=== PATIENT | female | born 1960 | race Caucasian/White ===

== ENCOUNTER 2016-08-20 21:44 | Inpatient (IN) | payer OTHER ==
[~2016-08-20] VITALS: Ht 162.6 cm; Wt 39.5 kg
[~2016-08-20 21:44] MED LIST: ALPR1TAB2 PO; CALC1TAB79 PO; CELE200C PO; CYAN100080 PO; GABA-526 PO; HYDR-902 PO; HYDR200T39 PO; LEVE500T8 PO; LEVO250T35 PO; LIPA1CAP2 PO; METR250T PO; PANT40TA3 PO; PRED10TA PO; TRAM-40 PO
[2016-08-21] MEDS ORDERED: morphine 4 MG/ML VIAL IV STA (00:14)
[2016-08-21] MEDS ORDERED: SOD CHLORIDE 0.9% 1,000 ML IV STA (00:14)
[2016-08-21] MEDS ORDERED: ONDANSETRON 4 MG INJ IV STA (00:14)
[2016-08-21 01:05] LABS: BASOPHIL # 0.2 10^3/ul (0.0-0.1); BASOPHILS % 1.5 % (0.0-2.0); EOSINOPHILS % 0.4 % (0.0-7.0); HEMATOCRIT 38.2 % (37.0-47.0); HEMOGLOBIN 12.7 g/dl (12.0-16.0); LYMPHOCYTES % 27.9 % (15.0-51.0); MEAN CORPUSCULAR HEMOGLOBIN 29.2 pg (29.0-33.0); MEAN CORPUSCULAR HGB CONC 33.2 g/dl (32.0-37.0); MEAN CORPUSCULAR VOLUME 87.9 fl (82.0-101.0); MEAN PLATELET VOLUME 9.7 fl (7.4-10.4); MONOCYTE # 0.8 10^3/ul (0.3-0.9); MONOCYTES % 7.3 % (0.0-11.0); NEUTROPHIL # 6.8 10^3/ul (1.6-7.5); NEUTROPHILS % 62.9 % (39.0-77.0); PLATELET COUNT 472 10^3/UL (140-440); RED BLOOD COUNT 4.35 10^6/ul (4.20-5.40); UNCORRECTED WBC 10.8 10^3/ul (4.8-10.8); WHITE BLOOD COUNT 10.8 10^3/ul (4.8-10.8)
[2016-08-21 01:16] LABS: INR 0.93; PROTIME 12.5 Sec (12.2-14.2)
[2016-08-21 01:17] LABS: PARTIAL THROMBOPLASTIN TIME 30.2 Sec (25.0-35.0)
[2016-08-21 01:20] LABS: CREATININE 0.66 mg/dl (0.44-1.00)
[2016-08-21 01:21] LABS: ALBUMIN/GLOBULIN RATIO 0.97; CALCIUM 9.9 mg/dl (8.4-10.2); TOTAL PROTEIN 8.1 g/dl (6.1-8.1)
--- NOTE | 2016-08-21 01:21 | RADRPT ---
PROCEDURE: CT Abdomen and pelvis without contrast. CLINICAL INDICATION: Abdominal pain. TECHNIQUE: CT scan of the abdomen and pelvis was performed on the [employer] 6 4 slice VCT scanner. Contiguous axial images using 2.5 mm slice thickness were obtained from the aye ng bases to the ischial tuberosities without intravenous contrast. Coronal and sagittal reformatted images were also obtained. Images were reviewed on the PACS workstation. One or more of the following dose reduction techniques were used: - Automated exposure control. - Adjustment of the mA and/or kV according to patient size. - Use of iterative reconstruction technique. Exam CTD/vol = 4.19 mGy. Total exam DLP = 218.79 mGy-cm. COMPARISON: Not available. FINDINGS: Evaluation of the lung bases demonstrates mild bibasilar atelectasis and centrolobular emphysema. Abdomen: The liver is normal in size. There is no focal mass or dilatation of the biliary tree. T he gallbladder is not distended. Multiple gallstones are identified. The patient is status post sple nectomy with small amount of stranding and fluid within the left upper abdomen measuring 2.8 x 1.8 c m. The pancreas and bilateral adrenal glands are within normal limits. Bilateral kidneys are satinder l in size with no contour deforming mass identified. There is a 2 x 1 mm calculus within the lower pole of the left kidney. There is no radiopaque ureteral calculus identified. There is no hydronep hrosis or hydroureter. There is no retroperitoneal adenopathy. The abdominal aorta is of normal ca liber with scattered atherosclerotic calcifications. There are small midline ventral abdominal wall hernias containing fat. There is moderate retained s tool within the colon. There are postsurgical changes with anastomotic sutures within the lower abd omen. There is an area of inflammation with mild fluid within the right lower quadrant with a few s cattered bubbles of free air. There is no bowel obstruction. The appendix is not visualized. Ther e is no diverticulosis or diverticulitis. There is a small loculated fluid collection within the ri ght pericolic gutter measuring 1.9 x 4.1 cm. Pelvis: The bladder is unremarkable. The uterus is absent. There is no significant pelvic adenopa thy or free fluid. Evaluation of the osseous structures demonstrates no suspicious lytic or blastic lesion. IMPRESSION: Postsurgical changes within all spinous sutures within the lower abdomen. There is stranding with s mall amount of fluid and air within the right lower quadrant suspicious for abscess and fistula form ation. There is no bowel obstruction. Status post splenectomy with small amount of stranding and fluid within the left upper abdomen. Small loculated fluid collection within the right pericolic gutter. Moderate retained stool within the colon. Mild bibasilar atelectasis and centrolobular emphysema. Cholelithiasis. Nonobstructing left renal calculus. Vascular calcification reflective of atherosclerosis. A call report was made to Dr. Kirkland at 01:20 a.m. .Saroj Nobles MD, MD Date Time Electronically viewed and signed by .Saroj Nobles MD, on 08/21/2016 01:21 .T/
[2016-08-21] MEDS ORDERED: PIPER-TAZO 3.375 GM IV (PMX) 100 ML IVPB STA (01:27)
[2016-08-21] MEDS ORDERED: VANCOMYCIN 1 GM (PMX) 250 ML IVPB STA (01:27)
[2016-08-21 01:29] LABS: ADD UMIC YES; URINE BILIRUBIN (Dip) NEGATIVE (NEGATIVE); URINE BLOOD (Dip) TRACE (NEGATIVE); URINE COLOR LT. YELLOW (YELLOW); URINE GLUCOSE (Dip) NEGATIVE (NEGATIVE); URINE KETONES (Dip) NEGATIVE (NEGATIVE); URINE LEUKOCYTE ESTERASE (Dip) 1+ (NEGATIVE); URINE NITRITE (Dip) NEGATIVE (NEGATIVE); URINE TOTAL PROTEIN (Dip) NEGATIVE (NEGATIVE); URINE UROBILINOGEN (Dip) 0.2 E.U./dL (0.1-1.0)
[2016-08-21 01:33] LABS: CONDITION 1; LH ANALYZER COMMENTS 1; SUSPECT 1
[2016-08-21 01:38] LABS: BACTERIA,URINE OCCASIONAL; MUCUS,URINE OCCASIONAL; SQUAMOUS EPITHELIAL CELL,UR FEW; TRANSITIONAL EPI CELLS,URINE OCCASIONAL; URINE RBCS 0-2 /HPF (0)
[2016-08-21 02:44] VITALS: TEMP 98.6
[2016-08-21 03:56] VITALS: Ht 162.6 cm; Wt 39.5 kg
[2016-08-21 04:36] VITALS: BP 109/60; PULSE 72; RESP 20
[2016-08-21] MEDS ORDERED: ZOLPIDEM 5 MG TAB PO PRN (05:30)
[2016-08-21] MEDS ORDERED: HYDROCODONE/APAP (10/325) TAB PO PRN (05:30)
[2016-08-21] MEDS ORDERED: ACETAMINOPHEN 325 MG TAB PO PRN (05:30)
[2016-08-21] MEDS ORDERED: DOCUSATE SODIUM 100 MG CAP PO PRN (05:30)
[2016-08-21] MEDS ORDERED: HYDROCODONE/APAP (5/325) TAB PO PRN (05:30)
[2016-08-21] MEDS ORDERED: morphine 2 MG INJ IV PRN ×2 (05:30→06:00)
[2016-08-21] MEDS ORDERED: NACL 0.9% 3 ML SYG IV SCH (05:30)
[2016-08-21] MEDS ORDERED: ONDANSETRON 4 MG INJ IV PRN (05:30)
[2016-08-21] MEDS ORDERED: traMADol 50 MG TAB PO PRN (05:30)
[2016-08-21] MEDS ORDERED: VANCOMYCIN IV PER PHARMACY XX SCH (05:30)
[2016-08-21] MEDS: PANTOPRAZOLE (EC) 40 MG TAB PO SCH (06:18)
[2016-08-21 08:25] VITALS: BP 103/55; RESP 18
[2016-08-21] MEDS: predniSONE 10 MG TAB PO SCH (08:37)
[2016-08-21] MEDS: CYANOCOBALAMIN 500 MCG TAB PO SCH (08:37)
[2016-08-21] MEDS: HYDROXYCHLOROQUINE 200 MG TAB PO SCH ×2 (08:37→21:19)
[2016-08-21] MEDS: ALPRAZOLAM 1 MG TAB PO SCH ×3 (08:37→21:00)
[2016-08-21] MEDS: LEVETIRACETAM 500 MG TAB PO SCH ×2 (08:37→21:19)
[2016-08-21] MEDS ORDERED: NON-FORMULARY/PATIENT OWN MED (Lipase-Protease-Amylase* (Creon DR* 6,000) 1 CAP) XX SCH (09:00)
--- NOTE | 2016-08-21 10:57 | HP ---
DATE OF ADMISSION: 08/21/2016 TIME: 7:45 a.m. CHIEF COMPLAINT: Postop wound infection. HISTORY OF PRESENT ILLNESS: The patient is a 56-year-old female with a history of splenomegaly, sma ll-bowel obstruction with adhesions. The patient is status post surgery with Dr. Mcmahan on 2015 where he had a laparotomy with anterior lysis, small bowel resection and anastomosis, right florencio pingo-oophorectomy, ureteral dissection with repositioning and splenectomy. The patient has no othe r medical history. Patient presents because of concerns of a postoperative infection. She states t hat her wound has increasing amounts of pus and she noted drainage from her vagina and for that reas on she presented to the hospital. She has no other complaints at this time. PAST MEDICAL HISTORY: As per HPI. HOME MEDICATIONS: 1. Calcium. 2. Levaquin. 3. Flagyl. 4. Xanax. 5. Celebrex. 6. Vitamin B. 7. Gabapentin. 8. [place]. 9. Hydrochloroquine. 10. Keppra. 11. Lipase. 12. Protonix. 13. Prednisone. 14. Tramadol. ALLERGIES: 1. CODEINE. 2. LEVOFLOXACIN. 3. LORAZEPAM. FAMILY HISTORY: Denies. SOCIAL HISTORY: Denies any alcohol or drug abuse, she smokes a cigarettes a day. REVIEW OF SYSTEMS: A 12 point review of systems negative except for that discussed in HPI. PHYSICAL EXAMINATION: VITAL SIGNS: Temperature is 98.3, pulse 72, respiratory rate 20, blood pressure 109/60, saturation 93% on room air. GENERAL: No acute distress, alert and oriented. HEENT: Normocephalic, atraumatic. LUNGS: Clear to auscultation. CARDIOVASCULAR: Regular rate and rhythm. ABDOMEN: Nondistended, nontender, soft. Wound is noted. No significant erythema around the wound i s noted. There is some mild redness around the wound. EXTREMITIES: No clubbing, cyanosis, or edema. LABORATORIES: White count 7.8, hemoglobin 12.7, platelets are 472. Chemistry: Sodium is 142, potas sium is 4.0, anion gap is 20. INR is 0.93. Urine is 1+ leukocyte esterase, WBCs 10 to 25. DIAGNOSTICS: Abdominal and pelvis CT shows post-surgical changes, sutures within the lower ab domen. There is a small amount of fluid and air within the right lower quadrant suspicious for absc ess and fistula formation. There is no bowel obstruction, status post splenectomy and fluid wi thin the left upper abdomen. There is small loculated fluid collection within the right pericolic g utter, moderate retained stool within the colon, mild residual atelectasis and centrilobular emphyse ma, nonobstructing left renal calculus with vascular calcification reflective of atherosclerosis. ASSESSMENT AND PLAN: 1. Postsurgical wound with possible fistula formation as well as abscess formation. The patient do es state that there is a drainage coming from her vagina. Will consult Dr. Mcmahan who is the patie nt's surgeon. Will treat with vancomycin and Zosyn for possible post-surgical urinary infection and abscess. 2. Urinary tract infection, would super cover with Zosyn IV. 3. Prophylaxis: SCDs. Dictated By: AMANDA CHONG MD BS/NTS Conf#: [id number] DID#: [id number]
[2016-08-21] MEDS: CELECOXIB 200 MG CAP PO SCH ×2 (12:12→21:19)
[2016-08-21] MEDS: PIPER-TAZO 3.375 GM IV (PMX) 100 ML IVPB SCH ×2 (12:12→18:04)
[2016-08-21] MEDS: CREON (24K-76K-120K) 1 CAP PO SCH ×3 (13:36→21:19)
[2016-08-21] MEDS: DEXTROSE 5%-0.45% NACL 1,000 ML IV SCH (14:26)
--- NOTE | 2016-08-21 15:08 | EN ---
Date/Time of Note Date/Time of Note DATE: 08/21/16 TIME: 15:05 Event Note Medicine Medicine Event Note Patient admitted to 6 W. Awake alert oriented Requesting something to eat, vital signs remained stable Purulent drainage noted from abdominal wound Vital signs stable GENERAL: Thin cachectic lady comfortable at rest VITAL SIGNS: per chart NECK: Supple. No JVD or lymphadenopathy. CARDIAC EXAM: S1, S2. No added sounds or murmurs. CHEST: clear bilaterally, No added sounds, rales or wheezes ABDOMEN: Soft, nontender. Mid abdominal incision with open drainage below umbilicus EXTREMITIES: No cyanosis, clubbing or edema. NEUROLOGIC: Generalized weakness. No focal deficits. CT abdomen and pelvis IMPRESSION: Postsurgical changes within all spinous sutures within the lower abdomen. There is stranding with small amount of fluid and air within the right lower quadrant suspicious for abscess and fistula formation. There is no bowel obstruction. Status post splenectomy with small amount of stranding and fluid within the left upper abdomen. Small loculated fluid collection within the right pericolic gutter. Moderate retained stool within the colon. Mild bibasilar atelectasis and centrolobular emphysema. Cholelithiasis. Nonobstructing left renal calculus. Vascular calcification reflective of atherosclerosis. Assessment 1. Extensive abdominal resection for pelvic malignancy 2. Abdominal wound and no evidence of abscess with infection and possible fistula 3. Cachexia 4. History of emphysema Plan 1. Continue empiric antibiotics Wound has been swabbed 2. 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 Advance diet 4. DVT and GI prophylaxis SRINIVAS CORTEZ MD, [facility] Aug 21, 2016 15:08
[2016-08-21] MEDS: VANCOMYCIN 500MG/NS (PMX) 100 ML IVPB SCH (16:54)
[2016-08-21] MEDS: ENOXAPARIN 40 MG/0.4 ML SYG SC SCH (17:10)
[2016-08-21 19:22] VITALS: BP 96/51; RESP 16
[2016-08-21] MEDS ORDERED: GABAPENTIN 300 MG CAP PO SCH (21:00)
[2016-08-22] MEDS: PIPER-TAZO 3.375 GM IV (PMX) 100 ML IVPB SCH ×2 (00:32→05:31)
[2016-08-22 00:36] VITALS: BP 94/53; PULSE 73
[2016-08-22] MEDS ORDERED: VANCOMYCIN 750 MG in SOD CHLORIDE 0.9% 150 ML IVPB SCH (03:00)
[2016-08-22] MEDS: DEXTROSE 5%-0.45% NACL 1,000 ML IV SCH ×2 (03:50→05:33)
[2016-08-22] MEDS: VANCOMYCIN 500MG/NS (PMX) 100 ML IVPB SCH (04:11)
[2016-08-22] MEDS: PANTOPRAZOLE (EC) 40 MG TAB PO SCH (05:31)
[2016-08-22 05:48] LABS: BASOPHIL # 0.2 10^3/ul (0.0-0.1); BASOPHILS % 2.1 % (0.0-2.0); EOSINOPHILS % 0.2 % (0.0-7.0); HEMATOCRIT 31.1 % (37.0-47.0); HEMOGLOBIN 10.3 g/dl (12.0-16.0); LYMPHOCYTES # 2.3 10^3/ul (0.8-2.9); LYMPHOCYTES % 25.7 % (15.0-51.0); MEAN CORPUSCULAR HEMOGLOBIN 29.6 pg (29.0-33.0); MEAN CORPUSCULAR HGB CONC 33.1 g/dl (32.0-37.0); MEAN CORPUSCULAR VOLUME 89.6 fl (82.0-101.0); MEAN PLATELET VOLUME 9.1 fl (7.4-10.4); MONOCYTE # 0.7 10^3/ul (0.3-0.9); MONOCYTES % 8.3 % (0.0-11.0); NEUTROPHIL # 5.7 10^3/ul (1.6-7.5); NEUTROPHILS % 63.7 % (39.0-77.0); PLATELET COUNT 447 10^3/UL (140-440); RED BLOOD COUNT 3.47 10^6/ul (4.20-5.40); RED CELL DISTRIBUTION WIDTH 14.9 % (11.5-14.5); UNCORRECTED WBC 8.9 10^3/ul (4.8-10.8); WHITE BLOOD COUNT 8.9 10^3/ul (4.8-10.8)
[2016-08-22 05:52] LABS: POTASSIUM 3.4 mmol/L (3.5-5.1)
[2016-08-22 05:54] LABS: CREATININE 0.7 mg/dl (0.44-1.00)
[2016-08-22 05:55] LABS: CALCIUM 8.5 mg/dl (8.4-10.2); PHOSPHORUS 3.5 mg/dl (2.5-4.9)
[2016-08-22 05:56] LABS: MAGNESIUM 1.8 mg/dl (1.7-2.5)
[2016-08-22 06:30] LABS: CONDITION 1; LH ANALYZER COMMENTS 1; NUCLEATED RED BLOOD CELLS # 0.2 10^3/ul (0.0-0.0)
[2016-08-22] MEDS: CREON (24K-76K-120K) 1 CAP PO SCH (08:59)
[2016-08-22] MEDS: CYANOCOBALAMIN 500 MCG TAB PO SCH (08:59)
[2016-08-22] MEDS ORDERED: INFLUENZA VIRUS VACCINE 0.5 ML (DISPENSING) IM* ONE (09:00)
[2016-08-22] MEDS: predniSONE 10 MG TAB PO SCH (09:00)
[2016-08-22] MEDS: ALPRAZOLAM 1 MG TAB PO SCH (09:00)
[2016-08-22] MEDS: HYDROXYCHLOROQUINE 200 MG TAB PO SCH (09:00)
[2016-08-22] MEDS: LEVETIRACETAM 500 MG TAB PO SCH (09:01)
[2016-08-22] MEDS: CELECOXIB 200 MG CAP PO SCH (09:01)
[2016-08-22] MEDS: ENOXAPARIN 40 MG/0.4 ML SYG SC SCH (09:02)
[2016-08-22] MEDS ORDERED: POTASSIUM CHLORIDE (SR) 20 MEQ TAB PO STA (11:52)
--- NOTE | 2016-08-22 12:17 | DS ---
Date/Time of Note Date/Time of Note DATE: 08/22/16 TIME: 12:00 Discharge Summary Admission/Discharge Info Admit Date/Time Aug 21, 2016 at 01:55 Discharge Date/Time Final Diagnosis 1. Postsurgical wound with possible fistula formation as well as abscess formation, stable, follow up with Dr. Mcmahan 2. Urinary tract infection, on bactrim 3. Mild normocytic anemia, follow up with PCP 4. Hypokalemia, KCl given Patient Condition: Stable Hx of Present Illness he patient is a 56-year-old female with a history of splenomegaly, small-bowel obstruction with adhesions. The patient is status post surgery with Dr. Mcmahan on 07/20/2016 where he had a laparotomy with anterior lysis, small bowel resection and anastomosis, right salpingo-oophorectomy, ureteral dissection with repositioning and splenectomy. The patient has no other medical history. Patient presents because of concerns of a postoperative infection. She states that her wound has increasing amounts of pus and she noted drainage from her vagina and for that reason she presented to the hospital. She has no other complaints at this time. Hospital Course Patient got iv antibiotics with zosyn and vancomycin. She is afebrile, no leukocytopenia. Patient is seen by Dr. Mcmahan who told patient infection is getting better, take oral antibiotics with Bactrim and see him in office. Home Meds Active Scripts Metronidazole* (Flagyl*) 250 Mg Tablet, 250 MG PO Q6, #28 TAB Prov:QASIM SHEEHAN 07/31/16 Levofloxacin* (Levaquin*) 250 Mg Tablet, 500 MG PO DAILY@06 for 7 Days, TAB Prov:QASIM SHEEHAN 07/31/16 Reported Medications Calcium Carbonate/Vitamin D3 ([place] 500+D Tablet) 1 Each Tablet, 1 EACH PO BID, TAB 07/20/16 Cyanocobalamin* (Vitamin B-12*) 1,000 Mcg Tablet.sa, 1000 MCG PO DAILY, TAB 07/20/16 Celecoxib* (Celebrex*) 200 Mg Capsule, 200 MG PO BID, CAP 07/20/16 Levetiracetam* (Levetiracetam*) 500 Mg Tablet, 500 MG PO BID, TAB 07/20/16 Hydrocodone/Acetaminophen ([place] 10-325 Tablet) 1 Each Tablet, 1 EACH PO QID Y for PAIN, TAB 07/20/16 Pantoprazole* (Protonix*) 40 Mg Tablet.dr, 40 MG PO DAILY, TAB 07/20/16 Gabapentin* (Gabapentin*) 600 Mg Tablet, 1200 MG PO QHS, #60 TAB 07/20/16 Prednisone (Prednisone) 10 Mg Tab, 10 MG PO DAILY, TAB 06/23/16 Ostmoq-Ufrggbsm-Krfjzvp* (Kael MCGINNIS* 6,000) 6,000 L-19,000-30,000 Unit Capsule.dr , 1 CAP PO QID, CAP 06/23/16 Hydroxychloroquine Sulfate* (Hydroxychloroquine Sulfate*) 200 Mg Tablet, 200 MG PO BID, TAB 05/17/16 Tramadol Hcl* (Ultram*) 50 Mg Tablet, 50 MG PO Q6H Y for PAIN, TAB 05/17/16 Alprazolam* (Xanax*) 1 Mg Tab, 1 MG PO TID 06/26/12 Pending Labs Laboratory Tests Test 08/22/16 05:09 Anion Gap 11 (8-16) Basophils # 0.210^3/ul (0.0-0.1) Basophils % 2.1% (0.0-2.0) Blood Morphology Comment Blood Urea Nitrogen 9mg/dl (7-20) Calcium Level 8.5mg/dl (8.4-10.2) Carbon Dioxide Level 25mmol/L (21-31) Chloride Level 108mmol/L (97-110) Creatinine 0.70mg/dl (0.44-1.00) Differential Comment AUTO w/SCAN Eosinophils # 0.010^3/ul (0.0-0.5) Eosinophils % 0.2% (0.0-7.0) Glucose Level 100mg/dl (70-220) Hematocrit 31.1% (37.0-47.0) Hemoglobin 10.3g/dl (12.0-16.0) Lymphocytes # 2.310^3/ul (0.8-2.9) Lymphocytes % 25.7% (15.0-51.0) Magnesium Level 1.8mg/dl (1.7-2.5) Mean Corpuscular Hemoglobin 29.6pg (29.0-33.0) Mean Corpuscular Hemoglobin Concent 33.1g/dl (32.0-37.0) Mean Corpuscular Volume 89.6fl (82.0-101.0) Mean Platelet Volume 9.1fl (7.4-10.4) Monocytes # 0.710^3/ul (0.3-0.9) Monocytes % 8.3% (0.0-11.0) Neutrophils # 5.710^3/ul (1.6-7.5) Neutrophils % 63.7% (39.0-77.0) Nucleated Red Blood Cells # 0.210^3/ul (0.0-0.0) Nucleated Red Blood Cells % 0.0/100WBC (0.0-0.0) Phosphorus Level 3.5mg/dl (2.5-4.9) Platelet Count 26221^3/UL (140-440) Potassium Level 3.4mmol/L (3.5-5.1) Red Blood Count 3.4710^6/ul (4.20-5.40) Red Cell Distribution Width 14.9% (11.5-14.5) Sodium Level 141mmol/L (135-144) White Blood Count 8.910^3/ul (4.8-10.8) ABY VAZQUEZ MD Aug 22, 2016 12:16
[2016-08-22] MEDS ORDERED: BACTDS PO (12:18)
== END 2016-08-22 13:10 | disposition home or self-care (01) | DRG 863 ==
LOC: E/R 21:44 → PP2 08-21 01:55 → MS2 08-21 04:14
PROVIDERS: ADMIT Internal Medicine; ATTEND Internal Medicine
DX: T81.4XXA Infection following a procedure, initial encounter (principal); N39.0 Urinary tract infection, site not specified; B99.8 Other infectious disease; D64.9 Anemia, unspecified; E87.6 Hypokalemia
CPT/HCPCS: 74176; 80048; 80053; 81001; 81003; 83690; 83735; 84100; 85025; 85610; 85730; 87040; 87070; 87081; 87086; 90686; J1650; J2270; J2405; J2543; J3370; J7030; J7042; J7512

== ENCOUNTER 2016-09-07 06:37 | Inpatient (IN) | payer OTHER ==
[~2016-09-07] VITALS: Ht 162.6 cm; Wt 40.0 kg
[~2016-09-07 06:37] MED LIST changes: +BACTDS PO; -LEVO250T35 PO; -METR250T PO
[2016-09-07] MEDS ORDERED: ONDANSETRON 4 MG INJ IV STA ×2 (07:12→10:59)
[2016-09-07] MEDS ORDERED: SOD CHLORIDE 0.9% 1,000 ML IV STA (07:12)
[2016-09-07] MEDS ORDERED: morphine 4 MG/ML VIAL IV STA (07:12)
--- NOTE | 2016-09-07 07:26 | ERA ---
ER Documentation Chief Complaint Date/Time DATE: 09/07/16 TIME: 07:19 Chief Complaint upper incision infection for the past 4 days. no fevers HPI This is a 56-year-old female that presents the emergency department complaining of abdominal pain. The patient underwent surgery on July 20, 2016, 1 month and 18 days ago, which included right ovarian resection, ventral hernia repair, lysis of adhesions with a splenectomy performed by Dr. Maxi Mcmahan [facility]. The patient indicates that she was discharged from the hospital on July 31 and several days later had been placed on 10 days of Bactrim. She had a postoperative follow-up and Dr. Lulu Olson's office 48 hours ago. She said at that time she had minimal purulent drainage from her surgical incision site. This was cleaned out at the time by Dr. Rueda and ellis. The patient presents to the emergency department this morning as she indicates she has had worsening of her abdominal pain which she states is a diffuse abdominal pain most prominent around the upper surgical incision site, with foul -smelling purulent drainage. Yesterday evening she had an episode of fever shaking or chills and has been taking hydrocodone for analgesic control which improves the pain but does not completely resolve the pain. She states the abdominal discomfort is 8 out of 10 in intensity. She is no shortness of breath at rest or exertion. She is felt nauseous but has not experienced any hemoptysis hematemesis or melanotic stools. The patient also has a history of leukopenia secondary to lupus. She has a history of hepatitis C seizures and COPD. She denies any difficulty breathing at this time. She has no chest pain or pressure that radiates to the neck or back or jaw ROS All systems reviewed and are negative except as per history of present illness. Medications Home Meds Reported Medications Thiamine* (Vitamin B-1*) 100 Mg Tablet, 100 MG PO DAILY, TAB 09/07/16 Calcium Carbonate/Vitamin D3 (Oysco 500+D Tablet) 1 Each Tablet, 1 EACH PO BID, TAB 07/20/16 Cyanocobalamin* (Vitamin B-12*) 1,000 Mcg Tablet.sa, 1000 MCG PO DAILY, TAB 07/20/16 Celecoxib* (Celebrex*) 200 Mg Capsule, 200 MG PO BID, CAP 07/20/16 Levetiracetam* (Levetiracetam*) 500 Mg Tablet, 500 MG PO BID, TAB 07/20/16 Hydrocodone/Acetaminophen (Ralph 10-325 Tablet) 1 Each Tablet, 1 EACH PO QID Y for PAIN, TAB 07/20/16 Pantoprazole* (Protonix*) 40 Mg Tablet.dr, 40 MG PO DAILY, TAB 07/20/16 Gabapentin* (Gabapentin*) 600 Mg Tablet, 1200 MG PO QHS, #60 TAB 07/20/16 Prednisone (Prednisone) 10 Mg Tab, 10 MG PO DAILY, TAB 06/23/16 Vmnfim-Xtxjwwtt-Gewyenl* (Creon * 6,000) 6,000 L-19,000-30,000 Unit Capsule.dr , 1 CAP PO QID, CAP 06/23/16 Hydroxychloroquine Sulfate* (Hydroxychloroquine Sulfate*) 200 Mg Tablet, 200 MG PO BID, TAB 05/17/16 Tramadol Hcl* (Ultram*) 50 Mg Tablet, 50 MG PO Q6H Y for PAIN, TAB 05/17/16 Alprazolam* (Xanax*) 1 Mg Tab, 1 MG PO TID 06/26/12 Discontinued Scripts Sulfamethoxazole-Trimethoprim* (Bactrim* DS) 800-160 Mg Tab, 1 TAB PO BID, #20 TAB Prov:ABY VAZQUEZ MD 08/22/16 Allergies Allergies: Coded Allergies: levofloxacin (Verified Allergy, Unknown, 09/07/16) lorazepam (Verified Adverse Reaction, Severe, agitation, 09/07/16) pt became agitated when received Ativan codeine (Verified Adverse Reaction, Mild, STOMACH UPSET/NAUSEA, 09/07/16) PMhx/Soc History of Surgery: Yes (ABDOMINAL SURGERY,HYSTERECTOMY, APPENDECTOMY, SPLENECTOMY) Anesthesia Reaction: No Hx Neurological Disorder: Yes (SEIZURES) Hx Respiratory Disorders: Yes (CURRENT SMOKER, COPD) Hx Cardiac Disorders: No Hx Psychiatric Problems: No Hx Miscellaneous Medical Probl: No Hx Alcohol Use: No Hx Substance Use: No Hx Tobacco Use: Yes Physical Exam Vitals Vital Signs Date Time Temp Pulse Resp B/P Pulse Ox O2 Delivery O2 Flow Rate FiO2 09/07/16 06:51 98.1 115 20 134/72 95 Physical Exam Constitutional:Well-developed. Well-nourished. HEENT:Normocephalic. Atraumatic.Pupils were equal round reactive to light. Moist mucous membranes.No tonsillar exudates. Neck: No nuchal rigidity. No lymphadenopathy. No posterior cervical spine tenderness or step-offs. Respiratory: Not using accessory muscles of respiration.Lungs were clear to auscultation bilaterally. No rhonchi. No rales. No wheezing. Cardiovascular: Regular rate regular rhythm.No murmurs. No rubs were appreciated.S1, S2 normal. Distal pulses are palpable 2+ bilaterally. GI: Abdomen was soft. Mild tenderness surrounding upper surgical incision site with surrounding skin that was clean dry and intact, above the umbilicus with a 1 cm circumferential incision that was packed with gauze that had been covered and a foul-smelling purulent drainage. Distal surgical incision site beneath the umbilicus was clean dry and intact and wound was closed with no dehiscence. Non Distended. No pulsatile abdominal masses or bruits. No rebound. No guarding. Bowel sounds were present and normal. Muscle skeletal: Full range of motion of both the upper and lower extremities bilaterally.Normal muscle tone.No assymetrical calf tenderness or swelling. Skin: No petechia, no purpura. No lesions on the palms or the soles of the feet. No maculopapular rash. NEURO: Patient was alert, awake, orientated x3.No facial droop. Gait observed and normal with no ataxia.Speech had regular rate and rhythm. No focal neurological deficits. Result Diagram: 09/07/16 0725 09/07/16 0725 Results 24 hrs Laboratory Tests Test 09/07/16 07:20 09/07/16 07:25 09/07/16 08:45 Lactic Acid Level 2.4mmol/L Activated Partial Thromboplast Time 29.5Sec Alanine Aminotransferase (ALT/SGPT) 12IU/L Albumin 3.4g/dl Albumin/Globulin Ratio 0.87 Alkaline Phosphatase 83IU/L Amylase Level 77U/L Anion Gap 15 Aspartate Amino Transf (AST/SGOT) 14IU/L Basophils # 0.110^3/ul Basophils % 0.5% Blood Morphology Comment Blood Urea Nitrogen 23mg/dl Calcium Level 9.1mg/dl Carbon Dioxide Level 27mmol/L Chloride Level 102mmol/L Creatinine 0.63mg/dl Direct Bilirubin 0.00mg/dl Eosinophils # 0.010^3/ul Eosinophils % 0.1% Globulin 3.90g/dl Glucose Level 99mg/dl Hematocrit 35.3% Hemoglobin 11.6g/dl INR International Normalized Ratio 1.00 Indirect Bilirubin 0.0mg/dl Lipase 320U/L Lymphocytes # 2.310^3/ul Lymphocytes % 13.2% Mean Corpuscular Hemoglobin 28.8pg Mean Corpuscular Hemoglobin Concent 32.9g/dl Mean Corpuscular Volume 87.5fl Mean Platelet Volume 9.5fl Monocytes # 1.110^3/ul Monocytes % 6.1% Neutrophils # 13.910^3/ul Neutrophils % 80.1% Nucleated Red Blood Cells # 0.010^3/ul Nucleated Red Blood Cells % 0.0/100WBC Platelet Count 11619^3/UL Potassium Level 3.6mmol/L Prothrombin Time 13.2Sec Prothrombin Time Ratio 1.0 Red Blood Count 4.0310^6/ul Red Cell Distribution Width 14.1% Sodium Level 140mmol/L Total Bilirubin 0.0mg/dl Total Protein 7.3g/dl Troponin I < 0.012ng/ml White Blood Count 17.410^3/ul Urine Bacteria FEW Urine Bilirubin NEGATIVE Urine Calcium Oxalate Crystals FEW Urine Clarity CLEAR Urine Color LT. YELLOW Urine Epithelial Cells FEW Urine Glucose NEGATIVE% Urine Hemoglobin NEGATIVE Urine Ketones NEGATIVE Urine Leukocyte Esterase NEGATIVE Urine Microscopic RBC NONE SEEN/HPF Urine Microscopic WBC 10-25/HPF Urine Nitrite NEGATIVE Urine Specific [place] 1.020 Urine Total Protein TRACE Urine Urobilinogen 0.2 E.U./dL Urine pH 6.0 Current Medications Medications (Trade) Dose Ordered Sig/Esteban Route PRN Reason Start Time Stop Time Status Last Admin Dose Admin Sodium Chloride (NS) 1,000 ml @ 1,000 mls/hr Q1H STAT IV 09/07/16 07:12 09/07/16 08:11 DC 09/07/16 07:47 Morphine Sulfate (morphine) 4 mg ONCE STAT IV 09/07/16 07:12 09/07/16 07:15 DC 09/07/16 07:47 Ondansetron HCl (Zofran Inj) 4 mg ONCE STAT IV 09/07/16 07:12 09/07/16 07:15 DC 09/07/16 07:47 IV Flush 10 ml 10 ml STK-MED ONCE .ROUTE 09/07/16 08:09 09/07/16 08:10 DC 09/07/16 08:29 Sodium Chloride (NS) 100 ml @ ud STK-MED ONCE .ROUTE 09/07/16 08:09 09/07/16 08:10 DC 09/07/16 08:29 Iohexol (Omnipaque 300mg/ ml) 150 ml STK-MED ONCE .ROUTE 09/07/16 08:09 09/07/16 08:10 DC 09/07/16 08:30 Sodium Chloride 1240 ml 1,240 ml BOLUS OVER 2 HOURS STAT IV* 09/07/16 09:23 09/07/16 09:24 DC Vancomycin HCl 250 ml @ 125 mls/hr ONCE STAT IVPB 09/07/16 09:23 09/07/16 11:22 Clindamycin HCl/ Dextrose 50 ml @ 50 mls/hr ONCE STAT IVPB 09/07/16 09:23 09/07/16 10:22 DC 09/07/16 10:17 Piperacillin Sod/ Tazobactam Sod (Zosyn 3.375gm/ 100 ml (Pmx)) 100 ml @ 100 mls/hr ONCE STAT IVPB 09/07/16 09:23 09/07/16 10:22 DC Procedures/MDM This patient presented to the emergency department with abdominal pain status post intra-abdominal splenectomy, ventral hernia repair and right nephrectomy and was seen and evaluated by myself. My differential diagnosis included but was not limited to abdominal aortic aneurysm, appendicitis, pancreatitis, perforated peptic ulcer, perforated viscus, Boerhaaves syndrome or visceral pain such as diverticulitis, DKA, esophagitis, hepatitis or bowel obstruction. The patient was placed on a animal daycare provider, continuous pulse oximetry, and IV access was established by nursing staff. Patient received intravenous morphine Zofran for analgesic control. I did obtain a wound culture as well as blood cultures and urine culture and the patient was started on broad-spectrum antibiotics that she did meet sepsis criteria for suspected cellulitis. The patient had no physical exam findings at this time to suggest necrotizing fasciitis or abdominal compartment syndrome. The patient was started on clindamycin, Zosyn and vancomycin. 12 Lead EKG tracing ordered and reviewed by myself showed: Normal sinus rhythm of 89 bpm and no arrhythmia. MD interval normal. QRS duration normal. No ST segment elevation No ST segment depression. No changes consistent with acute ischemia. Patient's infectious symptoms have not stabilized and the patient is at risk of rapid decompensation. The patient will be admitted for careful hydration, antibiotic therapy, and infectious source control. Severe Sepsis Assessment: Infectious Source: Postoperative abdominal cellulitis End organ damage indicated by: Lactate > 2.0 mmol/L Severe Sepsis Managment: Blood Cultures X 2 before broad spectrum antibiotics initiated within 3 hours of recognition. 30 ml/kg NS bolus Completed Initial Lactate: 2.4 Repeat Lactate pending I considered further perfusion assessment with CVP measurement, SCVO2, bedside ultrasound volume assessment, passive leg raise, trial of further fluid bolus. And preceded with IV fluids Critical Care: Time: 45 minutes Treatments/Evaluations: Close monitoring and treatment of unstable vital signs, cardiorespiratory, and neurologic status, while maintaining tight balance of fluid, respiratory, and cardiac interventions. I obtained a CT scan due to the severity of the patient's pain, leukocytosis and concern for possible postoperative infection. CT scan findings were reviewed by the radiologist as well as myself and indicated the followin. 4.8 x 3.4 of 0.7 cm gas containing collection surrounded by unopacified small bowel and colon adjacent to surgical anastomotic margin. Differential diagnostic considerations include abscess, contained perforation, or colo- enteric fistula. No bowel obstruction. Oral contrast may be considered for further characterization of surrounding bowel and possible fistulous connection. 2. 1.9 x 4.1 cm right para colic gutter gas containing fluid collection most compatible with small abscess and change compared to previous study. 3. Wall thickening Cholelithiasis with. Trace pericholecystic fluid. Mild intrahepatic biliary ductal dilatation. Correlate clinically for acute appendicitis. 4. Chronic findings as described above. My clinical suspicion was low for acute appendicitis as the patient did not have any pain localized to the right lower quadrant. I have placed a call to Dr. Mcmahan and spoke with him at 10:40 AM. He kindly stated he will be consulted on the case. The patient had received broad-spectrum antibiotics to treat her sepsis as well as a 30 cc/kg bolus of normal saline. She will be admitted in serious condition to the hospitalist Dr. Zuñiga with an anticipated stay of greater than 2 midnights. Departure Diagnosis: Primary Impression: Post-op pain Additional Impression: Sepsis Qualified Code: A41.9 - Sepsis, due to unspecified organism Condition: Serious HENRYTHEAA Sep 07, 2016 07:26
[2016-09-07] MEDS ORDERED: THIA100T56 PO (07:51)
[2016-09-07 07:58] LABS: ALBUMIN 3.4 g/dl (3.3-4.9); CHLORIDE 102 mmol/L (97-110)
[2016-09-07 07:59] LABS: POTASSIUM 3.6 mmol/L (3.5-5.1); SODIUM 140 mmol/L (135-144)
[2016-09-07 08:00] LABS: BASOPHIL # 0.1 10^3/ul (0.0-0.1); BASOPHILS % 0.5 % (0.0-2.0); EOSINOPHILS % 0.1 % (0.0-7.0); HEMATOCRIT 35.3 % (37.0-47.0); HEMOGLOBIN 11.6 g/dl (12.0-16.0); LYMPHOCYTES # 2.3 10^3/ul (0.8-2.9); LYMPHOCYTES % 13.2 % (15.0-51.0); MEAN CORPUSCULAR HEMOGLOBIN 28.8 pg (29.0-33.0); MEAN CORPUSCULAR HGB CONC 32.9 g/dl (32.0-37.0); MEAN CORPUSCULAR VOLUME 87.5 fl (82.0-101.0); MEAN PLATELET VOLUME 9.5 fl (7.4-10.4); MONOCYTE # 1.1 10^3/ul (0.3-0.9); MONOCYTES % 6.1 % (0.0-11.0); NEUTROPHIL # 13.9 10^3/ul (1.6-7.5); NEUTROPHILS % 80.1 % (39.0-77.0); PLATELET COUNT 443 10^3/UL (140-440); PROTIME 13.2 Sec (12.2-14.2); RED BLOOD COUNT 4.03 10^6/ul (4.20-5.40); RED CELL DISTRIBUTION WIDTH 14.1 % (11.5-14.5); UNCORRECTED WBC 17.4 10^3/ul (4.8-10.8); WHITE BLOOD COUNT 17.4 10^3/ul (4.8-10.8)
[2016-09-07 08:01] LABS: AMYLASE 77 U/L (11-123); CREATININE 0.63 mg/dl (0.44-1.00); PARTIAL THROMBOPLASTIN TIME 29.5 Sec (25.0-35.0)
[2016-09-07 08:02] LABS: ALANINE AMINOTRANSFERASE 12 IU/L (13-69); ALBUMIN/GLOBULIN RATIO 0.87; ALKALINE PHOSPHATASE 83 IU/L (42-121); ANION GAP 15 (8-16); ASPARTATE AMINO TRANSFERASE 14 IU/L (15-46); BLOOD UREA NITROGEN 23 mg/dl (7-20); CALCIUM 9.1 mg/dl (8.4-10.2); CARBON DIOXIDE 27 mmol/L (21-31); GLUCOSE 99 mg/dl (70-220); TOTAL PROTEIN 7.3 g/dl (6.1-8.1)
[2016-09-07 08:04] LABS: CONDITION 1
[2016-09-07] MEDS ORDERED: IOHEXOL 300MG/ML 150 ML BTL ONE (08:09)
[2016-09-07] MEDS ORDERED: SOD CHLORIDE 0.9% 100 ML ONE (08:09)
[2016-09-07 08:14] LABS: TROPONIN-I < 0.012 ng/ml (0.00-0.12)
[2016-09-07 09:19] LABS: ADD UMIC YES; URINE BILIRUBIN (Dip) NEGATIVE (NEGATIVE); URINE BLOOD (Dip) NEGATIVE (NEGATIVE); URINE COLOR LT. YELLOW (YELLOW); URINE GLUCOSE (Dip) NEGATIVE (NEGATIVE); URINE KETONES (Dip) NEGATIVE (NEGATIVE); URINE LEUKOCYTE ESTERASE (Dip) NEGATIVE (NEGATIVE); URINE NITRITE (Dip) NEGATIVE (NEGATIVE); URINE TOTAL PROTEIN (Dip) TRACE (NEGATIVE); URINE UROBILINOGEN (Dip) 0.2 E.U./dL (0.1-1.0)
[2016-09-07] MEDS ORDERED: PIPER-TAZO 3.375 GM IV (PMX) 100 ML IVPB STA (09:23)
[2016-09-07] MEDS ORDERED: VANCOMYCIN 1 GM (PMX) 250 ML IVPB STA (09:23)
[2016-09-07] MEDS ORDERED: SODIUM CHLORIDE 0.9% 1L BAG IV* STA (09:23)
[2016-09-07] MEDS ORDERED: CLINDAMYCIN 900 MG/D5W (PMX) 50 ML IVPB STA (09:23)
[2016-09-07 09:32] LABS: BACTERIA,URINE FEW; URINE RBCS NONE SEEN /HPF (0)
--- NOTE | 2016-09-07 10:26 | RADRPT ---
PROCEDURE: CT Abdomen and Pelvis with contrast. CLINICAL INDICATION: The abdominal and epigastric pain. Palpable lump in the epigastric region. S tatus post hysterectomy, appendectomy, splenectomy. TECHNIQUE: CT scan of the abdomen and pelvis with contrast was performed on a multidetector high-r esolution CT scanner. The patient was scanned both before and following the uncomplicated intraveno us administration of 100 cc of Omnipaque 300. Coronal and sagittal reformatted images were obtained from the axial source images. Images were reviewed on a high-resolution PACS workstation. The total exam CTDI equals 4.21 mGy and the total exam DLP equals 212.88 mGy-cm. COMPARISON: None. FINDINGS: CT abdomen: Bibasilar linear scarring and dependent atelectasis. The visualized heart and pericardium are unrem arkable. Cholelithiasis with minimal wall thickening and pericholecystic fluid. Mild intrahepatic biliary du ctal dilatation. The liver is otherwise normal attenuation and size without focal mass. Spleen is surgically absent with postoperative changes in the left upper quadrant.. The stomach is distended and normal in appearance. The pancreas as visualized is normal. The adrenal glands are symmetric and normal. Redemonstration of bilateral renal cysts and nonobstructing left lower pole calculus. No o bstructive uropathy. The aorta is of normal caliber. Aortic vascular calcifications are present. There is no retroperito candice lymphadenopathy. The ronny hepatis region is clear. Soft stranding is noted in the mid abdomen not significantly changed from the previous study. There is a focal skin defect in the mid epigast rium with a subcutaneous soft tissue stranding along the midline compatible with prior surgical inci mila. Correlate with direct inspection. CT pelvis: The appendix is surgically absent. 4.8 x 3.4 x1.7 cm (AP, transverse and craniocaudal dimensions ) collection with the anterior midline pelvis containing foci of gas. This is inseparable from adjacent bowel loops with surrounding infl ammatory change suspicious for abscess/or colo-enteric fistula. The collection is inseparable from t he anastomotic surgical margin and contained perforation can have a similar appearance. Adjacent bowel loops are noted with extensive postsurgical changes compatible with bowel canal sten osis. Redemonstration of 1.9 x 4.1 cm right pericolic gutter discrete fluid collection containing g as most compatible with small abscess. The bladder is unremarkable. The remaining pelvic organs are normal. The pelvic sidewalls and inguinal regions are clear. no m ass or lymphadenopathy. The surrounding osseous structures are remarkable for degenerative spondylosis of the spine. Bones: No osteolytic or osteoblastic lesion is detected. IMPRESSION: 1. 4.8 x 3.4 of 0.7 cm gas containing collection surrounded by unopacified small bowel and colon ad jacent to surgical anastomotic margin. Differential diagnostic considerations include abscess, cont ained perforation, or colo-enteric fistula. No bowel obstruction. Oral contrast may be considered for further characterization of surrounding bowel and possible fistulous connection. 2. 1.9 x 4.1 cm right para colic gutter gas containing fluid collection most compatible with small abscess and change compared to previous study. 3. Wall thickening Cholelithiasis with. Trace pericholecystic fluid. Mild intrahepatic biliary sheyla melissa dilatation. Correlate clinically for acute appendicitis. 4. Chronic findings as described above. RPTAT: PP Physician Rusty Date Time Electronically viewed and signed by Physician Rusty on 09/07/2016 10:26 SRINIVAS/
[2016-09-07] MEDS ORDERED: HYDROmorphONE 1 MG/ML SYG IV STA (10:59)
[2016-09-07] MEDS ORDERED: ACETAMINOPHEN 325 MG TAB PO PRN (11:00)
[2016-09-07] MEDS ORDERED: ONDANSETRON 4 MG INJ IV PRN ×2 (11:00→12:30)
[2016-09-07] MEDS ORDERED: VANCOMYCIN IV PER PHARMACY XX SCH (12:30)
[2016-09-07] MEDS ORDERED: NACL 0.9% 3 ML SYG IV SCH (12:30)
[2016-09-07 13:16] VITALS: Ht 162.6 cm; Wt 40.0 kg
--- NOTE | 2016-09-07 13:45 | CONS ---
DATE OF ADMISSION: 09/07/2016 DATE OF CONSULTATION: 09/07/2016 TYPE OF CONSULTATION: Infectious Disease. REASON FOR CONSULTATION: Antibiotic management. HISTORY OF PRESENT ILLNESS: Hanny Stanley is a 56-year-old female who comes in with infection of a surgical incision. The patient underwent surgery on 07/20/2016, which included a right ovarian re section, ventral hernia repair, lysis of adhesions with a splenectomy performed by Dr. Maxi markham at [facility]. She was discharged 07/31/2016 and several days later was placed on 10 day s of Bactrim. She had minimal purulent drainage from the incision site. This was cleaned at the [facility] by Dr. Mcmahan 48 hours ago. The patient now presents with worsening abdominal pain which is di ffuse, most prominent around the upper surgical incision site with foul smelling purulent drainage. Last evening she had an episode of fever, shaking and chills and has been taking hydrocodone for an algesic control. She states her abdominal discomfort is 8/10. She is not short of breath. She sarmiento s have a history of hepatitis C, seizures, and COPD. PAST SURGICAL HISTORY: She had the aforementioned abdominal surgery. She had a hysterectomy, appen dectomy and recent splenectomy. She also has history of seizures. She is a current smoker with [employer] D. SOCIAL HISTORY: As noted, she smokes. She does not drink or abuse drugs. ALLERGIES: 1. LEVAQUIN. 2. LORAZEPAM. 3. CODEINE. MEDICATIONS: Per chart. REVIEW OF SYSTEMS: As per HPI. PHYSICAL EXAMINATION: GENERAL: The patient is a well-developed, well-nourished female who is alert, responsive, in no acu te distress. VITAL SIGNS: Stable. She is afebrile. SKIN: Without generalized rash. HEENT: Within normal limits. NECK: Supple. LYMPH NODES: None palpable. CHEST: Decreased breath sounds at the bases. HEART: Without murmur or gallop. ABDOMEN: Soft, mildly tender along the surgical incision. There is an area above the umbilicus wit h a 1 cm incision that was packed with gauze that had been covered and there is foul smelling purule nt drainage. Distal surgical incision site was clean and dry, nondistended. EXTREMITIES: Without cyanosis, clubbing, or edema. RECTAL AND GENITAL: Deferred. NEUROLOGIC: No focal neurological abnormalities. ANCILLARY LABORATORY DATA: White count is 17.4, H and H 11.6 and 35.3, platelet count 443,000. BUN and creatinine 23/0.63, glucose of . IMPRESSION AND PLAN: The patient was started on vancomycin, clindamycin and Zosyn. She presented w ith a postoperative wound infection. She also apparently had a right nephrectomy at the time. Will await the culture reports, so far there are none. I will dictate my findings to the hospitalist an d to Dr. Mcmahan. Dictated By: TAMANNA MARKS MD, JD/NUNU Conf#: [id number] DID#: [id number]
[2016-09-07] MEDS: D5W-0.45 NACL + KCL 10 MEQ 1,000 ML IV SCH ×2 (15:01→20:30)
[2016-09-07 15:20] VITALS: BP 105/62; PULSE 68; RESP 18
--- NOTE | 2016-09-07 15:50 | HP ---
DATE OF ADMISSION: 09/07/2016 TIME OF EVALUATION: 1300. REASON FOR ADMISSION: Abdominal pain with pus coming out of the surgical incision. CONSULTATIONS: 1. SAMMY MCMAHAN MD, DATA CONSULTANT ONC. 2. TAMANNA MARKS MD, INFECTIOUS DISEASES. HISTORY OF PRESENT ILLNESS: This is a 56-year-old female patient with past medical history of seizure disorder, lupus, anemia, hepatitis C and pelvic mass , status post extensive surgery on 07/20/2016 that was negative for any malignancy. She came to the emergency room with chief complaint of abdominal pain and purulent secretions coming out of the surgical incision. The patient had a laparotomy with enterolysis, small bowel resection and anastomosis, right salpingo-oophorectomy, right ureteral dissection with repositioning and splenectomy on 07/20/[address] Mcmahan at [facility]. Following the surgery, the patient had a prolonged hospital course. The patient was discharged home on 07/31/2016. The patient came back to [facility] on 08/21/2016 with postoperative wound infection. At that time, the patient was discharged home on oral antibiotics to be followed up with Dr. Mcmahan as outpatient. As per the patient, she followed up with Dr. Mcmahan and he did some "cleaning" of the wound at the office. Nevertheless, the patient's wound has not been getting better. It started draining purulent foul smelling secretions. The patient was also having significant abdominal pain and nausea. The patient denied any vomiting or fevers. She was complaining of frothy diarrhea. In the emergency room, the patient was noticed to have leukocytosis. The patient remained afebrile. The patient underwent a CT scan of the abdomen and pelvis that showed a 4.8 x 3.4 x 1.7 cm gas containing collection surrounded by an unopacified bowel and colon adjacent to surgical anastomotic margin. The differential diagnosis of abscess contained perforation or coloenteric fistula with no evidence of any bowel obstruction. The CT also revealed a 1.9 x 4.1 cm paracolic gutter gas containing fluid collection most compatible with small abscess, unchanged compared to previous study. The patient was treated with IV analgesics, IV antibiotics in the emergency room. PAST MEDICAL HISTORY: Seizure disorder, lupus, anemia, hepatitis C. PAST SURGICAL HISTORY: Laparotomy with enterolysis, small-bowel resection and anastomosis, right salpingo-oophorectomy, right ureteral dissection with repositioning, splenectomy, and appendectomy. HOME MEDICATIONS: 1. Hydroxychloroquine 200 mg p.o. b.i.d. 2. Xanax 1 mg p.o. t.i.d. 3. Celebrex 200 mg p.o. b.i.d. 4. Gabapentin 1200 mg p.o. at bedtime. 5. Cadwell 10/325 one tablet p.o. q.i.d. p.r.n. pain. 6. Keppra 500 mg p.o. b.i.d. 7. Tramadol 50 mg p.o. q.6h. p.r.n. pain. 8. Calcium carbonate with vitamin D3 one tablet p.o. b.i.d. 9. Creon DR 6000 one capsule p.o. q.i.d. 10. Protonix 40 mg p.o. daily. 11. Prednisone 10 mg p.o. daily. 12. Cyanocobalamin 1000 mcg p.o. daily. 13. Thiamine 100 mg p.o. daily. ALLERGIES: 1. CODEINE. 2. LEVOFLOXACIN. 3. LORAZEPAM. SOCIAL HISTORY: The patient lives at home. The patient is a current every day smoker. Denies any use of alcohol or illicit drugs. REVIEW OF SYSTEMS: A 12-point review of systems were made and the review of systems are negative other than what is mentioned in history of present illness. PHYSICAL EXAMINATION: General: Thin, frail-looking female lying in bed in no apparent distress. HEENT: Normocephalic, atraumatic. Eyes: Anicteric sclerae, conjunctivae clear. ENT: Nasal septum midline, oral mucosa moist. Neck supple, no JVD noticed. Respiratory: Bilaterally clear breath sounds. No use of accessory muscles of respiration. No adventitious breath sounds. Cardiovascular: S1, S2 heard. No murmurs or gallops. Abdomen: Large midline incision with an open defect towards the superior aspect of the incision that is packed with gauze and draining yellow, purulent, foul smelling secretion. The inferior aspect of the incision has yellow, purulent, foul smelling secretions. Tenderness around the incisions. Genitourinary: Deferred. Extremities: No cyanosis, no clubbing, no edema. Peripheral pulses palpable. Neurologic: Cranial nerves II through XII grossly intact. The patient is awake, alert, and oriented. Skin: Normal skin turgor. No skin rashes. LABORATORY AND DIAGNOSTIC DATA: WBC 17.4, hemoglobin 11.6, hematocrit 35.3, platelet count 443, sodium 140, potassium 3.6, chloride 102, carbon dioxide 26, anion gap 15, BUN 23, creatinine 0.63, glucose 99, calcium 9.1, AST 14, ALT 12, alkaline phosphatase 83. Troponin less than 0.012. Total protein 7.3, albumin 3.4, amylase 77, lipase 320, lactic acid 1.5. PT 13.2, INR 1.03, PTT 29.5. Urinalysis: Urine nitrite negative, urine leukocyte esterase negative, urine microscopic WBC [address] scan of the abdomen and pelvis: 4.4 x 3.4 x 1.7 cm gas containing collection surrounded by an unopacified small bowel and colon adjacent to surgical anastomotic margin. Differential diagnosis includes abscess, contained perforation or colo-enteric fistula. No bowel obstruction. A 1.9 x 4.1 cm right paracolic gutter gas containing fluid most compatible with small abscess. Wall thickening and cholelithiasis with trace pericholecystic fluid. Mild intrahepatic biliary ductal dilatation. 12-lead EKG: Normal sinus rhythm. IMPRESSION: This is a 56-year-old female patient who had extensive abdominal surgery on 07/20/2016 who came to the emergency room with what looks like evidence of postoperative infection along with possible underlying intra- abdominal abscess versus contained perforation or coloenteric fistula will be admitted here for further treatment and evaluation. ASSESSMENT AND PLAN: 1. Infected surgical incision. Wound cultures will be sent on this patient. Bryson cultures will be ordered. The patient will be started on empiric antibiotics. Infectious disease consult will be obtained. The patient's surgeon was informed about the patient's admission. 2. 4.4 x 3.4 x 1.7 cm gas containing collection surrounded by an unopacified small bowel and colon adjacent to surgical anastomotic margin. Etiology unclear. The patient will be treated empirically for any underlying abscess. The patient's surgeon was informed about the patient's admission. Surgical management will be deferred to the surgeon. 3. 1.9 x 4.1 cm right paracolic gutter gas containing fluid. Management as #2. 4. Systemic inflammatory response syndrome with leukocytosis and tachycardia. Most probably secondary to underlying surgical site infection. Pancultures will be sent on this patient. The patient will be maintained on empiric antibiotics. The patient has no evidence of any septic shock. 5. Normocytic anemia. The patient's H and H will be monitored closely. The patient will be transfused as needed. 6. Seizure disorder. The patient's anti-seizure medications will be resumed. 7. History of hepatitis C. No active issues at this time. Will monitor. Plan. The patient will be admitted to inpatient setting. The patient will be kept n.p.o. except for medications. The patient was started on IV fluids. The patient will remain a FULL CODE. Activities will be with assist. The rest of the patient's management will be based on the clinical course, the results of diagnostic studies and inputs from consultants. Based on the patient's clinical presentation, she most probably requires more than 2 midnights' stay for further management and evaluation of her clinical presentation. The case and management of this patient was fully discussed with Dr. Zhang. Approximately 50 minutes was spent on the history and physical on this patient. RANDELL ZHANG MD, AM/NUNU Conf#: [id number] DID#: [id number]
[2016-09-07] MEDS: morphine 2 MG INJ IV PRN (18:03)
--- NOTE | 2016-09-07 18:39 | CONS ---
Date/Time of Note Date/Time of Note DATE: 09/07/16 TIME: 18:37 Consultation Date/Type/Reason Admit Date/Time Sep 07, 2016 at 10:55 Hx of Present Illness Office Note Sep 07, 2016 History of present illness: This is a 56 year oldadmitted with pain and an abdominal collection. Surgery: Laparoscopy,Extensive enterolysis,Laparotomy with enterolysis,Small bowel resection and anastamosis Right salpingoophorectomy,Ureteral dissection with repositioning with ureterolysis; right sided,Splenectomy- 07/20/16 G 1 P 1 [facility] Surgical history: LUPE/LSO 2002, complications and laparotomy-[facility]. Colonoscopy: yes, 2013 Medical : Hepatitis C, eczema, gerd, psoriasis, insomnia, IBS, tinitus [employer] Referring MD: Liz Cummings Patient here for f/u. feels better Medications: 01/21/15 alprazolam 1 mg tablet ud 08/17/16 Bactrim DS 800 mg-160 mg tablet 1 tablet by mouth BID 01/21/15 Creon 12,000-38,000-60,000 unit capsule,delayed release ud 04/18/16 gabapentin 300 mg capsule 1 capsule by mouth TID 01/21/15 LEVACET 500 mg-250 mg-150 mg-32.5 mg Tab ud 07/23/14 Gwinn 10 mg-325 mg tablet 1 tablet by mouth Q6h 1 po q 6 prn pain 01/21/15 omeprazole 40 mg capsule,delayed release ud 04/18/16 Plaquenil 200 mg tablet 1 tablet by mouth BID 06/13/16 prednisone 20 mg tablet 1 tablet by mouth DAILY 04/18/16 tramadol 50 mg tablet 1 tablet by mouth TID 07/23/14 Xanax 1 mg tablet tid Vitals (09/05/2016): Weight 97, Height 64, BP 138/66, BMI 16.6. Objective: Lung exam: normal, clear all willson. Abdominal exam: nontender, nondistended, no masses, no ascites. Incision: inadequately packed with purulent material Vagina exam: normal mucosa without lesions. Pelvic exam: no masses or cul-de-sac nodularity noted Extremity exam: nontender with no edema. Assessment: elevated WBC with abdominal collection Plan: Evaluate for abscess to drain and rx vs fistual to operate. Maxi Almanza M.D. Social History Smoking Status: Light tobacco smoker Exam/Review of Systems Vital Signs Vitals Vital Signs Date Time Temp Pulse Resp B/P Pulse Ox O2 Delivery O2 Flow Rate FiO2 09/07/16 15:20 98.2 68 18 105/62 94 Room Air Results Result Diagram: 09/07/16 0725 09/07/16 0725 Results 24 hrs Laboratory Tests Test 09/07/16 07:20 09/07/16 07:25 09/07/16 08:45 09/07/16 11:55 Lactic Acid Level 2.4 H 1.5 Activated Partial Thromboplast Time 29.5 Alanine Aminotransferase (ALT/SGPT) 12 L Albumin 3.4 Albumin/Globulin Ratio 0.87 Alkaline Phosphatase 83 Amylase Level 77 Anion Gap 15 Aspartate Amino Transf (AST/SGOT) 14 L Basophils # 0.1 Basophils % 0.5 Blood Morphology Comment Blood Urea Nitrogen 23 H Calcium Level 9.1 Carbon Dioxide Level 27 Chloride Level 102 Creatinine 0.63 Direct Bilirubin 0.00 Eosinophils # 0.0 Eosinophils % 0.1 Globulin 3.90 H Glucose Level 99 Hematocrit 35.3 L Hemoglobin 11.6 L INR International Normalized Ratio 1.00 Indirect Bilirubin 0.0 Lipase 320 H Lymphocytes # 2.3 Lymphocytes % 13.2 L Mean Corpuscular Hemoglobin 28.8 L Mean Corpuscular Hemoglobin Concent 32.9 Mean Corpuscular Volume 87.5 Mean Platelet Volume 9.5 Monocytes # 1.1 H Monocytes % 6.1 Neutrophils # 13.9 H Neutrophils % 80.1 H Nucleated Red Blood Cells # 0.0 Nucleated Red Blood Cells % 0.0 Platelet Count 443 H Potassium Level 3.6 Prothrombin Time 13.2 Prothrombin Time Ratio 1.0 Red Blood Count 4.03 L Red Cell Distribution Width 14.1 Sodium Level 140 Total Bilirubin 0.0 L Total Protein 7.3 Troponin I < 0.012 White Blood Count 17.4 #H Urine Bacteria FEW Urine Bilirubin NEGATIVE Urine Calcium Oxalate Crystals FEW Urine Clarity CLEAR Urine Color LT. YELLOW Urine Epithelial Cells FEW Urine Glucose NEGATIVE Urine Hemoglobin NEGATIVE Urine Ketones NEGATIVE Urine Leukocyte Esterase NEGATIVE Urine Microscopic RBC NONE SEEN Urine Microscopic WBC 10-25 Urine Nitrite NEGATIVE Urine Specific [place] 1.020 Urine Total Protein TRACE Urine Urobilinogen 0.2 E.U./dL Urine pH 6.0 Test 09/07/16 16:19 Lactic Acid Level 2.0 Medications Medications Current Medications Ondansetron HCl (Zofran Inj) 4 mg Q6H PRN IV NAUSEA AND/OR VOMITING; Start at 12:30 Morphine Sulfate (morphine) 2 mg Q4H PRN IV SEVERE PAIN LEVEL 7-10 Last administered on 09/07/16 18:03; Admin Dose 2 MG; Start 09/07/16 at 12:30 Famotidine 20 mg 20 mg Q12 IV ; Start 09/07/16 at 21:00 Potassium Chloride/Dextrose/ Sod Cl 1,000 ml @ 125 mls/hr Q8H IV Last administered on 09/07/16 15:01; Admin Dose 125 MLS/HR; Start 09/07/16 at 12:30 Piperacillin Sod/ Tazobactam Sod 50 ml @ 100 mls/hr Q8 IVPB ; Start 09/07/16 at 21:00 Vancomycin HCl (Vancocin) 100 ml @ 100 mls/hr Q12H IVPB ; Start 09/08/16 at 01: 00 Cyanocobalamin (Vitamin B12) 1,000 mcg DAILY PO ; Start 09/08/16 at 09:00 Gabapentin (Neurontin) 1,200 mg QHS PO ; Start 09/07/16 at 21:00 Levetiracetam (Keppra) 500 mg BID PO ; Start 09/07/16 at 21:00 Prednisone (Prednisone) 10 mg DAILY PO ; Start 09/08/16 at 09:00; Status UNV MAXI ALMANZA MD Sep 07, 2016 18:39
--- NOTE | 2016-09-07 19:40 | CONS ---
Date/Time of Note Date/Time of Note DATE: 09/07/16 TIME: : Assessment/Plan Assessment/Plan Chief Complaint/Hosp Course LEUKOCYTOSIS with abdominal collection ( POSTOP) REACTIVE ATB SURG F-UP MONITOR CLOSELY NOTE THAT PT IS POST SPLENECTOMY AND ALSO ON PREDNISONE THROMBOCYTOSIS REACTIVE MONITOR CLOSELY Normocytic anemia. The patient's H and H will be monitored closely. The patient will be transfused as needed. Infected surgical incision. Wound cultures Bryson cultures empiric antibiotics. Infectious disease f-up abdominal collection ( POSTOP) 4.4 x 3.4 x 1.7 cm gas containing collection surrounded by an unopacified small bowel and colon adjacent to surgical anastomotic margin. The patient will be treated empirically for any underlying abscess. Surgical management will be deferred to the surgeon. Systemic inflammatory response syndrome with leukocytosis and tachycardia. Most probably secondary to underlying surgical site infection. The patient has no evidence of any septic shock. Seizure disorder. cont anti-seizure medications History of hepatitis C. lupus OVARIAN MASS, POST RESECTION BENIGN Problems: Consultation Date/Type/Reason Admit Date/Time Sep 07, 2016 at 10:55 Date of Consultation: Sep 07, 2016 Type of Consultation: HEMEONC Reason for Consultation LEUKOCYTOSIS THROMBOCYTOSIS Referring Provider: RANDELL SIMON NP Hx of Present Illness Hanny Stanley is a 56-year-old female who comes in with infection of a surgical incision. The patient underwent surgery on 07/20/2016, which included a right ovarian resection, ventral hernia repair, lysis of adhesions with a splenectomy performed by Dr. Maxi Mcmahan at [facility]. She was discharged 07/31/2016 and several days later was placed on 10 days of Bactrim. She had minimal purulent drainage from the incision site. This was cleaned at the time by Dr. Mcmahan 48 hours ago. The patient now presents with worsening abdominal pain which is diffuse, most prominent around the upper surgical incision site with foul smelling purulent drainage. Last evening she had an episode of fever, shaking and chills and has been taking hydrocodone for analgesic control. She states her abdominal discomfort is 8/10. She is not short of breath. She does have a history of hepatitis C, seizures, and COPD. SHE ALSO HAS HX LUPUS PPT WAS NOTED TO HAVE LEUKOCYTOSIS AND THROMBOCYTOSIS AND I WAS ASKED TO PROVIDE HEMEONC CONSULT PAST SURGICAL HISTORY: Laparotomy with enterolysis, small-bowel resection and anastomosis, right salpingo-oophorectomy, right ureteral dissection with repositioning, splenectomy, and appendectomy. HOME MEDICATIONS: 1. Hydroxychloroquine 200 mg p.o. b.i.d. 2. Xanax 1 mg p.o. t.i.d. 3. Celebrex 200 mg p.o. b.i.d. 4. Gabapentin 1200 mg p.o. at bedtime. 5. Yantis 10/325 one tablet p.o. q.i.d. p.r.n. pain. 6. Keppra 500 mg p.o. b.i.d. 7. Tramadol 50 mg p.o. q.6h. p.r.n. pain. 8. Calcium carbonate with vitamin D3 one tablet p.o. b.i.d. 9. Creon DR 6000 one capsule p.o. q.i.d. 10. Protonix 40 mg p.o. daily. 11. Prednisone 10 mg p.o. daily. 12. Cyanocobalamin 1000 mcg p.o. daily. 13. Thiamine 100 mg p.o. daily. ALLERGIES: 1. CODEINE. 2. LEVOFLOXACIN. 3. LORAZEPAM. SOCIAL HISTORY: The patient lives at home. The patient is a current every day smoker. Denies any use of alcohol or illicit drugs. REVIEW OF SYSTEMS: A 12-point review of systems were made and the review of systems are negative other than what is mentioned in history of present illness. SOCIAL HISTORY: As noted, she smokes. She does not drink or abuse drugs. ALLERGIES: 1. LEVAQUIN. 2. LORAZEPAM. 3. CODEINE. Social History Smoking Status: Light tobacco smoker Exam/Review of Systems Vital Signs Vitals Vital Signs Date Time Temp Pulse Resp B/P Pulse Ox O2 Delivery O2 Flow Rate FiO2 09/07/16 15:20 98.2 68 18 105/62 94 Room Air Exam General: Thin, frail-looking female lying in bed in no apparent distress. HEENT: Normocephalic, atraumatic. Eyes: Anicteric sclerae, conjunctivae clear. ENT: Nasal septum midline, oral mucosa moist. Neck supple, no JVD noticed. Respiratory: Bilaterally clear breath sounds. No use of accessory muscles of respiration. No adventitious breath sounds. Cardiovascular: S1, S2 heard. No murmurs or gallops. Abdomen: Large midline incision with an open defect towards the superior aspect of the incision that is packed with gauze and draining yellow, purulent, foul smelling secretion. The inferior aspect of the incision has yellow, purulent, foul smelling secretions. Tenderness around the incisions. Genitourinary: Deferred. Extremities: No cyanosis, no clubbing, no edema. Peripheral pulses palpable. Neurologic: Cranial nerves II through XII grossly intact. The patient is awake, alert, and oriented. Skin: Normal skin turgor. No skin rashes. Results Result Diagram: 09/07/16 0725 09/07/16 0725 Results 24 hrs Laboratory Tests Test 09/07/16 07:20 09/07/16 07:25 09/07/16 08:45 09/07/16 11:55 Lactic Acid Level 2.4 H 1.5 Activated Partial Thromboplast Time 29.5 Alanine Aminotransferase (ALT/SGPT) 12 L Albumin 3.4 Albumin/Globulin Ratio 0.87 Alkaline Phosphatase 83 Amylase Level 77 Anion Gap 15 Aspartate Amino Transf (AST/SGOT) 14 L Basophils # 0.1 Basophils % 0.5 Blood Morphology Comment Blood Urea Nitrogen 23 H Calcium Level 9.1 Carbon Dioxide Level 27 Chloride Level 102 Creatinine 0.63 Direct Bilirubin 0.00 Eosinophils # 0.0 Eosinophils % 0.1 Globulin 3.90 H Glucose Level 99 Hematocrit 35.3 L Hemoglobin 11.6 L INR International Normalized Ratio 1.00 Indirect Bilirubin 0.0 Lipase 320 H Lymphocytes # 2.3 Lymphocytes % 13.2 L Mean Corpuscular Hemoglobin 28.8 L Mean Corpuscular Hemoglobin Concent 32.9 Mean Corpuscular Volume 87.5 Mean Platelet Volume 9.5 Monocytes # 1.1 H Monocytes % 6.1 Neutrophils # 13.9 H Neutrophils % 80.1 H Nucleated Red Blood Cells # 0.0 Nucleated Red Blood Cells % 0.0 Platelet Count 443 H Potassium Level 3.6 Prothrombin Time 13.2 Prothrombin Time Ratio 1.0 Red Blood Count 4.03 L Red Cell Distribution Width 14.1 Sodium Level 140 Total Bilirubin 0.0 L Total Protein 7.3 Troponin I < 0.012 White Blood Count 17.4 #H Urine Bacteria FEW Urine Bilirubin NEGATIVE Urine Calcium Oxalate Crystals FEW Urine Clarity CLEAR Urine Color LT. YELLOW Urine Epithelial Cells FEW Urine Glucose NEGATIVE Urine Hemoglobin NEGATIVE Urine Ketones NEGATIVE Urine Leukocyte Esterase NEGATIVE Urine Microscopic RBC NONE SEEN Urine Microscopic WBC 10-25 Urine Nitrite NEGATIVE Urine Specific [place] 1.020 Urine Total Protein TRACE Urine Urobilinogen 0.2 E.U./dL Urine pH 6.0 Test 09/07/16 16:19 Lactic Acid Level 2.0 Medications Medications Current Medications Ondansetron HCl (Zofran Inj) 4 mg Q6H PRN IV NAUSEA AND/OR VOMITING; Start at 12:30 Morphine Sulfate (morphine) 2 mg Q4H PRN IV SEVERE PAIN LEVEL 7-10 Last administered on 09/07/16 18:03; Admin Dose 2 MG; Start 09/07/16 at 12:30 Famotidine 20 mg 20 mg Q12 IV ; Start 09/07/16 at 21:00 Potassium Chloride/Dextrose/ Sod Cl 1,000 ml @ 125 mls/hr Q8H IV Last administered on 09/07/16 15:01; Admin Dose 125 MLS/HR; Start 09/07/16 at 12:30 Piperacillin Sod/ Tazobactam Sod 50 ml @ 100 mls/hr Q8 IVPB ; Start 09/07/16 at 21:00 Vancomycin HCl (Vancocin) 100 ml @ 100 mls/hr Q12H IVPB ; Start 09/08/16 at 01: 00 Cyanocobalamin (Vitamin B12) 1,000 mcg DAILY PO ; Start 09/08/16 at 09:00 Gabapentin (Neurontin) 1,200 mg QHS PO ; Start 09/07/16 at 21:00 Levetiracetam (Keppra) 500 mg BID PO ; Start 09/07/16 at 21:00 Prednisone (Prednisone) 10 mg DAILY PO ; Start 09/08/16 at 09:[address] scan of the abdomen and pelvis: 4.4 x 3.4 x 1.7 cm gas containing collection surrounded by an unopacified small bowel and colon adjacent to surgical anastomotic margin. Differential diagnosis includes abscess, contained perforation or colo-enteric fistula. No bowel obstruction. A 1.9 x 4.1 cm right paracolic gutter gas containing fluid most compatible with small abscess. Wall thickening and cholelithiasis with trace pericholecystic fluid. Mild intrahepatic biliary ductal dilatation. JOSE LUIS MERCADO MD Sep 07, 2016 19:40
[2016-09-07 20:24] VITALS: BP 116/58; RESP 19
[2016-09-07] MEDS: FAMOTIDINE 20 MG INJ IV SCH (20:51)
[2016-09-07] MEDS: LEVETIRACETAM 500 MG TAB PO SCH (20:51)
[2016-09-07] MEDS: GABAPENTIN 300 MG CAP PO SCH (20:52)
[2016-09-07] MEDS: PIPER-TAZO 2.25 GM (PMX) 50 ML IVPB SCH (21:59)
[2016-09-08] MEDS: D5W-0.45 NACL + KCL 10 MEQ 1,000 ML IV SCH ×3 (00:21→20:19)
[2016-09-08] MEDS: VANCOMYCIN 500MG/NS (PMX) 100 ML IVPB SCH ×2 (00:22→12:56)
[2016-09-08] MEDS: PIPER-TAZO 2.25 GM (PMX) 50 ML IVPB SCH ×3 (05:20→21:39)
[2016-09-08 05:54] LABS: BASOPHIL # 0.1 10^3/ul (0.0-0.1); BASOPHILS % 0.4 % (0.0-2.0); HEMATOCRIT 32.9 % (37.0-47.0); LYMPHOCYTES # 3.7 10^3/ul (0.8-2.9); LYMPHOCYTES % 27.4 % (15.0-51.0); MEAN CORPUSCULAR HEMOGLOBIN 29.2 pg (29.0-33.0); MEAN CORPUSCULAR HGB CONC 33.4 g/dl (32.0-37.0); MEAN CORPUSCULAR VOLUME 87.6 fl (82.0-101.0); MEAN PLATELET VOLUME 9.4 fl (7.4-10.4); MONOCYTES % 7.4 % (0.0-11.0); NEUTROPHIL # 8.7 10^3/ul (1.6-7.5); NEUTROPHILS % 64.8 % (39.0-77.0); PLATELET COUNT 391 10^3/UL (140-440); RED BLOOD COUNT 3.76 10^6/ul (4.20-5.40); RED CELL DISTRIBUTION WIDTH 14.1 % (11.5-14.5); UNCORRECTED WBC 13.4 10^3/ul (4.8-10.8); WHITE BLOOD COUNT 13.4 10^3/ul (4.8-10.8)
[2016-09-08 06:05] LABS: ALBUMIN 2.7 g/dl (3.3-4.9)
[2016-09-08 06:06] LABS: POTASSIUM 3.1 mmol/L (3.5-5.1)
[2016-09-08 06:08] LABS: ALBUMIN/GLOBULIN RATIO 0.81; CREATININE 0.71 mg/dl (0.44-1.00)
[2016-09-08 06:09] LABS: CALCIUM 8.5 mg/dl (8.4-10.2)
[2016-09-08 06:15] LABS: CONDITION 1
[2016-09-08 06:22] LABS: CHOL/HDL RATIO 2.2 RATIO; MAGNESIUM 1.4 mg/dl (1.7-2.5); PHOSPHORUS 3.7 mg/dl (2.5-4.9)
[2016-09-08 06:38] LABS: THYROID STIMULATING HORMONE 1.08 MIU/L (0.465-4.680)
[2016-09-08 08:05] VITALS: BP 111/58; RESP 20
[2016-09-08] MEDS ORDERED: IOHEXOL 300MG/ML 30 ML BTL ONE (08:57)
[2016-09-08] MEDS: FAMOTIDINE 20 MG INJ IV SCH ×2 (09:00→20:19)
[2016-09-08] MEDS: predniSONE 10 MG TAB PO SCH (09:00)
[2016-09-08] MEDS: LEVETIRACETAM 500 MG TAB PO SCH ×2 (09:00→20:19)
[2016-09-08] MEDS: CYANOCOBALAMIN 500 MCG TAB PO SCH (09:00)
[2016-09-08] MEDS ORDERED: POTASSIUM CHLORIDE 20 MEQ in SOD CHLORIDE 0.9% 100 ML IVPB ONE (13:00)
[2016-09-08] MEDS ORDERED: MAGNESIUM SULFATE 2 GM/50 ML 50 ML IVPB ONE (13:00)
[2016-09-08] MEDS: morphine 2 MG INJ IV PRN ×2 (14:00→20:38)
[2016-09-08] MEDS ORDERED: SOD CHLORIDE 0.9% 100 ML ONE (14:15)
[2016-09-08] MEDS ORDERED: IODIXANOL LOCM 100 ML BTL ONE (14:15)
--- NOTE | 2016-09-08 14:48 | PN ---
DATE: 09/08/2016 INFECTIOUS DISEASE PROGRESS NOTE SUBJECTIVE: No acute changes. The patient is awake, lying comfortably in bed. No fevers. LABORATORY DATA: WBC 13.4 with platelets 391, no shift. BUN 11, creatinine 0.71. MICROBIOLOGY: Urine culture growing gram-negative rods. Blood cultures negative. DIAGNOSTICS: CT revealed gas-containing collection of fluid surrounded by small bowel and colon adj acent to the surgical and anastomotic margin with differential including abscess complaint, perforat ion, or colo-enteric fistula. No bowel obstruction. Wall thickening, cholelithiasis with trace per icholecystic fluid. ANTIMICROBIALS: The patient is on: 1. Zosyn. 2. IV vancomycin. PHYSICAL EXAMINATION: GENERAL: This is a fragile, middle-aged white woman who looks older than her age who is awake, in n o distress. HEENT: Head atraumatic, normocephalic. Sclerae anicteric. Buccal mucosa dry. NECK: Supple, trachea midline. CHEST: Rise symmetrical. Breath sounds clear. HEART: S1, S2. ABDOMEN: Soft. Bowel sounds present. The patient has a midabdominal incision with upper part pack ed with dressing and lower part continuously draining serous fluid. EXTREMITIES: Without cyanosis. ASSESSMENT: 1. Abdominal pain with questionable intraabdominal abscess versus enterocutaneous fistula per CT of the abdomen. 2. History of right adnexal mass with pelvic pain status post laparoscopy with enterolysis, small b owel resection with anastomosis, right salpingo-oophorectomy and splenectomy done by Dr. Mcmahan on 07/20/2016. Pathology report revealed no malignancy. 3. Systemic inflammatory response syndrome secondary to above. 4. Gram-negative rods urinary tract infection. PLAN: The patient remains clinically stable. She is being seen by Dr. Mcmahan. She is also being seen by Dr. Wiseman in oncology consultation. She seems to be responding to antibiotics and curr ently afebrile with white blood cell count tracing down. We will continue her on current regimen, a wait for cultures. Follow surgical recommendations. Dictated By: BRENDA SNIDER SITE LEADER for TAMANNA MARKS MD NI/NTS Conf#: [id number] DID#: [id number]
--- NOTE | 2016-09-08 16:33 | PN ---
Date/Time of Note Date/Time of Note DATE: 09/08/16 TIME: 16:27 Assessment/Plan VTE Prophylaxis VTE Prophylaxis Intervention: SCD's Lines/Catheters IV [facility] Type [facility]from [facility] Peripheral IV Urinary Cath still in place: No Assessment/Plan Assessment/Plan 1. Abdominal pain with questionable intraabdominal abscess versus enterocutaneous fistula per CT of the abdomen. on zosyn and vancomycin 2. History of right adnexal mass with pelvic pain status post laparoscopy with enterolysis, small bowel resection with anastomosis, right salpingo- oophorectomy and splenectomy done by Dr. Mcmahan on 07/20/2016. Pathology report revealed no malignancy. 3. Systemic inflammatory response syndrome secondary to above. 4. Gram-negative rods urinary tract infection., on zosyn, follow up with culture Subjective 24 Hr Interval Summary Free Text/Dictation less pain, afebrile Exam/Review of Systems Vital Signs Vitals Vital Signs Date Time Temp Pulse Resp B/P Pulse Ox O2 Delivery O2 Flow Rate FiO2 09/08/16 08:05 98.6 80 20 111/58 94 09/07/16 15:20 Room Air Intake and Output 09/07/16 09/07/16 09/08/16 15:00 23:00 07:00 Intake Total 50 ml 50 ml 150 ml Output Total 350 ml Balance 50 ml 50 ml -200 ml Exam Constitutional: alert, oriented, well developed Psych: nl mood/affect, no complaints Head: atraumatic, normocephalic Eyes: EOMI, PERRL, nl conjunctiva, nl lids ENMT: nl external ears & nose, nl nasal mucosa & septum Neck: non-tender, supple Respiratory: clear to auscultation, normal air movement, No congested cough, No crackles/rales, No diminished breath sounds, No intercostal retraction, No labored breathing, No respirations, No tactile fremitus, No wheezing Cardiovascular: nl pulses, regular rate and rhythm, No S3, No S4, No bruits, No diastolic murmur, No edema, No gallop, No irregular rhythm, No jugular venous distention (JVD), No murmurs/extra sounds, No rub, No systolic murmur Gastrointestinal: bowel sounds, nl liver, spleen, soft, tender (tenderness), No ascites, No distended, No firm, No hepatomegaly, No mass, No other, No surgical scars Musculoskeletal: nl extremities to inspection Neurological: POULTRY DRESSING WORKER II-XII intact, nl mental status, nl speech, nl strength Skin: nl turgor Lymph: nl lymph nodes Results Result Diagram: 09/08/16 0508 09/08/16 0508 Results 24 hrs Laboratory Tests Test 09/08/16 05:08 Alanine Aminotransferase (ALT/SGPT) 19 Albumin 2.7 L Albumin/Globulin Ratio 0.81 Alkaline Phosphatase 67 Amylase Level 72 Anion Gap 15 Aspartate Amino Transf (AST/SGOT) 18 Basophils # 0.1 Basophils % 0.4 Blood Urea Nitrogen 11 # Calcium Level 8.5 Carbon Dioxide Level 24 Chloride Level 108 Cholesterol Level 106 Cholesterol/HDL Ratio 2.2 Creatinine 0.71 Direct Bilirubin 0.00 Eosinophils # 0.0 Eosinophils % 0.0 Free Thyroxine 0.99 Globulin 3.30 H Glucose Level 96 HDL Cholesterol 48 Hematocrit 32.9 L Hemoglobin 11.0 L Indirect Bilirubin 0.0 LDL Cholesterol, Calculated 48 Lactic Acid Level 2.0 Lipase 247 Lymphocytes # 3.7 H Lymphocytes % 27.4 Magnesium Level 1.4 L Mean Corpuscular Hemoglobin 29.2 Mean Corpuscular Hemoglobin Concent 33.4 Mean Corpuscular Volume 87.6 Mean Platelet Volume 9.4 Monocytes # 1.0 H Monocytes % 7.4 Neutrophils # 8.7 H Neutrophils % 64.8 Nucleated Red Blood Cells # 0.0 Nucleated Red Blood Cells % 0.0 Phosphorus Level 3.7 Platelet Count 391 Potassium Level 3.1 L Red Blood Count 3.76 L Red Cell Distribution Width 14.1 Sodium Level 144 Thyroid Stimulating Hormone (TSH) 1.080 Total Bilirubin 0.0 L Total Protein 6.0 #L Triglycerides Level 48 White Blood Count 13.4 #H Medications Medications Current Medications Ondansetron HCl (Zofran Inj) 4 mg Q6H PRN IV NAUSEA AND/OR VOMITING Last administered on 09/08/16 14:00; Admin Dose 4 MG; Start 09/07/16 at 12:30 Morphine Sulfate (morphine) 2 mg Q4H PRN IV SEVERE PAIN LEVEL 7-10 Last administered on 09/08/16 14:00; Admin Dose 2 MG; Start 09/07/16 at 12:30 Famotidine 20 mg 20 mg Q12 IV Last administered on 09/08/16 09:00; Admin Dose 20 MG; Start 09/07/16 at 21:00 Potassium Chloride/Dextrose/ Sod Cl 1,000 ml @ 125 mls/hr Q8H IV Last administered on 09/08/16 09:00; Admin Dose 125 MLS/HR; Start 09/07/16 at 12:30 Piperacillin Sod/ Tazobactam Sod 50 ml @ 100 mls/hr Q8 IVPB Last administered on 09/08/16 15:22; Admin Dose 100 MLS/HR; Start 09/07/16 at 21:00 Vancomycin HCl (Vancocin) 100 ml @ 100 mls/hr Q12H IVPB Last administered on 12:56; Admin Dose 100 MLS/HR; Start 09/08/16 at 01:00 Cyanocobalamin (Vitamin B12) 1,000 mcg DAILY PO Last administered on 09/08/16 09:00; Admin Dose 1,000 MCG; Start 09/08/16 at 09:00 Gabapentin (Neurontin) 1,200 mg QHS PO Last administered on 09/07/16 20:52; Admin Dose 1,200 MG; Start 09/07/16 at 21:00 Levetiracetam (Keppra) 500 mg BID PO Last administered on 09/08/16 09:00; Admin Dose 500 MG; Start 09/07/16 at 21:00 Prednisone (Prednisone) 10 mg DAILY PO Last administered on 09/08/16 09:00; Admin Dose 10 MG; Start 09/08/16 at 09:00 Miscellaneous Information (*Rx Drug Level Order Reminder*) VANCO TROUGH @ 0, 000 ON... ONCE ONCE XX ; Start 09/09/16 at 00:00; Stop 09/09/16 at 00:01 ABY VAZQUEZ MD Sep 08, 2016 16:33
--- NOTE | 2016-09-08 19:25 | PN ---
Date/Time of Note Date/Time of Note DATE: 09/08/16 TIME: 19:19 Assessment/Plan VTE Prophylaxis VTE Prophylaxis Intervention: SCD's Lines/Catheters IV [facility]ter Type (from [facility]): Peripheral IV Urinary Cath still in place: No Assessment/Plan Chief Complaint/Hosp Course Office Note Sep 07, 2016 History of present illness: This is a 56 year oldadmitted with pain and an abdominal collection. Surgery: Laparoscopy,Extensive enterolysis,Laparotomy with enterolysis,Small bowel resection and anastamosis Right salpingoophorectomy,Ureteral dissection with repositioning with ureterolysis; right sided,Splenectomy- 07/20/16 G 1 P 1 [facility] Surgical history: LUPE/LSO 2002, complications and laparotomy-[facility]. Colonoscopy: yes, 2013 Medical : Hepatitis C, eczema, gerd, psoriasis, insomnia, IBS, tinitus Outside Plant Technician Referring MD: Liz Cummings Patient here for f/u. feels better Medications: 01/21/15 alprazolam 1 mg tablet ud 08/17/16 Bactrim DS 800 mg-160 mg tablet 1 tablet by mouth BID 01/21/15 Creon 12,000-38,000-60,000 unit capsule,delayed release ud 04/18/16 gabapentin 300 mg capsule 1 capsule by mouth TID 01/21/15 LEVACET 500 mg-250 mg-150 mg-32.5 mg Tab ud 07/23/14 [place] 10 mg-325 mg tablet 1 tablet by mouth Q6h 1 po q 6 prn pain 01/21/15 omeprazole 40 mg capsule,delayed release ud 04/18/16 Plaquenil 200 mg tablet 1 tablet by mouth BID 06/13/16 prednisone 20 mg tablet 1 tablet by mouth DAILY 04/18/16 tramadol 50 mg tablet 1 tablet by mouth TID 07/23/14 Xanax 1 mg tablet tid Vitals (09/05/2016): Weight 97, Height 64, BP 138/66, BMI 16.6. Objective: Lung exam: normal, clear all willson. Abdominal exam: nontender, nondistended, no masses, no ascites. Incision: inadequately packed with purulent material Vagina exam: normal mucosa without lesions. Pelvic exam: no masses or cul-de-sac nodularity noted Extremity exam: nontender with no edema. Assessment: elevated WBC with abdominal collection Plan: Evaluate for abscess to drain and rx vs fistual to operate. Maxi Almanza M.D. Problems: Subjective 24 Hr Interval Summary Free Text/Dictation S- feels somewhat better and indicates contrast given orally came out rectally but not thru abdomen. Indicates CT completed in afternoon late. Hungry. O- Resp- clear CVS- NSR Abd- soft Ext NT no edema A- status uncertain as CT report not available and no answer when called; despite fact that ordered yesterday before I wrote my note at about 6 p.m. P- told patient important to maintain NPO until treatment plan definitive. Will also discuss with IM. Exam/Review of Systems Vital Signs Vitals Vital Signs Date Time Temp Pulse Resp B/P Pulse Ox O2 Delivery O2 Flow Rate FiO2 09/08/16 08:05 98.6 80 20 111/58 94 09/07/16 15:20 Room Air Intake and Output 09/07/16 09/07/16 09/08/16 15:00 23:00 07:00 Intake Total 50 ml 50 ml 150 ml Output Total 350 ml Balance 50 ml 50 ml -200 ml Results Result Diagram: 09/08/16 0508 09/08/16 0508 Results 24 hrs Laboratory Tests Test 09/08/16 05:08 Alanine Aminotransferase (ALT/SGPT) 19 Albumin 2.7 L Albumin/Globulin Ratio 0.81 Alkaline Phosphatase 67 Amylase Level 72 Anion Gap 15 Aspartate Amino Transf (AST/SGOT) 18 Basophils # 0.1 Basophils % 0.4 Blood Urea Nitrogen 11 # Calcium Level 8.5 Carbon Dioxide Level 24 Chloride Level 108 Cholesterol Level 106 Cholesterol/HDL Ratio 2.2 Creatinine 0.71 Direct Bilirubin 0.00 Eosinophils # 0.0 Eosinophils % 0.0 Free Thyroxine 0.99 Globulin 3.30 H Glucose Level 96 HDL Cholesterol 48 Hematocrit 32.9 L Hemoglobin 11.0 L Indirect Bilirubin 0.0 LDL Cholesterol, Calculated 48 Lactic Acid Level 2.0 Lipase 247 Lymphocytes # 3.7 H Lymphocytes % 27.4 Magnesium Level 1.4 L Mean Corpuscular Hemoglobin 29.2 Mean Corpuscular Hemoglobin Concent 33.4 Mean Corpuscular Volume 87.6 Mean Platelet Volume 9.4 Monocytes # 1.0 H Monocytes % 7.4 Neutrophils # 8.7 H Neutrophils % 64.8 Nucleated Red Blood Cells # 0.0 Nucleated Red Blood Cells % 0.0 Phosphorus Level 3.7 Platelet Count 391 Potassium Level 3.1 L Red Blood Count 3.76 L Red Cell Distribution Width 14.1 Sodium Level 144 Thyroid Stimulating Hormone (TSH) 1.080 Total Bilirubin 0.0 L Total Protein 6.0 #L Triglycerides Level 48 White Blood Count 13.4 #H Medications Medications Current Medications Ondansetron HCl (Zofran Inj) 4 mg Q6H PRN IV NAUSEA AND/OR VOMITING Last administered on 09/08/16 14:00; Admin Dose 4 MG; Start 09/07/16 at 12:30 Morphine Sulfate (morphine) 2 mg Q4H PRN IV SEVERE PAIN LEVEL 7-10 Last administered on 09/08/16 14:00; Admin Dose 2 MG; Start 09/07/16 at 12:30 Famotidine 20 mg 20 mg Q12 IV Last administered on 09/08/16 09:00; Admin Dose 20 MG; Start 09/07/16 at 21:00 Potassium Chloride/Dextrose/ Sod Cl 1,000 ml @ 125 mls/hr Q8H IV Last administered on 09/08/16 09:00; Admin Dose 125 MLS/HR; Start 09/07/16 at 12:30 Piperacillin Sod/ Tazobactam Sod 50 ml @ 100 mls/hr Q8 IVPB Last administered on 09/08/16 15:22; Admin Dose 100 MLS/HR; Start 09/07/16 at 21:00 Vancomycin HCl (Vancocin) 100 ml @ 100 mls/hr Q12H IVPB Last administered on 12:56; Admin Dose 100 MLS/HR; Start 09/08/16 at 01:00 Cyanocobalamin (Vitamin B12) 1,000 mcg DAILY PO Last administered on 09/08/16 09:00; Admin Dose 1,000 MCG; Start 09/08/16 at 09:00 Gabapentin (Neurontin) 1,200 mg QHS PO Last administered on 09/07/16 20:52; Admin Dose 1,200 MG; Start 09/07/16 at 21:00 Levetiracetam (Keppra) 500 mg BID PO Last administered on 09/08/16 09:00; Admin Dose 500 MG; Start 09/07/16 at 21:00 Prednisone (Prednisone) 10 mg DAILY PO Last administered on 1/27/17at 09:00; Admin Dose 10 MG; Start 09/08/16 at 09:00 Miscellaneous Information (*Rx Drug Level Order Reminder*) VANCO TROUGH @ 0, 000 ON... ONCE ONCE XX ; Start 09/09/16 at 00:00; Stop 09/09/16 at 00:01 MAXI ALMANZA MD Sep 08, 2016 19:25
[2016-09-08] MEDS: GABAPENTIN 300 MG CAP PO SCH (20:19)
[2016-09-08 20:48] VITALS: BP 125/63; RESP 19
--- NOTE | 2016-09-08 20:57 | RADRPT ---
PROCEDURE: CT abdomen and pelvis with. contrast. CLINICAL INDICATION: Enteric leakage. Abdominal pain and heart lungs and epigastric area TECHNIQUE: IV and oral contrast enhanced CT examination of the abdomen and pelvis, with axial, sag ittal and coronal reformatted images. 100 cc Isovue 300 nonionic IV contrast were employed. Automat ed dose exposure control was employed. CTDI: 4.21 mGy and DLP: 214.45 mGy-cm. COMPARISON: CT abdomen and pelvis dated 09/07/2016. FINDINGS: CT abdomen: Bilateral fibrotic banding versus atelectasis at the bilateral lung bases is mildly increased over i nterval since 09/07/2016. The heart size is normal, without pericardial thickening or effusion. The liver is normal in size and density without focal mass or intrahepatic biliary dilatation. The spleen is normal in size and homogeneous in density. The stomach is partially collapsed, but is carlos ssly unremarkable. The pancreas as visualized is normal. There are gallstones, without CT evidence of acute cholecystitis. Biliary structures otherwise unremarkable. The adrenal glands are symmetr ic and normal. Bilateral mild hydronephrosis and proximal to mid hydroureter, otherwise nonspecific . These findings are new over interval since prior examination dated 09/07/2016. No renal calculus or obstructive uropathy or mass lesion is seen. Inflammatory changes likely fluid in the left upper quadrant between the spleen and the splenic flex ure of the colon. This is similar in appearance to examination dated 09/07/2016 para The aorta is of normal caliber. Aortic vascular calcifications are present. There is no retroperit colon lymphadenopathy. The ronny hepatis region is clear. The bowel is otherwise unremarkable. CT pelvis: Enteric leakage in the pelvis with abscess over the dome of the urinary bladder and the posterior as pect of the urinary bladder, and extensive fat inflammatory changes in these regions. Abscess over the dome of the bladder measures 56 x 45 x 13 mm. Small abscess of the posterior aspec t the urinary bladder measures 17 x 12 x 8 mm. Findings are somewhat similar in appearance to prior examination dated 09/07/2016. Small likely abscess at the superior right pelvis, measuring 32 x 21 x 19 mm. This is somewhat hong lar in appearance to the prior examination. Surgical changes in bowel over pelvis, otherwise nonspecific. Question mural mass versus pedunculated mass in the cecum measuring 26 x 26 x 18 mm, otherwise nonsp ecific. Consider direct visualization. Findings are similar in appearance to prior examination date d 09/07/2016. New mural thickening in the cecum over interval. The small bowel loops situated within the pelvis are unremarkable. The pelvic organs are normal. T he pelvic sidewalls and inguinal regions are clear. The sigmoid colon and rectum are all unremarkab le. No evident mass or lymphadenopathy. The appendix is not seen. The surrounding osseous structures are remarkable for mild degenerative spondylosis of the spine. N o osteolytic or osteoblastic lesion is detected. IMPRESSION: 1. Scattered abscesses in the pelvis, greater over the dome of the urinary bladder and of the occupational therapist's assistant ior urinary bladder. 2. Small likely abscess at the superior right pelvis measuring 32 x 21 x 19 mm. 3. Question mural mass versus vallecular mass in the cecum measuring 26 x 26 x 18 mm. 4. New mural thickening in the cecum over interval. 5. No significant change in fluid versus inflammatory changes in the left upper quadrant between th e spleen and the splenic flexure of the colon. 6. Mild bilateral hydronephrosis and proximal to mid hydroureter, otherwise nonspecific. 7. Gallst ones, without CT evidence of acute cholecystitis. RPTAT: [facility] Physician Nuha Date Time Electronically viewed and signed by Physician Nuha on 09/08/2016 20:56 RS/
[2016-09-08 23:00] VITALS: BP 127/67; PULSE 72; RESP 18
--- NOTE | 2016-09-08 23:25 | CONS ---
Date/Time of Note Date/Time of Note DATE: 09/08/16 TIME: 23:24 Assessment/Plan Assessment/Plan Chief Complaint/Hosp Course LEUKOCYTOSIS with abdominal collection ( POSTOP) REACTIVE ATB SURG F-UP MONITOR CLOSELY NOTE THAT PT IS POST SPLENECTOMY AND ALSO ON PREDNISONE THROMBOCYTOSIS REACTIVE MONITOR CLOSELY Normocytic anemia. The patient's H and H will be monitored closely. The patient will be transfused as needed. Infected surgical incision. Wound cultures Bryson cultures empiric antibiotics. Infectious disease f-up abdominal collection ( POSTOP) 4.4 x 3.4 x 1.7 cm gas containing collection surrounded by an unopacified small bowel and colon adjacent to surgical anastomotic margin. The patient will be treated empirically for any underlying abscess. Surgical management will be deferred to the surgeon. Systemic inflammatory response syndrome with leukocytosis and tachycardia. Most probably secondary to underlying surgical site infection. The patient has no evidence of any septic shock. Seizure disorder. cont anti-seizure medications History of hepatitis C. lupus OVARIAN MASS, POST RESECTION BENIGN Problems: Consultation Date/Type/Reason Admit Date/Time Sep 07, 2016 at 10:55 Initial Consult Date 09/07/16 Type of Consultation: [facility] Referring Provider: RANDELL SIMON NP 24 HR Interval Summary Free Text/Dictation ALL NOTED WILL DISCUSS WITH SURGERY AND RADIOLOGY Exam/Review of Systems Vital Signs Vitals Vital Signs Date Time Temp Pulse Resp B/P Pulse Ox O2 Delivery O2 Flow Rate FiO2 09/08/16 20:48 98.0 19 125/63 97 09/08/16 08:05 80 09/07/16 15:20 Room Air Intake and Output 09/07/16 09/07/16 09/08/16 14:59 22:59 06:59 Intake Total 50 ml 50 ml 150 ml Output Total 350 ml Balance 50 ml 50 ml -200 ml Exam HEENT: Normocephalic, atraumatic. Eyes: Anicteric sclerae, conjunctivae clear. ENT: Nasal septum midline, oral mucosa moist. Neck supple, no JVD noticed. Respiratory: Bilaterally clear breath sounds. No use of accessory muscles of respiration. No adventitious breath sounds. Cardiovascular: S1, S2 heard. No murmurs or gallops. Abdomen: Large midline incision with an open defect towards the superior aspect of the incision that is packed with gauze and draining yellow, purulent, foul smelling secretion. The inferior aspect of the incision has yellow, purulent, foul smelling secretions. Tenderness around the incisions. Genitourinary: Deferred. Extremities: No cyanosis, no clubbing, no edema. Peripheral pulses palpable. Neurologic: Cranial nerves II through XII grossly intact. The patient is awake, alert, and oriented. Skin: Normal skin turgor. No skin rashes. Results Result Diagram: 09/08/16 0508 09/08/16 0508 Results 24 hrs Laboratory Tests Test 09/08/16 05:08 Alanine Aminotransferase (ALT/SGPT) 19 Albumin 2.7 L Albumin/Globulin Ratio 0.81 Alkaline Phosphatase 67 Amylase Level 72 Anion Gap 15 Aspartate Amino Transf (AST/SGOT) 18 Basophils # 0.1 Basophils % 0.4 Blood Urea Nitrogen 11 # Calcium Level 8.5 Carbon Dioxide Level 24 Chloride Level 108 Cholesterol Level 106 Cholesterol/HDL Ratio 2.2 Creatinine 0.71 Direct Bilirubin 0.00 Eosinophils # 0.0 Eosinophils % 0.0 Free Thyroxine 0.99 Globulin 3.30 H Glucose Level 96 HDL Cholesterol 48 Hematocrit 32.9 L Hemoglobin 11.0 L Indirect Bilirubin 0.0 LDL Cholesterol, Calculated 48 Lactic Acid Level 2.0 Lipase 247 Lymphocytes # 3.7 H Lymphocytes % 27.4 Magnesium Level 1.4 L Mean Corpuscular Hemoglobin 29.2 Mean Corpuscular Hemoglobin Concent 33.4 Mean Corpuscular Volume 87.6 Mean Platelet Volume 9.4 Monocytes # 1.0 H Monocytes % 7.4 Neutrophils # 8.7 H Neutrophils % 64.8 Nucleated Red Blood Cells # 0.0 Nucleated Red Blood Cells % 0.0 Phosphorus Level 3.7 Platelet Count 391 Potassium Level 3.1 L Red Blood Count 3.76 L Red Cell Distribution Width 14.1 Sodium Level 144 Thyroid Stimulating Hormone (TSH) 1.080 Total Bilirubin 0.0 L Total Protein 6.0 #L Triglycerides Level 48 White Blood Count 13.4 #H Medications Medications Current Medications Ondansetron HCl (Zofran Inj) 4 mg Q6H PRN IV NAUSEA AND/OR VOMITING Last administered on 09/08/16 14:00; Admin Dose 4 MG; Start 09/07/16 at 12:30 Morphine Sulfate (morphine) 2 mg Q4H PRN IV SEVERE PAIN LEVEL 7-10 Last administered on 09/08/16 20:38; Admin Dose 2 MG; Start 09/07/16 at 12:30 Famotidine 20 mg 20 mg Q12 IV Last administered on 09/08/16 20:19; Admin Dose 20 MG; Start 09/07/16 at 21:00 Potassium Chloride/Dextrose/ Sod Cl 1,000 ml @ 125 mls/hr Q8H IV Last administered on 09/08/16 09:00; Admin Dose 125 MLS/HR; Start 09/07/16 at 12:30 Piperacillin Sod/ Tazobactam Sod 50 ml @ 100 mls/hr Q8 IVPB Last administered on 09/08/16 21:39; Admin Dose 100 MLS/HR; Start 09/07/16 at 21:00 Vancomycin HCl (Vancocin) 100 ml @ 100 mls/hr Q12H IVPB Last administered on 12:56; Admin Dose 100 MLS/HR; Start 09/08/16 at 01:00 Cyanocobalamin (Vitamin B12) 1,000 mcg DAILY PO Last administered on 09/08/16 09:00; Admin Dose 1,000 MCG; Start 09/08/16 at 09:00 Gabapentin (Neurontin) 1,200 mg QHS PO Last administered on 09/08/16 20:19; Admin Dose 1,200 MG; Start 09/07/16 at 21:00 Levetiracetam (Keppra) 500 mg BID PO Last administered on 09/08/16 20:19; Admin Dose 500 MG; Start 09/07/16 at 21:00 Prednisone (Prednisone) 10 mg DAILY PO Last administered on 09/08/16 09:00; Admin Dose 10 MG; Start 09/08/16 at 09:00 Miscellaneous Information (*Rx Drug Level Order Reminder*) VANCO TROUGH @ 0, 000 ON... ONCE ONCE XX ; Start 09/09/16 at 00:00; Stop 09/09/16 at 00:01 JOSE LUIS MERCADO MD Sep 08, 2016 23:24
[2016-09-09] MEDS: morphine 2 MG INJ IV PRN ×4 (00:44→20:59)
[2016-09-09] MEDS: VANCOMYCIN 750 MG in SOD CHLORIDE 0.9% 150 ML IVPB SCH ×2 (01:49→12:24)
[2016-09-09] MEDS: D5W-0.45 NACL + KCL 10 MEQ 1,000 ML IV SCH ×3 (04:49→20:51)
[2016-09-09] MEDS: PIPER-TAZO 2.25 GM (PMX) 50 ML IVPB SCH (06:06)
[2016-09-09 07:00] VITALS: BP 111/58; RESP 18
[2016-09-09] MEDS: predniSONE 10 MG TAB PO SCH (08:35)
[2016-09-09] MEDS: FAMOTIDINE 20 MG INJ IV SCH ×2 (08:35→20:51)
[2016-09-09] MEDS: LEVETIRACETAM 500 MG TAB PO SCH ×2 (08:36→20:51)
[2016-09-09] MEDS: CYANOCOBALAMIN 500 MCG TAB PO SCH (08:41)
--- NOTE | 2016-09-09 10:01 | PN ---
Date/Time of Note Date/Time of Note DATE: 09/09/16 TIME: 10:01 Assessment/Plan VTE Prophylaxis VTE Prophylaxis Intervention: SCD's Lines/Catheters IV [facility] (from [facility]): Peripheral IV Urinary Cath still in place: No Assessment/Plan Chief Complaint/Hosp Course 1. Abdominal pain with questionable intra-abdominal abscess versus enterocutaneous fistula. Continue antibiotics as per infectious diseases. The patient being followed by surgery. 2. Systemic inflammatory response syndrome with leukocytosis and tachycardia. Continue antibiotics as per infectious diseases. Urine culture showing E. coli , although the colony count is only 10,000-20,000. 3. Normocytic anemia. We will monitor the H&H closely. Will transfuse as needed. 4. Seizure disorder. Continue anticonvulsants. 5. Lupus. Continue daily prednisone. 6. History of hepatitis C. No evidence of any active issues at this time. 7. Protein calorie malnutrition. Moderate. The patient currently n.p.o. Await input from the surgeon before the starting the patient on any oral intake. 8. Fluids, electrolytes, and nutrition. N.p.o. IV fluids. 9. DVT prophylaxis. Bilateral sequential compression devices. 10. Gastrointestinal prophylaxis. Histamine 2 receptor blockers. 11. Plan. Continue pain control. Continue antibiotics as per infectious disease. Await further recommendations from surgery. Case discussed with Dr. Martinez. Problems: Subjective 24 Hr Interval Summary Free Text/Dictation The patient remains afebrile. Complains of incisional pain. Exam/Review of Systems Vital Signs Vitals Vital Signs Date Time Temp Pulse Resp B/P Pulse Ox O2 Delivery O2 Flow Rate FiO2 09/09/16 07:00 97.8 65 18 111/58 98 09/08/16 23:00 Room Air Intake and Output 09/08/16 09/08/16 09/09/16 15:00 23:00 07:00 Intake Total 850 ml 1000 ml 0 ml Balance 850 ml 1000 ml 0 ml Exam HEENT: Normocephalic, atraumatic. Eyes: Anicteric sclerae, conjunctivae clear. ENT: Nasal septum midline, oral mucosa moist. Neck supple, no JVD noticed. Respiratory: Bilaterally clear breath sounds. No use of accessory muscles of respiration. No adventitious breath sounds. Cardiovascular: S1, S2 heard. No murmurs or gallops. Abdomen: Large midline incision with an open defect towards the superior aspect of the incision that is packed with gauze and draining yellow, purulent, foul smelling secretion. The inferior aspect of the incision has yellow, purulent, foul smelling secretions. Tenderness around the incisions. Genitourinary: Deferred. Extremities: No cyanosis, no clubbing, no edema. Peripheral pulses palpable. Neurologic: Cranial nerves II through XII grossly intact. The patient is awake, alert, and oriented. Skin: Normal skin turgor. No skin rashes. Results Result Diagram: 09/08/16 0508 09/08/16 0508 Results 24 hrs Laboratory Tests Test 09/09/16 00:10 Vancomycin Level Trough 7.1 L Medications Medications Current Medications Ondansetron HCl (Zofran Inj) 4 mg Q6H PRN IV NAUSEA AND/OR VOMITING Last administered on 09/08/16 14:00; Admin Dose 4 MG; Start 09/07/16 at 12:30 Morphine Sulfate (morphine) 2 mg Q4H PRN IV SEVERE PAIN LEVEL 7-10 Last administered on 09/09/16 09:38; Admin Dose 2 MG; Start 09/07/16 at 12:30 Famotidine 20 mg 20 mg Q12 IV Last administered on 09/09/16 08:35; Admin Dose 20 MG; Start 09/07/16 at 21:00 Potassium Chloride/Dextrose/ Sod Cl 1,000 ml @ 125 mls/hr Q8H IV Last administered on 09/09/16 04:49; Admin Dose 125 MLS/HR; Start 09/07/16 at 12:30 Piperacillin Sod/ Tazobactam Sod (Zosyn 2.25gm/ 50ml (Pmx)) 50 ml @ 100 mls/hr Q8 IVPB Last administered on 09/09/16 06:06; Admin Dose 100 MLS/HR; Start at 21:00 Cyanocobalamin (Vitamin B12) 1,000 mcg DAILY PO Last administered on 09/09/16 08:41; Admin Dose 1,000 MCG; Start 09/08/16 at 09:00 Gabapentin (Neurontin) 1,200 mg QHS PO Last administered on 09/08/16 20:19; Admin Dose 1,200 MG; Start 09/07/16 at 21:00 Levetiracetam (Keppra) 500 mg BID PO Last administered on 09/09/16 08:36; Admin Dose 500 MG; Start 09/07/16 at 21:00 Prednisone 10 mg 10 mg DAILY PO Last administered on 09/09/16 08:35; Admin Dose 10 MG; Start 09/08/16 at 09:00 Vancomycin HCl/ Sodium Chloride (Vancocin/NS) 150 ml @ 75 mls/hr Q12H IVPB Last administered on 09/09/16 01:49; Admin Dose 75 MLS/HR; Start 09/09/16 at 01 :00 RANDELL SIMON NP Sep 09, 2016 10:01
--- NOTE | 2016-09-09 10:41 | CONS ---
Date/Time of Note Date/Time of Note DATE: 09/09/16 TIME: 10:41 Assessment/Plan Assessment/Plan Chief Complaint/Hosp Course D PROGRESS NOTE TOTAL ABX DAY # 3 => Vanco IV + Zosyn s/p Clinda 24H INTERVAL SUMMARY * Urine (+)E.coli * Stool (+)C.Diff * Pt got OOB to [facility] for stool without waiting for nurse URINE CULTURE Final Organism 1 ESCHERICHIA COLI COLONY COUNT 10,000 - 20,000 CFU/ml E COLI M.I.C. RX --------- --- AMPICILLIN >=32 R CEFAZOLIN S CEFOTAXIME S CIPROFLOXACIN <=0.25 S GENTAMICIN <=1 S LEVOFLOXACIN <=0.12 S NITROFURANTOIN <=16 S TOBRAMYCIN <=1 S TRIMETHOPRIM/SULFAMETHOXAZOLE >=320 R PHYSICAL EXAMINATION: GENERAL: 56 yo HEENT: Unremarkable NECK: Supple, trachea midline. CHEST: Equal chest rise bilaterally HEART: Pulse RRR ABDOMEN: Soft EXTREMITIES: Warm SKIN: See photos ID ASSESSMENT: 56 yo F admit with: 1. Abdominal pain with questionable intraabdominal abscess versus enterocutaneous fistula per CT of the abdomen. * (+)C.Diff Stool 2. History of right adnexal mass with pelvic pain status post laparoscopy with enterolysis, small bowel resection with anastomosis, right salpingo- oophorectomy and splenectomy done by Dr. Mcmahan on 07/20/2016. * Pathology report revealed no malignancy. 3. Systemic inflammatory response syndrome secondary to above. 4. Gram-negative rods urinary tract infection 5. (+)C.Diff Colitis ( )MRSA Nares ->not ordered INVASIVES: ABX ALLERGY: KNDA CURRENT ABX: TOTAL ABX DAY # 3 => Vanco IV + Zosyn ID RECOMMENDATIONS: 1. Dr. Mayes recommends stop Zosyn which drives C.Diff and change to Aminoglycoside + FLagyl IV 2. Change Vanco IV to Zyvox to avoid toxic renal combo of Vanco + Aminoglycoside 3. Oral Vanco Liquid for C. Diff. . Problems: Consultation Date/Type/Reason Admit Date/Time Sep 07, 2016 at 10:55 Initial Consult Date 09/07/16 Type of Consultation: ID Referring Provider: RANDELL SIMON IRR[employer]ATION SERVICE TECHNICIAN Exam/Review of Systems Vital Signs Vitals Vital Signs Date Time Temp Pulse Resp B/P Pulse Ox O2 Delivery O2 Flow Rate FiO2 09/09/16 07:00 97.8 65 18 111/58 98 09/08/16 23:00 Room Air Intake and Output 09/08/16 09/08/16 09/09/16 15:00 23:00 07:00 Intake Total 850 ml 1000 ml 0 ml Balance 850 ml 1000 ml 0 ml Results Result Diagram: 09/08/16 0508 09/08/16 0508 Results 24 hrs Laboratory Tests Test 09/09/16 00:10 Vancomycin Level Trough 7.1 L Medications Medications Current Medications Ondansetron HCl (Zofran Inj) 4 mg Q6H PRN IV NAUSEA AND/OR VOMITING Last administered on 09/08/16 14:00; Admin Dose 4 MG; Start 09/07/16 at 12:30 Morphine Sulfate (morphine) 2 mg Q4H PRN IV SEVERE PAIN LEVEL 7-10 Last administered on 09/09/16 09:38; Admin Dose 2 MG; Start 09/07/16 at 12:30 Famotidine 20 mg 20 mg Q12 IV Last administered on 09/09/16 08:35; Admin Dose 20 MG; Start 09/07/16 at 21:00 Potassium Chloride/Dextrose/ Sod Cl 1,000 ml @ 125 mls/hr Q8H IV Last administered on 09/09/16 04:49; Admin Dose 125 MLS/HR; Start 09/07/16 at 12:30 Piperacillin Sod/ Tazobactam Sod (Zosyn 2.25gm/ 50ml (Pmx)) 50 ml @ 100 mls/hr Q8 IVPB Last administered on 09/09/16 06:06; Admin Dose 100 MLS/HR; Start at 21:00 Cyanocobalamin (Vitamin B12) 1,000 mcg DAILY PO Last administered on 09/09/16 08:41; Admin Dose 1,000 MCG; Start 09/08/16 at 09:00 Gabapentin (Neurontin) 1,200 mg QHS PO Last administered on 09/08/16 20:19; Admin Dose 1,200 MG; Start 09/07/16 at 21:00 Levetiracetam (Keppra) 500 mg BID PO Last administered on 09/09/16 08:36; Admin Dose 500 MG; Start 09/07/16 at 21:00 Prednisone 10 mg 10 mg DAILY PO Last administered on 09/09/16 08:35; Admin Dose 10 MG; Start 09/08/16 at 09:00 Vancomycin HCl/ Sodium Chloride (Vancocin/NS) 150 ml @ 75 mls/hr Q12H IVPB Last administered on 09/09/16 01:49; Admin Dose 75 MLS/HR; Start 09/09/16 at 01 :00 CHAPIS HENRIQUEZ NP Sep 09, 2016 10:41
[2016-09-09] MEDS ORDERED: VANCOMYCIN HCL 250 MG/5ML POSYG PO SCH (12:00)
--- NOTE | 2016-09-09 15:28 | PN ---
Date/Time of Note Date/Time of Note DATE: 09/09/16 TIME: 15:17 Assessment/Plan VTE Prophylaxis VTE Prophylaxis Intervention: LMWH Lines/Catheters IV Catheter Type (from [facility]): Peripheral IV Urinary Cath still in place: No Assessment/Plan Chief Complaint/Hosp Course abdominal abscess, pain, c. diff Problems: Assessment/Plan A- Called earlier today and discussed results of CT with Radiologist in fine detail because computer generated version suggests an enteric leak but the final Impressions do not mention any leakage of contrast or fistula. With out discussion he clearly states NO evidence of any small bowel anastomotic contrast leakage but does acknowledge an anterior abscess and right lateral/ pelvic abscess both of which can be drained by CT guidance (and may or may not have been caused by separate issue of diverticular/colonic leakage but no contrast noted; only in colon) P- Given that we will not operate and given that c-diff just returned + will give clear liq and discuss with IM.. Subjective 24 Hr Interval Summary Free Text/Dictation S- feels somewhat better and clearly confirmed that CT yesterday was with oral and IV contrast O- Resp- clear CVS- NSR Abd- soft Ext NT no edema A- Called earlier today and discussed results of CT with Radiologist in fine detail because computer generated version suggests an enteric leak but the final Impressions do not mention any leakage of contrast or fistula. With out discussion he clearly states NO evidence of any small bowel anastomotic contrast leakage but does acknowledge an anterior abscess and right lateral/ pelvic abscess both of which can be drained by CT guidance (and may or may not have been caused by separate issue of diverticular/colonic leakage but no contrast noted; only in colon) P- Given that we will not operate and given that c-diff just returned + will give clear liq and discuss with IM.. Exam/Review of Systems Vital Signs Vitals Vital Signs Date Time Temp Pulse Resp B/P Pulse Ox O2 Delivery O2 Flow Rate FiO2 09/09/16 07:00 97.8 65 18 111/58 98 09/08/16 23:00 Room Air Intake and Output 09/08/16 09/08/16 09/09/16 15:00 23:00 07:00 Intake Total 850 ml 1000 ml 0 ml Balance 850 ml 1000 ml 0 ml Results Result Diagram: 09/08/16 0508 09/08/16 0508 Results 24 hrs Laboratory Tests Test 09/09/16 00:10 Vancomycin Level Trough 7.1 L Medications Medications Current Medications Ondansetron HCl (Zofran Inj) 4 mg Q6H PRN IV NAUSEA AND/OR VOMITING Last administered on 09/08/16 14:00; Admin Dose 4 MG; Start 09/07/16 at 12:30 Morphine Sulfate (morphine) 2 mg Q4H PRN IV SEVERE PAIN LEVEL 7-10 Last administered on 09/09/16 09:38; Admin Dose 2 MG; Start 09/07/16 at 12:30 Famotidine 20 mg 20 mg Q12 IV Last administered on 09/09/16 08:35; Admin Dose 20 MG; Start 09/07/16 at 21:00 Potassium Chloride/Dextrose/ Sod Cl 1,000 ml @ 125 mls/hr Q8H IV Last administered on 09/09/16 04:49; Admin Dose 125 MLS/HR; Start 09/07/16 at 12:30 Piperacillin Sod/ Tazobactam Sod (Zosyn 2.25gm/ 50ml (Pmx)) 50 ml @ 100 mls/hr Q8 IVPB Last administered on 09/09/16 06:06; Admin Dose 100 MLS/HR; Start at 21:00 Cyanocobalamin (Vitamin B12) 1,000 mcg DAILY PO Last administered on 09/09/16 08:41; Admin Dose 1,000 MCG; Start 09/08/16 at 09:00 Gabapentin (Neurontin) 1,200 mg QHS PO Last administered on 09/08/16 20:19; Admin Dose 1,200 MG; Start 09/07/16 at 21:00 Levetiracetam (Keppra) 500 mg BID PO Last administered on 09/09/16 08:36; Admin Dose 500 MG; Start 09/07/16 at 21:00 Prednisone 10 mg 10 mg DAILY PO Last administered on 09/09/16 08:35; Admin Dose 10 MG; Start 09/08/16 at 09:00 Vancomycin HCl/ Sodium Chloride (Vancocin/NS) 150 ml @ 75 mls/hr Q12H IVPB Last administered on 09/09/16 01:49; Admin Dose 75 MLS/HR; Start 09/09/16 at 01 :00 SAMMY ALMANZA MD Sep 09, 2016 15:27
[2016-09-09] MEDS ORDERED: AMIKACIN IV PER PHARMACY XX SCH (15:30)
[2016-09-09] MEDS: metroNIDAZOLE 500 MG/NS (PMX) 100 ML IVPB SCH ×2 (16:01→22:38)
[2016-09-09] MEDS: AMIKACIN 600 MG in SOD CHLORIDE 0.9% 100 ML IVPB SCH (17:30)
[2016-09-09] MEDS: VANCOMYCIN HCL 250 MG/5ML POSYG PO SCH ×2 (17:39→23:32)
[2016-09-09 19:54] VITALS: BP 147/66; RESP 16
[2016-09-09] MEDS: GABAPENTIN 300 MG CAP PO SCH (20:50)
[2016-09-09] MEDS: LINEZOLID 600 MG/D5W (PMX) 300 ML IVPB SCH (20:51)
[2016-09-09] MEDS: ALPRAZOLAM 1 MG TAB PO PRN (22:55)
--- NOTE | 2016-09-09 23:00 | CONS ---
Date/Time of Note Date/Time of Note DATE: 09/09/16 TIME: 23:00 Assessment/Plan Assessment/Plan Chief Complaint/Hosp Course LEUKOCYTOSIS with abdominal collection ( POSTOP) REACTIVE ATB SURG F-UP DRAIN BY IR MONITOR CLOSELY NOTE THAT PT IS POST SPLENECTOMY AND ALSO ON PREDNISONE THROMBOCYTOSIS REACTIVE MONITOR CLOSELY Normocytic anemia. The patient's H and H will be monitored closely. The patient will be transfused as needed. Infected surgical incision. Wound cultures Bryson cultures empiric antibiotics. Infectious disease f-up abdominal collection ( POSTOP) 4.4 x 3.4 x 1.7 cm gas containing collection surrounded by an unopacified small bowel and colon adjacent to surgical anastomotic margin. The patient will be treated empirically for any underlying abscess. Surgical management will be deferred to the surgeon. Systemic inflammatory response syndrome with leukocytosis and tachycardia. Most probably secondary to underlying surgical site infection. The patient has no evidence of any septic shock. Seizure disorder. cont anti-seizure medications History of hepatitis C. lupus OVARIAN MASS, POST RESECTION BENIGN Problems: Consultation Date/Type/Reason Admit Date/Time Sep 07, 2016 at 10:55 Initial Consult Date 09/07/16 Referring Provider: RANDELL SIMON NP 24 HR Interval Summary Free Text/Dictation ALL NOTED PLAN-DRAIN COLLECTION Exam/Review of Systems Vital Signs Vitals Vital Signs Date Time Temp Pulse Resp B/P Pulse Ox O2 Delivery O2 Flow Rate FiO2 09/09/16 19:54 98.0 60 16 147/66 98 09/08/16 23:00 Room Air Intake and Output 09/08/16 09/08/16 09/09/16 15:00 23:00 07:00 Intake Total 850 ml 1000 ml 0 ml Balance 850 ml 1000 ml 0 ml Exam HEENT: Normocephalic, atraumatic. Eyes: Anicteric sclerae, conjunctivae clear. ENT: Nasal septum midline, oral mucosa moist. Neck supple, no JVD noticed. Respiratory: Bilaterally clear breath sounds. No use of accessory muscles of respiration. No adventitious breath sounds. Cardiovascular: S1, S2 heard. No murmurs or gallops. Abdomen: Large midline incision with an open defect towards the superior aspect of the incision that is packed with gauze and draining yellow, purulent, foul smelling secretion. The inferior aspect of the incision has yellow, purulent, foul smelling secretions. Tenderness around the incisions. Genitourinary: Deferred. Extremities: No cyanosis, no clubbing, no edema. Peripheral pulses palpable. Neurologic: Cranial nerves II through XII grossly intact. The patient is awake, alert, and oriented. Skin: Normal skin turgor. No skin rashes. Results Result Diagram: 09/08/16 0508 09/08/16 0508 Results 24 hrs Laboratory Tests Test 09/09/16 00:10 Vancomycin Level Trough 7.1 L Medications Medications Current Medications Ondansetron HCl (Zofran Inj) 4 mg Q6H PRN IV NAUSEA AND/OR VOMITING Last administered on 09/08/16 14:00; Admin Dose 4 MG; Start 09/07/16 at 12:30 Morphine Sulfate (morphine) 2 mg Q4H PRN IV SEVERE PAIN LEVEL 7-10 Last administered on 09/09/16 20:59; Admin Dose 2 MG; Start 09/07/16 at 12:30 Famotidine 20 mg 20 mg Q12 IV Last administered on 09/09/16 20:51; Admin Dose 20 MG; Start 09/07/16 at 21:00 Potassium Chloride/Dextrose/ Sod Cl (D5-1/2ns + KCl 10 Meq) 1,000 ml @ 125 mls/ hr Q8H IV Last administered on 09/09/16 20:51; Admin Dose 125 MLS/HR; Start at 12:30 Cyanocobalamin (Vitamin B12) 1,000 mcg DAILY PO Last administered on 09/09/16 08:41; Admin Dose 1,000 MCG; Start 09/08/16 at 09:00 Gabapentin (Neurontin) 1,200 mg QHS PO Last administered on 09/09/16 20:50; Admin Dose 1,200 MG; Start 09/07/16 at 21:00 Levetiracetam (Keppra) 500 mg BID PO Last administered on 09/09/16 20:51; Admin Dose 500 MG; Start 09/07/16 at 21:00 Prednisone (Prednisone) 10 mg DAILY PO Last administered on 09/09/16 08:35; Admin Dose 10 MG; Start 09/08/16 at 09:00 Vancomycin HCl 250 mg 250 mg Q6 PO Last administered on 09/09/16 17:39; Admin Dose 250 MG; Start 09/09/16 at 18:00 Metronidazole (Flagyl 500 Mg (Pmx)) 100 ml @ 100 mls/hr Q8 IVPB Last administered on 09/09/16 22:38; Admin Dose 100 MLS/HR; Start 09/09/16 at 15:30 Amikacin Sulfate AMIKACIN PER PHARMACY NOTE XX ; Start 09/09/16 at 15:30 Linezolid 300 ml @ 300 mls/hr Q12 IVPB Last administered on 09/09/16 20:51; Admin Dose 300 MLS/HR; Start 09/09/16 at 21:00 Amikacin Sulfate/ Sodium Chloride (Amikacin/NS) 102.4 ml @ 102.4 mls/ hr Q24H IVPB Last administered on 09/09/16 17:30; Admin Dose 102.4 MLS/HR; Start 09/09 at 18:00 Miscellaneous Information (*Rx Drug Level Order Reminder*) AMIKACIN RANDOM LEVEL 1... ONCE ONCE XX ; Start 09/10/16 at 05:00; Stop 09/10/16 at 05:01 Alprazolam (Xanax) 1 mg TID PRN PO anxiety Last administered on 09/09/16 22:55 ; Admin Dose 1 MG; Start 09/09/16 at 21:30 JOSE LUIS MERCADO MD Sep 09, 2016 23:00
[2016-09-10] MEDS: D5W-0.45 NACL + KCL 10 MEQ 1,000 ML IV SCH ×4 (04:30→20:30)
[2016-09-10] MEDS: VANCOMYCIN HCL 250 MG/5ML POSYG PO SCH ×3 (05:04→18:49)
[2016-09-10] MEDS: metroNIDAZOLE 500 MG/NS (PMX) 100 ML IVPB SCH ×2 (05:04→13:48)
[2016-09-10] MEDS: morphine 2 MG INJ IV PRN ×3 (05:04→22:43)
[2016-09-10 07:08] LABS: CREATININE 0.64 mg/dl (0.44-1.00)
[2016-09-10 07:09] LABS: BASOPHILS % 0.1 % (0.0-2.0); CALCIUM 8.3 mg/dl (8.4-10.2); HEMATOCRIT 30.3 % (37.0-47.0); HEMOGLOBIN 10.3 g/dl (12.0-16.0); LYMPHOCYTES # 3.3 10^3/ul (0.8-2.9); LYMPHOCYTES % 29.1 % (15.0-51.0); MEAN CORPUSCULAR HEMOGLOBIN 29.5 pg (29.0-33.0); MEAN CORPUSCULAR VOLUME 86.7 fl (82.0-101.0); MEAN PLATELET VOLUME 9.4 fl (7.4-10.4); MONOCYTE # 0.9 10^3/ul (0.3-0.9); MONOCYTES % 7.8 % (0.0-11.0); NEUTROPHIL # 7.2 10^3/ul (1.6-7.5); PLATELET COUNT 412 10^3/UL (140-440); POTASSIUM 2.9 mmol/L (3.5-5.1); RED BLOOD COUNT 3.49 10^6/ul (4.20-5.40); RED CELL DISTRIBUTION WIDTH 14.1 % (11.5-14.5); UNCORRECTED WBC 11.5 10^3/ul (4.8-10.8); WHITE BLOOD COUNT 11.5 10^3/ul (4.8-10.8)
[2016-09-10 07:11] LABS: MAGNESIUM 1.6 mg/dl (1.7-2.5); PHOSPHORUS 2.9 mg/dl (2.5-4.9)
[2016-09-10 07:13] LABS: CONDITION 1
[2016-09-10] MEDS ORDERED: POTASSIUM CHLORIDE 250 ML IVPB ONE (07:30)
[2016-09-10 07:37] VITALS: BP 128/64; RESP 18
[2016-09-10] MEDS: CYANOCOBALAMIN 500 MCG TAB PO SCH (08:48)
[2016-09-10] MEDS: LEVETIRACETAM 500 MG TAB PO SCH ×2 (08:48→21:30)
[2016-09-10] MEDS: predniSONE 10 MG TAB PO SCH (08:48)
[2016-09-10] MEDS: FAMOTIDINE 20 MG INJ IV SCH ×2 (08:48→21:30)
--- NOTE | 2016-09-10 10:26 | PN ---
Date/Time of Note Date/Time of Note DATE: 09/10/16 TIME: 10:23 Assessment/Plan VTE Prophylaxis VTE Prophylaxis Intervention: SCD's Lines/Catheters IV [facility] Type (from [facility]): Peripheral IV Urinary Cath still in place: No Assessment/Plan Chief Complaint/Hosp Course 1. Abdominal pain secondary to intra-abdominal abscess. Continue antibiotics as per infectious diseases. The patient being followed by surgery. Plan for IR guided drainage. 2. Sepsis secondary to underlying urinary tract infection, C. difficile colitis , and intra-abdominal abscess. Continue antibiotics as per infectious diseases. No evidence of any septic shock. 3. C. difficile colitis. Continue oral vancomycin. Enteric precautions. 4. Normocytic anemia. We will monitor the H&H closely. Will transfuse as needed. 5. Seizure disorder. Continue anticonvulsants. 6. Lupus. Continue daily prednisone. 7. History of hepatitis C. No evidence of any active issues at this time. 8. Protein calorie malnutrition. Moderate. The patient currently on clear liquids. Start the patient on protein supplements once the patient is able to tolerate a full liquid diet. 9. Fluids, electrolytes, and nutrition. Clear liquid diet. IV fluids. 10. DVT prophylaxis. Bilateral sequential compression devices. 11. Gastrointestinal prophylaxis. Histamine 2 receptor blockers. 12. Plan. Continue pain control. Continue antibiotics as per infectious disease. Await further recommendations from surgery. Case discussed with Dr. Martinez. Problems: Subjective 24 Hr Interval Summary Free Text/Dictation Complains of abdominal pain. Had some episodes of diarrhea last night. Exam/Review of Systems Vital Signs Vitals Vital Signs Date Time Temp Pulse Resp B/P Pulse Ox O2 Delivery O2 Flow Rate FiO2 09/10/16 07:37 97.6 67 18 128/64 95 09/08/16 23:00 Room Air Intake and Output 09/09/16 09/09/16 09/10/16 15:00 23:00 07:00 Intake Total 2030 ml 2000 ml Balance 2030 ml 2000 ml Exam HEENT: Normocephalic, atraumatic. Eyes: Anicteric sclerae, conjunctivae clear. ENT: Nasal septum midline, oral mucosa moist. Neck supple, no JVD noticed. Respiratory: Bilaterally clear breath sounds. No use of accessory muscles of respiration. No adventitious breath sounds. Cardiovascular: S1, S2 heard. No murmurs or gallops. Abdomen: Large midline incision with an open defect towards the superior aspect of the incision that is packed with gauze and draining yellow, purulent, foul smelling secretion. The inferior aspect of the incision has yellow, purulent, foul smelling secretions. Tenderness around the incisions. Genitourinary: Deferred. Extremities: No cyanosis, no clubbing, no edema. Peripheral pulses palpable. Neurologic: Cranial nerves II through XII grossly intact. The patient is awake, alert, and oriented. Skin: Normal skin turgor. No skin rashes. Results Result Diagram: 09/10/16 0452 09/10/16 0452 Results 24 hrs Laboratory Tests Test 09/10/16 04:52 Anion Gap 11 Basophils # 0.0 Basophils % 0.1 Blood Urea Nitrogen 5 L Calcium Level 8.3 L Carbon Dioxide Level 27 Chloride Level 108 Creatinine 0.64 Eosinophils # 0.0 Eosinophils % 0.0 Glucose Level 96 Hematocrit 30.3 L Hemoglobin 10.3 L Lymphocytes # 3.3 H Lymphocytes % 29.1 Magnesium Level 1.6 L Mean Corpuscular Hemoglobin 29.5 Mean Corpuscular Hemoglobin Concent 34.0 Mean Corpuscular Volume 86.7 Mean Platelet Volume 9.4 Monocytes # 0.9 Monocytes % 7.8 Neutrophils # 7.2 Neutrophils % 63.0 Nucleated Red Blood Cells # 0.0 Nucleated Red Blood Cells % 0.0 Phosphorus Level 2.9 Platelet Count 412 Potassium Level 2.9 *L Red Blood Count 3.49 L Red Cell Distribution Width 14.1 Sodium Level 143 White Blood Count 11.5 H Medications Medications Current Medications Ondansetron HCl (Zofran Inj) 4 mg Q6H PRN IV NAUSEA AND/OR VOMITING Last administered on 09/08/16 14:00; Admin Dose 4 MG; Start 09/07/16 at 12:30 Morphine Sulfate (morphine) 2 mg Q4H PRN IV SEVERE PAIN LEVEL 7-10 Last administered on 09/10/16 05:04; Admin Dose 2 MG; Start 09/07/16 at 12:30 Famotidine 20 mg 20 mg Q12 IV Last administered on 09/10/16 08:48; Admin Dose 20 MG; Start 09/07/16 at 21:00 Potassium Chloride/Dextrose/ Sod Cl (D5-1/2ns + KCl 10 Meq) 1,000 ml @ 125 mls/ hr Q8H IV Last administered on 09/09/16 20:51; Admin Dose 125 MLS/HR; Start at 12:30 Cyanocobalamin (Vitamin B12) 1,000 mcg DAILY PO Last administered on 09/10/16 08:48; Admin Dose 1,000 MCG; Start 09/08/16 at 09:00 Gabapentin (Neurontin) 1,200 mg QHS PO Last administered on 09/09/16 20:50; Admin Dose 1,200 MG; Start 09/07/16 at 21:00 Levetiracetam (Keppra) 500 mg BID PO Last administered on 09/10/16 08:48; Admin Dose 500 MG; Start 09/07/16 at 21:00 Prednisone (Prednisone) 10 mg DAILY PO Last administered on 09/10/16 08:48; Admin Dose 10 MG; Start 09/08/16 at 09:00 Vancomycin HCl 250 mg 250 mg Q6 PO Last administered on 09/10/16 05:04; Admin Dose 250 MG; Start 09/09/16 at 18:00 Metronidazole (Flagyl 500 Mg (Pmx)) 100 ml @ 100 mls/hr Q8 IVPB Last administered on 09/10/16 05:04; Admin Dose 100 MLS/HR; Start 09/09/16 at 15:30 Amikacin Sulfate AMIKACIN PER PHARMACY NOTE XX ; Start 09/09/16 at 15:30 Linezolid 300 ml @ 300 mls/hr Q12 IVPB Last administered on 09/09/16 20:51; Admin Dose 300 MLS/HR; Start 09/09/16 at 21:00 Amikacin Sulfate/ Sodium Chloride (Amikacin/NS) 102.4 ml @ 102.4 mls/ hr Q24H IVPB Last administered on 09/09/16 17:30; Admin Dose 102.4 MLS/HR; Start 09/09 at 18:00 Alprazolam 1 mg 1 mg TID PRN PO anxiety Last administered on 09/09/16 22:55; Admin Dose 1 MG; Start 09/09/16 at 21:30 Potassium Chloride 250 ml @ 62.5 mls/hr ONCE ONCE IVPB Last administered on 08:48; Admin Dose 62.5 MLS/HR; Start 09/10/16 at 07:30; Stop 09/10/16 at 11:29 Magnesium Sulfate (Magnesium Sulfate 2 Gm/50 ml) 50 ml @ 25 mls/hr ONCE ONCE IVPB ; Start 09/10/16 at 10:30; Stop 09/10/16 at 12:29 RANDELL SIMON NP Sep 10, 2016 10:26
[2016-09-10] MEDS ORDERED: MAGNESIUM SULFATE 2 GM/50 ML 50 ML IVPB ONE (10:30)
[2016-09-10] MEDS: LINEZOLID 600 MG/D5W (PMX) 300 ML IVPB SCH ×2 (11:11→22:43)
[2016-09-10] MEDS: ALPRAZOLAM 1 MG TAB PO PRN (15:02)
--- NOTE | 2016-09-10 15:30 | CONS ---
Date/Time of Note Date/Time of Note DATE: 09/10/16 TIME: 15:24 Assessment/Plan Assessment/Plan Chief Complaint/Hosp Course D PROGRESS NOTE TOTAL ABX DAY #4 => => Zyvox #2 + Amikacin#2 + Flagyl IV#2 + Vanco Liquid PO#2 s/p Vanco IV + Zosyn s/p Clinda 24H INTERVAL SUMMARY * WBC down after ABX changed per (+C.Diff and (+)UTI * Notes reviewed - patient on clear liquids - no surgery at this time = plan is treat C.Diff and ABX then re-evaluate * Pt resting comfortably, no fevers, VSS, NAD URINE CULTURE Final Organism 1 ESCHERICHIA COLI COLONY COUNT 10,000 - 20,000 CFU/ml E COLI M.I.C. RX --------- --- AMPICILLIN >=32 R CEFAZOLIN S CEFOTAXIME S CIPROFLOXACIN <=0.25 S GENTAMICIN <=1 S LEVOFLOXACIN <=0.12 S NITROFURANTOIN <=16 S TOBRAMYCIN <=1 S TRIMETHOPRIM/SULFAMETHOXAZOLE >=320 R PHYSICAL EXAMINATION: GENERAL: 56 yo HEENT: Unremarkable NECK: Supple, trachea midline. CHEST: Equal chest rise bilaterally HEART: Pulse RRR ABDOMEN: Soft EXTREMITIES: Warm SKIN: See photos ID ASSESSMENT: 56 yo F admit with: 1. Abdominal pain with questionable intraabdominal abscess versus enterocutaneous fistula per CT of the abdomen. * (+)C.Diff Stool 2. History of right adnexal mass with pelvic pain status post laparoscopy with enterolysis, small bowel resection with anastomosis, right salpingo- oophorectomy and splenectomy done by Dr. Mcmahan on 07/20/2016. * Pathology report revealed no malignancy. 3. Systemic inflammatory response syndrome secondary to above. 4. Gram-negative rods urinary tract infection 5. (+)C.Diff Colitis ( )MRSA Nares ->not ordered INVASIVES: ABX ALLERGY: KNDA CURRENT ABX: TOTAL ABX DAY # 4 => Zyvox #2 + Amikacin#2 + Flagyl IV#2 + Vanco Liquid PO#2 s.p Vanco IV + Zosyn => DC'd 09/09 ID RECOMMENDATIONS: 1. Dr. Mayes recommended to stop Zosyn which drives C.Diff and change to Aminoglycoside + Flagyl IV 2. Change Vanco IV to Zyvox to avoid toxic renal combo of Vanco + Aminoglycoside 3. Oral Vanco Liquid for C. Diff. * Notes reviewed - patient on clear liquids - no surgery at this time = plan is treat C.Diff and ABX then re-evaluate . Problems: Consultation Date/Type/Reason Admit Date/Time Sep 07, 2016 at 10:55 Initial Consult Date 09/07/16 Referring Provider: RANDELL SIMON DIRECTOR HRIS Exam/Review of Systems Vital Signs Vitals Vital Signs Date Time Temp Pulse Resp B/P Pulse Ox O2 Delivery O2 Flow Rate FiO2 09/10/16 07:37 97.6 67 18 128/64 95 09/08/16 23:00 Room Air Intake and Output 09/09/16 09/09/16 09/10/16 15:00 23:00 07:00 Intake Total 2030 ml 2000 ml Balance 2030 ml 2000 ml Results Result Diagram: 09/10/16 0452 09/10/16 0452 Results 24 hrs Laboratory Tests Test 09/10/16 04:52 Anion Gap 11 Basophils # 0.0 Basophils % 0.1 Blood Urea Nitrogen 5 L Calcium Level 8.3 L Carbon Dioxide Level 27 Chloride Level 108 Creatinine 0.64 Eosinophils # 0.0 Eosinophils % 0.0 Glucose Level 96 Hematocrit 30.3 L Hemoglobin 10.3 L Lymphocytes # 3.3 H Lymphocytes % 29.1 Magnesium Level 1.6 L Mean Corpuscular Hemoglobin 29.5 Mean Corpuscular Hemoglobin Concent 34.0 Mean Corpuscular Volume 86.7 Mean Platelet Volume 9.4 Monocytes # 0.9 Monocytes % 7.8 Neutrophils # 7.2 Neutrophils % 63.0 Nucleated Red Blood Cells # 0.0 Nucleated Red Blood Cells % 0.0 Phosphorus Level 2.9 Platelet Count 412 Potassium Level 2.9 *L Red Blood Count 3.49 L Red Cell Distribution Width 14.1 Sodium Level 143 White Blood Count 11.5 H Medications Medications Current Medications Ondansetron HCl (Zofran Inj) 4 mg Q6H PRN IV NAUSEA AND/OR VOMITING Last administered on 09/08/16 14:00; Admin Dose 4 MG; Start 09/07/16 at 12:30 Morphine Sulfate (morphine) 2 mg Q4H PRN IV SEVERE PAIN LEVEL 7-10 Last administered on 09/10/16 12:29; Admin Dose 2 MG; Start 09/07/16 at 12:30 Famotidine 20 mg 20 mg Q12 IV Last administered on 09/10/16 08:48; Admin Dose 20 MG; Start 09/07/16 at 21:00 Potassium Chloride/Dextrose/ Sod Cl (D5-1/2ns + KCl 10 Meq) 1,000 ml @ 125 mls/ hr Q8H IV Last administered on 09/10/16 11:11; Admin Dose 125 MLS/HR; Start at 12:30 Cyanocobalamin (Vitamin B12) 1,000 mcg DAILY PO Last administered on 09/10/16 08:48; Admin Dose 1,000 MCG; Start 09/08/16 at 09:00 Gabapentin (Neurontin) 1,200 mg QHS PO Last administered on 09/09/16 20:50; Admin Dose 1,200 MG; Start 09/07/16 at 21:00 Levetiracetam (Keppra) 500 mg BID PO Last administered on 09/10/16 08:48; Admin Dose 500 MG; Start 09/07/16 at 21:00 Prednisone (Prednisone) 10 mg DAILY PO Last administered on 09/10/16 08:48; Admin Dose 10 MG; Start 09/08/16 at 09:00 Vancomycin HCl 250 mg 250 mg Q6 PO Last administered on 09/10/16 12:30; Admin Dose 250 MG; Start 09/09/16 at 18:00 Metronidazole (Flagyl 500 Mg (Pmx)) 100 ml @ 100 mls/hr Q8 IVPB Last administered on 09/10/16 13:48; Admin Dose 100 MLS/HR; Start 09/09/16 at 15:30 Amikacin Sulfate AMIKACIN PER PHARMACY NOTE XX ; Start 09/09/16 at 15:30 Linezolid 300 ml @ 300 mls/hr Q12 IVPB Last administered on 09/10/16 11:11; Admin Dose 300 MLS/HR; Start 09/09/16 at 21:00 Amikacin Sulfate/ Sodium Chloride (Amikacin/NS) 102.4 ml @ 102.4 mls/ hr Q24H IVPB Last administered on 09/09/16 17:30; Admin Dose 102.4 MLS/HR; Start 09/09 at 18:00 Alprazolam (Xanax) 1 mg TID PRN PO anxiety Last administered on 09/10/16 15:02 ; Admin Dose 1 MG; Start 09/09/16 at 21:30 CHAPIS HENRIQUEZ NP Sep 10, 2016 15:30
--- NOTE | 2016-09-10 17:45 | PN ---
Date/Time of Note Date/Time of Note DATE: 09/10/16 TIME: 17:40 Assessment/Plan VTE Prophylaxis VTE Prophylaxis Intervention: LMWH Lines/Catheters IV C[facility]ter Type ([facility] Peripheral IV Urinary Cath still in place: No Assessment/Plan Chief Complaint/Hosp Course abdominal abscess, pain, c. diff Problems: Assessment/Plan A- Considering that patient has had multiple hospitalizations for collections/ abscesses and that per my DETAILED DISCUSSION YESTERDAY WITH RADIOLOGY NO LEAKAGE OF CONTRAST; RADIOLOGY AGREED CT GUIDED DRAINAGE APPROPRIATE P- Continue current abx and treatment but drain collections; see orders Subjective 24 Hr Interval Summary Free Text/Dictation S- feels somewhat better and anxious to go home O- Resp- clear CVS- NSR Abd- soft mildly tender with less drainage Ext NT no edema A- Considering that patient has had multiple hospitalizations for collections/ abscesses and that per my DETAILED DISCUSSION YESTERDAY WITH RADIOLOGY NO LEAKAGE OF CONTRAST; RADIOLOGY AGREED CT GUIDED DRAINAGE APPROPRIATE P- Continue current abx and treatment but drain collections; see orders Exam/Review of Systems Vital Signs Vitals Vital Signs Date Time Temp Pulse Resp B/P Pulse Ox O2 Delivery O2 Flow Rate FiO2 09/10/16 07:37 97.6 67 18 128/64 95 09/08/16 23:00 Room Air Intake and Output 09/09/16 09/09/16 09/10/16 14:59 22:59 06:59 Intake Total 2030 ml 2000 ml Balance 2030 ml 2000 ml Results Result Diagram: 09/10/16 0452 09/10/16 0452 Results 24 hrs Laboratory Tests Test 09/10/16 04:52 Anion Gap 11 Basophils # 0.0 Basophils % 0.1 Blood Urea Nitrogen 5 L Calcium Level 8.3 L Carbon Dioxide Level 27 Chloride Level 108 Creatinine 0.64 Eosinophils # 0.0 Eosinophils % 0.0 Glucose Level 96 Hematocrit 30.3 L Hemoglobin 10.3 L Lymphocytes # 3.3 H Lymphocytes % 29.1 Magnesium Level 1.6 L Mean Corpuscular Hemoglobin 29.5 Mean Corpuscular Hemoglobin Concent 34.0 Mean Corpuscular Volume 86.7 Mean Platelet Volume 9.4 Monocytes # 0.9 Monocytes % 7.8 Neutrophils # 7.2 Neutrophils % 63.0 Nucleated Red Blood Cells # 0.0 Nucleated Red Blood Cells % 0.0 Phosphorus Level 2.9 Platelet Count 412 Potassium Level 2.9 *L Red Blood Count 3.49 L Red Cell Distribution Width 14.1 Sodium Level 143 White Blood Count 11.5 H Medications Medications Current Medications Ondansetron HCl (Zofran Inj) 4 mg Q6H PRN IV NAUSEA AND/OR VOMITING Last administered on 09/08/16 14:00; Admin Dose 4 MG; Start 09/07/16 at 12:30 Morphine Sulfate (morphine) 2 mg Q4H PRN IV SEVERE PAIN LEVEL 7-10 Last administered on 09/10/16 12:29; Admin Dose 2 MG; Start 09/07/16 at 12:30 Famotidine 20 mg 20 mg Q12 IV Last administered on 09/10/16 08:48; Admin Dose 20 MG; Start 09/07/16 at 21:00 Potassium Chloride/Dextrose/ Sod Cl (D5-1/2ns + KCl 10 Meq) 1,000 ml @ 125 mls/ hr Q8H IV Last administered on 09/10/16 11:11; Admin Dose 125 MLS/HR; Start at 12:30 Cyanocobalamin (Vitamin B12) 1,000 mcg DAILY PO Last administered on 09/10/16 08:48; Admin Dose 1,000 MCG; Start 09/08/16 at 09:00 Gabapentin (Neurontin) 1,200 mg QHS PO Last administered on 09/09/16 20:50; Admin Dose 1,200 MG; Start 09/07/16 at 21:00 Levetiracetam (Keppra) 500 mg BID PO Last administered on 09/10/16 08:48; Admin Dose 500 MG; Start 09/07/16 at 21:00 Prednisone (Prednisone) 10 mg DAILY PO Last administered on 09/10/16 08:48; Admin Dose 10 MG; Start 09/08/16 at 09:00 Vancomycin HCl 250 mg 250 mg Q6 PO Last administered on 09/10/16 12:30; Admin Dose 250 MG; Start 09/09/16 at 18:00 Metronidazole (Flagyl 500 Mg (Pmx)) 100 ml @ 100 mls/hr Q8 IVPB Last administered on 09/10/16 13:48; Admin Dose 100 MLS/HR; Start 09/09/16 at 15:30 Amikacin Sulfate AMIKACIN PER PHARMACY NOTE XX ; Start 09/09/16 at 15:30 Linezolid 300 ml @ 300 mls/hr Q12 IVPB Last administered on 09/10/16 11:11; Admin Dose 300 MLS/HR; Start 09/09/16 at 21:00 Amikacin Sulfate/ Sodium Chloride (Amikacin/NS) 102.4 ml @ 102.4 mls/ hr Q24H IVPB Last administered on 09/09/16 17:30; Admin Dose 102.4 MLS/HR; Start 09/09 at 18:00 Alprazolam (Xanax) 1 mg TID PRN PO anxiety Last administered on 09/10/16 15:02 ; Admin Dose 1 MG; Start 09/09/16 at 21:30 SAMMY ALMANZA MD Sep 10, 2016 17:45
[2016-09-10] MEDS: AMIKACIN 600 MG in SOD CHLORIDE 0.9% 100 ML IVPB SCH (18:49)
--- NOTE | 2016-09-10 19:10 | CONS ---
Date/Time of Note Date/Time of Note DATE: 09/10/16 TIME: 19:06 Assessment/Plan Assessment/Plan Chief Complaint/Hosp Course LEUKOCYTOSIS with abdominal collection ( POSTOP) REACTIVE ATB SURG F-UP MONITOR CLOSELY NOTE THAT PT IS POST SPLENECTOMY AND ALSO ON PREDNISONE DRAIN COLLECTION THROMBOCYTOSIS REACTIVE MONITOR CLOSELY Normocytic anemia. The patient's H and H will be monitored closely. The patient will be transfused as needed. Infected surgical incision. Wound cultures Bryson cultures empiric antibiotics. Infectious disease f-up abdominal collection ( POSTOP) 4.4 x 3.4 x 1.7 cm gas containing collection surrounded by an unopacified small bowel and colon adjacent to surgical anastomotic margin. The patient will be treated empirically for any underlying abscess. Surgical management will be deferred to the surgeon. Systemic inflammatory response syndrome with leukocytosis and tachycardia. Most probably secondary to underlying surgical site infection. The patient has no evidence of any septic shock. Seizure disorder. cont anti-seizure medications History of hepatitis C. lupus OVARIAN MASS, POST RESECTION BENIGN Problems: Consultation Date/Type/Reason Admit Date/Time Sep 07, 2016 at 10:55 Initial Consult Date 09/07/16 Referring Provider: RANDELL SIMON NP 24 HR Interval Summary Free Text/Dictation PLAN- drain collections by IR COUNT REVIEWED Exam/Review of Systems Vital Signs Vitals Vital Signs Date Time Temp Pulse Resp B/P Pulse Ox O2 Delivery O2 Flow Rate FiO2 09/10/16 07:37 97.6 67 18 128/64 95 09/08/16 23:00 Room Air Intake and Output 09/09/16 09/09/16 09/10/16 15:00 23:00 07:00 Intake Total 2030 ml 2000 ml Balance 2030 ml 2000 ml Exam HEENT: Normocephalic, atraumatic. Eyes: Anicteric sclerae, conjunctivae clear. ENT: Nasal septum midline, oral mucosa moist. Neck supple, no JVD noticed. Respiratory: Bilaterally clear breath sounds. No use of accessory muscles of respiration. No adventitious breath sounds. Cardiovascular: S1, S2 heard. No murmurs or gallops. Abdomen: Large midline incision with an open defect towards the superior aspect of the incision that is packed with gauze and draining yellow, purulent, foul smelling secretion. The inferior aspect of the incision has yellow, purulent, foul smelling secretions. Tenderness around the incisions. Genitourinary: Deferred. Extremities: No cyanosis, no clubbing, no edema. Peripheral pulses palpable. Neurologic: Cranial nerves II through XII grossly intact. The patient is awake, alert, and oriented. Skin: Normal skin turgor. No skin rashes. Results Result Diagram: 09/10/16 0452 09/10/16 0452 Results 24 hrs Laboratory Tests Test 09/10/16 04:52 Anion Gap 11 Basophils # 0.0 Basophils % 0.1 Blood Urea Nitrogen 5 L Calcium Level 8.3 L Carbon Dioxide Level 27 Chloride Level 108 Creatinine 0.64 Eosinophils # 0.0 Eosinophils % 0.0 Glucose Level 96 Hematocrit 30.3 L Hemoglobin 10.3 L Lymphocytes # 3.3 H Lymphocytes % 29.1 Magnesium Level 1.6 L Mean Corpuscular Hemoglobin 29.5 Mean Corpuscular Hemoglobin Concent 34.0 Mean Corpuscular Volume 86.7 Mean Platelet Volume 9.4 Monocytes # 0.9 Monocytes % 7.8 Neutrophils # 7.2 Neutrophils % 63.0 Nucleated Red Blood Cells # 0.0 Nucleated Red Blood Cells % 0.0 Phosphorus Level 2.9 Platelet Count 412 Potassium Level 2.9 *L Red Blood Count 3.49 L Red Cell Distribution Width 14.1 Sodium Level 143 White Blood Count 11.5 H Medications Medications Current Medications Ondansetron HCl (Zofran Inj) 4 mg Q6H PRN IV NAUSEA AND/OR VOMITING Last administered on 09/08/16 14:00; Admin Dose 4 MG; Start 09/07/16 at 12:30 Morphine Sulfate (morphine) 2 mg Q4H PRN IV SEVERE PAIN LEVEL 7-10 Last administered on 09/10/16 12:29; Admin Dose 2 MG; Start 09/07/16 at 12:30 Famotidine 20 mg 20 mg Q12 IV Last administered on 09/10/16 08:48; Admin Dose 20 MG; Start 09/07/16 at 21:00 Potassium Chloride/Dextrose/ Sod Cl (D5-1/2ns + KCl 10 Meq) 1,000 ml @ 125 mls/ hr Q8H IV Last administered on 09/10/16 11:11; Admin Dose 125 MLS/HR; Start at 12:30 Cyanocobalamin (Vitamin B12) 1,000 mcg DAILY PO Last administered on 09/10/16 08:48; Admin Dose 1,000 MCG; Start 09/08/16 at 09:00 Gabapentin (Neurontin) 1,200 mg QHS PO Last administered on 09/09/16 20:50; Admin Dose 1,200 MG; Start 09/07/16 at 21:00 Levetiracetam (Keppra) 500 mg BID PO Last administered on 09/10/16 08:48; Admin Dose 500 MG; Start 09/07/16 at 21:00 Prednisone (Prednisone) 10 mg DAILY PO Last administered on 09/10/16 08:48; Admin Dose 10 MG; Start 09/08/16 at 09:00 Vancomycin HCl 250 mg 250 mg Q6 PO Last administered on 09/10/16 18:49; Admin Dose 250 MG; Start 09/09/16 at 18:00 Metronidazole (Flagyl 500 Mg (Pmx)) 100 ml @ 100 mls/hr Q8 IVPB Last administered on 09/10/16 13:48; Admin Dose 100 MLS/HR; Start 09/09/16 at 15:30 Amikacin Sulfate AMIKACIN PER PHARMACY NOTE XX ; Start 09/09/16 at 15:30 Linezolid 300 ml @ 300 mls/hr Q12 IVPB Last administered on 09/10/16 11:11; Admin Dose 300 MLS/HR; Start 09/09/16 at 21:00 Amikacin Sulfate/ Sodium Chloride (Amikacin/NS) 102.4 ml @ 102.4 mls/ hr Q24H IVPB Last administered on 09/10/16 18:49; Admin Dose 102.4 MLS/HR; Start 09/09 at 18:00 Alprazolam (Xanax) 1 mg TID PRN PO anxiety Last administered on 09/10/16 15:02 ; Admin Dose 1 MG; Start 09/09/16 at 21:30 JOSE LUIS MERCADO MD Sep 10, 2016 19:10
[2016-09-10 20:27] VITALS: BP 148/70; RESP 18
[2016-09-10] MEDS: GABAPENTIN 300 MG CAP PO SCH (21:32)
[2016-09-11] MEDS: VANCOMYCIN HCL 250 MG/5ML POSYG PO SCH ×6 (00:06→23:04)
[2016-09-11] MEDS: metroNIDAZOLE 500 MG/NS (PMX) 100 ML IVPB SCH ×4 (00:06→23:04)
[2016-09-11] MEDS: D5W-0.45 NACL + KCL 10 MEQ 1,000 ML IV SCH ×3 (04:11→20:50)
[2016-09-11] MEDS: morphine 2 MG INJ IV PRN ×5 (04:47→23:04)
[2016-09-11 05:48] LABS: POTASSIUM 3.3 mmol/L (3.5-5.1)
[2016-09-11 05:49] LABS: PHOSPHORUS 3.1 mg/dl (2.5-4.9)
[2016-09-11 05:51] LABS: CREATININE 0.67 mg/dl (0.44-1.00)
[2016-09-11 05:52] LABS: CALCIUM 8.4 mg/dl (8.4-10.2)
[2016-09-11 06:26] LABS: BASOPHILS % 0.3 % (0.0-2.0); EOSINOPHILS % 0.4 % (0.0-7.0); HEMATOCRIT 31.7 % (37.0-47.0); HEMOGLOBIN 10.8 g/dl (12.0-16.0); LYMPHOCYTES # 2.6 10^3/ul (0.8-2.9); LYMPHOCYTES % 27.9 % (15.0-51.0); MEAN CORPUSCULAR HEMOGLOBIN 29.6 pg (29.0-33.0); MEAN CORPUSCULAR HGB CONC 34.2 g/dl (32.0-37.0); MEAN CORPUSCULAR VOLUME 86.6 fl (82.0-101.0); MEAN PLATELET VOLUME 9.7 fl (7.4-10.4); MONOCYTE # 0.8 10^3/ul (0.3-0.9); MONOCYTES % 8.6 % (0.0-11.0); NEUTROPHIL # 5.9 10^3/ul (1.6-7.5); NEUTROPHILS % 62.8 % (39.0-77.0); PLATELET COUNT 410 10^3/UL (140-440); RED BLOOD COUNT 3.66 10^6/ul (4.20-5.40); RED CELL DISTRIBUTION WIDTH 14.2 % (11.5-14.5); UNCORRECTED WBC 9.3 10^3/ul (4.8-10.8); WHITE BLOOD COUNT 9.3 10^3/ul (4.8-10.8)
[2016-09-11 06:39] LABS: CONDITION 1
[2016-09-11 08:24] VITALS: BP 112/57; RESP 18
[2016-09-11] MEDS: LEVETIRACETAM 500 MG TAB PO SCH ×2 (08:46→20:36)
[2016-09-11] MEDS: CYANOCOBALAMIN 500 MCG TAB PO SCH (08:46)
[2016-09-11] MEDS: predniSONE 10 MG TAB PO SCH (08:46)
[2016-09-11] MEDS: FAMOTIDINE 20 MG INJ IV SCH (08:46)
[2016-09-11] MEDS: LINEZOLID 600 MG/D5W (PMX) 300 ML IVPB SCH ×2 (09:00→20:37)
--- NOTE | 2016-09-11 12:25 | CONS ---
Date/Time of Note Date/Time of Note DATE: 09/11/16 TIME: 12:22 Assessment/Plan Assessment/Plan Chief Complaint/Hosp Course SUBJECTIVE: No acute changes. The patient is alert, feels good. No fevers. ANTIMICROBIALS: The patient is on: 1. Amikacin. 2. PO vancomycin. 3. Zyvox PHYSICAL EXAMINATION: GENERAL: This is middle-aged white woman who is awake, in no distress. HEENT: Head atraumatic, normocephalic. Sclerae anicteric. Buccal mucosa dry. NECK: Supple, trachea midline. CHEST: Rise symmetrical. Breath sounds clear. HEART: S1, S2. ABDOMEN: Soft. Bowel sounds present. EXTREMITIES: Without cyanosis. ASSESSMENT: 1. Abdominal pain with questionable intraabdominal abscess versus enterocutaneous fistula per CT of the abdomen. 2. History of right adnexal mass with pelvic pain status post laparoscopy with enterolysis, small bowel resection with anastomosis, right salpingo- oophorectomy and splenectomy done by Dr. Mcmahan on 07/20/2016. Pathology report revealed no malignancy. 3. Systemic inflammatory response syndrome secondary to above. 4. E coli urinary tract infection. 5. C dif colitis PLAN: Clinically improving, continue abx, pending CT guided abscess aspiration. DW staff Problems: Consultation Date/Type/Reason Admit Date/Time Sep 07, 2016 at 10:55 Initial Consult Date 09/07/16 Type of Consultation: ID Referring Provider: RANDELL SIMON NP Exam/Review of Systems Vital Signs Vitals Vital Signs Date Time Temp Pulse Resp B/P Pulse Ox O2 Delivery O2 Flow Rate FiO2 09/11/16 08:24 97.6 57 18 112/57 94 09/08/16 23:00 Room Air Intake and Output 09/10/16 09/10/16 09/11/16 15:00 23:00 07:00 Intake Total 1942.4 ml 1800 ml Balance 1942.4 ml 1800 ml Results Result Diagram: 09/11/1641909/11/16 0420 Results 24 hrs Laboratory Tests Test 09/11/16 04:20 Anion Gap 11 Basophils # 0.0 Basophils % 0.3 Blood Urea Nitrogen 2 L Calcium Level 8.4 Carbon Dioxide Level 29 Chloride Level 103 Creatinine 0.67 Eosinophils # 0.0 Eosinophils % 0.4 Glucose Level 87 Hematocrit 31.7 L Hemoglobin 10.8 L Lymphocytes # 2.6 Lymphocytes % 27.9 Magnesium Level 2.0 Mean Corpuscular Hemoglobin 29.6 Mean Corpuscular Hemoglobin Concent 34.2 Mean Corpuscular Volume 86.6 Mean Platelet Volume 9.7 Monocytes # 0.8 Monocytes % 8.6 Neutrophils # 5.9 Neutrophils % 62.8 Nucleated Red Blood Cells # 0.0 Nucleated Red Blood Cells % 0.0 Phosphorus Level 3.1 Platelet Count 410 Potassium Level 3.3 L Red Blood Count 3.66 L Red Cell Distribution Width 14.2 Sodium Level 140 White Blood Count 9.3 Medications Medications Current Medications Ondansetron HCl (Zofran Inj) 4 mg Q6H PRN IV NAUSEA AND/OR VOMITING Last administered on 09/08/16 14:00; Admin Dose 4 MG; Start 09/07/16 at 12:30 Morphine Sulfate (morphine) 2 mg Q4H PRN IV SEVERE PAIN LEVEL 7-10 Last administered on 09/11/16 08:46; Admin Dose 2 MG; Start 09/07/16 at 12:30 Famotidine 20 mg 20 mg Q12 IV Last administered on 09/11/16 08:46; Admin Dose 20 MG; Start 09/07/16 at 21:00 Potassium Chloride/Dextrose/ Sod Cl (D5-1/2ns + KCl 10 Meq) 1,000 ml @ 125 mls/ hr Q8H IV Last administered on 09/11/16 08:59; Admin Dose 125 MLS/HR; Start at 12:30 Cyanocobalamin (Vitamin B12) 1,000 mcg DAILY PO Last administered on 09/11/16 08:46; Admin Dose 1,000 MCG; Start 09/08/16 at 09:00 Gabapentin (Neurontin) 1,200 mg QHS PO Last administered on 09/10/16 21:32; Admin Dose 1,200 MG; Start 09/07/16 at 21:00 Levetiracetam (Keppra) 500 mg BID PO Last administered on 09/11/16 08:46; Admin Dose 500 MG; Start 09/07/16 at 21:00 Prednisone (Prednisone) 10 mg DAILY PO Last administered on 09/11/16 08:46; Admin Dose 10 MG; Start 09/08/16 at 09:00 Vancomycin HCl 250 mg 250 mg Q6 PO Last administered on 09/11/16 05:06; Admin Dose 250 MG; Start 09/09/16 at 18:00 Metronidazole (Flagyl 500 Mg (Pmx)) 100 ml @ 100 mls/hr Q8 IVPB Last administered on 09/11/16 05:06; Admin Dose 100 MLS/HR; Start 09/09/16 at 15:30 Amikacin Sulfate AMIKACIN PER PHARMACY NOTE XX ; Start 09/09/16 at 15:30 Linezolid 300 ml @ 300 mls/hr Q12 IVPB Last administered on 09/11/16 09:00; Admin Dose 300 MLS/HR; Start 09/09/16 at 21:00 Amikacin Sulfate/ Sodium Chloride (Amikacin/NS) 102.4 ml @ 102.4 mls/ hr Q24H IVPB Last administered on 09/10/16 18:49; Admin Dose 102.4 MLS/HR; Start 09/09 at 18:00 Alprazolam (Xanax) 1 mg TID PRN PO anxiety Last administered on 09/10/16 15:02 ; Admin Dose 1 MG; Start 09/09/16 at 21:30 BRENDA SNIDER NP Sep 11, 2016 12:25
--- NOTE | 2016-09-11 16:09 | PN ---
Date/Time of Note Date/Time of Note DATE: 09/11/16 TIME: 16:05 Assessment/Plan VTE Prophylaxis VTE Prophylaxis Intervention: SCD's Lines/Catheters IV Catheter Type (from Nrs): Peripheral IV Urinary Cath still in place: No Assessment/Plan Chief Complaint/Hosp Course Assessment and plan 1. Abdominal pain secondary to intra-abdominal abscess. Continue and about exposure recommendations. Surgeon following. There was tentative plan for IR guided drainage however after review by interventional radiologist there was not enough noted fluid to be drained. Continue with surgeon recommendations 2. Sepsis secondary to UTI, C. difficile colitis, and intra-abdominal abscess. Continue antibiotics. 3. C. difficile stool infection. continued on oral vancomycin 4. Anemia. H&H stable. Continue to monitor 5. Seizure disorder. Continue anticonvulsant medication 6. History of lupus. Continue on prednisone 7. History of hepatitis C. No active issue this time. We'll monitor 8. Protein calorie malnutrition. Continue Epogen supplements once able to tolerate full liquid diet DVT prophylaxis: SCD GERD prophylaxis: H2 jorge disposition and plan: Continue antibiotics. Continue on wound care. Await surgical recommendations. Discharge when medically stable and cleared by consultants Discussed plan of care with Dr. Chun Problems: Subjective 24 Hr Interval Summary Free Text/Dictation Resting at this time. Denies any pain. Family at bedside Exam/Review of Systems Vital Signs Vitals Vital Signs Date Time Temp Pulse Resp B/P Pulse Ox O2 Delivery O2 Flow Rate FiO2 09/11/16 08:24 97.6 57 18 112/57 94 09/08/16 23:00 Room Air Intake and Output 09/10/16 09/10/16 09/11/16 15:00 23:00 07:00 Intake Total 1942.4 ml 1800 ml Balance 1942.4 ml 1800 ml Exam General: No acute signs or symptoms of distress Eyes: pupils equal round, Anicteric sclera Neck: Supple nontender, no JVD Cardiac: S1, S2 auscultated, regular rhythm and rate Pulmonary: No coarse rhonchi or breathing auscultated GI: [Abdomen soft surgical site in place with dressing there. Extremities: No edema bilateral lower extremities Skin: Surgical site on abdomen with only minimal drainage serous in appearance. Incisions noted on mid upper and mid lower abdomen with no obvious erythema. Neurologic: Alert to person place and time and situation Results Result Diagram: 09/11/16 0420 09/11/16 0420 Results 24 hrs Laboratory Tests Test 09/11/16 04:20 Anion Gap 11 Basophils # 0.0 Basophils % 0.3 Blood Urea Nitrogen 2 L Calcium Level 8.4 Carbon Dioxide Level 29 Chloride Level 103 Creatinine 0.67 Eosinophils # 0.0 Eosinophils % 0.4 Glucose Level 87 Hematocrit 31.7 L Hemoglobin 10.8 L Lymphocytes # 2.6 Lymphocytes % 27.9 Magnesium Level 2.0 Mean Corpuscular Hemoglobin 29.6 Mean Corpuscular Hemoglobin Concent 34.2 Mean Corpuscular Volume 86.6 Mean Platelet Volume 9.7 Monocytes # 0.8 Monocytes % 8.6 Neutrophils # 5.9 Neutrophils % 62.8 Nucleated Red Blood Cells # 0.0 Nucleated Red Blood Cells % 0.0 Phosphorus Level 3.1 Platelet Count 410 Potassium Level 3.3 L Red Blood Count 3.66 L Red Cell Distribution Width 14.2 Sodium Level 140 White Blood Count 9.3 Medications Medications Current Medications Ondansetron HCl (Zofran Inj) 4 mg Q6H PRN IV NAUSEA AND/OR VOMITING Last administered on 09/08/16 14:00; Admin Dose 4 MG; Start 09/07/16 at 12:30 Morphine Sulfate 2 mg 2 mg Q4H PRN IV SEVERE PAIN LEVEL 7-10 Last administered on 09/11/16 13:11; Admin Dose 2 MG; Start 09/07/16 at 12:30 Potassium Chloride/Dextrose/ Sod Cl (D5-1/2ns + KCl 10 Meq) 1,000 ml @ 125 mls/ hr Q8H IV Last administered on 09/11/16 08:59; Admin Dose 125 MLS/HR; Start at 12:30 Cyanocobalamin (Vitamin B12) 1,000 mcg DAILY PO Last administered on 09/11/16 08:46; Admin Dose 1,000 MCG; Start 09/08/16 at 09:00 Gabapentin (Neurontin) 1,200 mg QHS PO Last administered on 09/10/16 21:32; Admin Dose 1,200 MG; Start 09/07/16 at 21:00 Levetiracetam (Keppra) 500 mg BID PO Last administered on 09/11/16 08:46; Admin Dose 500 MG; Start 09/07/16 at 21:00 Prednisone (Prednisone) 10 mg DAILY PO Last administered on 09/11/16 08:46; Admin Dose 10 MG; Start 09/08/16 at 09:00 Vancomycin HCl 250 mg 250 mg Q6 PO Last administered on 09/11/16 13:11; Admin Dose 250 MG; Start 09/09/16 at 18:00 Metronidazole (Flagyl 500 Mg (Pmx)) 100 ml @ 100 mls/hr Q8 IVPB Last administered on 09/11/16 13:11; Admin Dose 100 MLS/HR; Start 09/09/16 at 15:30 Amikacin Sulfate AMIKACIN PER PHARMACY NOTE XX ; Start 09/09/16 at 15:30 Linezolid 300 ml @ 300 mls/hr Q12 IVPB Last administered on 09/11/16 09:00; Admin Dose 300 MLS/HR; Start 09/09/16 at 21:00 Amikacin Sulfate/ Sodium Chloride (Amikacin/NS) 102.4 ml @ 102.4 mls/ hr Q24H IVPB Last administered on 09/10/16 18:49; Admin Dose 102.4 MLS/HR; Start 09/09 at 18:00 Alprazolam (Xanax) 1 mg TID PRN PO anxiety Last administered on 09/10/16 15:02 ; Admin Dose 1 MG; Start 09/09/16 at 21:30 Miscellaneous Information (*Rx Drug Level Order Reminder*) AMIKACIN TROUGH AT 1... ONCE ONCE XX ; Start 09/11/16 at 17:00; Stop 09/11/16 at 17:01 Famotidine (Pepcid) 20 mg Q12 PO ; Start 09/11/16 at 21:00 QASIM SHEEHAN Sep 11, 2016 16:09
[2016-09-11] MEDS: AMIKACIN 600 MG in SOD CHLORIDE 0.9% 100 ML IVPB SCH (18:04)
--- NOTE | 2016-09-11 18:43 | CONS ---
Date/Time of Note Date/Time of Note DATE: 09/11/16 TIME: 18:41 Assessment/Plan Assessment/Plan Chief Complaint/Hosp Course LEUKOCYTOSIS with abdominal collection ( POSTOP) REACTIVE ATB SURG F-UP DRAIN BY IR- unable to do MONITOR CLOSELY NOTE THAT PT IS POST SPLENECTOMY AND ALSO ON PREDNISONE WBC- IMPROVED THROMBOCYTOSIS REACTIVE MONITOR CLOSELY Normocytic anemia. The patient's H and H will be monitored closely. The patient will be transfused as needed. Infected surgical incision. Wound cultures Bryson cultures empiric antibiotics. Infectious disease f-up abdominal collection ( POSTOP) 4.4 x 3.4 x 1.7 cm gas containing collection surrounded by an unopacified small bowel and colon adjacent to surgical anastomotic margin. The patient will be treated empirically for any underlying abscess. Surgical management will be deferred to the surgeon. Systemic inflammatory response syndrome with leukocytosis and tachycardia. Most probably secondary to underlying surgical site infection. The patient has no evidence of any septic shock. Seizure disorder. cont anti-seizure medications History of hepatitis C. lupus OVARIAN MASS, POST RESECTION BENIGN Problems: Consultation Date/Type/Reason Admit Date/Time Sep 07, 2016 at 10:55 Initial Consult Date 09/07/16 Type of Consultation: [facility] Referring Provider: RANDELL SIMON NP 24 HR Interval Summary Free Text/Dictation all noted There was tentative plan for IR guided drainage however after review by interventional radiologist there was not enough noted fluid to be drained. Continue with surgeon recommendations count stable WBC-improved on atb Exam/Review of Systems Vital Signs Vitals Vital Signs Date Time Temp Pulse Resp B/P Pulse Ox O2 Delivery O2 Flow Rate FiO2 09/11/16 08:24 97.6 57 18 112/57 94 09/08/16 23:00 Room Air Intake and Output 09/10/16 09/10/16 09/11/16 15:00 23:00 07:00 Intake Total 1942.4 ml 1800 ml Balance 1942.4 ml 1800 ml Exam General: No acute signs or symptoms of distress Eyes: pupils equal round, Anicteric sclera Neck: Supple nontender, no JVD Cardiac: S1, S2 auscultated, regular rhythm and rate Pulmonary: No coarse rhonchi or breathing auscultated GI: [Abdomen soft surgical site in place with dressing there. Extremities: No edema bilateral lower extremities Skin: Surgical site on abdomen with only minimal drainage serous in appearance. Incisions noted on mid upper and mid lower abdomen with no obvious erythema. Neurologic: Alert to person place and time and situation Results Result Diagram: 09/11/16 04209/11/16 042 Results 24 hrs Laboratory Tests Test 09/11/16 04:20 Anion Gap 11 Basophils # 0.0 Basophils % 0.3 Blood Urea Nitrogen 2 L Calcium Level 8.4 Carbon Dioxide Level 29 Chloride Level 103 Creatinine 0.67 Eosinophils # 0.0 Eosinophils % 0.4 Glucose Level 87 Hematocrit 31.7 L Hemoglobin 10.8 L Lymphocytes # 2.6 Lymphocytes % 27.9 Magnesium Level 2.0 Mean Corpuscular Hemoglobin 29.6 Mean Corpuscular Hemoglobin Concent 34.2 Mean Corpuscular Volume 86.6 Mean Platelet Volume 9.7 Monocytes # 0.8 Monocytes % 8.6 Neutrophils # 5.9 Neutrophils % 62.8 Nucleated Red Blood Cells # 0.0 Nucleated Red Blood Cells % 0.0 Phosphorus Level 3.1 Platelet Count 410 Potassium Level 3.3 L Red Blood Count 3.66 L Red Cell Distribution Width 14.2 Sodium Level 140 White Blood Count 9.3 Medications Medications Current Medications Ondansetron HCl (Zofran Inj) 4 mg Q6H PRN IV NAUSEA AND/OR VOMITING Last administered on 09/08/16 14:00; Admin Dose 4 MG; Start 09/07/16 at 12:30 Morphine Sulfate 2 mg 2 mg Q4H PRN IV SEVERE PAIN LEVEL 7-10 Last administered on 09/11/16 18:04; Admin Dose 2 MG; Start 09/07/16 at 12:30 Potassium Chloride/Dextrose/ Sod Cl (D5-1/2ns + KCl 10 Meq) 1,000 ml @ 125 mls/ hr Q8H IV Last administered on 09/11/16 08:59; Admin Dose 125 MLS/HR; Start at 12:30 Cyanocobalamin (Vitamin B12) 1,000 mcg DAILY PO Last administered on 09/11/16 08:46; Admin Dose 1,000 MCG; Start 09/08/16 at 09:00 Gabapentin (Neurontin) 1,200 mg QHS PO Last administered on 09/10/16 21:32; Admin Dose 1,200 MG; Start 09/07/16 at 21:00 Levetiracetam (Keppra) 500 mg BID PO Last administered on 09/11/16 08:46; Admin Dose 500 MG; Start 09/07/16 at 21:00 Prednisone (Prednisone) 10 mg DAILY PO Last administered on 09/11/16 08:46; Admin Dose 10 MG; Start 09/08/16 at 09:00 Vancomycin HCl 250 mg 250 mg Q6 PO Last administered on 09/11/16 18:04; Admin Dose 250 MG; Start 09/09/16 at 18:00 Metronidazole (Flagyl 500 Mg (Pmx)) 100 ml @ 100 mls/hr Q8 IVPB Last administered on 09/11/16 13:11; Admin Dose 100 MLS/HR; Start 09/09/16 at 15:30 Amikacin Sulfate AMIKACIN PER PHARMACY NOTE XX ; Start 09/09/16 at 15:30 Linezolid 300 ml @ 300 mls/hr Q12 IVPB Last administered on 09/11/16 09:00; Admin Dose 300 MLS/HR; Start 09/09/16 at 21:00 Amikacin Sulfate/ Sodium Chloride (Amikacin/NS) 102.4 ml @ 102.4 mls/ hr Q24H IVPB Last administered on 09/11/16 18:04; Admin Dose 102.4 MLS/HR; Start 09/09 at 18:00 Alprazolam (Xanax) 1 mg TID PRN PO anxiety Last administered on 09/10/16 15:02 ; Admin Dose 1 MG; Start 09/09/16 at 21:30 Famotidine (Pepcid) 20 mg Q12 PO ; Start 09/11/16 at 21:00 JOSE LUIS MERCADO MD Sep 11, 2016 18:43
[2016-09-11 20:01] VITALS: BP 151/70; RESP 18
[2016-09-11] MEDS: FAMOTIDINE 20 MG TAB PO SCH (20:36)
[2016-09-11] MEDS: GABAPENTIN 300 MG CAP PO SCH (20:36)
[2016-09-11] MEDS: ALPRAZOLAM 1 MG TAB PO PRN (20:50)
[2016-09-12] MEDS: D5W-0.45 NACL + KCL 10 MEQ 1,000 ML IV SCH ×4 (04:30→20:23)
[2016-09-12] MEDS: morphine 2 MG INJ IV PRN ×4 (04:39→20:33)
[2016-09-12 05:44] LABS: POTASSIUM 3.4 mmol/L (3.5-5.1)
[2016-09-12 05:45] LABS: PHOSPHORUS 3.3 mg/dl (2.5-4.9)
[2016-09-12 05:46] LABS: MAGNESIUM 1.8 mg/dl (1.7-2.5)
[2016-09-12 05:47] LABS: CREATININE 0.67 mg/dl (0.44-1.00)
[2016-09-12 05:48] LABS: CALCIUM 8.3 mg/dl (8.4-10.2)
[2016-09-12] MEDS: VANCOMYCIN HCL 250 MG/5ML POSYG PO SCH ×3 (05:58→18:37)
[2016-09-12] MEDS: metroNIDAZOLE 500 MG/NS (PMX) 100 ML IVPB SCH ×3 (05:58→22:35)
[2016-09-12 06:21] LABS: BASOPHILS % 0.5 % (0.0-2.0); HEMOGLOBIN 10.3 g/dl (12.0-16.0); LYMPHOCYTES # 2.8 10^3/ul (0.8-2.9); MEAN CORPUSCULAR HEMOGLOBIN 29.5 pg (29.0-33.0); MEAN CORPUSCULAR HGB CONC 33.3 g/dl (32.0-37.0); MEAN CORPUSCULAR VOLUME 88.6 fl (82.0-101.0); MEAN PLATELET VOLUME 9.4 fl (7.4-10.4); MONOCYTES % 10.8 % (0.0-11.0); NEUTROPHILS % 56.7 % (39.0-77.0); PLATELET COUNT 435 10^3/UL (140-440); RED CELL DISTRIBUTION WIDTH 14.1 % (11.5-14.5); UNCORRECTED WBC 8.9 10^3/ul (4.8-10.8); WHITE BLOOD COUNT 8.9 10^3/ul (4.8-10.8)
[2016-09-12 06:54] LABS: CONDITION 1
[2016-09-12 08:38] VITALS: BP 112/53; RESP 16
[2016-09-12] MEDS: predniSONE 10 MG TAB PO SCH (08:40)
[2016-09-12] MEDS: LEVETIRACETAM 500 MG TAB PO SCH ×2 (08:40→20:33)
[2016-09-12] MEDS: LINEZOLID 600 MG/D5W (PMX) 300 ML IVPB SCH ×2 (08:40→20:23)
[2016-09-12] MEDS: FAMOTIDINE 20 MG TAB PO SCH ×2 (08:40→20:33)
[2016-09-12] MEDS: CYANOCOBALAMIN 500 MCG TAB PO SCH (08:40)
[2016-09-12] MEDS ORDERED: POTASSIUM CHLORIDE (SR) 20 MEQ TAB PO STA (11:04)
[2016-09-12] MEDS: ALPRAZOLAM 1 MG TAB PO PRN (13:06)
--- NOTE | 2016-09-12 13:56 | CONS ---
Date/Time of Note Date/Time of Note DATE: 09/12/16 TIME: 13:55 Assessment/Plan Assessment/Plan Chief Complaint/Hosp Course SUBJECTIVE: No acute changes. The patient is alert, feels good. No fevers. Tolerates diet, no n/v/d ANTIMICROBIALS: The patient is on: 1. Amikacin. 2. PO vancomycin. 3. Zyvox 4. Flagyl PHYSICAL EXAMINATION: GENERAL: This is middle-aged white woman who is awake, in no distress. HEENT: Head atraumatic, normocephalic. Sclerae anicteric. Buccal mucosa dry. NECK: Supple, trachea midline. CHEST: Rise symmetrical. Breath sounds clear. HEART: S1, S2. ABDOMEN: Soft. Bowel sounds present. EXTREMITIES: Without cyanosis. ASSESSMENT: 1. Abdominal pain with intraabdominal abscesses versus enterocutaneous fistula per CT of the abdomen. 2. History of right adnexal mass with pelvic pain status post laparoscopy with enterolysis, small bowel resection with anastomosis, right salpingo- oophorectomy and splenectomy done by Dr. Mcmahan on 07/20/2016. Pathology report revealed no malignancy. 3. Systemic inflammatory response syndrome secondary to above. 4. E coli urinary tract infection. 5. C dif colitis PLAN: Continues to improve, continue abx, f/u surgical rec-s DW staff DW pt Problems: Consultation Date/Type/Reason Admit Date/Time Sep 07, 2016 at 10:55 Initial Consult Date 09/07/16 Type of Consultation: id Referring Provider: RANDELL SIMON RD MECH[employer]ICAL [employer]INEER Exam/Review of Systems Vital Signs Vitals Vital Signs Date Time Temp Pulse Resp B/P Pulse Ox O2 Delivery O2 Flow Rate FiO2 09/12/16 08:38 98.7 88 16 112/53 95 09/08/16 23:00 Room Air Intake and Output 09/11/16 09/11/16 09/12/16 15:00 23:00 07:00 Intake Total 3182.4 ml 1325 ml Balance 3182.4 ml 1325 ml Results Result Diagram: 09/12/16 0435 09/12/16 0435 Results 24 hrs Laboratory Tests Test 09/11/16 16:50 09/12/16 04:35 09/12/16 06:39 09/12/16 06:41 Amikacin Level Trough Anion Gap 11 Basophils # 0.0 Basophils % 0.5 Blood Urea Nitrogen 5 L Calcium Level 8.3 L Carbon Dioxide Level 29 Chloride Level 104 Creatinine 0.67 Eosinophils # 0.0 Eosinophils % 0.0 Glucose Level 108 Hematocrit 31.0 L Hemoglobin 10.3 L Lymphocytes # 2.8 Lymphocytes % 32.0 Magnesium Level 1.8 Mean Corpuscular Hemoglobin 29.5 Mean Corpuscular Hemoglobin Concent 33.3 Mean Corpuscular Volume 88.6 Mean Platelet Volume 9.4 Monocytes # 1.0 H Monocytes % 10.8 Neutrophils # 5.0 Neutrophils % 56.7 Nucleated Red Blood Cells # 0.0 Nucleated Red Blood Cells % 0.0 Phosphorus Level 3.3 Platelet Count 435 Potassium Level 3.4 L Red Blood Count 3.50 L Red Cell Distribution Width 14.1 Sodium Level 141 White Blood Count 8.9 Lab Scanned Report REFERENCE LAB REFERENCE LAB Test 09/12/16 06:59 Lab Scanned Report REFERENCE LAB Medications Medications Current Medications Ondansetron HCl (Zofran Inj) 4 mg Q6H PRN IV NAUSEA AND/OR VOMITING Last administered on 09/08/16 14:00; Admin Dose 4 MG; Start 09/07/16 at 12:30 Morphine Sulfate 2 mg 2 mg Q4H PRN IV SEVERE PAIN LEVEL 7-10 Last administered on 09/12/16 08:40; Admin Dose 2 MG; Start 09/07/16 at 12:30 Potassium Chloride/Dextrose/ Sod Cl (D5-1/2ns + KCl 10 Meq) 1,000 ml @ 125 mls/ hr Q8H IV Last administered on 09/12/16 08:41; Admin Dose 125 MLS/HR; Start at 12:30 Cyanocobalamin (Vitamin B12) 1,000 mcg DAILY PO Last administered on 09/12/16 08:40; Admin Dose 1,000 MCG; Start 09/08/16 at 09:00 Gabapentin (Neurontin) 1,200 mg QHS PO Last administered on 09/11/16 20:36; Admin Dose 1,200 MG; Start 09/07/16 at 21:00 Levetiracetam (Keppra) 500 mg BID PO Last administered on 09/12/16 08:40; Admin Dose 500 MG; Start 09/07/16 at 21:00 Prednisone (Prednisone) 10 mg DAILY PO Last administered on 09/12/16 08:40; Admin Dose 10 MG; Start 09/08/16 at 09:00 Vancomycin HCl 250 mg 250 mg Q6 PO Last administered on 09/12/16 12:32; Admin Dose 250 MG; Start 09/09/16 at 18:00 Metronidazole (Flagyl 500 Mg (Pmx)) 100 ml @ 100 mls/hr Q8 IVPB Last administered on 09/12/16 05:58; Admin Dose 100 MLS/HR; Start 09/09/16 at 15:30 Amikacin Sulfate AMIKACIN PER PHARMACY NOTE XX ; Start 09/09/16 at 15:30 Linezolid 300 ml @ 300 mls/hr Q12 IVPB Last administered on 09/12/16 08:40; Admin Dose 300 MLS/HR; Start 09/09/16 at 21:00 Amikacin Sulfate/ Sodium Chloride (Amikacin/NS) 102.4 ml @ 102.4 mls/ hr Q24H IVPB Last administered on 09/11/16 18:04; Admin Dose 102.4 MLS/HR; Start 09/09 at 18:00 Alprazolam (Xanax) 1 mg TID PRN PO anxiety Last administered on 09/12/16 13:06 ; Admin Dose 1 MG; Start 09/09/16 at 21:30 Famotidine (Pepcid) 20 mg Q12 PO Last administered on 09/12/16 08:40; Admin Dose 20 MG; Start 09/11/16 at 21:00 BRENDA SNIDER NP Sep 12, 2016 13:56
--- NOTE | 2016-09-12 14:13 | PN ---
Date/Time of Note Date/Time of Note DATE: 09/12/16 TIME: 14:09 Assessment/Plan VTE Prophylaxis VTE Prophylaxis Intervention: SCD's Lines/Catheters IV Catheter Type (from Nrs): Peripheral IV Urinary Cath still in place: No Assessment/Plan Chief Complaint/Hosp Course Assessment and plan 1. Abdominal pain secondary to intra-abdominal abscess. Continue and about exposure recommendations. Surgeon following. There was tentative plan for IR guided drainage however after review by interventional radiologist there was not enough noted fluid to be drained. Continue with surgeon recommendations. continue wound care 2. Sepsis secondary to UTI, C. difficile colitis, and intra-abdominal abscess. Continue antibiotics. 3. C. difficile stool infection. continued on oral vancomycin 4. Anemia. H&H stable. Continue to monitor 5. Seizure disorder. Continue anticonvulsant medication 6. History of lupus. Continue on prednisone 7. History of hepatitis C. No active issue this time. We'll monitor 8. Protein calorie malnutrition. Continue Epogen supplements once able to tolerate full liquid diet DVT prophylaxis: SCD GERD prophylaxis: H2 jorge i disposition and plan: Continue antibiotics. Continue on wound care. Await surgical recommendations. Discharge when medically stable and cleared by consultants. analgesics as needed Discussed plan of care with Dr. Chun Problems: Subjective 24 Hr Interval Summary Free Text/Dictation resting at this time. no s/s of distress Exam/Review of Systems Vital Signs Vitals Vital Signs Date Time Temp Pulse Resp B/P Pulse Ox O2 Delivery O2 Flow Rate FiO2 09/12/16 08:38 98.7 88 16 112/53 95 09/08/16 23:00 Room Air Intake and Output 09/11/16 09/11/16 09/12/16 15:00 23:00 07:00 Intake Total 3182.4 ml 1325 ml Balance 3182.4 ml 1325 ml Exam General: No acute signs or symptoms of distress Eyes: pupils equal round, Anicteric sclera Neck: Supple nontender, no JVD Cardiac: S1, S2 auscultated, regular rhythm and rate Pulmonary: No coarse rhonchi or breathing auscultated GI: [Abdomen soft surgical site in place with dressing there. Extremities: No edema bilateral lower extremities Skin: Surgical site on abdomen with only minimal drainage serous in appearance. Incisions noted on mid upper and mid lower abdomen with no obvious erythema. Neurologic: Alert to person place and time and situation Results Result Diagram: 1/31/17 0435 09/12/16 0435 Results 24 hrs Laboratory Tests Test 09/11/16 16:50 09/12/16 04:35 09/12/16 06:39 09/12/16 06:41 Amikacin Level Trough Anion Gap 11 Basophils # 0.0 Basophils % 0.5 Blood Urea Nitrogen 5 L Calcium Level 8.3 L Carbon Dioxide Level 29 Chloride Level 104 Creatinine 0.67 Eosinophils # 0.0 Eosinophils % 0.0 Glucose Level 108 Hematocrit 31.0 L Hemoglobin 10.3 L Lymphocytes # 2.8 Lymphocytes % 32.0 Magnesium Level 1.8 Mean Corpuscular Hemoglobin 29.5 Mean Corpuscular Hemoglobin Concent 33.3 Mean Corpuscular Volume 88.6 Mean Platelet Volume 9.4 Monocytes # 1.0 H Monocytes % 10.8 Neutrophils # 5.0 Neutrophils % 56.7 Nucleated Red Blood Cells # 0.0 Nucleated Red Blood Cells % 0.0 Phosphorus Level 3.3 Platelet Count 435 Potassium Level 3.4 L Red Blood Count 3.50 L Red Cell Distribution Width 14.1 Sodium Level 141 White Blood Count 8.9 Lab Scanned Report REFERENCE LAB REFERENCE LAB Test 09/12/16 06:59 Lab Scanned Report REFERENCE LAB Medications Medications Current Medications Ondansetron HCl (Zofran Inj) 4 mg Q6H PRN IV NAUSEA AND/OR VOMITING Last administered on 09/08/16 14:00; Admin Dose 4 MG; Start 09/07/16 at 12:30 Morphine Sulfate 2 mg 2 mg Q4H PRN IV SEVERE PAIN LEVEL 7-10 Last administered on 09/12/16 08:40; Admin Dose 2 MG; Start 09/07/16 at 12:30 Potassium Chloride/Dextrose/ Sod Cl (D5-1/2ns + KCl 10 Meq) 1,000 ml @ 125 mls/ hr Q8H IV Last administered on 09/12/16 08:41; Admin Dose 125 MLS/HR; Start at 12:30 Cyanocobalamin (Vitamin B12) 1,000 mcg DAILY PO Last administered on 09/12/16 08:40; Admin Dose 1,000 MCG; Start 09/08/16 at 09:00 Gabapentin (Neurontin) 1,200 mg QHS PO Last administered on 09/11/16 20:36; Admin Dose 1,200 MG; Start 09/07/16 at 21:00 Levetiracetam (Keppra) 500 mg BID PO Last administered on 09/12/16 08:40; Admin Dose 500 MG; Start 09/07/16 at 21:00 Prednisone (Prednisone) 10 mg DAILY PO Last administered on 09/12/16 08:40; Admin Dose 10 MG; Start 09/08/16 at 09:00 Vancomycin HCl 250 mg 250 mg Q6 PO Last administered on 09/12/16 12:32; Admin Dose 250 MG; Start 09/09/16 at 18:00 Metronidazole (Flagyl 500 Mg (Pmx)) 100 ml @ 100 mls/hr Q8 IVPB Last administered on 09/12/16 05:58; Admin Dose 100 MLS/HR; Start 09/09/16 at 15:30 Amikacin Sulfate AMIKACIN PER PHARMACY NOTE XX ; Start 09/09/16 at 15:30 Linezolid 300 ml @ 300 mls/hr Q12 IVPB Last administered on 09/12/16 08:40; Admin Dose 300 MLS/HR; Start 09/09/16 at 21:00 Amikacin Sulfate/ Sodium Chloride (Amikacin/NS) 102.4 ml @ 102.4 mls/ hr Q24H IVPB Last administered on 09/11/16 18:04; Admin Dose 102.4 MLS/HR; Start 09/09 at 18:00 Alprazolam (Xanax) 1 mg TID PRN PO anxiety Last administered on 09/12/16 13:06 ; Admin Dose 1 MG; Start 09/09/16 at 21:30 Famotidine (Pepcid) 20 mg Q12 PO Last administered on 09/12/16 08:40; Admin Dose 20 MG; Start 09/11/16 at 21:00 QASIM SHEEHAN Sep 12, 2016 14:13
[2016-09-12] MEDS: AMIKACIN 600 MG in SOD CHLORIDE 0.9% 100 ML IVPB SCH (18:36)
[2016-09-12 19:57] VITALS: BP 130/64; RESP 20
[2016-09-12] MEDS: GABAPENTIN 300 MG CAP PO SCH (20:33)
--- NOTE | 2016-09-12 21:21 | PN ---
Date/Time of Note Date/Time of Note DATE: 09/12/16 TIME: 21:15 Assessment/Plan VTE Prophylaxis VTE Prophylaxis Intervention: LMWH Lines/Catheters IV C[facility]ter Type (from [facility]): Peripheral IV Urinary Cath still in place: No Assessment/Plan Chief Complaint/Hosp Course abdominal abscess, pain, c. diff Problems: Assessment/Plan A- Clinically improved and less diarrhea. NOTE: CT guided drainage of abscesses NOT COMPLETED because interventional radiologist indicated to me that anterior collection is much smaller and not doable, lateral/posterior collection/abscess is smaller and surrounded by bowel and not drainable, P- Continue current abx and treatment per ID. I emphasized that her readmission was due to prior readmission and signing out AMA and that se should follow instructions of treating physicians and she agreed. Her sense of urgency is a court date Sunday for other personal issues. Subjective 24 Hr Interval Summary Free Text/Dictation S- feels somewhat better and anxious to go home, ambulating in room O- Resp- clear CVS- NSR Abd- soft mildly tender with less drainage Ext NT no edema A- Clinically improved and less diarrhea. NOTE: CT guided drainage of abscesses NOT COMPLETED because interventional radiologist indicated to me that anterior collection is much smaller and not doable, lateral/posterior collection/abscess is smaller and surrounded by bowel and not drainable, P- Continue current abx and treatment per ID. I emphasized that her readmission was due to prior readmission and signing out AMA and that se should follow instructions of treating physicians and she agreed. Her sense of urgency is a court date Sunday for other personal issues. Exam/Review of Systems Vital Signs Vitals Vital Signs Date Time Temp Pulse Resp B/P Pulse Ox O2 Delivery O2 Flow Rate FiO2 09/12/16 19:57 98.6 77 20 130/64 98 09/08/16 23:00 Room Air Intake and Output 09/11/16 09/11/16 09/12/16 15:00 23:00 07:00 Intake Total 3182.4 ml 1325 ml Balance 3182.4 ml 1325 ml Results Result Diagram: 09/12/16 0435 09/12/16 0435 Results 24 hrs Laboratory Tests Test 09/12/16 04:35 09/12/16 06:39 09/12/16 06:41 09/12/16 06:59 Anion Gap 11 Basophils # 0.0 Basophils % 0.5 Blood Urea Nitrogen 5 L Calcium Level 8.3 L Carbon Dioxide Level 29 Chloride Level 104 Creatinine 0.67 Eosinophils # 0.0 Eosinophils % 0.0 Glucose Level 108 Hematocrit 31.0 L Hemoglobin 10.3 L Lymphocytes # 2.8 Lymphocytes % 32.0 Magnesium Level 1.8 Mean Corpuscular Hemoglobin 29.5 Mean Corpuscular Hemoglobin Concent 33.3 Mean Corpuscular Volume 88.6 Mean Platelet Volume 9.4 Monocytes # 1.0 H Monocytes % 10.8 Neutrophils # 5.0 Neutrophils % 56.7 Nucleated Red Blood Cells # 0.0 Nucleated Red Blood Cells % 0.0 Phosphorus Level 3.3 Platelet Count 435 Potassium Level 3.4 L Red Blood Count 3.50 L Red Cell Distribution Width 14.1 Sodium Level 141 White Blood Count 8.9 Lab Scanned Report REFERENCE LAB REFERENCE LAB REFERENCE LAB Medications Medications Current Medications Ondansetron HCl (Zofran Inj) 4 mg Q6H PRN IV NAUSEA AND/OR VOMITING Last administered on 09/08/16 14:00; Admin Dose 4 MG; Start 09/07/16 at 12:30 Morphine Sulfate 2 mg 2 mg Q4H PRN IV SEVERE PAIN LEVEL 7-10 Last administered on 09/12/16 20:33; Admin Dose 2 MG; Start 09/07/16 at 12:30 Potassium Chloride/Dextrose/ Sod Cl (D5-1/2ns + KCl 10 Meq) 1,000 ml @ 125 mls/ hr Q8H IV Last administered on 09/12/16 20:23; Admin Dose 125 MLS/HR; Start at 12:30 Cyanocobalamin (Vitamin B12) 1,000 mcg DAILY PO Last administered on 09/12/16 08:40; Admin Dose 1,000 MCG; Start 09/08/16 at 09:00 Gabapentin (Neurontin) 1,200 mg QHS PO Last administered on 09/12/16 20:33; Admin Dose 1,200 MG; Start 09/07/16 at 21:00 Levetiracetam (Keppra) 500 mg BID PO Last administered on 09/12/16 20:33; Admin Dose 500 MG; Start 09/07/16 at 21:00 Prednisone (Prednisone) 10 mg DAILY PO Last administered on 09/12/16 08:40; Admin Dose 10 MG; Start 09/08/16 at 09:00 Vancomycin HCl 250 mg 250 mg Q6 PO Last administered on 09/12/16 18:37; Admin Dose 250 MG; Start 09/09/16 at 18:00 Metronidazole (Flagyl 500 Mg (Pmx)) 100 ml @ 100 mls/hr Q8 IVPB Last administered on 09/12/16 14:47; Admin Dose 100 MLS/HR; Start 09/09/16 at 15:30 Amikacin Sulfate AMIKACIN PER PHARMACY NOTE XX ; Start 09/09/16 at 15:30 Linezolid 300 ml @ 300 mls/hr Q12 IVPB Last administered on 09/12/16 20:23; Admin Dose 300 MLS/HR; Start 09/09/16 at 21:00 Amikacin Sulfate/ Sodium Chloride (Amikacin/NS) 102.4 ml @ 102.4 mls/ hr Q24H IVPB Last administered on 09/12/16 18:36; Admin Dose 102.4 MLS/HR; Start 09/09 at 18:00 Alprazolam (Xanax) 1 mg TID PRN PO anxiety Last administered on 09/12/16 13:06 ; Admin Dose 1 MG; Start 09/09/16 at 21:30 Famotidine (Pepcid) 20 mg Q12 PO Last administered on 09/12/16 20:33; Admin Dose 20 MG; Start 09/11/16 at 21:00 SAMMY ALMANZA MD Sep 12, 2016 21:21
--- NOTE | 2016-09-12 21:30 | CONS ---
Date/Time of Note Date/Time of Note DATE: 09/12/16 TIME: 21:28 Assessment/Plan Assessment/Plan Chief Complaint/Hosp Course LEUKOCYTOSIS with abdominal collection ( POSTOP) REACTIVE ATB SURG F-UP DRAIN BY IR- unable to do MONITOR CLOSELY NOTE THAT PT IS POST SPLENECTOMY AND ALSO ON PREDNISONE WBC- IMPROVED THROMBOCYTOSIS REACTIVE MONITOR CLOSELY Normocytic anemia. The patient's H and H will be monitored closely. The patient will be transfused as needed. Infected surgical incision. Wound cultures Bryson cultures empiric antibiotics. Infectious disease f-up abdominal collection ( POSTOP) 4.4 x 3.4 x 1.7 cm gas containing collection surrounded by an unopacified small bowel and colon adjacent to surgical anastomotic margin. The patient is treated empirically for any underlying abscess. no Surgical procedure planned. Systemic inflammatory response syndrome with leukocytosis and tachycardia. Most probably secondary to underlying surgical site infection. The patient has no evidence of any septic shock. Seizure disorder. cont anti-seizure medications History of hepatitis C. lupus OVARIAN MASS, POST RESECTION BENIGN Problems: Consultation Date/Type/Reason Admit Date/Time Sep 07, 2016 at 10:55 Initial Consult Date 09/07/16 Referring Provider: RANDELL SIMON NP 24 HR Interval Summary Free Text/Dictation Clinically improved less diarrhea. count- improved Exam/Review of Systems Vital Signs Vitals Vital Signs Date Time Temp Pulse Resp B/P Pulse Ox O2 Delivery O2 Flow Rate FiO2 09/12/16 19:57 98.6 77 20 130/64 98 09/08/16 23:00 Room Air Intake and Output 09/11/16 09/11/16 09/12/16 15:00 23:00 07:00 Intake Total 3182.4 ml 1325 ml Balance 3182.4 ml 1325 ml Exam General: No acute signs or symptoms of distress Eyes: pupils equal round, Anicteric sclera Neck: Supple nontender, no JVD Cardiac: S1, S2 auscultated, regular rhythm and rate Pulmonary: No coarse rhonchi or breathing auscultated GI: [Abdomen soft surgical site in place with dressing there. Extremities: No edema bilateral lower extremities Skin: Surgical site on abdomen with only minimal drainage serous in appearance. Incisions noted on mid upper and mid lower abdomen with no obvious erythema. Neurologic: Alert to person place and time and situation Results Result Diagram: 09/12/16 0435 09/12/16 0435 Results 24 hrs Laboratory Tests Test 09/12/16 04:35 09/12/16 06:39 09/12/16 06:41 09/12/16 06:59 Anion Gap 11 Basophils # 0.0 Basophils % 0.5 Blood Urea Nitrogen 5 L Calcium Level 8.3 L Carbon Dioxide Level 29 Chloride Level 104 Creatinine 0.67 Eosinophils # 0.0 Eosinophils % 0.0 Glucose Level 108 Hematocrit 31.0 L Hemoglobin 10.3 L Lymphocytes # 2.8 Lymphocytes % 32.0 Magnesium Level 1.8 Mean Corpuscular Hemoglobin 29.5 Mean Corpuscular Hemoglobin Concent 33.3 Mean Corpuscular Volume 88.6 Mean Platelet Volume 9.4 Monocytes # 1.0 H Monocytes % 10.8 Neutrophils # 5.0 Neutrophils % 56.7 Nucleated Red Blood Cells # 0.0 Nucleated Red Blood Cells % 0.0 Phosphorus Level 3.3 Platelet Count 435 Potassium Level 3.4 L Red Blood Count 3.50 L Red Cell Distribution Width 14.1 Sodium Level 141 White Blood Count 8.9 Lab Scanned Report REFERENCE LAB REFERENCE LAB REFERENCE LAB Medications Medications Current Medications Ondansetron HCl (Zofran Inj) 4 mg Q6H PRN IV NAUSEA AND/OR VOMITING Last administered on 09/08/16 14:00; Admin Dose 4 MG; Start 09/07/16 at 12:30 Morphine Sulfate 2 mg 2 mg Q4H PRN IV SEVERE PAIN LEVEL 7-10 Last administered on 09/12/16 20:33; Admin Dose 2 MG; Start 09/07/16 at 12:30 Potassium Chloride/Dextrose/ Sod Cl (D5-1/2ns + KCl 10 Meq) 1,000 ml @ 125 mls/ hr Q8H IV Last administered on 09/12/16 20:23; Admin Dose 125 MLS/HR; Start at 12:30 Cyanocobalamin (Vitamin B12) 1,000 mcg DAILY PO Last administered on 09/12/16 08:40; Admin Dose 1,000 MCG; Start 09/08/16 at 09:00 Gabapentin (Neurontin) 1,200 mg QHS PO Last administered on 09/12/16 20:33; Admin Dose 1,200 MG; Start 09/07/16 at 21:00 Levetiracetam (Keppra) 500 mg BID PO Last administered on 09/12/16 20:33; Admin Dose 500 MG; Start 09/07/16 at 21:00 Prednisone (Prednisone) 10 mg DAILY PO Last administered on 09/12/16 08:40; Admin Dose 10 MG; Start 09/08/16 at 09:00 Vancomycin HCl 250 mg 250 mg Q6 PO Last administered on 09/12/16 18:37; Admin Dose 250 MG; Start 09/09/16 at 18:00 Metronidazole (Flagyl 500 Mg (Pmx)) 100 ml @ 100 mls/hr Q8 IVPB Last administered on 09/12/16 14:47; Admin Dose 100 MLS/HR; Start 09/09/16 at 15:30 Amikacin Sulfate AMIKACIN PER PHARMACY NOTE XX ; Start 09/09/16 at 15:30 Linezolid 300 ml @ 300 mls/hr Q12 IVPB Last administered on 09/12/16 20:23; Admin Dose 300 MLS/HR; Start 09/09/16 at 21:00 Amikacin Sulfate/ Sodium Chloride (Amikacin/NS) 102.4 ml @ 102.4 mls/ hr Q24H IVPB Last administered on 09/12/16 18:36; Admin Dose 102.4 MLS/HR; Start 09/09 at 18:00 Alprazolam (Xanax) 1 mg TID PRN PO anxiety Last administered on 09/12/16 13:06 ; Admin Dose 1 MG; Start 09/09/16 at 21:30 Famotidine (Pepcid) 20 mg Q12 PO Last administered on 09/12/16 20:33; Admin Dose 20 MG; Start 09/11/16 at 21:00 JOSE LUIS MERCADO MD Sep 12, 2016 21:30
[2016-09-13] MEDS: VANCOMYCIN HCL 250 MG/5ML POSYG PO SCH ×5 (00:39→18:33)
[2016-09-13] MEDS: ALPRAZOLAM 1 MG TAB PO PRN ×2 (00:39→21:13)
[2016-09-13] MEDS: morphine 2 MG INJ IV PRN ×4 (01:51→22:34)
[2016-09-13] MEDS: D5W-0.45 NACL + KCL 10 MEQ 1,000 ML IV SCH ×3 (04:30→21:16)
[2016-09-13] MEDS: metroNIDAZOLE 500 MG/NS (PMX) 100 ML IVPB SCH ×3 (05:43→22:35)
[2016-09-13 08:12] VITALS: BP 144/67; RESP 18
[2016-09-13] MEDS: CYANOCOBALAMIN 500 MCG TAB PO SCH (09:45)
[2016-09-13] MEDS: LEVETIRACETAM 500 MG TAB PO SCH ×2 (09:45→21:13)
[2016-09-13] MEDS: FAMOTIDINE 20 MG TAB PO SCH ×2 (09:45→21:14)
[2016-09-13] MEDS: predniSONE 10 MG TAB PO SCH (09:45)
[2016-09-13] MEDS: LINEZOLID 600 MG/D5W (PMX) 300 ML IVPB SCH ×2 (09:45→21:16)
--- NOTE | 2016-09-13 14:43 | PN ---
Date/Time of Note Date/Time of Note DATE: 09/13/16 TIME: 14:40 Assessment/Plan VTE Prophylaxis VTE Prophylaxis Intervention: LMWH Lines/Catheters IV Catheter Type (from Nrs): Peripheral IV Urinary Cath still in place: No Assessment/Plan Chief Complaint/Hosp Course abdominal abscess, pain, c. diff Problems: Assessment/Plan A- Clinically improved and less diarrhea. P- Continue current abx and treatment per ID. Adv diet. If diet tolerated with no clinical deterioration discharge plan per ID/IM as C. diff can be managed p.o. home and issue is management of abscesses. Subjective 24 Hr Interval Summary Free Text/Dictation S- feels somewhat better and increased appetite O- Resp- clear CVS- NSR Abd- soft mildly tender with less drainage Ext NT no edema A- Clinically improved and less diarrhea. P- Continue current abx and treatment per ID. Adv diet. If diet tolerated with no clinical deterioration discharge plan per ID/IM as C. diff can be managed p.o. home and issue is management of abscesses. Exam/Review of Systems Vital Signs Vitals Vital Signs Date Time Temp Pulse Resp B/P Pulse Ox O2 Delivery O2 Flow Rate FiO2 09/13/16 08:12 97.7 61 18 144/67 95 Intake and Output 09/12/16 09/12/16 09/13/16 15:00 23:00 07:00 Intake Total 4147.4 ml 1050 ml Balance 4147.4 ml 1050 ml Results Result Diagram: 09/12/16 0435 09/12/16 0435 Medications Medications Current Medications Ondansetron HCl (Zofran Inj) 4 mg Q6H PRN IV NAUSEA AND/OR VOMITING Last administered on 09/08/16 14:00; Admin Dose 4 MG; Start 09/07/16 at 12:30 Morphine Sulfate 2 mg 2 mg Q4H PRN IV SEVERE PAIN LEVEL 7-10 Last administered on 09/13/16 14:08; Admin Dose 2 MG; Start 09/07/16 at 12:30 Potassium Chloride/Dextrose/ Sod Cl (D5-1/2ns + KCl 10 Meq) 1,000 ml @ 125 mls/ hr Q8H IV Last administered on 09/13/16 12:57; Admin Dose 125 MLS/HR; Start at 12:30 Cyanocobalamin (Vitamin B12) 1,000 mcg DAILY PO Last administered on 09/13/16 09:45; Admin Dose 1,000 MCG; Start 09/08/16 at 09:00 Gabapentin (Neurontin) 1,200 mg QHS PO Last administered on 09/12/16 20:33; Admin Dose 1,200 MG; Start 09/07/16 at 21:00 Levetiracetam (Keppra) 500 mg BID PO Last administered on 09/13/16 09:45; Admin Dose 500 MG; Start 09/07/16 at 21:00 Prednisone (Prednisone) 10 mg DAILY PO Last administered on 09/13/16 09:45; Admin Dose 10 MG; Start 09/08/16 at 09:00 Vancomycin HCl 250 mg 250 mg Q6 PO Last administered on 09/13/16 14:08; Admin Dose 250 MG; Start 09/09/16 at 18:00 Metronidazole (Flagyl 500 Mg (Pmx)) 100 ml @ 100 mls/hr Q8 IVPB Last administered on 09/13/16 14:08; Admin Dose 100 MLS/HR; Start 09/09/16 at 15:30 Amikacin Sulfate AMIKACIN PER PHARMACY NOTE XX ; Start 09/09/16 at 15:30 Linezolid 300 ml @ 300 mls/hr Q12 IVPB Last administered on 09/13/16 09:45; Admin Dose 300 MLS/HR; Start 09/09/16 at 21:00 Amikacin Sulfate/ Sodium Chloride (Amikacin/NS) 102.4 ml @ 102.4 mls/ hr Q24H IVPB Last administered on 09/12/16 18:36; Admin Dose 102.4 MLS/HR; Start 09/09 at 18:00 Alprazolam (Xanax) 1 mg TID PRN PO anxiety Last administered on 09/13/16 00:39 ; Admin Dose 1 MG; Start 09/09/16 at 21:30 Famotidine (Pepcid) 20 mg Q12 PO Last administered on 09/13/16 09:45; Admin Dose 20 MG; Start 09/11/16 at 21:00 SAMMY ALMANZA MD Sep 13, 2016 14:43
--- NOTE | 2016-09-13 14:45 | PN ---
Date/Time of Note Date/Time of Note DATE: 09/13/16 TIME: 14:43 Assessment/Plan VTE Prophylaxis VTE Prophylaxis Intervention: SCD's Lines/Catheters IV Catheter Type (from Nrs): Peripheral IV Urinary Cath still in place: No Assessment/Plan Chief Complaint/Hosp Course Assessment and plan 1. Abdominal pain secondary to intra-abdominal abscess. Continue and about exposure recommendations. Surgeon following. There was tentative plan for IR guided drainage however after review by interventional radiologist there was not enough noted fluid to be drained. Continue with surgeon recommendations 2. Sepsis secondary to UTI, C. difficile colitis, and intra-abdominal abscess. Continue antibiotics. 3. C. difficile stool infection. continued on oral vancomycin 4. Anemia. H&H stable. Continue to monitor 5. Seizure disorder. Continue anticonvulsant medication 6. History of lupus. Continue on prednisone 7. History of hepatitis C. No active issue this time. We'll monitor 8. Protein calorie malnutrition. Continue Epogen supplements once able to tolerate full liquid diet DVT prophylaxis: SCD GERD prophylaxis: H2 jorge disposition and plan: Continue antibiotics. Continue on wound care. Continue supportive care. Discharge when medically stable and cleared by consultants Discussed plan of care with Dr. Chun Problems: Subjective 24 Hr Interval Summary Free Text/Dictation Comfortable at present. No apparent distress Exam/Review of Systems Vital Signs Vitals Vital Signs Date Time Temp Pulse Resp B/P Pulse Ox O2 Delivery O2 Flow Rate FiO2 09/13/16 08:12 97.7 61 18 144/67 95 Intake and Output 09/12/16 09/12/16 09/13/16 14:59 22:59 06:59 Intake Total 4147.4 ml 1050 ml Balance 4147.4 ml 1050 ml Exam General: No acute signs or symptoms of distress Eyes: pupils equal round, Anicteric sclera Neck: Supple nontender, no JVD Cardiac: S1, S2 auscultated, regular rhythm and rate Pulmonary: No coarse rhonchi or breathing auscultated GI: [Abdomen soft surgical site in place with dressing there. Extremities: No edema bilateral lower extremities Skin: Surgical site on abdomen with only minimal drainage serous in appearance. Incisions noted on mid upper and mid lower abdomen with no obvious erythema. Neurologic: Alert to person place and time and situation Results Result Diagram: 09/12/16 0435 09/12/16 0435 Medications Medications Current Medications Ondansetron HCl (Zofran Inj) 4 mg Q6H PRN IV NAUSEA AND/OR VOMITING Last administered on 09/08/16 14:00; Admin Dose 4 MG; Start 09/07/16 at 12:30 Morphine Sulfate 2 mg 2 mg Q4H PRN IV SEVERE PAIN LEVEL 7-10 Last administered on 09/13/16 14:08; Admin Dose 2 MG; Start 09/07/16 at 12:30 Potassium Chloride/Dextrose/ Sod Cl (D5-1/2ns + KCl 10 Meq) 1,000 ml @ 125 mls/ hr Q8H IV Last administered on 09/13/16 12:57; Admin Dose 125 MLS/HR; Start at 12:30 Cyanocobalamin (Vitamin B12) 1,000 mcg DAILY PO Last administered on 09/13/16 09:45; Admin Dose 1,000 MCG; Start 09/08/16 at 09:00 Gabapentin (Neurontin) 1,200 mg QHS PO Last administered on 09/12/16 20:33; Admin Dose 1,200 MG; Start 09/07/16 at 21:00 Levetiracetam (Keppra) 500 mg BID PO Last administered on 09/13/16 09:45; Admin Dose 500 MG; Start 09/07/16 at 21:00 Prednisone (Prednisone) 10 mg DAILY PO Last administered on 09/13/16 09:45; Admin Dose 10 MG; Start 09/08/16 at 09:00 Vancomycin HCl 250 mg 250 mg Q6 PO Last administered on 09/13/16 14:08; Admin Dose 250 MG; Start 09/09/16 at 18:00 Metronidazole (Flagyl 500 Mg (Pmx)) 100 ml @ 100 mls/hr Q8 IVPB Last administered on 09/13/16 14:08; Admin Dose 100 MLS/HR; Start 09/09/16 at 15:30 Amikacin Sulfate AMIKACIN PER PHARMACY NOTE XX ; Start 09/09/16 at 15:30 Linezolid 300 ml @ 300 mls/hr Q12 IVPB Last administered on 09/13/16 09:45; Admin Dose 300 MLS/HR; Start 09/09/16 at 21:00 Amikacin Sulfate/ Sodium Chloride (Amikacin/NS) 102.4 ml @ 102.4 mls/ hr Q24H IVPB Last administered on 09/12/16 18:36; Admin Dose 102.4 MLS/HR; Start 09/09 at 18:00 Alprazolam (Xanax) 1 mg TID PRN PO anxiety Last administered on 09/13/16 00:39 ; Admin Dose 1 MG; Start 09/09/16 at 21:30 Famotidine (Pepcid) 20 mg Q12 PO Last administered on 09/13/16 09:45; Admin Dose 20 MG; Start 09/11/16 at 21:00 QASIM SHEEHAN Sep 13, 2016 14:45
--- NOTE | 2016-09-13 15:44 | PN ---
DATE: 09/13/2016 SUBJECTIVE: No acute events overnight. The patient is alert, feels better, looks comfortable. Den ies pain. Denies nausea, vomiting, diarrhea. No labs this morning. ANTIMICROBIALS: 1. Zyvox. 2. Oral vancomycin. 3. Amikacin. MICROBIOLOGY: Stool for C. diff came back positive. Urine culture grew E. coli on admission. PHYSICAL EXAMINATION: GENERAL: Well-developed, middle-aged white woman who is alert, in no distress. HEENT: Head atraumatic, normocephalic. Sclerae anicteric. Buccal mucosa dry. NECK: Supple. CHEST: Rise symmetrical. Breath sounds clear to auscultation. HEART: S1, S2. ABDOMEN: Soft, bowel tones present. EXTREMITIES: No cyanosis or edema. ASSESSMENT: 1. Clostridium difficile colitis. 2. Urinary tract infection. 3. Status post abdominal pain with evidence of small intraabdominal abscesses per CT of the abdomen . 4. History of right adnexal mass with pelvic pain status post laparoscopy, right salpingo-oophorect catarina, splenectomy and enterolysis done on 07/20/[address] Mcmahan. PLAN: The patient remains stable, not amendable for CT-guided drainage secondary to abscesses too s mall. She is improving on current antimicrobials. We will continue her on current regimen. Follow surgical oncology recommendations. Dictated By: BRENDA [employer] for TAMANNA MURILLO/NTS Conf#: [id number] DID#: [id number]
[2016-09-13] MEDS: AMIKACIN 600 MG in SOD CHLORIDE 0.9% 100 ML IVPB SCH (18:33)
[2016-09-13 19:55] VITALS: BP 148/68; RESP 18
--- NOTE | 2016-09-13 20:49 | CONS ---
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 The patient's H and H will be monitored closely. The patient will be transfused as needed. Infected surgical incision. Wound cultures Bryson cultures empiric antibiotics. Infectious disease f-up abdominal collection ( POSTOP) 4.4 x 3.4 x 1.7 cm gas containing collection surrounded by an unopacified small bowel and colon adjacent to surgical anastomotic margin. The patient is treated empirically for any underlying abscess. no Surgical procedure planned. Systemic inflammatory response syndrome with leukocytosis and tachycardia. Most probably secondary to underlying surgical site infection. The patient has no evidence of any septic shock. Seizure disorder. cont anti-seizure medications History of hepatitis C. lupus OVARIAN MASS, POST RESECTION BENIGN Problems: Consultation Date/Type/Reason Admit Date/Time Sep 07, 2016 at 10:55 Initial Consult Date 09/07/16 Referring Provider: RANDELL SIMON NP 24 HR Interval Summary Free Text/Dictation ALL NOTED FELLING BETTER COUNT IMPROVED Exam/Review of Systems Vital Signs Vitals Vital Signs Date Time Temp Pulse Resp B/P Pulse Ox O2 Delivery O2 Flow Rate FiO2 09/13/16 19:55 98.1 18 148/68 96 09/13/16 08:12 61 Intake and Output 09/12/16 09/12/16 09/13/16 15:00 23:00 07:00 Intake Total 4147.4 ml 1050 ml Balance 4147.4 ml 1050 ml Exam General: No acute signs or symptoms of distress Eyes: pupils equal round, Anicteric sclera Neck: Supple nontender, no JVD Cardiac: S1, S2 auscultated, regular rhythm and rate Pulmonary: No coarse rhonchi or breathing auscultated GI: [Abdomen soft surgical site in place with dressing there. Extremities: No edema bilateral lower extremities Skin: Surgical site on abdomen . Incisions noted on mid upper and mid lower abdomen with no obvious erythema. Neurologic: Alert to person place and time and situation Results Result Diagram: 09/12/16 0435 09/12/16 0435 Medications Medications Current Medications Ondansetron HCl (Zofran Inj) 4 mg Q6H PRN IV NAUSEA AND/OR VOMITING Last administered on 09/08/16 14:00; Admin Dose 4 MG; Start 09/07/16 at 12:30 Morphine Sulfate 2 mg 2 mg Q4H PRN IV SEVERE PAIN LEVEL 7-10 Last administered on 09/13/16 18:33; Admin Dose 2 MG; Start 09/07/16 at 12:30 Potassium Chloride/Dextrose/ Sod Cl (D5-1/2ns + KCl 10 Meq) 1,000 ml @ 125 mls/ hr Q8H IV Last administered on 09/13/16 12:57; Admin Dose 125 MLS/HR; Start at 12:30 Cyanocobalamin (Vitamin B12) 1,000 mcg DAILY PO Last administered on 09/13/16 09:45; Admin Dose 1,000 MCG; Start 09/08/16 at 09:00 Gabapentin (Neurontin) 1,200 mg QHS PO Last administered on 09/12/16 20:33; Admin Dose 1,200 MG; Start 09/07/16 at 21:00 Levetiracetam (Keppra) 500 mg BID PO Last administered on 09/13/16 09:45; Admin Dose 500 MG; Start 09/07/16 at 21:00 Prednisone (Prednisone) 10 mg DAILY PO Last administered on 09/13/16 09:45; Admin Dose 10 MG; Start 09/08/16 at 09:00 Vancomycin HCl 250 mg 250 mg Q6 PO Last administered on 09/13/16 18:33; Admin Dose 250 MG; Start 09/09/16 at 18:00 Metronidazole (Flagyl 500 Mg (Pmx)) 100 ml @ 100 mls/hr Q8 IVPB Last administered on 09/13/16 14:08; Admin Dose 100 MLS/HR; Start 09/09/16 at 15:30 Amikacin Sulfate AMIKACIN PER PHARMACY NOTE XX ; Start 09/09/16 at 15:30 Linezolid 300 ml @ 300 mls/hr Q12 IVPB Last administered on 09/13/16 09:45; Admin Dose 300 MLS/HR; Start 09/09/16 at 21:00 Amikacin Sulfate/ Sodium Chloride (Amikacin/NS) 102.4 ml @ 102.4 mls/ hr Q24H IVPB Last administered on 09/13/16 18:33; Admin Dose 102.4 MLS/HR; Start at 18:00 Alprazolam (Xanax) 1 mg TID PRN PO anxiety Last administered on 09/13/16 00:39 ; Admin Dose 1 MG; Start 09/09/16 at 21:30 Famotidine (Pepcid) 20 mg Q12 PO Last administered on 09/13/16 09:45; Admin Dose 20 MG; Start 09/11/16 at 21:00 JOSE LUIS MERCADO MD Sep 13, 2016 20:49
[2016-09-13] MEDS: GABAPENTIN 300 MG CAP PO SCH (21:13)
[2016-09-14] MEDS: VANCOMYCIN HCL 250 MG/5ML POSYG PO SCH ×5 (00:28→23:19)
[2016-09-14] MEDS: D5W-0.45 NACL + KCL 10 MEQ 1,000 ML IV SCH ×4 (04:30→18:04)
[2016-09-14 05:12] LABS: BASOPHILS % 0.4 % (0.0-2.0); EOSINOPHILS % 0.1 % (0.0-7.0); HEMATOCRIT 30.7 % (37.0-47.0); HEMOGLOBIN 10.1 g/dl (12.0-16.0); LYMPHOCYTES # 3.6 10^3/ul (0.8-2.9); LYMPHOCYTES % 36.5 % (15.0-51.0); MEAN CORPUSCULAR HEMOGLOBIN 29.2 pg (29.0-33.0); MEAN CORPUSCULAR HGB CONC 32.9 g/dl (32.0-37.0); MEAN CORPUSCULAR VOLUME 88.9 fl (82.0-101.0); MEAN PLATELET VOLUME 8.9 fl (7.4-10.4); MONOCYTES % 9.9 % (0.0-11.0); NEUTROPHIL # 5.3 10^3/ul (1.6-7.5); NEUTROPHILS % 53.1 % (39.0-77.0); PLATELET COUNT 453 10^3/UL (140-440); RED BLOOD COUNT 3.45 10^6/ul (4.20-5.40); RED CELL DISTRIBUTION WIDTH 14.7 % (11.5-14.5); UNCORRECTED WBC 9.9 10^3/ul (4.8-10.8); WHITE BLOOD COUNT 9.9 10^3/ul (4.8-10.8)
[2016-09-14] MEDS: metroNIDAZOLE 500 MG/NS (PMX) 100 ML IVPB SCH ×3 (06:08→21:48)
[2016-09-14] MEDS: morphine 2 MG INJ IV PRN ×3 (06:09→20:54)
[2016-09-14 06:29] LABS: POTASSIUM 3.9 mmol/L (3.5-5.1)
[2016-09-14 06:32] LABS: CREATININE 0.58 mg/dl (0.44-1.00)
[2016-09-14 06:33] LABS: CALCIUM 8.6 mg/dl (8.4-10.2)
[2016-09-14 06:44] LABS: CONDITION 1; LH ANALYZER COMMENTS 1
[2016-09-14 08:22] VITALS: BP 134/66; RESP 18
[2016-09-14] MEDS: CYANOCOBALAMIN 500 MCG TAB PO SCH (09:08)
[2016-09-14] MEDS: FAMOTIDINE 20 MG TAB PO SCH ×2 (09:08→20:53)
[2016-09-14] MEDS: predniSONE 10 MG TAB PO SCH (09:08)
[2016-09-14] MEDS: LEVETIRACETAM 500 MG TAB PO SCH ×2 (09:08→20:53)
[2016-09-14] MEDS: LINEZOLID 600 MG/D5W (PMX) 300 ML IVPB SCH ×2 (09:08→20:32)
[2016-09-14] MEDS ORDERED: [UNRECOGNIZED DRUG - CODE] IV (10:59)
[2016-09-14] MEDS ORDERED: Amikacin Iv Per Pharmacy XX (10:59)
[2016-09-14] MEDS ORDERED: Vancomycin Oral Syringe PO (10:59)
[2016-09-14] MEDS ORDERED: METR500P3 IV (10:59)
--- NOTE | 2016-09-14 11:10 | PDOCDIS ---
Discharge Instructions DIAGNOSIS Discharge Diagnosis: 1. Intra-abdominal abscess 2. Sepsis with UTI and C. difficile colitis 3. H CONDITION Patient Condition: Stable FOLLOW UP/APPOINTMENTS Appointments 1. Follow up with Dr. Mcmahan within one week 2. Follow up with Dr. Ara Wiseman in one week 3. Follow up wit Dr. Lyle Mayes in 1-2 weeks QASIM SHEEHAN Sep 14, 2016 11:09
[2016-09-14] MEDS ORDERED: LIDOCAINE 1% (MDV) 20 ML INJ SC ONE (11:30)
--- NOTE | 2016-09-14 16:10 | RADRPT ---
PROCEDURE: XR Chest. CLINICAL INDICATION: Check PICC line position. TECHNIQUE: Single frontal view. COMPARISON: 07/29/2016. FINDINGS: There is a left arm PICC line with the tip in the lower superior vena cava. There is mild left basi lar atelectasis. The lungs are otherwise clear. The heart size is normal. There is no pleural effusion. There is no pneumothorax. IMPRESSION: 1. Satisfactory position of left arm PICC line. 2. Mild left basilar atelectasis. 3. Otherwise normal chest x-ray. RPTAT: QQ .Phillip Guzman MD, MD Date Time Electronically viewed and signed by .Phillip Guzman MD, MD on 09/14/2016 16:09 .R/
--- NOTE | 2016-09-14 16:31 | RADRPT ---
PROCEDURE: Ultrasound guidance for placement of needle in left upper extremity vein. CLINICAL INDICATION: Venous access. TECHNIQUE: Limited sonography of the left upper extremity was performed. Ultrasound images were recorded and s tored in the patient's medical record. COMPARISON: None. FINDINGS: The ultrasound images demonstrate a patent left upper extremity vein. The PICC line was inserted by the PICC line nurse. IMPRESSION: 1. Ultrasound guidance for a needle placement in a left upper extremity vein. 2. The left upper extremity vein is patent. RPTAT: QQ .Phillip Guzman MD, MD Date Time Electronically viewed and signed by .Phillip Guzman MD, MD on 09/14/2016 16:31 .R/
--- NOTE | 2016-09-14 17:05 | PN ---
DATE: 09/14/2016 SUBJECTIVE: Patient is alert, looks comfortable. Denies pain, no fevers. Vital signs stable. WBC 9.9, no shift, no bands. BUN 4, creatinine 0.58. ANTIMICROBIALS: The patient is on oral vancomycin, IV Zyvox and IV amikacin. PHYSICAL EXAMINATION: GENERAL: This is a well-developed middle-aged white woman who is alert in no distress. HEENT: Head atraumatic, normocephalic. Sclerae anicteric. Buccal mucosa pink. NECK: Supple, trachea midline. CHEST: Rise symmetrical. Breath sounds clear. HEART: S1, S2. ABDOMEN: Soft, bowel sounds present. EXTREMITIES: No cyanosis. ASSESSMENT: 1. Clostridium difficile colitis. 2. Urinary tract infection, resolved. 3. Status post abdominal pain with evidence of small intraabdominal abscesses per CT of the abdomen . 4. 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 PLAN: The patient remains stable. Plan to discharge her home. She is not amenable for CT-guided a bscess drainage secondary to small size. At this point, she will need to be on antibiotics for at l east 2 more weeks and then a repeat CT to evaluate the response. The patient to follow with surgery prior to discontinue antibiotics. The regimen can be changed to IV vancomycin and IV Rocephin and keep her on either oral vancomycin or Flagyl. Dictated By: BRENDA SNIDER PHILOSOPHY SPECIALIST for TAMANNA MURILLO/NUNU Conf#: [id number] DID#: [id number]
[2016-09-14] MEDS: AMIKACIN 600 MG in SOD CHLORIDE 0.9% 100 ML IVPB SCH (18:04)
--- NOTE | 2016-09-14 18:05 | CONS ---
Date/Time of Note Date/Time of Note DATE: 09/14/16 TIME: 18:05 Assessment/Plan Assessment/Plan Chief Complaint/Hosp Course LEUKOCYTOSIS with abdominal collection ( POSTOP) REACTIVE ATB SURG F-UP DRAIN BY IR- unable to do MONITOR CLOSELY NOTE THAT PT IS POST SPLENECTOMY AND ALSO ON PREDNISONE WBC- IMPROVED THROMBOCYTOSIS REACTIVE MONITOR CLOSELY Normocytic anemia. The patient's H and H will be monitored closely. The patient will be transfused as needed. Infected surgical incision. Wound cultures Bryson cultures empiric antibiotics. Infectious disease f-up abdominal collection ( POSTOP) 4.4 x 3.4 x 1.7 cm gas containing collection surrounded by an unopacified small bowel and colon adjacent to surgical anastomotic margin. The patient is treated empirically for any underlying abscess. no Surgical procedure planned. Systemic inflammatory response syndrome with leukocytosis and tachycardia. Most probably secondary to underlying surgical site infection. The patient has no evidence of any septic shock. Seizure disorder. cont anti-seizure medications History of hepatitis C. lupus OVARIAN MASS, POST RESECTION BENIGN Problems: Consultation Date/Type/Reason Admit Date/Time Sep 07, 2016 at 10:55 Initial Consult Date 09/07/16 Referring Provider: RANDELL SIMON NP 24 HR Interval Summary Free Text/Dictation IMPROVING Exam/Review of Systems Vital Signs Vitals Vital Signs Date Time Temp Pulse Resp B/P Pulse Ox O2 Delivery O2 Flow Rate FiO2 09/14/16 08:22 98.0 68 18 134/66 94 Intake and Output 09/13/16 09/13/16 09/14/16 15:00 23:00 07:00 Intake Total 3200 ml 1400 ml Balance 3200 ml 1400 ml Exam General: No acute signs or symptoms of distress Eyes: pupils equal round, Anicteric sclera Neck: Supple nontender, no JVD Cardiac: S1, S2 auscultated, regular rhythm and rate Pulmonary: No coarse rhonchi or breathing auscultated GI: [Abdomen soft surgical site in place with dressing there. Extremities: No edema bilateral lower extremities Skin: Surgical site on abdomen . Incisions noted on mid upper and mid lower abdomen with no obvious erythema. Neurologic: Alert to person place and time and situation Results Result Diagram: 09/14/16 0415 09/14/16 0415 Results 24 hrs Laboratory Tests Test 09/14/16 04:15 Anion Gap 12 Basophils # 0.0 Basophils % 0.4 Blood Morphology Comment Blood Urea Nitrogen 4 L Calcium Level 8.6 Carbon Dioxide Level 28 Chloride Level 102 Creatinine 0.58 Eosinophils # 0.0 Eosinophils % 0.1 Glucose Level 88 Hematocrit 30.7 L Hemoglobin 10.1 L Lymphocytes # 3.6 H Lymphocytes % 36.5 Mean Corpuscular Hemoglobin 29.2 Mean Corpuscular Hemoglobin Concent 32.9 Mean Corpuscular Volume 88.9 Mean Platelet Volume 8.9 Monocytes # 1.0 H Monocytes % 9.9 Neutrophils # 5.3 Neutrophils % 53.1 Nucleated Red Blood Cells # 0.0 Nucleated Red Blood Cells % 0.0 Platelet Count 453 H Potassium Level 3.9 Red Blood Count 3.45 L Red Cell Distribution Width 14.7 H Sodium Level 138 White Blood Count 9.9 Medications Medications Current Medications Ondansetron HCl (Zofran Inj) 4 mg Q6H PRN IV NAUSEA AND/OR VOMITING Last administered on 09/08/16 14:00; Admin Dose 4 MG; Start 09/07/16 at 12:30 Morphine Sulfate 2 mg 2 mg Q4H PRN IV SEVERE PAIN LEVEL 7-10 Last administered on 09/14/16 16:51; Admin Dose 2 MG; Start 09/07/16 at 12:30 Potassium Chloride/Dextrose/ Sod Cl (D5-1/2ns + KCl 10 Meq) 1,000 ml @ 125 mls/ hr Q8H IV Last administered on 09/14/16 09:07; Admin Dose 125 MLS/HR; Start at 12:30 Cyanocobalamin (Vitamin B12) 1,000 mcg DAILY PO Last administered on 09/14/16 09:08; Admin Dose 1,000 MCG; Start 09/08/16 at 09:00 Gabapentin (Neurontin) 1,200 mg QHS PO Last administered on 09/13/16 21:13; Admin Dose 1,200 MG; Start 09/07/16 at 21:00 Levetiracetam (Keppra) 500 mg BID PO Last administered on 09/14/16 09:08; Admin Dose 500 MG; Start 09/07/16 at 21:00 Prednisone (Prednisone) 10 mg DAILY PO Last administered on 09/14/16 09:08; Admin Dose 10 MG; Start 09/08/16 at 09:00 Vancomycin HCl 250 mg 250 mg Q6 PO Last administered on 09/14/16 12:09; Admin Dose 250 MG; Start 09/09/16 at 18:00 Metronidazole (Flagyl 500 Mg (Pmx)) 100 ml @ 100 mls/hr Q8 IVPB Last administered on 09/14/16 13:54; Admin Dose 100 MLS/HR; Start 09/09/16 at 15:30 Amikacin Sulfate AMIKACIN PER PHARMACY NOTE XX ; Start 09/09/16 at 15:30 Linezolid 300 ml @ 300 mls/hr Q12 IVPB Last administered on 09/14/16 09:08; Admin Dose 300 MLS/HR; Start 09/09/16 at 21:00 Amikacin Sulfate/ Sodium Chloride (Amikacin/NS) 102.4 ml @ 102.4 mls/ hr Q24H IVPB Last administered on 09/13/16 18:33; Admin Dose 102.4 MLS/HR; Start at 18:00 Alprazolam (Xanax) 1 mg TID PRN PO anxiety Last administered on 09/13/16 21:13 ; Admin Dose 1 MG; Start 09/09/16 at 21:30 Famotidine (Pepcid) 20 mg Q12 PO Last administered on 09/14/16 09:08; Admin Dose 20 MG; Start 09/11/16 at 21:00 IV Flush (NS 10 ml) 10 ml PRN PRN IV IV PROTOCOL; Start 09/14/16 at 16:30 JOSE LUIS MERCADO MD Sep 14, 2016 18:05
[2016-09-14] MEDS: GABAPENTIN 300 MG CAP PO SCH (20:53)
[2016-09-14] MEDS ORDERED: ACETAMINOPHEN 325 MG TAB PO PRN (21:00)
[2016-09-14 21:16] VITALS: BP 158/88; RESP 20
[2016-09-15 04:57] LABS: BASOPHIL # 0.1 10^3/ul (0.0-0.1); BASOPHILS % 1.1 % (0.0-2.0); EOSINOPHILS % 0.2 % (0.0-7.0); HEMATOCRIT 30.1 % (37.0-47.0); LYMPHOCYTES # 2.7 10^3/ul (0.8-2.9); LYMPHOCYTES % 24.3 % (15.0-51.0); MEAN CORPUSCULAR HEMOGLOBIN 29.4 pg (29.0-33.0); MEAN CORPUSCULAR HGB CONC 33.1 g/dl (32.0-37.0); MEAN CORPUSCULAR VOLUME 88.7 fl (82.0-101.0); MEAN PLATELET VOLUME 8.9 fl (7.4-10.4); MONOCYTES % 8.8 % (0.0-11.0); NEUTROPHIL # 7.3 10^3/ul (1.6-7.5); NEUTROPHILS % 65.6 % (39.0-77.0); PLATELET COUNT 445 10^3/UL (140-440); RED BLOOD COUNT 3.39 10^6/ul (4.20-5.40); RED CELL DISTRIBUTION WIDTH 14.2 % (11.5-14.5); UNCORRECTED WBC 11.2 10^3/ul (4.8-10.8); WHITE BLOOD COUNT 11.2 10^3/ul (4.8-10.8)
[2016-09-15 05:11] LABS: CONDITION 1
[2016-09-15 05:16] LABS: POTASSIUM 3.5 mmol/L (3.5-5.1)
[2016-09-15 05:19] LABS: CREATININE 0.6 mg/dl (0.44-1.00)
[2016-09-15 05:20] LABS: CALCIUM 8.6 mg/dl (8.4-10.2)
[2016-09-15] MEDS: D5W-0.45 NACL + KCL 10 MEQ 1,000 ML IV SCH ×2 (05:44→12:07)
[2016-09-15] MEDS: VANCOMYCIN HCL 250 MG/5ML POSYG PO SCH ×2 (05:44→12:04)
[2016-09-15] MEDS: metroNIDAZOLE 500 MG/NS (PMX) 100 ML IVPB SCH ×2 (05:45→13:27)
[2016-09-15 08:05] VITALS: BP 127/74; RESP 18
[2016-09-15] MEDS: LINEZOLID 600 MG/D5W (PMX) 300 ML IVPB SCH (08:57)
[2016-09-15] MEDS: CYANOCOBALAMIN 500 MCG TAB PO SCH (08:57)
[2016-09-15] MEDS: FAMOTIDINE 20 MG TAB PO SCH (08:57)
[2016-09-15] MEDS: LEVETIRACETAM 500 MG TAB PO SCH (08:57)
[2016-09-15] MEDS: predniSONE 10 MG TAB PO SCH (08:57)
[2016-09-15] MEDS ORDERED: SOD CHLORIDE 0.9% 100 ML ONE (09:03)
[2016-09-15] MEDS: morphine 2 MG INJ IV PRN (09:47)
--- NOTE | 2016-09-15 11:14 | CONS ---
Date/Time of Note Date/Time of Note DATE: 09/15/16 TIME: 11:13 Assessment/Plan Assessment/Plan Chief Complaint/Hosp Course LEUKOCYTOSIS with abdominal collection ( POSTOP) REACTIVE ATB SURG F-UP DRAIN BY IR- unable to do MONITOR CLOSELY NOTE THAT PT IS POST SPLENECTOMY AND ALSO ON PREDNISONE WBC- IMPROVED THROMBOCYTOSIS REACTIVE MONITOR CLOSELY Normocytic anemia. The patient's H and H will be monitored closely. The patient will be transfused as needed. Infected surgical incision. Wound cultures Bryson cultures empiric antibiotics. Infectious disease f-up abdominal collection ( POSTOP) 4.4 x 3.4 x 1.7 cm gas containing collection surrounded by an unopacified small bowel and colon adjacent to surgical anastomotic margin. The patient is treated empirically for any underlying abscess. no Surgical procedure planned. Systemic inflammatory response syndrome with leukocytosis and tachycardia. Most probably secondary to underlying surgical site infection. The patient has no evidence of any septic shock. Seizure disorder. cont anti-seizure medications History of hepatitis C. lupus OVARIAN MASS, POST RESECTION BENIGN Problems: Consultation Date/Type/Reason Admit Date/Time Sep 07, 2016 at 10:55 Initial Consult Date 09/07/16 Referring Provider: RANDELL SIMON NP 24 HR Interval Summary Free Text/Dictation FELLING BETTER COUNT- IMPROVING Exam/Review of Systems Vital Signs Vitals Vital Signs Date Time Temp Pulse Resp B/P Pulse Ox O2 Delivery O2 Flow Rate FiO2 09/15/16 08:05 98.2 63 18 127/74 96 Intake and Output 09/14/16 09/14/16 09/15/16 15:00 23:00 07:00 Intake Total 400 ml 1840 ml 720 ml Balance 400 ml 1840 ml 720 ml Exam General: No acute signs or symptoms of distress Eyes: pupils equal round, Anicteric sclera Neck: Supple nontender, no JVD Cardiac: S1, S2 auscultated, regular rhythm and rate Pulmonary: No coarse rhonchi or breathing auscultated GI: [Abdomen soft surgical site in place with dressing there. Extremities: No edema bilateral lower extremities Skin: Surgical site on abdomen . Incisions noted on mid upper and mid lower abdomen with no obvious erythema. Neurologic: Alert to person place and time and situation Results Result Diagram: 09/15/16 0425 09/15/16 0425 Results 24 hrs Laboratory Tests Test 09/15/16 04:25 Anion Gap 14 Basophils # 0.1 Basophils % 1.1 Blood Urea Nitrogen 6 L Calcium Level 8.6 Carbon Dioxide Level 28 Chloride Level 102 Creatinine 0.60 Eosinophils # 0.0 Eosinophils % 0.2 Glucose Level 93 Hematocrit 30.1 L Hemoglobin 10.0 L Lymphocytes # 2.7 Lymphocytes % 24.3 Mean Corpuscular Hemoglobin 29.4 Mean Corpuscular Hemoglobin Concent 33.1 Mean Corpuscular Volume 88.7 Mean Platelet Volume 8.9 Monocytes # 1.0 H Monocytes % 8.8 Neutrophils # 7.3 Neutrophils % 65.6 Nucleated Red Blood Cells # 0.0 Nucleated Red Blood Cells % 0.0 Platelet Count 445 H Potassium Level 3.5 Red Blood Count 3.39 L Red Cell Distribution Width 14.2 Sodium Level 140 White Blood Count 11.2 H Medications Medications Current Medications Ondansetron HCl (Zofran Inj) 4 mg Q6H PRN IV NAUSEA AND/OR VOMITING Last administered on 09/08/16 14:00; Admin Dose 4 MG; Start 09/07/16 at 12:30 Morphine Sulfate 2 mg 2 mg Q4H PRN IV SEVERE PAIN LEVEL 7-10 Last administered on 09/15/16 09:47; Admin Dose 2 MG; Start 09/07/16 at 12:30 Potassium Chloride/Dextrose/ Sod Cl (D5-1/2ns + KCl 10 Meq) 1,000 ml @ 125 mls/ hr Q8H IV Last administered on 09/15/16 05:44; Admin Dose 125 MLS/HR; Start at 12:30 Cyanocobalamin (Vitamin B12) 1,000 mcg DAILY PO Last administered on 09/15/16 08:57; Admin Dose 1,000 MCG; Start 09/08/16 at 09:00 Gabapentin (Neurontin) 1,200 mg QHS PO Last administered on 09/14/16 20:53; Admin Dose 1,200 MG; Start 09/07/16 at 21:00 Levetiracetam (Keppra) 500 mg BID PO Last administered on 09/15/16 08:57; Admin Dose 500 MG; Start 09/07/16 at 21:00 Prednisone (Prednisone) 10 mg DAILY PO Last administered on 09/15/16 08:57; Admin Dose 10 MG; Start 09/08/16 at 09:00 Vancomycin HCl 250 mg 250 mg Q6 PO Last administered on 09/15/16 05:44; Admin Dose 250 MG; Start 09/09/16 at 18:00 Metronidazole (Flagyl 500 Mg (Pmx)) 100 ml @ 100 mls/hr Q8 IVPB Last administered on 09/15/16 05:45; Admin Dose 100 MLS/HR; Start 09/09/16 at 15:30 Amikacin Sulfate AMIKACIN PER PHARMACY NOTE XX ; Start 09/09/16 at 15:30 Linezolid 300 ml @ 300 mls/hr Q12 IVPB Last administered on 09/15/16 08:57; Admin Dose 300 MLS/HR; Start 09/09/16 at 21:00 Amikacin Sulfate/ Sodium Chloride (Amikacin/NS) 102.4 ml @ 102.4 mls/ hr Q24H IVPB Last administered on 09/14/16 18:04; Admin Dose 102.4 MLS/HR; Start at 18:00 Alprazolam (Xanax) 1 mg TID PRN PO anxiety Last administered on 09/13/16 21:13 ; Admin Dose 1 MG; Start 09/09/16 at 21:30 Famotidine (Pepcid) 20 mg Q12 PO Last administered on 09/15/16 08:57; Admin Dose 20 MG; Start 09/11/16 at 21:00 IV Flush (NS 10 ml) 10 ml PRN PRN IV IV PROTOCOL; Start 09/14/16 at 16:30 Acetaminophen (Tylenol Tab) 650 mg Q6H PRN PO PAIN AND OR ELEVATED TEMP; Start 09/14/16 at 21:00 JOSE LUIS MERCADO MD Sep 15, 2016 11:14
--- NOTE | 2016-09-15 14:07 | PN ---
Date/Time of Note Date/Time of Note LATE ENTRY DATE: 09/14/16 Assessment/Plan VTE Prophylaxis VTE Prophylaxis Intervention: SCD's Lines/Catheters IV Catheter Type (from Nrsg): PICC Line Central line still needed: Yes Urinary Cath still in place: No Assessment/Plan Chief Complaint/Hosp Course Assessment and plan 1. Abdominal pain secondary to intra-abdominal abscess. Continue and about exposure recommendations. Surgeon following. There was tentative plan for IR guided drainage however after review by interventional radiologist there was not enough noted fluid to be drained. Continue with surgeon recommendations 2. Sepsis secondary to UTI, C. difficile colitis, and intra-abdominal abscess. Continue antibiotics. 3. C. difficile stool infection continued on oral vancomycin 4. Anemia. H&H stable. Continue to monitor 5. Seizure disorder. Continue anticonvulsant medication 6. History of lupus. Continue on prednisone 7. History of hepatitis C. No active issue this time. We'll monitor 8. Protein calorie malnutrition. Continue Epogen supplements once able to tolerate full liquid diet DVT prophylaxis: SCD GERD prophylaxis: H2 jorge disposition and plan: plan for picc line placement. d/c planning Discussed plan of care with Dr. Chun Problems: Subjective 24 Hr Interval Summary Free Text/Dictation no s/s of distress Exam/Review of Systems Vital Signs Vitals Vital Signs Date Time Temp Pulse Resp B/P Pulse Ox O2 Delivery O2 Flow Rate FiO2 09/15/16 08:05 98.2 63 18 127/74 96 Intake and Output 09/14/16 09/14/16 09/15/16 15:00 23:00 07:00 Intake Total 400 ml 1840 ml 720 ml Balance 400 ml 1840 ml 720 ml Exam General: No acute signs or symptoms of distress Eyes: pupils equal round, Anicteric sclera Neck: Supple nontender, no JVD Cardiac: S1, S2 auscultated, regular rhythm and rate Pulmonary: No coarse rhonchi or breathing auscultated GI: [Abdomen soft surgical site in place with dressing there. Extremities: No edema bilateral lower extremities Skin: Surgical site on abdomen . Incisions noted on mid upper and mid lower abdomen with no obvious erythema. Neurologic: Alert to person place and time and situation Results Result Diagram: 09/15/16 0425 09/15/16 0425 Results 24 hrs Laboratory Tests Test 09/15/16 04:25 Anion Gap 14 Basophils # 0.1 Basophils % 1.1 Blood Urea Nitrogen 6 L Calcium Level 8.6 Carbon Dioxide Level 28 Chloride Level 102 Creatinine 0.60 Eosinophils # 0.0 Eosinophils % 0.2 Glucose Level 93 Hematocrit 30.1 L Hemoglobin 10.0 L Lymphocytes # 2.7 Lymphocytes % 24.3 Mean Corpuscular Hemoglobin 29.4 Mean Corpuscular Hemoglobin Concent 33.1 Mean Corpuscular Volume 88.7 Mean Platelet Volume 8.9 Monocytes # 1.0 H Monocytes % 8.8 Neutrophils # 7.3 Neutrophils % 65.6 Nucleated Red Blood Cells # 0.0 Nucleated Red Blood Cells % 0.0 Platelet Count 445 H Potassium Level 3.5 Red Blood Count 3.39 L Red Cell Distribution Width 14.2 Sodium Level 140 White Blood Count 11.2 H Medications Medications Current Medications Ondansetron HCl (Zofran Inj) 4 mg Q6H PRN IV NAUSEA AND/OR VOMITING Last administered on 09/08/16 14:00; Admin Dose 4 MG; Start 09/07/16 at 12:30 Morphine Sulfate 2 mg 2 mg Q4H PRN IV SEVERE PAIN LEVEL 7-10 Last administered on 09/15/16 09:47; Admin Dose 2 MG; Start 09/07/16 at 12:30 Potassium Chloride/Dextrose/ Sod Cl (D5-1/2ns + KCl 10 Meq) 1,000 ml @ 125 mls/ hr Q8H IV Last administered on 09/15/16 05:44; Admin Dose 125 MLS/HR; Start at 12:30 Cyanocobalamin (Vitamin B12) 1,000 mcg DAILY PO Last administered on 09/15/16 08:57; Admin Dose 1,000 MCG; Start 09/08/16 at 09:00 Gabapentin (Neurontin) 1,200 mg QHS PO Last administered on 09/14/16 20:53; Admin Dose 1,200 MG; Start 09/07/16 at 21:00 Levetiracetam (Keppra) 500 mg BID PO Last administered on 09/15/16 08:57; Admin Dose 500 MG; Start 09/07/16 at 21:00 Prednisone (Prednisone) 10 mg DAILY PO Last administered on 09/15/16 08:57; Admin Dose 10 MG; Start 09/08/16 at 09:00 Vancomycin HCl 250 mg 250 mg Q6 PO Last administered on 09/15/16 12:04; Admin Dose 250 MG; Start 09/09/16 at 18:00 Metronidazole (Flagyl 500 Mg (Pmx)) 100 ml @ 100 mls/hr Q8 IVPB Last administered on 09/15/16 13:27; Admin Dose 100 MLS/HR; Start 09/09/16 at 15:30 Amikacin Sulfate AMIKACIN PER PHARMACY NOTE XX ; Start 09/09/16 at 15:30 Linezolid 300 ml @ 300 mls/hr Q12 IVPB Last administered on 09/15/16 08:57; Admin Dose 300 MLS/HR; Start 09/09/16 at 21:00 Amikacin Sulfate/ Sodium Chloride (Amikacin/NS) 102.4 ml @ 102.4 mls/ hr Q24H IVPB Last administered on 09/14/16 18:04; Admin Dose 102.4 MLS/HR; Start at 18:00 Alprazolam (Xanax) 1 mg TID PRN PO anxiety Last administered on 09/13/16 21:13 ; Admin Dose 1 MG; Start 09/09/16 at 21:30 Famotidine (Pepcid) 20 mg Q12 PO Last administered on 09/15/16 08:57; Admin Dose 20 MG; Start 09/11/16 at 21:00 IV Flush (NS 10 ml) 10 ml PRN PRN IV IV PROTOCOL; Start 09/14/16 at 16:30 Acetaminophen (Tylenol Tab) 650 mg Q6H PRN PO PAIN AND OR ELEVATED TEMP; Start 09/14/16 at 21:00 Miscellaneous Information (*Rx Drug Level Order Reminder*) AMIKACIN TROUGH @ 1, 700 ON... ONCE ONCE XX ; Start 09/15/16 at 17:00; Stop 09/15/16 at 17:01 QASIM SHEEHAN Sep 15, 2016 14:07
--- NOTE | 2016-09-15 14:13 | DS ---
Date/Time of Note Date/Time of Note DATE: 09/15/16 TIME: 14:07 Discharge Summary Admission/Discharge Info Admit Date/Time Sep 07, 2016 at 10:55 Discharge Date/Time Final Diagnosis 1. Abdominal pain secondary to intra-abdominal abscess. 2. Sepsis secondary to UTI, C. difficile colitis, and intra-abdominal abscess. 3. C. difficile 4. Anemia. 5. Seizure disorder. 6. History of lupus. 7. History of hepatitis C. 8. Protein calorie malnutrition. Patient Condition: Stable Consults 1. Dr. Ara Wiseman 2. Dr. Lyle Mayes 3. Dr. Maxi Mcmahan [place] [facility] Course This is a 56. Female with history of seizure, lupus, anemia, hepatitis C, pelvic mass, status post extensive surgery on 07/20/2016 that was noted to be negative for malignancy who came to [facility] due to reports of abdominal pain and purulent secretions coming out of surgical incision. Of note patient did have a laparotomy with enterolysis, small bowel resection and anastomosis, right salpingo-oophorectomy, right ureteral dissection with repositioning and splenectomy on 07/20/[address] Mcmahan. Patient did have a prolonged hospital stay after this. Patient was admitted discharge on 2015 with follow-up as outpatient with surgeon. Patient however did have worsening of her surgical wound with purulent swelling secretions. She was brought to [facility] for further evaluation again. She was noted to have some leukocytosis and did have CT scan of the abdomen that did show a 4.8 x 3.4 x 1.7 cm gas containing collection surrounded by unopacified bowel and colon adjacent to surgical anastomotic margin. Patient was again seen by surgeon as well as by infectious disease physician. Patient was continued with wound care. We did initially plan for IR guided drainage of her wound however after review by interventional radiologist after patient was started on antibiotic therapy she apparently did have good response and as such did not need any kind of drainage due to the lack of fluid. Patient also was noted with sepsis secondary to UTI and C. difficile colitis and intra-abdominal abscess during her admission. She was optimized with antibiotics per ID recommendations. Patient did respond well to antibiotic therapy and she did not need any further IR drainage. She was otherwise optimized with antibiotics and continued on her anticonvulsant medication for her seizures. She was continued on prednisone for her lupus. She did have hepatitis C history but no active issue at this time. During her course of stay she did improve. After discussion with surgeon and infectious disease physician, patient would be able to go home with IV antibiotics with follow-up with surgeon. During her course of stay she did improve. The plan of care was discussed with the patient and patient did verbalize her understanding. On the day of discharge patient was in stable condition Discussed plan of care with Dr. Chun Disposition: Home with home health services Discharge process time is 40 minutes Home Meds Active Scripts Metronidazole/Sodium Chloride (Metro IV 500 mg/100 ml) 500 Mg/100 Ml Piggyback, 500 MG IV TID for 14 Days Prov:QASIM SHEEHAN 09/14/16 [Amikacin Iv Per Pharmacy] 1 EA EACH No Conflict Check, 0 EA XX NOTE for 14 Days Prov:QASIM SHEEHAN 09/14/16 Linezolid (Linezolid) 600 Mg/300 Ml Iv.soln, 600 MG IV BID for 14 Days Prov:QASIM SHEEHAN 09/14/16 [Vancomycin Oral Syringe] 50 MG/ML SOLN No Conflict Check, 250 MG PO Q6 for 14 Days Prov:QASIM SHEEHAN 09/14/16 Reported Medications Thiamine* (Vitamin B-1*) 100 Mg Tablet, 100 MG PO DAILY, TAB 09/07/16 Calcium Carbonate/Vitamin D3 ([place] 500+D Tablet) 1 Each Tablet, 1 EACH PO BID, TAB 07/20/16 Cyanocobalamin* (Vitamin B-12*) 1,000 Mcg Tablet.sa, 1000 MCG PO DAILY, TAB 07/20/16 Celecoxib* (Celebrex*) 200 Mg Capsule, 200 MG PO BID, CAP 07/20/16 Levetiracetam* (Levetiracetam*) 500 Mg Tablet, 500 MG PO BID, TAB 07/20/16 Hydrocodone/Acetaminophen ([place] 10-325 Tablet) 1 Each Tablet, 1 EACH PO QID Y for PAIN, TAB 07/20/16 Pantoprazole* (Protonix*) 40 Mg Tablet.dr, 40 MG PO DAILY, TAB 07/20/16 Gabapentin* (Gabapentin*) 600 Mg Tablet, 1200 MG PO QHS, #60 TAB 07/20/16 Prednisone (Prednisone) 10 Mg Tab, 10 MG PO DAILY, TAB 06/23/16 Qevrjc-Vefbtpfv-Moubumq* (Kael DR* 6,000) 6,000 L-19,000-30,000 Unit Capsule. , 1 CAP PO QID, CAP 06/23/16 Hydroxychloroquine Sulfate* (Hydroxychloroquine Sulfate*) 200 Mg Tablet, 200 MG PO BID, TAB 05/17/16 Tramadol Hcl* (Ultram*) 50 Mg Tablet, 50 MG PO Q6H Y for PAIN, TAB 05/17/16 Alprazolam* (Xanax*) 1 Mg Tab, 1 MG PO TID 06/26/12 Follow-up Plan CONDITION Patient Condition: Stable FOLLOW UP/APPOINTMENTS Appointments 1. Follow up with Dr. Mcmahan within one week 2. Follow up with Dr. Ara Wiseman in one week 3. Follow up wit Dr. Lyle Mayes in 1-2 weeks Pending Labs Laboratory Tests Test 09/15/16 04:25 Anion Gap 14 (8-16) Basophils # 0.110^3/ul (0.0-0.1) Basophils % 1.1% (0.0-2.0) Blood Urea Nitrogen 6mg/dl (7-20) Calcium Level 8.6mg/dl (8.4-10.2) Carbon Dioxide Level 28mmol/L (21-31) Chloride Level 102mmol/L (97-110) Creatinine 0.60mg/dl (0.44-1.00) Eosinophils # 0.010^3/ul (0.0-0.5) Eosinophils % 0.2% (0.0-7.0) Glucose Level 93mg/dl (70-220) Hematocrit 30.1% (37.0-47.0) Hemoglobin 10.0g/dl (12.0-16.0) Lymphocytes # 2.710^3/ul (0.8-2.9) Lymphocytes % 24.3% (15.0-51.0) Mean Corpuscular Hemoglobin 29.4pg (29.0-33.0) Mean Corpuscular Hemoglobin Concent 33.1g/dl (32.0-37.0) Mean Corpuscular Volume 88.7fl (82.0-101.0) Mean Platelet Volume 8.9fl (7.4-10.4) Monocytes # 1.010^3/ul (0.3-0.9) Monocytes % 8.8% (0.0-11.0) Neutrophils # 7.310^3/ul (1.6-7.5) Neutrophils % 65.6% (39.0-77.0) Nucleated Red Blood Cells # 0.010^3/ul (0.0-0.0) Nucleated Red Blood Cells % 0.0/100WBC (0.0-0.0) Platelet Count 61181^3/UL (140-440) Potassium Level 3.5mmol/L (3.5-5.1) Red Blood Count 3.3910^6/ul (4.20-5.40) Red Cell Distribution Width 14.2% (11.5-14.5) Sodium Level 140mmol/L (135-144) White Blood Count 11.210^3/ul (4.8-10.8) QASIM SHEEHAN Sep 15, 2016 14:13
--- NOTE | 2016-09-15 16:04 | PN ---
DATE: 09/15/2016 SUBJECTIVE: Patient is alert, feels good, looks comfortable. Denies pain, discomfort. No diarrhea , no fevers. ANTIMICROBIALS: 1. The patient is on Zyvox. 2. Oral vancomycin. 3. IV Flagyl. 4. Amikacin. PHYSICAL EXAMINATION: GENERAL: This is a fragile, well-developed, middle-aged woman who is alert, in no distress. HEENT: Head atraumatic, normocephalic. Sclerae anicteric. Buccal mucosa pink. NECK: Supple, trachea midline. CHEST: Rise symmetrical. Breath sounds clear. HEART: S1, S2. ABDOMEN: Soft. Bowel sounds present. ASSESSMENT: 1. Multiple intraabdominal abscesses, too small to be drained. The patient is being seen by Dr. Herb pritchett and overall clinically improving. 2. Clostridium difficile colitis. 3. Status post Escherichia coli urinary tract infection. 4. 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 PLAN: The patient remains stable pending discharge planning. She has a PICC line in place. Recomm end to send her on IV vancomycin, IV Rocephin and Flagyl for 2 weeks, possibly longer. The patient to have CT of the abdomen prior to discontinuation of antibiotic therapy to determine the length of antibiotics. Above was discussed at length with the patient. Dictated By: BRENDA SNIDER CLOTH STRETCHER for TAMANNA MURILLO/NTS Conf#: [id number] DID#: [id number]
[2016-09-15] MEDS ORDERED: CEFTRIAXONE 2 GM/50 ML (PMX) 50 ML IVPB ONE (16:30)
--- NOTE | 2016-09-15 16:54 | PN ---
Date/Time of Note Date/Time of Note DATE: 09/15/16 TIME: 16:51 Assessment/Plan VTE Prophylaxis VTE Prophylaxis Intervention: LMWH Lines/Catheters IV Catheter Type (from Nrs): PICC Line Urinary Cath still in place: No Assessment/Plan Chief Complaint/Hosp Course abdominal abscess, pain, c. diff Problems: Assessment/Plan A- Clinically improved and no diarrhea. P- Agree with ID. Will see in office to monitor wound care and progress. Subjective 24 Hr Interval Summary Free Text/Dictation S- feels much better and increased appetite and constantly OOB O- Resp- clear CVS- NSR Abd- soft mildly tender with no drainage from distal wound (closed) and cephalad packed Ext NT no edema A- Clinically improved and no diarrhea. P- Agree with ID. Will see in office to monitor wound care and progress. Exam/Review of Systems Vital Signs Vitals Vital Signs Date Time Temp Pulse Resp B/P Pulse Ox O2 Delivery O2 Flow Rate FiO2 09/15/16 08:05 98.2 63 18 127/74 96 Intake and Output 09/14/16 09/14/16 09/15/16 15:00 23:00 07:00 Intake Total 400 ml 1840 ml 720 ml Balance 400 ml 1840 ml 720 ml Results Result Diagram: 09/15/16 0425 09/15/16 0425 Results 24 hrs Laboratory Tests Test 09/15/16 04:25 Anion Gap 14 Basophils # 0.1 Basophils % 1.1 Blood Urea Nitrogen 6 L Calcium Level 8.6 Carbon Dioxide Level 28 Chloride Level 102 Creatinine 0.60 Eosinophils # 0.0 Eosinophils % 0.2 Glucose Level 93 Hematocrit 30.1 L Hemoglobin 10.0 L Lymphocytes # 2.7 Lymphocytes % 24.3 Mean Corpuscular Hemoglobin 29.4 Mean Corpuscular Hemoglobin Concent 33.1 Mean Corpuscular Volume 88.7 Mean Platelet Volume 8.9 Monocytes # 1.0 H Monocytes % 8.8 Neutrophils # 7.3 Neutrophils % 65.6 Nucleated Red Blood Cells # 0.0 Nucleated Red Blood Cells % 0.0 Platelet Count 445 H Potassium Level 3.5 Red Blood Count 3.39 L Red Cell Distribution Width 14.2 Sodium Level 140 White Blood Count 11.2 H Medications Medications Current Medications Ondansetron HCl (Zofran Inj) 4 mg Q6H PRN IV NAUSEA AND/OR VOMITING Last administered on 09/08/16 14:00; Admin Dose 4 MG; Start 09/07/16 at 12:30 Morphine Sulfate 2 mg 2 mg Q4H PRN IV SEVERE PAIN LEVEL 7-10 Last administered on 09/15/16 09:47; Admin Dose 2 MG; Start 09/07/16 at 12:30 Potassium Chloride/Dextrose/ Sod Cl (D5-1/2ns + KCl 10 Meq) 1,000 ml @ 125 mls/ hr Q8H IV Last administered on 09/15/16 05:44; Admin Dose 125 MLS/HR; Start at 12:30 Cyanocobalamin (Vitamin B12) 1,000 mcg DAILY PO Last administered on 09/15/16 08:57; Admin Dose 1,000 MCG; Start 09/08/16 at 09:00 Gabapentin (Neurontin) 1,200 mg QHS PO Last administered on 09/14/16 20:53; Admin Dose 1,200 MG; Start 09/07/16 at 21:00 Levetiracetam (Keppra) 500 mg BID PO Last administered on 09/15/16 08:57; Admin Dose 500 MG; Start 09/07/16 at 21:00 Prednisone (Prednisone) 10 mg DAILY PO Last administered on 09/15/16 08:57; Admin Dose 10 MG; Start 09/08/16 at 09:00 Vancomycin HCl 250 mg 250 mg Q6 PO Last administered on 09/15/16 12:04; Admin Dose 250 MG; Start 09/09/16 at 18:00 Metronidazole (Flagyl 500 Mg (Pmx)) 100 ml @ 100 mls/hr Q8 IVPB Last administered on 09/15/16 13:27; Admin Dose 100 MLS/HR; Start 09/09/16 at 15:30 Amikacin Sulfate AMIKACIN PER PHARMACY NOTE XX ; Start 09/09/16 at 15:30 Linezolid 300 ml @ 300 mls/hr Q12 IVPB Last administered on 09/15/16 08:57; Admin Dose 300 MLS/HR; Start 09/09/16 at 21:00 Amikacin Sulfate/ Sodium Chloride (Amikacin/NS) 102.4 ml @ 102.4 mls/ hr Q24H IVPB Last administered on 09/14/16 18:04; Admin Dose 102.4 MLS/HR; Start at 18:00 Alprazolam (Xanax) 1 mg TID PRN PO anxiety Last administered on 09/13/16 21:13 ; Admin Dose 1 MG; Start 09/09/16 at 21:30 Famotidine (Pepcid) 20 mg Q12 PO Last administered on 09/15/16 08:57; Admin Dose 20 MG; Start 09/11/16 at 21:00 IV Flush (NS 10 ml) 10 ml PRN PRN IV IV PROTOCOL; Start 09/14/16 at 16:30 Acetaminophen (Tylenol Tab) 650 mg Q6H PRN PO PAIN AND OR ELEVATED TEMP; Start 09/14/16 at 21:00 Miscellaneous Information AMIKACIN TROUGH @ 1,700 ON... ONCE ONCE XX ; Start 09/15/16 at 17:00; Stop 09/15/16 at 17:01 Ceftriaxone Sodium (Rocephin) 50 ml @ 100 mls/hr ONCE ONCE IVPB ; Start at 16:30; Stop 09/15/16 at 16:59 SAMMY ALMANZA MD Sep 15, 2016 16:54
== END 2016-09-15 19:15 | disposition home health service (06) | DRG 862 ==
LOC: E/R 06:37 → PP2 10:55 → MS1 09-08 23:02
PROVIDERS: ADMIT Family Medicine; ATTEND Family Medicine
DX: T81.4XXA Infection following a procedure, initial encounter (principal); K65.1 Peritoneal abscess; A41.9 Sepsis, unspecified organism; A04.7 Enterocolitis due to Clostridium difficile; N39.0 Urinary tract infection, site not specified; E44.0 Moderate protein-calorie malnutrition; Z68.1 Body mass index [BMI] 19.9 or less, adult; B96.20 Unspecified Escherichia coli [E. coli] as the cause of diseases classified elsewhere; Z16.11 Resistance to penicillins; Z16.29 Resistance to other single specified antibiotic; Y83.8 Other surgical procedures as the cause of abnormal reaction of the patient, or of later complication, without mention of misadventure at the time of the procedure; G40.909 Epilepsy, unspecified, not intractable, without status epilepticus; B18.2 Chronic viral hepatitis C; D64.9 Anemia, unspecified; F17.200 Nicotine dependence, unspecified, uncomplicated; J44.9 Chronic obstructive pulmonary disease, unspecified; D47.3 Essential (hemorrhagic) thrombocythemia; L30.9 Dermatitis, unspecified; L40.9 Psoriasis, unspecified; M32.9 Systemic lupus erythematosus, unspecified; Z90.49 Acquired absence of other specified parts of digestive tract; Z90.81 Acquired absence of spleen; Z90.721 Acquired absence of ovaries, unilateral; Z90.79 Acquired absence of other genital organ(s); Z86.19 Personal history of other infectious and parasitic diseases
CPT/HCPCS: 36415; 36569; 71010; 74177; 76937; 80048; 80053; 80061; 80150; 80202; 81001; 81003; 82150; 83605; 83690; 83735; 84100; 84439; 84443; 84484; 85025; 85610; 85730; 87040; 87045; 87070; 87075; 87086; 93005; 96365; 96375; 96376; J0278; J1170; J2270; J2405; J2543; J3370; J3475; J3480; J7030; J7512; Q9967

== ENCOUNTER 2016-11-14 07:59 | Emergency (ER) | payer OTHER ==
[~2016-11-14] VITALS: Ht 160 cm; Wt 56.5 kg
[~2016-11-14 07:59] MED LIST changes: +Amikacin Iv Per Pharmacy XX; -BACTDS PO; +METR500P3 IV; +THIA100T56 PO; +Vancomycin Oral Syringe PO; +[UNRECOGNIZED DRUG - CODE] IV
[2016-11-14 08:01] VITALS: Ht 160 cm; Wt 56.5 kg
[2016-11-14] MEDS ORDERED: KETOROLAC 30 MG INJ IM STA (08:24)
--- NOTE | 2016-11-14 08:33 | ERD ---
ER Documentation Chief Complaint Date/Time DATE: 11/14/16 TIME: 08:26 Chief Complaint right hip pain x 10 days HPI Patient is a 56-year-old female with PMHx of hepatitis C, seizures, COPD, status post splenectomy, hernia repair, currently receiving antibiotics through PICC line, who presents to the emergency department with right hip pain 10 days. Patient states approximately 2 weeks ago she was helping take care of her terminally ill brother. She states that she was often helping move and turn him as well as lift him up. Patient states she is unsure if she injured her hip during these activities. Patient states she does have a history of hip dislocations given that she has fallen many times due to her seizures. Patient states last night she developed severe 10 out of 10 hip pain. Patient states that this morning she woke up and she was unable to bear any weight to the affected extremity. Patient states that her right hip pain radiates down into her right leg. Patient states she last took 3 500 mg Vicodin for last night. Patient denies any recent falls or trauma. Patient denies any fever, chills, nausea, vomiting, chest pain, shortness of breath or loss of consciousness. Patient denies any back pain, saddle anesthesia, urinary incontinence, stool incontinence. She is also complaining of right rib pain. Patient denies any recent falls or trauma to this area. ROS All systems reviewed and are negative except as per history of present illness. Medications Home Meds Active Scripts Ibuprofen* (Motrin*) 600 Mg Tab, 600 MG PO Q6, #20 TAB Prov:WILMAN TORRES PA-C 11/14/16 Metronidazole/Sodium Chloride (Metro IV 500 mg/100 ml) 500 Mg/100 Ml Piggyback, 500 MG IV TID for 14 Days Prov:QASIM SHEEHAN 09/14/16 [Amikacin Iv Per Pharmacy] 1 EA EACH No Conflict Check, 0 EA XX NOTE for 14 Days Prov:QASIM SHEEHAN 09/14/16 Linezolid (Linezolid) 600 Mg/300 Ml Iv.soln, 600 MG IV BID for 14 Days Prov:QASIM SHEEHAN 09/14/16 [Vancomycin Oral Syringe] 50 MG/ML SOLN No Conflict Check, 250 MG PO Q6 for 14 Days Prov:QASIM SHEEHAN 09/14/16 Reported Medications Thiamine* (Vitamin B-1*) 100 Mg Tablet, 100 MG PO DAILY, TAB 09/07/16 Calcium Carbonate/Vitamin D3 ([place]co 500+D Tablet) 1 Each Tablet, 1 EACH PO BID, TAB 07/20/16 Cyanocobalamin* (Vitamin B-12*) 1,000 Mcg Tablet.sa, 1000 MCG PO DAILY, TAB 07/20/16 Celecoxib* (Celebrex*) 200 Mg Capsule, 200 MG PO BID, CAP 07/20/16 Levetiracetam* (Levetiracetam*) 500 Mg Tablet, 500 MG PO BID, TAB 07/20/16 Hydrocodone/Acetaminophen ([place] 10-325 Tablet) 1 Each Tablet, 1 EACH PO QID Y for PAIN, TAB 07/20/16 Pantoprazole* (Protonix*) 40 Mg Tablet.dr, 40 MG PO DAILY, TAB 07/20/16 Gabapentin* (Gabapentin*) 600 Mg Tablet, 1200 MG PO QHS, #60 TAB 07/20/16 Prednisone (Prednisone) 10 Mg Tab, 10 MG PO DAILY, TAB 06/23/16 Ycdmnx-Zquxjmwf-Uecsqds* (Kael MCGINNIS* 6,000) 6,000 L-19,000-30,000 Unit Capsule.dr , 1 CAP PO QID, CAP 06/23/16 Hydroxychloroquine Sulfate* (Hydroxychloroquine Sulfate*) 200 Mg Tablet, 200 MG PO BID, TAB 05/17/16 Tramadol Hcl* (Ultram*) 50 Mg Tablet, 50 MG PO Q6H Y for PAIN, TAB 05/17/16 Alprazolam* (Xanax*) 1 Mg Tab, 1 MG PO TID 06/26/12 Allergies Allergies: Coded Allergies: levofloxacin (Verified Allergy, Unknown, 11/14/16) lorazepam (Verified Adverse Reaction, Severe, agitation, 11/14/16) pt became agitated when received Ativan codeine (Verified Adverse Reaction, Mild, STOMACH UPSET/NAUSEA, 11/14/16) PMhx/Soc History of Surgery: Yes (splenectomy) Anesthesia Reaction: No Hx Neurological Disorder: No Hx Respiratory Disorders: Yes (COPD) Hx Cardiac Disorders: No Hx Psychiatric Problems: No Hx Miscellaneous Medical Probl: No Hx Alcohol Use: No Hx Substance Use: No Hx Tobacco Use: Yes Smoking Status: Current every day smoker FmHx Family History: No diabetes Physical Exam Vitals Vital Signs Date Time Temp Pulse Resp B/P Pulse Ox O2 Delivery O2 Flow Rate FiO2 11/14/16 08:01 98.1 90 20 150/75 99 Physical Exam GENERAL: Well-developed, well-nourished female. HEAD: Normocephalic, atraumatic. EYES: Pupils are equally reactive bilaterally. EOMs grossly intact. No conjunctival erythema. ENT: Moist mucous membranes. No uvula deviation. No kissing tonsils. NECK: Supple. No meningismus. Normal range of motion of the neck. LUNG: Clear to auscultation bilaterally. No rhonchi, wheezing, rales or coarse breath sounds. HEART: Regular rate and rhythm. No murmurs, rubs or gallops. BACK: No midline tenderness. EXTREMITIES: Equal pulses bilaterally. No peripheral clubbing, cyanosis or edema. No unilateral leg swelling. NEUROLOGIC: Alert and oriented. Moving all four extremities without any difficulty. Normal speech. Steady gait. SKIN: Normal color. Warm and dry. No rashes or lesions. R HIP: No obvious deformity. No ecchymosis or swelling. Tender to palpation of the anterior hip. Decreased range of motion secondary to pain. 2+ DP pulse. Results 24 hrs Current Medications Medications (Trade) Dose Ordered Sig/Esteban Route PRN Reason Start Time Stop Time Status Last Admin Dose Admin Ketorolac Tromethamine (Toradol) 30 mg ONCE STAT IM 11/14/16 08:24 11/14/16 08:25 DC 11/14/16 08:37 Procedures/MDM ED COURSE: The patient was stable throughout ED course. I kept the patient and/or family informed of laboratory and diagnostic imaging results throughout the ED course. DIAGNOSTIC IMAGING: Read by radiologist. DIAGNOSTIC IMAGING REPORT Patient: YUNG VELEZ : 1960 Age: 56 Sex: F MR #: [id number] DOS: 11/14/16823 Ordering MD: WILMAN TORRES PA-C Location: [facility] Room/Bed: PROCEDURE: XR Right Hip CLINICAL INDICATION: Pain TECHNIQUE: AP and frog-leg views were submitted. COMPARISON: None FINDINGS: Osseous structures: appear well mineralized and intact with no fracture or destructive process identified. Joint spaces: The hip joint is well maintained there is no distension of the joint capsule. Soft tissues: Phleboliths are seen in the pelvis. IMPRESSION: Unremarkable right hip. Physician Irvin Date Time Electronically viewed and signed by Physician Irvin on 11/14/2016 09:09 RH/ CC: WILMAN TORRES PA-C DIAGNOSTIC IMAGING REPORT Patient: YUNG VELEZ : 1960 Age: 56 Sex: F MR #: [id number] DOS: 11/14/16 0903 Ordering MD: WILMAN TORRES PA-C Location: [facility] Room/Bed: PROCEDURE: XR Right Ribs Series CLINICAL INDICATION: Anterior/lower rib pain TECHNIQUE: Several oblique views of the right ribs were obtained. The images were reviewed on a PACS workstation. COMPARISON: None. FINDINGS: Osseous structures: The right ribs appear rarefied but appear intact with no fracture or osseous destruction identified. Lung willson: Discoid atelectasis is seen at the right lung base. Pleural spaces: No pneumothorax or pleural fluid accumulation is evident. Soft Tissues: A central venous catheter is evident with the tip in the superior vena cava. IMPRESSION: 1. Osteoporosis with no right rib fracture or destruction evident. 2. Discoid atelectasis seen at the right lung base 3. A catheter is evident with the tip in the superior vena cava. Physician Irvin Date Time Electronically viewed and signed by Physician Irvin on 11/14/2016 09:45 RH/ CC: WILMAN TORRES PA-C MEDICATIONS GIVEN: Toradol IM Patient tolerated medication well with no adverse reactions. Patient reported improvement in pain. MEDICAL DECISION MAKING: This is a 56-year-old female who presents with right hip pain and right rib pain after some heavy lifting over the last few weeks. Vital signs were reviewed. Patient was afebrile. Right rib x-ray showed Osteoporosis with no right rib fracture or destruction evident. Discoid atelectasis seen at the right lung base. A catheter is evident with the tip in the superior vena cava. Right hip x-ray was unremarkable. He was given Toradol which did improve her pain. Given these findings, the patient's presentation is most consistent with right hip pain and osteoporosis of her ribs. .I have a much lower clinical concern for hip dislocation, pelvis fracture, femur fracture, hip bursitis, septic arthritis, avascular necrosis of hip, osteomyelitis, rib fracture, pneumonia, pneumothorax, pleural effusion. PRESCRIPTIONS: Ibuprofen DISCHARGE: At this time, patient is stable for discharge and outpatient management. Continue all medications as prescribed by her primary care physician. Continue antibiotics. Patient was provided with a copy of all imaging studies obtained today. RICE therapy and ROM exercises were advised to avoid stiffness. I have instructed the patient to follow-up with his/her primary care physician in 1-2 days. I have discussed with the patient the possibility of needing to see an operating systems specialist for further workup and imaging if the pain persists. I have instructed the patient to promptly return to the ER for any new or worsening symptoms including increased pain, swelling, redness, warmth or fever. The patient and/or family expressed understanding of and agreement with this plan. All questions were answered. Home care instructions were provided. Departure Diagnosis: Primary Impression: Hip pain Laterality: right Qualified Code: M25.551 - Pain of right hip joint Condition: Stable Patient Instructions: Hip Strain Referrals: JESUS NEWTON MD (PCP) [facility] YOU HAVE RECEIVED A MEDICAL SCREENING EXAM AND THE RESULTS INDICATE THAT YOU DO NOT HAVE A CONDITION THAT REQUIRES URGENT TREATMENT IN THE EMERGENCY DEPARTMENT. FURTHER EVALUATION AND TREATMENT OF YOUR CONDITION CAN WAIT UNTIL YOU ARE SEEN IN YOUR DOCTORS OFFICE WITHIN THE NEXT 1-2 DAYS. IT IS YOUR RESPONSIBILITY TO MAKE AN APPOINTMENT FOR FOLOW-UP CARE. IF YOU HAVE A PRIMARY DOCTOR --you should call your primary doctor and schedule an appointment IF YOU DO NOT HAVE A PRIMARY DOCTOR YOU CAN CALL OUR PHYSICIAN REFERRAL HOTLINE AT IF YOU CAN NOT AFFORD TO SEE A PHYSICIAN YOU CAN CHOSE FROM THE FOLLOWING [facility], [facility] [address] [facility] [address] [facility] [address] [facility] [address] [facility] [address] [facility]. [facility] [address] [facility]. [facility] YOU HAVE RECEIVED A MEDICAL SCREENING EXAM AND THE RESULTS INDICATE THAT YOU DO NOT HAVE A CONDITION THAT REQUIRES URGENT TREATMENT IN THE EMERGENCY DEPARTMENT. FURTHER EVALUATION AND TREATMENT OF YOUR CONDITION CAN WAIT UNTIL YOU ARE SEEN IN YOUR DOCTORS OFFICE WITHIN THE NEXT 1-2 DAYS. IT IS YOUR RESPONSIBILITY TO MAKE AN APPOINTMENT FOR FOLOW-UP CARE. IF YOU HAVE A PRIMARY DOCTOR --you should call your primary doctor and schedule and appointment IF YOU DO NOT HAVE A PRIMARY DOCTOR YOU CAN CALL OUR PHYSICIAN REFERRAL HOTLINE AT . IF YOU CAN NOT AFFORD TO SEE A PHYSICIAN YOU CAN CHOSE FROM THE FOLLOWING [facility], [facility] INSTITUTIONS: [facility] [address] [place] [address] [facility] [address] [place] [address] [facility] [address] [place] [address] [facility] Hours: Mon-Fri 9:00 AM - 5:00 PM Additional Instructions: Call your primary care doctor TOMORROW for an appointment during the next 1-2 days.See the doctor sooner or return here if your condition worsens before your appointment time. Patient will need to follow-up with an orthopedic surgeon for further evaluation of her hip pain. Unable to rule out any ligament or tendon injuries at this time. Patient will need an MRI on an outpatient basis. WILMAN TORRES PA-C Nov 14, 2016 08:33
--- NOTE | 2016-11-14 09:10 | RADRPT ---
PROCEDURE: XR Right Hip CLINICAL INDICATION: Pain TECHNIQUE: AP and frog-leg views were submitted. COMPARISON: None FINDINGS: Osseous structures: appear well mineralized and intact with no fracture or destructive process iden tified. Joint spaces: The hip joint is well maintained there is no distension of the joint capsule. Soft tissues: Phleboliths are seen in the pelvis. IMPRESSION: Unremarkable right hip. Physician Irvin Date Time Electronically viewed and signed by Larry Valdivia Physician on 11/14/2016 09:09 /
--- NOTE | 2016-11-14 09:45 | RADRPT ---
PROCEDURE: XR Right Ribs Series CLINICAL INDICATION: Anterior/lower rib pain TECHNIQUE: Several oblique views of the right ribs were obtained. The images were reviewed on a GLIIF workstation. COMPARISON: None. FINDINGS: Osseous structures: The right ribs appear rarefied but appear intact with no fracture or osseous de struction identified. Lung willson: Discoid atelectasis is seen at the right lung base. Pleural spaces: No pneumothorax or pleural fluid accumulation is evident. Soft Tissues: A central venous catheter is evident with the tip in the superior vena cava. IMPRESSION: 1. Osteoporosis with no right rib fracture or destruction evident. 2. Discoid atelectasis seen at the right lung base 3. A catheter is evident with the tip in the superior vena cava. Physician Irvin Date Time Electronically viewed and signed by Physician Irvin on 11/14/2016 09:45 /
[2016-11-14] MEDS ORDERED: IBUP-1542 PO (10:06)
== END 2016-11-14 10:43 | disposition home or self-care (01) ==
LOC: FTE 07:59
DX: M25.551 Pain in right hip (principal); J44.9 Chronic obstructive pulmonary disease, unspecified; F17.210 Nicotine dependence, cigarettes, uncomplicated
CPT/HCPCS: 71100; 73510; 96372; J1885; Z7502

== ENCOUNTER 2016-11-29 07:52 | Inpatient (IN) | payer OTHER ==
[~2016-11-29] VITALS: Ht 157.5 cm; Wt 50.0 kg
[~2016-11-29 07:52] MED LIST changes: +IBUP-1542 PO
[2016-11-29] MEDS ORDERED: morphine 4 MG/ML VIAL IV STA ×2 (08:19→10:04)
[2016-11-29] MEDS ORDERED: SOD CHLORIDE 0.9% 500 ML IV STA (08:19)
--- NOTE | 2016-11-29 08:36 | ERA ---
ER Documentation Chief Complaint Date/Time DATE: 11/29/16 TIME: 08:31 Chief Complaint CP AND SOB 1 WEEK WITH SOB AND CP STARTED TODAY HPI 56-year-old female with a history of lupus complaining of shortness of breath and chest pain this morning. Pain is in the center of her chest, stabbing, nonradiating, worse with deep inspiration, 10 out of 10, worse with laying down , better with sitting up. She has associated shortness of breath. The patient had surgery last in July 2016 where she had a splenomegaly and gynecologic surgery by Dr. Mcmahan. She has had a chronic nonhealing surgical wound complicated by infections since then. She has a PICC line and was getting antibiotics, however is currently not on any antibiotics. Given that her antibiotics had a high risk of interaction with her lupus medications, she had to stop her lupus medications and currently is not taking them. ROS All systems reviewed and are negative except as per history of present illness. Medications Home Meds Active Scripts Ibuprofen* (Motrin*) 600 Mg Tab, 600 MG PO Q6, #20 TAB Prov:WILMAN TORRES PA-C 11/14/16 Reported Medications Thiamine* (Vitamin B-1*) 100 Mg Tablet, 100 MG PO DAILY, TAB 09/07/16 Calcium Carbonate/Vitamin D3 ([place] 500+D Tablet) 1 Each Tablet, 1 EACH PO BID, TAB 07/20/16 Cyanocobalamin* (Vitamin B-12*) 1,000 Mcg Tablet.sa, 1000 MCG PO DAILY, TAB 07/20/16 Celecoxib* (Celebrex*) 200 Mg Capsule, 200 MG PO BID, CAP 07/20/16 Levetiracetam* (Levetiracetam*) 500 Mg Tablet, 500 MG PO BID, TAB 07/20/16 Hydrocodone/Acetaminophen ([place] 10-325 Tablet) 1 Each Tablet, 1 EACH PO QID Y for PAIN, TAB 07/20/16 Pantoprazole* (Protonix*) 40 Mg Tablet.dr, 40 MG PO DAILY, TAB 07/20/16 Gabapentin* (Gabapentin*) 600 Mg Tablet, 1200 MG PO QHS, #60 TAB 07/20/16 Prednisone (Prednisone) 10 Mg Tab, 10 MG PO DAILY, TAB 06/23/16 Ceqozl-Mktazxqv-Pufnmkb* (Kael MCGINNIS* 6,000) 6,000 L-19,000-30,000 Unit Capsule.dr , 1 CAP PO QID, CAP 06/23/16 Hydroxychloroquine Sulfate* (Hydroxychloroquine Sulfate*) 200 Mg Tablet, 200 MG PO BID, TAB 05/17/16 Tramadol Hcl* (Ultram*) 50 Mg Tablet, 50 MG PO Q6H Y for PAIN, TAB 05/17/16 Alprazolam* (Xanax*) 1 Mg Tab, 1 MG PO TID 06/26/12 Discontinued Scripts Metronidazole/Sodium Chloride ([place] IV 500 mg/100 ml) 500 Mg/100 Ml Piggyback, 500 MG IV TID for 14 Days Prov:QASIM SHEEHAN 09/14/16 [Amikacin Iv Per Pharmacy] 1 EA EACH No Conflict Check, 0 EA XX NOTE for 14 Days Prov:QASIM SHEEHAN 09/14/16 Linezolid (Linezolid) 600 Mg/300 Ml Iv.soln, 600 MG IV BID for 14 Days Prov:QASIM SHEEHAN 09/14/16 [Vancomycin Oral Syringe] 50 MG/ML SOLN No Conflict Check, 250 MG PO Q6 for 14 Days Prov:QASIM SHEEHAN 09/14/16 Allergies Allergies: Coded Allergies: levofloxacin (Verified Allergy, Unknown, 11/29/16) codeine (Verified Adverse Reaction, Mild, STOMACH UPSET/NAUSEA, 11/29/16) PMhx/Soc History of Surgery: Yes (splenectomy, total abdominal hysterectomy) Anesthesia Reaction: No Hx Neurological Disorder: No Hx Respiratory Disorders: Yes (COPD) Hx Cardiac Disorders: No Hx Psychiatric Problems: No Hx Miscellaneous Medical Probl: No Hx Alcohol Use: No Hx Substance Use: No Hx Tobacco Use: Yes Smoking Status: Current every day smoker FmHx Family History: No diabetes Physical Exam Vitals Vital Signs Date Time Temp Pulse Resp B/P Pulse Ox O2 Delivery O2 Flow Rate FiO2 11/29/16 13:15 86 19 144/73 98 Non Rebreather 8.0 11/29/16 11:00 94 24 147/102 99 Non Rebreather 6.0 11/29/16 08:20 Nasal Cannula 3 11/29/16 07:57 99.6 102 18 149/85 88 Physical Exam Const: In significant distress secondary to dyspnea and pain, ill-appearing, no diaphoresis Head: Atraumatic Eyes: Normal Conjunctiva ENT: Normal External Ears, Nose and Mouth. Neck: Full range of motion. No meningismus. JVD noted when sitting upright Resp: Diminished breath sounds bilaterally, especially at the bases, no wheezing or rales Cardio: Regular rate and rhythm, no murmurs. 2+ radial pulses bilaterally, equal. 2+ DP and PT pulses Abd: Soft, nonhealing ventral surgical wound with dressing, diffuse mild tenderness to palpation, no rebound or guarding, non distended. Normal bowel sounds Skin: No petechiae or rashes Back: No midline or flank tenderness Ext: No cyanosis, or edema Neur: Awake and alert and oriented 3, cranial nerves intact Psych: Normal Mood and Affect Result Diagram: 11/29/16 0825 11/29/16 0825 Results 24 hrs Laboratory Tests Test 11/29/16 08:25 11/29/16 08:45 11/29/16 10:34 11/29/16 13:20 White Blood Count 16.310^3/ul Red Blood Count 4.1810^6/ul Hemoglobin 11.0g/dl Hematocrit 37.3% Mean Corpuscular Volume 89.2fl Mean Corpuscular Hemoglobin 26.3pg Mean Corpuscular Hemoglobin Concent 29.5g/dl Red Cell Distribution Width 22.1% Platelet Count 49059^3/UL Mean Platelet Volume 11.1fl Neutrophils % 82.3% Lymphocytes % 9.4% Monocytes % 7.5% Eosinophils % 0.2% Basophils % 0.2% Nucleated Red Blood Cells % 0.0/100WBC Neutrophils # 13.410^3/ul Lymphocytes # 1.510^3/ul Monocytes # 1.210^3/ul Eosinophils # 0.010^3/ul Basophils # 0.010^3/ul Nucleated Red Blood Cells # 0.010^3/ul Prothrombin Time 14.6Sec Prothrombin Time Ratio 1.1 INR International Normalized Ratio 1.14 Activated Partial Thromboplast Time 33.3Sec Sodium Level 141mmol/L Potassium Level 3.3mmol/L Chloride Level 100mmol/L Carbon Dioxide Level 29mmol/L Anion Gap 15 Blood Urea Nitrogen 12mg/dl Creatinine 0.72mg/dl Glucose Level 114mg/dl Calcium Level 9.2mg/dl Total Bilirubin 0.3mg/dl Direct Bilirubin 0.00mg/dl Indirect Bilirubin 0.3mg/dl Aspartate Amino Transf (AST/SGOT) 24IU/L Alanine Aminotransferase (ALT/SGPT) 18IU/L Alkaline Phosphatase 191IU/L Troponin I 0.018ng/ml < 0.012ng/ml B-Type Natriuretic Peptide 06818YI/ML Total Protein 7.5g/dl Albumin 3.8g/dl Globulin 3.70g/dl Albumin/Globulin Ratio 1.02 Lipase 57U/L Lactic Acid Level 1.1mmol/L 0.9mmol/L 1.0mmol/L Creatine Kinase 36IU/L Creatine Kinase Index 6.5 Creatinine Kinase MB (Mass) 2.35ng/ml Current Medications Medications (Trade) Dose Ordered Sig/Esteban Route PRN Reason Start Time Stop Time Status Last Admin Dose Admin Sodium Chloride (NS) 500 ml @ 500 mls/hr Q1H STAT IV 11/29/16 08:19 11/29/16 09:18 DC 11/29/16 08:31 Morphine Sulfate 4 mg 4 mg ONCE STAT IV 11/29/16 08:19 11/29/16 08:21 DC 11/29/16 08:30 Vancomycin HCl 250 ml @ 125 mls/hr ONCE STAT IVPB 11/29/16 08:37 11/29/16 10:36 DC 11/29/16 10:17 Piperacillin Sod/ Tazobactam Sod (Zosyn 3.375gm/ 100 ml (Pmx)) 100 ml @ 200 mls/hr ONCE STAT IVPB 11/29/16 08:37 11/29/16 09:06 DC 11/29/16 09:05 IV Flush 10 ml 10 ml STK-MED ONCE .ROUTE 11/29/16 09:39 11/29/16 09:40 DC 11/29/16 10:27 Sodium Chloride (NS) 100 ml @ ud STK-MED ONCE .ROUTE 11/29/16 09:39 11/29/16 09:40 DC 11/29/16 10:29 Iodixanol (Visipaque Locm) 100 ml STK-MED ONCE .ROUTE 11/29/16 09:39 11/29/16 09:40 DC 11/29/16 10:33 Morphine Sulfate (morphine) 4 mg ONCE STAT IV 11/29/16 10:04 11/29/16 10:05 DC 11/29/16 10:14 Ondansetron HCl (Zofran Inj) 4 mg ER BRIDGE PRN IV NAUSEA AND/OR VOMITING 11/29/16 11:30 11/30/16 11:29 Acetaminophen (Tylenol Tab) 650 mg ER BRIDGE PRN PO MILD PAIN/FEVER 11/29/16 11:30 11/30/16 11:29 Aspirin (Aspirin) 162 mg ONCE ONCE PO 11/29/16 11:30 11/29/16 11:31 DC 11/29/16 11:29 Hydromorphone HCl (Dilaudid) 0.5 mg ONCE STAT IV 11/29/16 11:07 11/29/16 11:08 DC 11/29/16 11:20 Hydromorphone HCl (Dilaudid) 1 mg ONCE STAT IV 11/29/16 12:56 11/29/16 12:57 DC 11/29/16 13:00 Procedures/MDM EMERGENT LABS AND DIAGNOSTIC STUDIES: Lab Results above were reviewed and interpreted by me. CBC shows leukocytosis with anemia BMP shows hypokalemia 3.3 BNP significantly elevated 12-lead EKG was interpreted by Geovanna Yanez MD: EKG #1 : normal Sinus Rhythm with ventricular rate of 97 beats per minute Normal axis QTC prolonged to 533 Old anteroseptal infarct No acute ST or T wave changes suggestive of acute ischemia or STEMI. EKG #2: Rate/Rhythm: Normal Sinus Rhythm QRS, ST, T-waves: No changes consistent w/ acute ischemia, nonspecific T- wave abnormality Impression: No evidence of ischemia or arrhythmia Radiology Results as interpreted by Radiology below were reviewed by Amrit Yanez MD: Chest x-ray: Bilateral pleural effusions, increasing in size, overlying infiltrate cannot be ruled out CT angiogram chest: 1. No evidence of central pulmonary emboli. 2. Atherosclerosis of the aorta but no aneurysm or dissection. 3. Bilateral large pleural effusions. Tiny pericardial effusion. 4. Bilateral lower lobe atelectasis. Superimposed acute infiltrates cannot be excluded at the bases. Additional mild focal areas of atelectasis involving both upper lobes and right middle lobe. 5. Cylindrical bronchiectasis and mild bilateral central lobular emphysema. 6. Cholelithiasis. 7. Status post splenectomy. Initial Nursing notes reviewed. Previous Medical Records requested via the Electronic Health Record. EMERGENCY DEPARTMENT COURSE / MEDICAL DECISION MAKING: Limited transthoracic echo performed by me Indication: Shortness of breath and chest pain, JVD Pericardium: No effusion Cardiac: Global hypokinesis, no obvious RV dilation Image archived in the medical record. Limited abdominal ultrasound performed by me: Indication: See above Hepatorenal: No free fluid, right pleural effusion noted Images archived in the medical record Patient is presenting with severe chest pain and shortness of breath with hypoxia. Given her history of lupus, differential includes acute coronary syndrome, pericarditis, pericardial effusion, less likely tamponade, pneumonia, aortic dissection. Her oxygenation improved with supplemental oxygen. Her pain was controlled with multiple doses of morphine and Dilaudid. Aspirin was given. I have a lower suspicion for sepsis. My bedside ultrasound was notable for what looks like acute heart failure and her BNP was significantly elevated, which was why fluids were not given. There was no sign of pericardial effusion. Broad-spectrum antibiotics were given. CT angiogram of the chest was done to evaluate for pulmonary embolism and did not show embolism or dissection. The etiology of her heart failure is unknown at this time. However she will require further workup and management. She is not stable for discharge at this time and will be admitted to telemetry. Critical Care Time: 45 minutes Treatments/Evaluations: Close monitoring and treatment of unstable vital signs, cardiorespiratory, and neurologic status, while maintaining tight balance of fluid, respiratory, and cardiac interventions. This time includes discussing the case with the patient and the patients family. This time does not include all procedures stated elsewhere in this record. This time also includes reviewing old records, labs and radiological studies. This time includes examining and re-examining the patient. Additionally, this time also includes arranging care with admitting and consulting physicians. Accepting Care Team: Current data and ongoing care discussed. Time: Time of admission Primary Provider: [place] Consulting: none Outstanding Data: none Departure Diagnosis: Primary Impression: Chest pain Qualified Code: R07.1 - Chest pain on breathing Additional Impressions: Acute respiratory failure with hypoxia Acute heart failure Qualified Code: I50.41 - Acute combined systolic and diastolic heart failure Bilateral pleural effusion Condition: Critical EKCAROL EVANS MD Nov 29, 2016 08:36
[2016-11-29] MEDS ORDERED: VANCOMYCIN 1 GM (PMX) 250 ML IVPB STA (08:37)
[2016-11-29] MEDS ORDERED: PIPER-TAZO 3.375 GM IV (PMX) 100 ML IVPB STA (08:37)
[2016-11-29 08:41] LABS: ADD SCAN DIFF NO
[2016-11-29 08:44] LABS: ABNORMAL IP MESSAGE 1; BASOPHILS % 0.2 % (0.0-2.0); EOSINOPHILS % 0.2 % (0.0-7.0); HEMATOCRIT 37.3 % (37.0-47.0); LYMPHOCYTES # 1.5 10^3/ul (0.8-2.9); LYMPHOCYTES % 9.4 % (15.0-51.0); MEAN CORPUSCULAR HEMOGLOBIN 26.3 pg (29.0-33.0); MEAN CORPUSCULAR HGB CONC 29.5 g/dl (32.0-37.0); MEAN CORPUSCULAR VOLUME 89.2 fl (82.0-101.0); MEAN PLATELET VOLUME 11.1 fl (7.4-10.4); MONOCYTE # 1.2 10^3/ul (0.3-0.9); MONOCYTES % 7.5 % (0.0-11.0); NEUTROPHIL # 13.4 10^3/ul (1.6-7.5); NEUTROPHILS % 82.3 % (39.0-77.0); PLATELET COUNT 480 10^3/UL (140-415); RED BLOOD COUNT 4.18 10^6/ul (4.20-5.40); RED CELL DISTRIBUTION WIDTH 22.1 % (11.5-14.5); WHITE BLOOD COUNT 16.3 10^3/ul (4.8-10.8)
[2016-11-29 08:57] LABS: ALBUMIN 3.8 g/dl (3.3-4.9)
[2016-11-29 08:58] LABS: POTASSIUM 3.3 mmol/L (3.5-5.1)
[2016-11-29 09:00] LABS: ALBUMIN/GLOBULIN RATIO 1.02; BILIRUBIN,INDIRECT 0.3 mg/dl (0-1.1); BILIRUBIN,TOTAL 0.3 mg/dl (0.2-1.3); CREATININE 0.72 mg/dl (0.44-1.00); TOTAL PROTEIN 7.5 g/dl (6.1-8.1)
[2016-11-29 09:01] LABS: CALCIUM 9.2 mg/dl (8.4-10.2)
[2016-11-29 09:08] LABS: INR 1.14; PROTIME 14.6 Sec (12.2-14.2); PT RATIO 1.1
[2016-11-29 09:10] LABS: PARTIAL THROMBOPLASTIN TIME 33.3 Sec (25.0-35.0)
[2016-11-29 09:13] LABS: TROPONIN-I 0.018 ng/ml (0.00-0.12)
--- NOTE | 2016-11-29 09:26 | RADRPT ---
PROCEDURE: Chest x-ray CLINICAL INDICATION: Chest pain TECHNIQUE: Chest single view COMPARISON: 09/14/2016 FINDINGS: As before there is left arm PICC line. Heart is normal in size. There is minimal atherosclerotic a ortic calcification. Pulmonary vessels are normal in caliber. There is a small but enlarging right pleural effusion with associated right lower lung consolidation and volume loss. Trace left pleura l effusion and mild left lower lobe atelectasis is also identified. Both of these have increased fr om prior exam IMPRESSION: 1. Left arm PICC line remains good position. 2. Increasing bilateral pleural effusions right greater than left with increasing bilateral lower l sonia consolidation and volume loss RPTAT: HH .Bobby Bhat MD, MD Date Time Electronically viewed and signed by .Bobby Bhat MD, on 11/29/2016 09:25 .W/
[2016-11-29] MEDS ORDERED: IODIXANOL LOCM 100 ML BTL ONE (09:39)
[2016-11-29] MEDS ORDERED: SOD CHLORIDE 0.9% 100 ML ONE (09:39)
--- NOTE | 2016-11-29 10:50 | RADRPT ---
PROCEDURE: CT angiogram of the chest with contrast. CLINICAL INDICATION: Chest pain TECHNIQUE: CT scan of the chest with contrast was performed on a multidetector high-resolution CT scan. The patient was scanned following the uncomplicated intravenous administration of 100 ml Visi paque 320. Coronal and sagittal reformatted images were obtained from the axial source images. Stand reji CT angiogram of the chest with contrast protocols were performed. The total exam CTDI equals 11.27 mGy and the total exam DLP equals 225.83 mGy-cm. One or more of the following dose reduction techniques were used: - Automated exposure control. - Adjustment of the mA and/or kV according to patient size. Use of iterative reconstruction technique. COMPARISON: None. FINDINGS: There is a left PICC line in place with the tip extending into the distal superior vena cava. There is a tiny pericardial effusion. The heart is borderline normal limits in size but otherwise unrema rkable. There is atherosclerotic vascular disease of the aorta but no evidence of aneurysm or dissection. T he pulmonary outflow tract, right left main pulmonary arteries, right left interlobar are and primar y intersegmental pulmonary arteries are well enhanced without filling defects. Specifically no cent ral pulmonary emboli. No evidence of right heart strain. There are bilateral large pleural effusions. No evidence of pneumothorax. There is bilateral lung consolidation and air bronchograms consistent with atelectasis no additional aspiration or pneumonia cannot be excluded. Additional small patchy areas of atelectasis involving the right and left uppe r lobes and right middle lobe. There is bilateral cylindrical bronchiectasis. There is mild bilat eral central lobular emphysema. There is no evidence of pulmonary nodules bilaterally. No evidence of mediastinal hilar or axillary lymphadenopathy. Status post previous splenectomy. There are multiple gallstones present. Images of the upper abdom en are otherwise unremarkable. There is degenerative changes lower cervical and thoracic spine. No acute osseous findings are osteoblastic/osteolytic lesions. IMPRESSION: 1. No evidence of central pulmonary emboli. 2. Atherosclerosis of the aorta but no aneurysm or dissection. 3. Bilateral large pleural effusions. Tiny pericardial effusion. 4. Bilateral lower lobe atelectasis. Superimposed acute infiltrates cannot be excluded at the base s. Additional mild focal areas of atelectasis involving both upper lobes and right middle lobe. 5. Cylindrical bronchiectasis and mild bilateral central lobular emphysema. 6. Cholelithiasis. 7. Status post splenectomy. RPTAT:AAJJ Manuel De Oliveira Physician Date Time Electronically viewed and signed by Manuel De Oliveira Physician on 11/29/2016 10:50 BM/
[2016-11-29] MEDS ORDERED: HYDROmorphONE 1 MG/ML SYG IV STA ×3 (11:07→16:08)
[2016-11-29] MEDS ORDERED: ASPIRIN 81 MG TAB PO ONE (11:30)
[2016-11-29] MEDS ORDERED: ONDANSETRON 4 MG INJ IV PRN (11:30)
[2016-11-29] MEDS ORDERED: ACETAMINOPHEN 325 MG TAB PO PRN (11:30)
[2016-11-29 13:54] LABS: CREATINE KINASE 36 IU/L (23-200)
[2016-11-29 14:04] LABS: CK-MB 2.35 ng/ml (0.0-2.4)
[2016-11-29 14:13] LABS: TROPONIN-I < 0.012 ng/ml (0.00-0.12)
[2016-11-29 15:30] VITALS: BP 142/89; PULSE 92; RESP 24; TEMP 98.9
[2016-11-29 17:06] VITALS: PULSE 92
[2016-11-29 19:42] VITALS: Ht 157.5 cm; Wt 50.0 kg
[2016-11-29 20:00] VITALS: BP 156/94; PULSE 109; RESP 18
[2016-11-29] MEDS: ALBUTEROL/IPRATROPIUM (NEB) 3 ML AMP HHN SCH (20:00)
[2016-11-29] MEDS ORDERED: HYDROCODONE/APAP (10/325) TAB PO PRN (20:00)
[2016-11-29] MEDS: FUROSEMIDE 40 MG INJ IV SCH (20:38)
[2016-11-29] MEDS: LEVETIRACETAM 500 MG TAB PO SCH (20:38)
[2016-11-29] MEDS: CALCIUM/VITAMIN D (500/200) TAB PO SCH (20:39)
[2016-11-29] MEDS: POTASSIUM CHLORIDE (SR) 10 MEQ TAB PO SCH (20:39)
[2016-11-29] MEDS: GABAPENTIN 300 MG CAP PO SCH (20:39)
[2016-11-29] MEDS: HYDROmorphONE 1 MG/ML SYG IV PRN (20:40)
[2016-11-29] MEDS ORDERED: CELECOXIB 200 MG CAP PO SCH (21:00)
[2016-11-29] MEDS ORDERED: NON-FORMULARY/PATIENT OWN MED (Lipase-Protease-Amylase* (Creon DR* 6,000) 1 CAP) XX SCH (21:00)
--- NOTE | 2016-11-29 21:22 | HP ---
DATE OF ADMISSION: 11/29/2016 CHIEF COMPLAINT: Shortness of breath for 2 weeks and anterior chest pain, increases with breathing. HISTORY OF PRESENT ILLNESS: The patient is a 56-year-old female with a history of seizures, lupus, hepatitis C who underwent extensive surgery for pelvic adnexal mass which was negative for malignanc y. The patient underwent laparotomy with enterolysis, small-bowel resection and anastomosis, right salpingo-oophorectomy, right ureteral dissection with repositioning and splenectomy on 07/20/[address] Mcmahan. The patient had a prolonged hospital course and subsequently got re-admitted due to abdominal wound infection. The patient was treated with IV antibiotic and wound care and went to [facility] for followup. The patient complained of shortness of breath for 2 weeks which was prog ressively getting worse, but there was no leg edema. The patient also had pleuritic chest pain toda y and therefore decided to come to the ER. The patient denied any fever or chills. The patient sarmiento s have abdominal pain from recent surgery. No reported vomiting. The patient did not have any head ache, dizziness, syncope. No history of sore throat. There is no leg edema. No resting pain in lo wer extremity. No history of focal weakness. The patient did not have any history of exertional ch est pain. The patient has progressive shortness of breath and now would get short of breath even wh ile talking. The patient underwent multiple diagnostic studies in ER including CT pulmonary angiogr am and chest x-ray which were negative for PE. However, the patient has bilateral pleural effusions , tiny pericardial effusion, bilateral lower lobe atelectasis, central bronchiectasis and mild bilat eral centrilobular emphysema. The patient also was noted to have cholelithiasis. The patient being admitted for further evaluation and management. The patient's ProBNP was 11,000. PAST SURGICAL HISTORY: As stated above. In addition, the patient also is status post appendectomy. ALLERGIES: 1. CODEINE. 2. LEVOFLOXACIN. 3. LORAZEPAM. SOCIAL HISTORY: The patient lives at home and is chronic smoker. No alcohol abuse. PHYSICAL EXAMINATION: GENERAL: The patient is conscious, awake, alert, fairly oriented. VITAL SIGNS: Temperature 98.9, pulse 94, respirations 18, blood pressure 142/89, O2 saturation 100% on 8 L. HEENT: Atraumatic, normocephalic. Conjunctivae and lids normal. Oropharynx clear. NECK: Supple. No mass, no thyromegaly. CHEST: Diminished air entry at bases. CARDIOVASCULAR: S1, S2 normal. No murmur or pericardial rub. ABDOMEN: Soft. Abdominal wound is packed. EXTREMITIES: No edema. Pedal pulses palpable. SKIN: Without rash. NEUROLOGIC: The patient is awake, alert with no gross focal deficit. LABORATORY DATA: WBC 16.3, hemoglobin 11, platelets 480. Sodium 141, potassium 3.3, BUN 12, creati nine 0.7. Lactic acid normal. ProBNP ____. IMPRESSION: 1. Acute respiratory failure due to increasing bilateral pleural effusion, underlying atelectasis, and pneumonia could not be ruled out. The patient will be started on IV Lasix and potassium supplem ent. 2. The patient does take prednisone for rheumatoid systemic lupus erythematosus. Will continue pre dnisone at current doses. Will also continue Plaquenil. 3. The patient does have chronic obstructive pulmonary disease and bronchitis. Will start her on D uoNeb. Will also add IV antibiotic empirically due to leukocytosis and patient did have a low-grade temperature of 99.6 in ER. The patient states that she does not have much expectoration. Will con tinue empiric IV antibiotic for now. 4. The patient recently completed IV antibiotic course via PICC line at home for her abdominal woun d infection. Will obtain echocardiogram, serial troponin. Meanwhile in ER, patient did receive a d ose of IV vancomycin and Zosyn. 5. Will continue Lovenox for DVT prophylaxis. A cardiac consult from Dr. Angel and pulmonary con sult from Dr. Perez will be obtained. Further recommendations will depend on patient's hospital cou rse, recommendations from consultants. The patient has been strongly advised to follow up with Dr. 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 6. As far as hepatitis C is concerned, the patient has normal AST and ALT and bilirubin and does no t have thrombocytopenia or coagulopathy. Will continue to monitor. Further recommendation depends on patient's hospital course. Dictated By: BRADY MCGARRY/NUNU Conf#: [id number] [facility]#: [id number]
[2016-11-29 21:27] LABS: CREATINE KINASE 34 IU/L (23-200)
[2016-11-29 21:37] LABS: CK-MB 1.71 ng/ml (0.0-2.4)
[2016-11-29 21:41] LABS: TROPONIN-I < 0.012 ng/ml (0.00-0.12)
[2016-11-29] MEDS: CEFEPIME 1GM/50 ML (PMX) 50 ML IVPB SCH (22:07)
[2016-11-29] MEDS: HYDROXYCHLOROQUINE 200 MG TAB PO SCH (22:07)
[2016-11-29] MEDS: ALPRAZOLAM 1 MG TAB PO SCH (22:08)
[2016-11-29] MEDS: ENOXAPARIN 40 MG/0.4 ML SYG SC SCH (22:10)
[2016-11-30] VITALS (10 sets, daily range): BP systolic 108–173; BP diastolic 56–98; PULSE 95–105; RESP 18–20
[2016-11-30] MEDS ORDERED: IBUPROFEN 600 MG TAB PO SCH
[2016-11-30] MEDS ORDERED: IBUPROFEN 600 MG TAB PO PRN
[2016-11-30] MEDS: ALBUTEROL/IPRATROPIUM (NEB) 3 ML AMP HHN SCH ×4 (01:51→20:18)
[2016-11-30] MEDS: FUROSEMIDE 40 MG INJ IV SCH ×2 (05:40→17:27)
[2016-11-30] MEDS: PANTOPRAZOLE (EC) 40 MG TAB PO SCH (05:41)
[2016-11-30] MEDS: HYDROmorphONE 1 MG/ML SYG IV PRN ×2 (05:41→20:57)
[2016-11-30 07:46] LABS: ADD SCAN DIFF NO
[2016-11-30 07:57] LABS: ABNORMAL IP MESSAGE 1; BASOPHIL # 0.1 10^3/ul (0.0-0.1); BASOPHILS % 0.4 % (0.0-2.0); EOSINOPHILS % 0.1 % (0.0-7.0); HEMATOCRIT 35.6 % (37.0-47.0); HEMOGLOBIN 10.7 g/dl (12.0-16.0); LYMPHOCYTES # 1.3 10^3/ul (0.8-2.9); LYMPHOCYTES % 10.1 % (15.0-51.0); MEAN CORPUSCULAR HEMOGLOBIN 26.4 pg (29.0-33.0); MEAN CORPUSCULAR HGB CONC 30.1 g/dl (32.0-37.0); MEAN CORPUSCULAR VOLUME 87.7 fl (82.0-101.0); MEAN PLATELET VOLUME 11.6 fl (7.4-10.4); MONOCYTE # 1.5 10^3/ul (0.3-0.9); MONOCYTES % 12.1 % (0.0-11.0); NEUTROPHIL # 9.8 10^3/ul (1.6-7.5); NEUTROPHILS % 76.9 % (39.0-77.0); NUCLEATED RED BLOOD CELLS% 0.2 /100WBC (0.0-0.0); PLATELET COUNT 428 10^3/UL (140-415); RED BLOOD COUNT 4.06 10^6/ul (4.20-5.40); RED CELL DISTRIBUTION WIDTH 21.6 % (11.5-14.5); WHITE BLOOD COUNT 12.7 10^3/ul (4.8-10.8)
[2016-11-30 08:15] LABS: CALCIUM 9.1 mg/dl (8.4-10.2); CREATININE 0.97 mg/dl (0.44-1.00); POTASSIUM 3.3 mmol/L (3.5-5.1)
[2016-11-30 08:19] LABS: MAGNESIUM 1.8 mg/dl (1.7-2.5)
[2016-11-30 08:28] LABS: TROPONIN-I 0.022 ng/ml (0.00-0.12)
[2016-11-30 08:47] LABS: THYROID STIMULATING HORMONE 0.954 MIU/L (0.465-4.680)
[2016-11-30] MEDS: HYDROXYCHLOROQUINE 200 MG TAB PO SCH ×2 (08:48→20:59)
[2016-11-30] MEDS: CALCIUM/VITAMIN D (500/200) TAB PO SCH ×2 (08:48→20:59)
[2016-11-30] MEDS: LEVETIRACETAM 500 MG TAB PO SCH ×2 (08:48→20:58)
[2016-11-30] MEDS: POTASSIUM CHLORIDE (SR) 10 MEQ TAB PO SCH ×2 (08:48→20:58)
[2016-11-30] MEDS: CEFEPIME 1GM/50 ML (PMX) 50 ML IVPB SCH ×2 (08:49→20:57)
[2016-11-30] MEDS: predniSONE 10 MG TAB PO SCH (08:49)
[2016-11-30] MEDS: CYANOCOBALAMIN 500 MCG TAB PO SCH (08:49)
[2016-11-30] MEDS: ENOXAPARIN 40 MG/0.4 ML SYG SC SCH (08:58)
[2016-11-30] MEDS: THIAMINE 100 MG TAB PO SCH (08:59)
[2016-11-30] MEDS: ALPRAZOLAM 1 MG TAB PO SCH ×4 (08:59→23:26)
[2016-11-30] MEDS: [UNRECOGNIZED DRUG - REMARK] XX SCH ×2 (09:30→16:38)
--- NOTE | 2016-11-30 16:10 | PN ---
Date/Time of Note Date/Time of Note DATE: 11/30/16 TIME: 15:52 Assessment/Plan VTE Prophylaxis VTE Prophylaxis Intervention: other Lines/Catheters IV Catheter Type (from [facility]): PICC Line Central line still needed: Yes Urinary Cath still in place: No Assessment/Plan Assessment/Plan -Hypokalemia- replet K, am labs - Acute respiratory failure due to increasing bilateral pleural effusion, underlying atelectasis, and pneumonia could not be ruled out. - Per Dr. Perez in pulmonary - IV Lasix and potassium supplement. -per Dr. Angel -echocardiogram, serial troponin- - Rheumatoid systemic lupus erythematosus. The patient has been strongly advised to follow up with Dr. 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 - prednisone, Plaquenil. -Chronic obstructive pulmonary disease and bronchitis. - DuoNeb. - IV antibiotic empirically due to leukocytosis - SP recently completed IV antibiotic course via PICC line at home for her abdominal wound infection. -- Hx hepatitis C - normal AST and ALT, bilirubin and thrombocytopenia or coagulopathy. - continue to monitor. - Will continue Lovenox for DVT prophylaxis. Further recommendations will depend on patient's hospital course, recommendations from consultants. Subjective 24 Hr Interval Summary Free Text/Dictation resting, seems comfortable, afebrile, no new events reported overnight, dw staff Respiratory: shortness of breath Cardiovascular: no complaints Gastrointestinal: no complaints Musculoskeletal: no complaints Skin: no complaints Neurologic: no complaints Psychological: nl mood/affect Exam/Review of Systems Vital Signs Vitals Vital Signs Date Time Temp Pulse Resp B/P Pulse Ox O2 Delivery O2 Flow Rate FiO2 11/30/16 14:29 85 20 97 Nasal Cannula 3.0 11/30/16 11:30 98.0 108/56 Intake and Output 11/29/16 11/29/16 11/30/16 15:00 23:00 07:00 Intake Total 350 ml Balance 350 ml Exam Constitutional: alert Psych: nl mood/affect Head: atraumatic Eyes: nl sclera ENMT: nl external ears & nose Respiratory: diminished breath sounds Cardiovascular: nl pulses Gastrointestinal: non-tender, soft Extremities: normal pulses Results Result Diagram: 11/30/1672311/30/1624 Results 24 hrs Laboratory Tests Test 11/29/16 20:55 11/30/16 07:24 Creatine Kinase 34 Creatine Kinase Index 5.0 Creatinine Kinase MB (Mass) 1.71 Troponin I < 0.012 0.022 White Blood Count 12.7 #H Red Blood Count 4.06 L Hemoglobin 10.7 L Hematocrit 35.6 L Mean Corpuscular Volume 87.7 Mean Corpuscular Hemoglobin 26.4 L Mean Corpuscular Hemoglobin Concent 30.1 L Red Cell Distribution Width 21.6 H Platelet Count 428 H Mean Platelet Volume 11.6 H Neutrophils % 76.9 Lymphocytes % 10.1 L Monocytes % 12.1 H Eosinophils % 0.1 Basophils % 0.4 Nucleated Red Blood Cells % 0.2 H Neutrophils # 9.8 H Lymphocytes # 1.3 Monocytes # 1.5 H Eosinophils # 0.0 Basophils # 0.1 Nucleated Red Blood Cells # 0.0 Sodium Level 137 Potassium Level 3.3 L Chloride Level 102 Carbon Dioxide Level 29 Anion Gap 9 # Blood Urea Nitrogen 11 Creatinine 0.97 Glucose Level 110 Calcium Level 9.1 Magnesium Level 1.8 Thyroid Stimulating Hormone (TSH) 0.954 Medications Medications Current Medications Alprazolam (Xanax) 1 mg TID PO Last administered on 11/29/16 22:08; Admin Dose 1 MG; Start 11/29/16 at 21:00 Calcium/Vitamin D (Oyster Shell/ Vit-D (500/200)) 1 tab BID PO Last administered on 11/30/16 08:48; Admin Dose 1 TAB; Start 11/29/16 at 21:00 Cyanocobalamin (Vitamin B12) 1,000 mcg DAILY PO Last administered on 11/30/16 08:49; Admin Dose 1,000 MCG; Start 11/30/16 at 09:00 Gabapentin (Neurontin) 1,200 mg QHS PO Last administered on 11/29/16 20:39; Admin Dose 1,200 MG; Start 11/29/16 at 21:00 Acetaminophen/ Hydrocodone Bitart ([place] (10/325)) 1 tab QID PRN PO PAIN; Start 11/29/16 at 20:00 Hydroxychloroquine Sulfate (Plaquenil) 200 mg BID PO Last administered on 08:48; Admin Dose 200 MG; Start 11/29/16 at 21:00 Levetiracetam (Keppra) 500 mg BID PO Last administered on 11/30/16 08:48; Admin Dose 500 MG; Start 11/29/16 at 21:00 Pantoprazole (Protonix Tab) 40 mg DAILY@06 PO Last administered on 11/30/16 05 :41; Admin Dose 40 MG; Start 11/30/16 at 06:00 Prednisone (Prednisone) 10 mg DAILY PO Last administered on 11/30/16 08:49; Admin Dose 10 MG; Start 11/30/16 at 09:00 Thiamine HCl (Vitamin B1) 100 mg DAILY PO Last administered on 11/30/16 08:59 ; Admin Dose 100 MG; Start 11/30/16 at 09:00 Miscellaneous Information 1 cap QID PO ; Start 11/29/16 at 21:00; Status UNV Ibuprofen (Motrin) 600 mg Q6 PRN PO FEVER, pain; Start 11/30/16 at 00:00 Hydromorphone HCl (Dilaudid) 1 mg Q4H PRN IV PAIN Last administered on 05:41; Admin Dose 1 MG; Start 11/29/16 at 20:00 Potassium Chloride (Klor-Con 10) 30 meq BID PO Last administered on 11/30/16 08:48; Admin Dose 30 MEQ; Start 11/29/16 at 21:00 Enoxaparin Sodium 40 mg 40 mg DAILY SC Last administered on 11/30/16 08:58; Admin Dose 40 MG; Start 11/29/16 at 20:00 Cefepime HCl (Maxipime 1gm/50 ml (Pmx)) 50 ml @ 100 mls/hr Q12 IVPB Last administered on 11/30/16 08:49; Admin Dose 100 MLS/HR; Start 11/29/16 at 21:00 Miscellaneous Information (*Order Clarification Bulletin) CREON 6000 IS NON FORMULARY ITEM...PHARM... Q8H XX ; Start 11/30/16 at 09:30 PATTI OCHOA Nov 30, 2016 16:06
[2016-11-30] MEDS ORDERED: POTASSIUM CHLORIDE (SR) 20 MEQ TAB PO STA (16:11)
--- NOTE | 2016-11-30 18:26 | CONS ---
DATE OF ADMISSION: 11/29/2016 DATE OF CONSULTATION: 11/30/2016 TYPE OF CONSULTATION: Cardiology. REASON FOR CONSULTATION: Shortness of breath, pleural effusions, assess for congestive heart failure, as well as chest pain, assess for acute coronary syndrome. REQUESTING PHYSICIAN: Dr. Miguelangel Philippe HISTORY OF PRESENT ILLNESS: Ms. Markham is a 56-year-old female with a history of seizures; lupus; hepatitis C; pelvic mass, status post resection; prior laparotomy with enterolysis; small-bowel resection; salpingo-oophorectomy; splenectomy who presents with 2 weeks of worsening shortness of breath and pleuritic substernal chest pain. Upon arrival, temperature 99.6, blood pressure 149/85, pulse 102, respiratory rate 18, saturating 88%. The patient's labs: White cell count of 6.3, hemoglobin 11, platelet count of 480. Sodium 141, potassium 3.3, creatinine 0.7, BUN 12. AST 24, ALT 18. Troponin negative. BNP 11,100. INR 1.1. The patient underwent a CT-CTA revealing no evidence of pulmonary emboli, atherosclerosis of the aorta, bilateral large pleural effusions, tiny pericardial effusion, bilateral lower lobe atelectasis, superimposed acute infiltrates cannot be excluded at the bases, additional mild focal areas of atelectasis along both upper lobes and right middle lobe, bronchiectasis, cholelithiasis. Additionally, the patient underwent a chest x- ray revealing increasing bilateral pleural effusions, right greater than left with increasing bilateral lower lung consolidation and volume loss. The patient 's electrocardiogram revealed normal sinus rhythm, rate 89, normal axis, normal intervals, borderline anterior R-wave progression and nonspecific ST and T abnormalities. The patient subsequently admitted to the floor and since admit to the floor has reasonable blood pressures with borderline tachycardia consistent with sinus tachycardia by telemetry. The patient has been placed on Lasix diuresis, broad-spectrum antibiotics and hydroxychloroquine and steroids. PAST MEDICAL HISTORY: As above in HPI. MEDICATIONS CURRENTLY IN HOSPITAL: 1. Vitamin B12. 2. Prednisone. 3. Thiamine. 4. Protonix. 5. Motrin p.r.n. 6. Xanax 1 mg p.o. t.i.d. 7. Calcium. 8. Vitamin D. 9. Gabapentin. 10. Hydroxychloroquine. 11. Keppra. 12. Cefepime. 13. [place]. 14. Dilaudid. 15. Lasix 40 mg IV b.i.d. 16. Lovenox 40 mg subcutaneous daily. 17. DuoNeb. ALLERGIES: 1. CODEINE. 2. LEVOFLOXACIN. SOCIAL HISTORY: No tobacco, ETOH, illicit drug use. FAMILY HISTORY: No history of sudden cardiac or early CAD. REVIEW OF SYSTEMS: As above in HPI. CONSTITUTIONAL: No fevers, chills. PULMONARY: Positive shortness of breath. CARDIOVASCULAR: Chest pain, pleuritic. GASTROINTESTINAL: No vomiting. GENITOURINARY: No hematuria. MUSCULOSKELETAL: Degenerative joint disease. PSYCHIATRIC: Possible psychiatric history. PHYSICAL EXAMINATION: VITAL SIGNS: Temperature of 98.9, blood pressure 145/76, pulse 102, respiratory rate 18, saturating 92%. GENERAL: The patient is sleeping, very easily arousable. NECK: JVP approximately 9 cm water. CHEST: Decreased breath sounds at the bases bilaterally. HEART: Tachycardic, regular rhythm. Normal S1, S2. I/ systolic murmur. Nondisplaced PMI. ABDOMEN: Positive bowel sounds, soft. EXTREMITIES: No pitting edema. Pulses 1+ bilaterally at the posterior tibial. LABORATORIES: As above in HPI with most recently from today: Sodium 137, potassium 3.3, creatinine of 0.97, BUN 11. Troponin negative x3. TSH is 0.954 , within normal limits. White blood cell count of 12.7,platelet count of 428. IMAGING STUDIES: As above in HPI. No further imaging studies for my review at this time. ELECTROCARDIOGRAM: As above in HPI. No further electrocardiograms for my review at this time. IMPRESSION: 1. Chest pain, assess for acute coronary syndrome. Somewhat atypical symptomatology for cardiac etiology at this time and negative troponins x3. 2. Shortness of breath, pleural effusions, assess for congestive heart failure. 3. History of lupus, question any possible connection to the patient's pleural effusions. 4. Possible pneumonia. 5. Labile hypertension. 6. History of splenectomy. 7. History of adnexal mass, benign, status post resection. 8. Leukocytosis. 9. Anemia. 10. Seizure disorder. RECOMMENDATIONS: 1. At this time would maintain the patient on telemetry monitoring to follow rhythm and rate closely. 2. Will follow up the patient's 2D echo done for assessment of ejection fraction, wall motion, rule out any major abnormalities. 3. Continue the patient's Lasix diuresis as tolerated, following strict I's and O's and creatinine to grade diuresis closely. 4. Continue the patient's steroids and anti-inflammatory medications. 5. Pending respiratory consultation. 6. Continue the patient's antibiotics and follow up all culture data. Otherwise, continue the patient's current bronchodilators at this time. 7. Check a fasting lipid panel for general risk stratification and initiate lipid-lowering medication as necessary. Thank you for allowing me to take part in the care of this patient. I will continue to follow along very closely with you with further recommendations to be made as the patient progresses through her inpatient hospital clinical course. Dictated By: SURESH GALLAGHER/NUNU Conf#: [id number] DID#: [id number] CC: MIGUELANGEL PHILIPPE MD;*EndCC* MTDD
[2016-11-30] MEDS: GABAPENTIN 300 MG CAP PO SCH ×2 (20:59→23:25)
[2016-12-01] VITALS (12 sets, daily range): BP systolic 104–126; BP diastolic 56–65; PULSE 85–111; RESP 15–19
[2016-12-01] MEDS: [UNRECOGNIZED DRUG - REMARK] XX SCH ×3 (01:30→16:57)
[2016-12-01] MEDS: ALBUTEROL/IPRATROPIUM (NEB) 3 ML AMP HHN SCH ×4 (02:08→20:32)
[2016-12-01] MEDS: PANTOPRAZOLE (EC) 40 MG TAB PO SCH (05:36)
[2016-12-01] MEDS: FUROSEMIDE 40 MG INJ IV SCH ×2 (05:36→17:43)
[2016-12-01 07:51] LABS: ADD SCAN DIFF NO
[2016-12-01 07:54] LABS: BASOPHILS % 0.3 % (0.0-2.0); EOSINOPHILS # 0.1 10^3/ul (0.0-0.5); EOSINOPHILS % 0.4 % (0.0-7.0); HEMOGLOBIN 12.1 g/dl (12.0-16.0); LYMPHOCYTES # 2.3 10^3/ul (0.8-2.9); LYMPHOCYTES % 18.7 % (15.0-51.0); MEAN CORPUSCULAR HEMOGLOBIN 27.1 pg (29.0-33.0); MEAN CORPUSCULAR VOLUME 87.4 fl (82.0-101.0); MEAN PLATELET VOLUME 12.3 fl (7.4-10.4); MONOCYTE # 1.4 10^3/ul (0.3-0.9); MONOCYTES % 11.3 % (0.0-11.0); NEUTROPHIL # 8.3 10^3/ul (1.6-7.5); PLATELET COUNT 404 10^3/UL (140-415); RED BLOOD COUNT 4.46 10^6/ul (4.20-5.40); RED CELL DISTRIBUTION WIDTH 21.7 % (11.5-14.5)
[2016-12-01 08:09] LABS: POTASSIUM 3.1 mmol/L (3.5-5.1)
[2016-12-01 08:12] LABS: CREATININE 1.01 mg/dl (0.44-1.00)
[2016-12-01 08:13] LABS: CALCIUM 9.3 mg/dl (8.4-10.2)
[2016-12-01 08:34] LABS: CHOL/HDL RATIO 1.9 RATIO
[2016-12-01] MEDS: predniSONE 10 MG TAB PO SCH (08:54)
[2016-12-01] MEDS: ALPRAZOLAM 1 MG TAB PO SCH ×3 (08:54→21:22)
[2016-12-01] MEDS: THIAMINE 100 MG TAB PO SCH (08:54)
[2016-12-01] MEDS: LEVETIRACETAM 500 MG TAB PO SCH ×2 (08:54→21:22)
[2016-12-01] MEDS: CYANOCOBALAMIN 500 MCG TAB PO SCH (08:54)
[2016-12-01] MEDS: HYDROXYCHLOROQUINE 200 MG TAB PO SCH ×2 (08:54→21:22)
[2016-12-01] MEDS: CALCIUM/VITAMIN D (500/200) TAB PO SCH ×2 (08:54→21:22)
[2016-12-01] MEDS: ENOXAPARIN 40 MG/0.4 ML SYG SC SCH (08:56)
[2016-12-01] MEDS: HYDROmorphONE 1 MG/ML SYG IV PRN ×2 (09:01→21:41)
--- NOTE | 2016-12-01 09:33 | RADRPT ---
Vent Rate: 89 bpm RR Interval: 0 msec UT Interval: 150 msec QRS Duration: 94 msec QT Interval: 398 msec QTC Interval: 484 msec P-R-T [place]: 63 - 68 - 74 degrees Normal sinus rhythm Anterior infarct , age undetermined Abnormal ECG Electronically Signed By: Korey Cortez [id number]
[2016-12-01] MEDS: CEFEPIME 1GM/50 ML (PMX) 50 ML IVPB SCH ×2 (10:55→21:21)
[2016-12-01] MEDS: POTASSIUM CHLORIDE (SR) 10 MEQ TAB PO SCH ×2 (11:43→21:23)
--- NOTE | 2016-12-01 14:28 | PN ---
Date/Time of Note Date/Time of Note DATE: 12/01/16 TIME: 14:19 Assessment/Plan VTE Prophylaxis VTE Prophylaxis Intervention: SCD's Lines/Catheters [facility] P[facility] Line Central line still needed: Yes Urinary Cath still in place: No Assessment/Plan Chief Complaint/Hosp Course Assessment/Plan - Acute respiratory failure secondary to bilateral pleural effusion and possible pneumonia. Continue diuresis monitor chest x-ray. - Possible pneumonia, continue cefepime. - COPD, continue bronchodilators. - Systemic lupus erythematosus. Patient has been following up with Dr. Smalls, [facility] managing director as an outpatient. Continue prednisone and Plaquenil. - Hepatitis C, no acute issues. - Status post abdominal surgery in July 2016. Status post surgical wound infection, status post treatment. - Hypokalemia, potassium replaced. Continue to monitor BMP and magnesium. Further recommendations based on clinical course. Plan of care discussed with Dr. Philippe. Problems: Subjective 24 Hr Interval Summary Free Text/Dictation Patient's complaint of complaints of lower extremity muscle spasms, denies any chest pain, complaints of shortness of breath on exertion. Exam/Review of Systems Vital Signs Vitals Vital Signs Date Time Temp Pulse Resp B/P Pulse Ox O2 Delivery O2 Flow Rate FiO2 12/01/16 14:07 100 20 100 Nasal Cannula 3.0 12/01/16 11:27 98.2 109/56 Intake and Output 11/30/16 11/30/16 12/01/16 15:00 23:00 07:00 Intake Total 1200 ml 350 ml Balance 1200 ml 350 ml Exam Constitutional: alert, oriented Psych: no complaints Head: atraumatic, normocephalic Eyes: nl conjunctiva ENMT: nl external ears & nose Neck: supple Respiratory: diminished breath sounds Cardiovascular: nl pulses, regular rate and rhythm Gastrointestinal: non-tender, soft Extremities: normal pulses Neurological: TOWER SUPERVISOR II-XII intact Results Result Diagram: 12/01/16 0700 12/01/16 0700 Results 24 hrs Laboratory Tests Test 12/01/16 05:00 12/01/16 07:00 Troponin I 0.027 White Blood Count 12.0 H Red Blood Count 4.46 Hemoglobin 12.1 Hematocrit 39.0 Mean Corpuscular Volume 87.4 Mean Corpuscular Hemoglobin 27.1 L Mean Corpuscular Hemoglobin Concent 31.0 L Red Cell Distribution Width 21.7 H Platelet Count 404 Mean Platelet Volume 12.3 H Neutrophils % 69.0 Lymphocytes % 18.7 Monocytes % 11.3 H Eosinophils % 0.4 Basophils % 0.3 Nucleated Red Blood Cells % 0.0 Neutrophils # 8.3 H Lymphocytes # 2.3 Monocytes # 1.4 H Eosinophils # 0.1 Basophils # 0.0 Nucleated Red Blood Cells # 0.0 Sodium Level 145 H Potassium Level 3.1 L Chloride Level 101 Carbon Dioxide Level 28 Anion Gap 19 #H Blood Urea Nitrogen 12 Creatinine 1.01 H Glucose Level 91 Calcium Level 9.3 Triglycerides Level 74 Cholesterol Level 112 LDL Cholesterol, Calculated 40 HDL Cholesterol 57 Cholesterol/HDL Ratio 1.9 Medications Medications Current Medications Alprazolam (Xanax) 1 mg TID PO Last administered on 12/01/16 11:42; Admin Dose 1 MG; Start 11/29/16 at 21:00 Calcium/Vitamin D (Oyster Shell/ Vit-D (500/200)) 1 tab BID PO Last administered on 12/01/16 08:54; Admin Dose 1 TAB; Start 11/29/16 at 21:00 Cyanocobalamin (Vitamin B12) 1,000 mcg DAILY PO Last administered on 12/01/16 08:54; Admin Dose 1,000 MCG; Start 11/30/16 at 09:00 Gabapentin (Neurontin) 1,200 mg QHS PO Last administered on 11/30/16 23:25; Admin Dose 1,200 MG; Start 11/29/16 at 21:00 Acetaminophen/ Hydrocodone Bitart ([place] (10/325)) 1 tab QID PRN PO PAIN; Start 11/29/16 at 20:00 Hydroxychloroquine Sulfate (Plaquenil) 200 mg BID PO Last administered on 08:54; Admin Dose 200 MG; Start 11/29/16 at 21:00 Levetiracetam (Keppra) 500 mg BID PO Last administered on 12/01/16 08:54; Admin Dose 500 MG; Start 11/29/16 at 21:00 Pantoprazole (Protonix Tab) 40 mg DAILY@06 PO Last administered on 12/01/16 05 :36; Admin Dose 40 MG; Start 11/30/16 at 06:00 Prednisone (Prednisone) 10 mg DAILY PO Last administered on 12/01/16 08:54; Admin Dose 10 MG; Start 11/30/16 at 09:00 Thiamine HCl (Vitamin B1) 100 mg DAILY PO Last administered on 12/01/16 08:54 ; Admin Dose 100 MG; Start 11/30/16 at 09:00 Miscellaneous Information 1 cap QID XX ; Start 11/29/16 at 21:00; Status UNV Ibuprofen (Motrin) 600 mg Q6 PRN PO FEVER, pain; Start 11/30/16 at 00:00 Hydromorphone HCl (Dilaudid) 1 mg Q4H PRN IV PAIN Last administered on 09:01; Admin Dose 1 MG; Start 11/29/16 at 20:00 Potassium Chloride (Klor-Con 10) 30 meq BID PO Last administered on 12/01/16 11:43; Admin Dose 30 MEQ; Start 11/29/16 at 21:00 Enoxaparin Sodium 40 mg 40 mg DAILY SC Last administered on 12/01/16 08:56; Admin Dose 40 MG; Start 11/29/16 at 20:00 Cefepime HCl (Maxipime 1gm/50 ml (Pmx)) 50 ml @ 100 mls/hr Q12 IVPB Last administered on 12/01/16 10:55; Admin Dose 100 MLS/HR; Start 11/29/16 at 21:00 Miscellaneous Information (*Order Clarification Bulletin) CREON 6000 IS NON FORMULARY ITEM...PHARM... Q8H XX ; Start 11/30/16 at 09:30 Patient Own Medication 6,000 ea QID PO ; Start 12/01/16 at 17:00; Status UNV MARY DAVIDSON Dec 01, 2016 14:28
[2016-12-01] MEDS ORDERED: POTASSIUM CHLORIDE 20 MEQ POWDER FOR ORAL SOLN PO ONE (14:30)
[2016-12-01] MEDS ORDERED: PATIENT'S OWN MEDICATION PO SCH (17:00)
--- NOTE | 2016-12-01 17:38 | CONS ---
Date/Time of Note Date/Time of Note DATE: 12/01/16 TIME: 17:33 Assessment/Plan Assessment/Plan Chief Complaint/Hosp Course 1. Chest pain, assess for acute coronary syndrome. Somewhat atypical symptomatology for cardiac etiology at this time and negative troponins x3. 2. Shortness of breath, pleural effusions, assess for congestive heart failure. Echo this admit with decreased LVEF. Thus systolic CHF acute on chronic likely 3. History of lupus, question any possible connection to the patient's pleural effusions. 4. Possible pneumonia. 5. Labile hypertension. 6. History of splenectomy. 7. History of adnexal mass, benign, status post resection. 8. Leukocytosis. 9. Anemia. 10. Seizure disorder. 11.HCV Recc: -Tele -serial ecg's -Contiue lasix diuresis and follow volume status closely -start low dose AMY afterload reduction as tolerated -Continue steroids/hydroxychloroquine -Continue keppra -Pnding rheum eval Problems: Consultation Date/Type/Reason Admit Date/Time Nov 29, 2016 at 11:04 Initial Consult Date 11/30/2016 Type of Consultation: cardiology Reason for Consultation chest pain/CHF Referring Provider: BRADY SIMON MD Exam/Review of Systems Vital Signs Vitals Vital Signs Date Time Temp Pulse Resp B/P Pulse Ox O2 Delivery O2 Flow Rate FiO2 12/01/16 16:10 96 12/01/16 15:44 98.2 19 104/56 90 12/01/16 14:07 Nasal Cannula 3.0 Intake and Output 11/30/16 11/30/16 12/01/16 15:00 23:00 07:00 Intake Total 1200 ml 350 ml Balance 1200 ml 350 ml Exam Review of Systems: CONSTITUTIONAL: No fevers, chills. PULMONARY: mild sob CARDIOVASCULAR: No current chest pain GASTROINTESTINAL: No nausea/vomiting. GENITOURINARY: No hematuria/dysuria. MUSCULOSKELETAL: No myagias/arthalgias. PSYCHIATRIC: The patient denies depression. NEUROLOGIC: No weakness Constitutional: alert Psych: no complaints Head: normocephalic ENMT: mucosa pink and moist Neck: jvd (9 cm water), supple Respiratory: diminished breath sounds (at bases/B) Cardiovascular: regular rate and rhythm Gastrointestinal: non-tender, soft Musculoskeletal: muscle tone (normal) Extremities: edema (none) Neurological: lethargic, other (No focal deficits) Results Result Diagram: 12/01/16 0700 12/01/16 0700 Results 24 hrs Laboratory Tests Test 12/01/16 05:00 12/01/16 07:00 12/01/16 15:10 Troponin I 0.027 White Blood Count 12.0 H Red Blood Count 4.46 Hemoglobin 12.1 Hematocrit 39.0 Mean Corpuscular Volume 87.4 Mean Corpuscular Hemoglobin 27.1 L Mean Corpuscular Hemoglobin Concent 31.0 L Red Cell Distribution Width 21.7 H Platelet Count 404 Mean Platelet Volume 12.3 H Neutrophils % 69.0 Lymphocytes % 18.7 Monocytes % 11.3 H Eosinophils % 0.4 Basophils % 0.3 Nucleated Red Blood Cells % 0.0 Neutrophils # 8.3 H Lymphocytes # 2.3 Monocytes # 1.4 H Eosinophils # 0.1 Basophils # 0.0 Nucleated Red Blood Cells # 0.0 Sodium Level 145 H Potassium Level 3.1 L Chloride Level 101 Carbon Dioxide Level 28 Anion Gap 19 #H Blood Urea Nitrogen 12 Creatinine 1.01 H Glucose Level 91 Calcium Level 9.3 Triglycerides Level 74 Cholesterol Level 112 LDL Cholesterol, Calculated 40 HDL Cholesterol 57 Cholesterol/HDL Ratio 1.9 Magnesium Level 1.8 Medications Medications Current Medications Alprazolam (Xanax) 1 mg TID PO Last administered on 12/01/16 11:42; Admin Dose 1 MG; Start 11/29/16 at 21:00 Calcium/Vitamin D (Oyster Shell/ Vit-D (500/200)) 1 tab BID PO Last administered on 12/01/16 08:54; Admin Dose 1 TAB; Start 11/29/16 at 21:00 Cyanocobalamin (Vitamin B12) 1,000 mcg DAILY PO Last administered on 12/01/16 08:54; Admin Dose 1,000 MCG; Start 11/30/16 at 09:00 Gabapentin (Neurontin) 1,200 mg QHS PO Last administered on 11/30/16 23:25; Admin Dose 1,200 MG; Start 11/29/16 at 21:00 Acetaminophen/ Hydrocodone Bitart ([place] (10/325)) 1 tab QID PRN PO PAIN; Start 11/29/16 at 20:00 Hydroxychloroquine Sulfate (Plaquenil) 200 mg BID PO Last administered on 08:54; Admin Dose 200 MG; Start 11/29/16 at 21:00 Levetiracetam (Keppra) 500 mg BID PO Last administered on 12/01/16 08:54; Admin Dose 500 MG; Start 11/29/16 at 21:00 Pantoprazole (Protonix Tab) 40 mg DAILY@06 PO Last administered on 12/01/16 05 :36; Admin Dose 40 MG; Start 11/30/16 at 06:00 Prednisone (Prednisone) 10 mg DAILY PO Last administered on 12/01/16 08:54; Admin Dose 10 MG; Start 11/30/16 at 09:00 Thiamine HCl (Vitamin B1) 100 mg DAILY PO Last administered on 12/01/16 08:54 ; Admin Dose 100 MG; Start 11/30/16 at 09:00 Ibuprofen (Motrin) 600 mg Q6 PRN PO FEVER, pain; Start 11/30/16 at 00:00 Hydromorphone HCl (Dilaudid) 1 mg Q4H PRN IV PAIN Last administered on 09:01; Admin Dose 1 MG; Start 11/29/16 at 20:00 Potassium Chloride (Klor-Con 10) 30 meq BID PO Last administered on 12/01/16 11:43; Admin Dose 30 MEQ; Start 11/29/16 at 21:00 Enoxaparin Sodium 40 mg 40 mg DAILY SC Last administered on 12/01/16 08:56; Admin Dose 40 MG; Start 11/29/16 at 20:00 Cefepime HCl (Maxipime 1gm/50 ml (Pmx)) 50 ml @ 100 mls/hr Q12 IVPB Last administered on 12/01/16 10:55; Admin Dose 100 MLS/HR; Start 11/29/16 at 21:00 Miscellaneous Information (*Order Clarification Bulletin) CREON 6000 IS NON FORMULARY ITEM...PHARM... Q8H XX ; Start 11/30/16 at 09:30 Non-Formulary Medication 1 ea QID PO ; Start 12/01/16 at 17:00 SURESH RICHARDSON Dec 01, 2016 17:38
--- NOTE | 2016-12-01 17:55 | CONS ---
DATE OF ADMISSION: 11/29/2016 DATE OF CONSULTATION: 12/01/2016 TYPE OF CONSULTATION: Pulmonary REASON FOR CONSULTATION: Shortness of breath. Thank you, Dr. Philippe, for this consultation. HISTORY OF PRESENT ILLNESS: This is a 56-year-old lady with multiple medical problems, originally a dmitted on 11/29/2016 with increasing chest pain, shortness of breath, dyspnea. Found to have evide nce of congestive cardiac failure with pleural effusions from bibasilar atelectasis. The patient is a poor historian, unable to give me significant further details. PAST MEDICAL HISTORY: Includes hepatitis C, seizure disorder, lupus erythematosus, pelvic adnexal m ass which was removed and negative for malignancy, history of small bowel resection with anastomosis , right salpingo-oophorectomy, right ureteral dissection REVIEW OF SYSTEMS: Currently complains of no chest pain, palpitations, fever, or chills. No orthop lloyd. She does have mild PND. CT angiogram was negative for pulmonary embolus. BNP was elevated at 11,000. MEDICATIONS: Per chart. ALLERGIES: CODEINE, LEVOFLOXACIN AND LORAZEPAM. SOCIAL HISTORY: The patient has an extensive tobacco history, up until this admission. PHYSICAL EXAMINATION: GENERAL: A thin, elderly-appearing lady, comfortable at rest, no acute distress. VITAL SIGNS: Temperature 98, pulse 96, blood pressure 104/56, O2 saturation 96% on 3 L nasal cannul a. NECK: Supple. No JVD or lymphadenopathy. CARDIAC: S1, S2, no added sounds or murmurs. CHEST: Diminished air entry bilaterally. ABDOMEN: Soft, nontender. No guarding or rebound. EXTREMITIES: No cyanosis, clubbing, or edema. NEUROLOGIC: Generalized weakness. LABORATORY DATA: White count 12, hemoglobin 12.1, platelets 404. Chemistry: BUN 12, creatinine 1. 01. INR was 1.14. Chest x-ray was reviewed, showed mild congestive cardiac failure, bilateral pleural effusions. IMPRESSION AND PLAN: 1. Dyspnea, likely secondary to congestive heart failure with pleural effusions. 2. History of SLE. 3. Recent extensive bowel surgery. 4. Possible cardiomyopathy. The patient should have a repeat chest x-ray in the a.m. Continue basic labs. Continue diuretics. Consider echocardiogram with Cardiology recommendations. In addition, she needs advice on smoking cessation. Outpatient pulmonary function testing would be advisable. Dictated By: SRINIVAS SHERMAN/NUNU Conf#: [id number] DID#: [id number]
--- NOTE | 2016-12-01 18:23 | RADRPT ---
Echocardiogram Report Patient Name: YUNG VELEZ Gender: Female Date: 1960 Study Date: 30-Nov-2016 Pmp: [facility] Location: 5549 Ref. Physician: BRADY SIMON Quality: Adequate Procedures: Transthoracic echocardiogram with complete 2D, M-Mode, and doppler examination. Indications: Chest Pain. 2D/M Mode Doppler Measurement Value Normal Ranges Measurement Value Normal Ranges LVIDd 2D 4.6 3.5 - 5.6 cm SOPHIE Vmax 2.1 cm2 LVIDs 2D 3.2 2.1 - 4.1 cm SOPHIE VTI 2.1 cm2 FS 2D 31.0 % AV Mean Magdy 1.6 m/sec LVPWd 2D 0.8 0.6 - 1.1 cm AV Mean PG 11.0 mmHg IVSd 2D 0.8 0.6 - 1.1 cm AV Peak Magdy 2.2 m/sec IVS/LVPW 2D 1.0 AV Peak PG 19.0 mmHg AoR Diam 2D 2.1 2.0 - 3.7 cm AV VTI 39.2 cm LA/Ao 2D 1 0 - 1 LVOT Mean Magdy 1.0 m/sec EDV 2D 98.0 cm3 LVOT Mean PG 4.0 mmHg ESV 2D 32.2 cm3 LVOT Peak Magdy 1.3 m/sec LA Dimen 2D 2.9 2.3 - 4.0 cm LVOT Peak PG 7.0 mmHg LVOT Diam 2.1 cm LVOT VTI 23.5 cm LVOT Area 3.5 cm2 MV E Peak Magdy 0.7 m/sec MV A Peak Magdy 0.5 m/sec MV E/A 1.6 MV Decel Time 169 msec MV E/A 1.6 TR Peak Magdy 2.7 m/sec TR Peak PG 30.0 mmHg RVSP 33.0 mmHg Findings Left Ventricle: Normal left ventricular cavity size. Normal left ventricular wall thickness. Moderate global left ventricular systolic dysfunction. Ejection fraction is visually estimated at 3540 %. Right Ventricle: Normal right ventricular size. Normal right ventricular systolic function. Left Atrium: The left atrium is normal in size. Right Atrium: The right atrium is normal in size. Mitral Valve: Mitral valve leaflets appear mildly thickened. Mild mitral annular calcification. Trace mitral regurgitation. Aortic Valve: Normal appearance of the aortic valve. No significant aortic stenosis or insufficiency. Tricuspid Valve: Normal appearance of the tricuspid valve. Estimated peak PA systolic pressure 33 mmHg. There is mild to moderate tricuspid regurgitation. Pulmonic Valve: Pulmonic valve not well visualized. Pericardium: Normal pericardium with no significant pericardial effusion. Aorta: Normal aortic root. IVC: Normal size and normal respiratory collapse consistent with normal right atrial pressure. Conclusions 1.Normal left ventricular cavity size. Normal left ventricular wall thickness. Moderate global left ventricular systolic dysfunction. Ejection fraction is visually estimated at 35-40 %. 2.Mitral valve leaflets appear mildly thickened. Mild mitral annular calcification. Trace mitral regurgitation. 3.Normal appearance of the tricuspid valve. Estimated peak PA systolic pressure 33 mmHg. There is mild to moderate tricuspid regurgitation. Electronically Signed By: Agusto Angel 01-Dec-2016 18:22:11 -0700 Patient Name: YUNG VELEZ Study Date: 30-Nov-2016 [id number]
[2016-12-01] MEDS: GABAPENTIN 300 MG CAP PO SCH (21:23)
[2016-12-02] VITALS (12 sets, daily range): BP systolic 97–119; BP diastolic 54–73; PULSE 75–101; RESP 16–18
[2016-12-02] MEDS: [UNRECOGNIZED DRUG - REMARK] XX SCH ×4 (00:55→20:58)
[2016-12-02] MEDS: ALBUTEROL/IPRATROPIUM (NEB) 3 ML AMP HHN SCH ×4 (02:30→20:24)
[2016-12-02] MEDS: PANTOPRAZOLE (EC) 40 MG TAB PO SCH (06:25)
[2016-12-02] MEDS: FUROSEMIDE 40 MG INJ IV SCH ×2 (06:25→18:04)
[2016-12-02 07:35] LABS: ADD SCAN DIFF NO
[2016-12-02 07:43] LABS: BASOPHIL # 0.1 10^3/ul (0.0-0.1); BASOPHILS % 0.4 % (0.0-2.0); EOSINOPHILS # 0.2 10^3/ul (0.0-0.5); EOSINOPHILS % 1.4 % (0.0-7.0); HEMATOCRIT 39.3 % (37.0-47.0); HEMOGLOBIN 11.7 g/dl (12.0-16.0); LYMPHOCYTES # 1.7 10^3/ul (0.8-2.9); LYMPHOCYTES % 14.8 % (15.0-51.0); MEAN CORPUSCULAR HEMOGLOBIN 26.4 pg (29.0-33.0); MEAN CORPUSCULAR HGB CONC 29.8 g/dl (32.0-37.0); MEAN CORPUSCULAR VOLUME 88.7 fl (82.0-101.0); MEAN PLATELET VOLUME 12.2 fl (7.4-10.4); MONOCYTE # 0.9 10^3/ul (0.3-0.9); MONOCYTES % 7.5 % (0.0-11.0); NEUTROPHIL # 8.9 10^3/ul (1.6-7.5); NEUTROPHILS % 75.5 % (39.0-77.0); PLATELET COUNT 446 10^3/UL (140-415); RED BLOOD COUNT 4.43 10^6/ul (4.20-5.40); RED CELL DISTRIBUTION WIDTH 21.5 % (11.5-14.5); WHITE BLOOD COUNT 11.8 10^3/ul (4.8-10.8)
[2016-12-02 08:03] LABS: CALCIUM 9.5 mg/dl (8.4-10.2); CREATININE 0.92 mg/dl (0.44-1.00); POTASSIUM 4.6 mmol/L (3.5-5.1)
[2016-12-02] MEDS: predniSONE 10 MG TAB PO SCH (08:47)
[2016-12-02] MEDS: POTASSIUM CHLORIDE (SR) 10 MEQ TAB PO SCH ×2 (08:47→20:57)
[2016-12-02] MEDS: THIAMINE 100 MG TAB PO SCH (08:47)
[2016-12-02] MEDS: CYANOCOBALAMIN 500 MCG TAB PO SCH (08:47)
[2016-12-02] MEDS: ALPRAZOLAM 1 MG TAB PO SCH ×3 (08:48→20:58)
[2016-12-02] MEDS: CALCIUM/VITAMIN D (500/200) TAB PO SCH ×2 (08:48→20:58)
[2016-12-02] MEDS: LEVETIRACETAM 500 MG TAB PO SCH ×2 (08:48→20:57)
[2016-12-02] MEDS: LISINOPRIL 5 MG TAB PO SCH (08:49)
[2016-12-02] MEDS: HYDROmorphONE 1 MG/ML SYG IV PRN ×4 (08:57→22:23)
[2016-12-02] MEDS: ENOXAPARIN 40 MG/0.4 ML SYG SC SCH (09:03)
--- NOTE | 2016-12-02 09:27 | RADRPT ---
PROCEDURE: Chest x-ray CLINICAL INDICATION: Shortness of breath TECHNIQUE: Chest single view COMPARISON: 11/29/2016 FINDINGS: Left arm PICC line remains in good position. Stable mild cardiomegaly and atherosclerotic aortic ca lcification. There is interval resolution of CHF and resolution of bilateral pleural effusions. Mi nimal linear atelectasis remains in the lung bases. IMPRESSION: 1. Interval resolution of CHF and bilateral pleural effusions. 2. Minimal linear basilar atelectasis. 3. Left arm PICC line RPTAT: HH .Bobby Bhat MD, Date Time Electronically viewed and signed by .Bobby Bhat MD, on 12/02/2016 09:27 .W/
[2016-12-02] MEDS: HYDROXYCHLOROQUINE 200 MG TAB PO SCH ×2 (09:59→20:58)
[2016-12-02] MEDS: CEFEPIME 1GM/50 ML (PMX) 50 ML IVPB SCH ×2 (11:31→21:00)
--- NOTE | 2016-12-02 14:53 | CONS ---
Date/Time of Note Date/Time of Note DATE: 12/02/16 TIME: 14:51 Assessment/Plan Assessment/Plan Additional Assessment/Plan 1. Chest pain, assess for acute coronary syndrome. Somewhat atypical symptomatology for cardiac etiology at this time and negative troponins x3- R/o [place], doubt ischemia. 2. Shortness of breath, pleural effusions, assess for congestive heart failure. Echo this admit with decreased LVEF. Thus systolic CHF acute on chronic likely 3. History of lupus, question any possible connection to the patient's pleural effusions- pulmonary to follow. 4. Possible pneumonia - on anti-Bx 5. Labile hypertension - stable now 6. History of splenectomy. 7. History of adnexal mass, benign, status post resection. 8. Leukocytosis. 9. Anemia. 10. Seizure disorder. 11.HCV Consultation Date/Type/Reason Admit Date/Time Nov 29, 2016 at 11:04 Initial Consult Date Type of Consultation: cardiology Referring Provider: BRADY SIMON MD 24 HR Interval Summary Free Text/Dictation NO acute events - BP stable - in good fluid status, con't med rx as needed. ROS: No fever, no chills, no nausea, no vomiting, no diarrhea/constipation No recent weight changes No chest pain, no PND, no orthopnea No dizziness, blurred vision No thirst, no heat or cold intolerance + SOB Exam/Review of Systems Vital Signs Vitals Vital Signs Date Time Temp Pulse Resp B/P Pulse Ox O2 Delivery O2 Flow Rate FiO2 12/02/16 12:07 99.0 100 18 103/63 90 12/02/16 02:31 Nasal Cannula 3.0 Intake and Output 12/01/16 12/01/16 12/02/16 15:00 23:00 07:00 Intake Total 1050 ml 1800 ml Output Total 1200 ml Balance -150 ml 1800 ml Exam General: WN/WD/NAD, AOx 3 HEENT: Unicetric/atraumatic/EOMI (follow commands) NECK: JVD elevated, no thyromegaly Lymph: no lymphadenopathy HEART: regular with no S3, II/ systolic murmur at apex LUNGS: Coarse sounds, decreased on side ABD: soft, NT, ND, +BS : Intact Neuro: non focal SKIN: chronic changes EXT: trace edema Results Result Diagram: 4/22/17 0520 4/22/17 0520 Results 24 hrs Laboratory Tests Test 12/01/16 15:10 12/02/16 05:20 Magnesium Level 1.8 White Blood Count 11.8 H Red Blood Count 4.43 Hemoglobin 11.7 L Hematocrit 39.3 Mean Corpuscular Volume 88.7 Mean Corpuscular Hemoglobin 26.4 L Mean Corpuscular Hemoglobin Concent 29.8 L Red Cell Distribution Width 21.5 H Platelet Count 446 H Mean Platelet Volume 12.2 H Neutrophils % 75.5 Lymphocytes % 14.8 L Monocytes % 7.5 Eosinophils % 1.4 Basophils % 0.4 Nucleated Red Blood Cells % 0.0 Neutrophils # 8.9 H Lymphocytes # 1.7 Monocytes # 0.9 Eosinophils # 0.2 Basophils # 0.1 Nucleated Red Blood Cells # 0.0 Sodium Level 138 Potassium Level 4.6 Chloride Level 103 Carbon Dioxide Level 27 Anion Gap 13 Blood Urea Nitrogen 12 Creatinine 0.92 Glucose Level 91 Calcium Level 9.5 Medications Medications Current Medications Alprazolam (Xanax) 1 mg TID PO Last administered on 12/02/16 12:59; Admin Dose 1 MG; Start 11/29/16 at 21:00 Calcium/Vitamin D (Oyster Shell/ Vit-D (500/200)) 1 tab BID PO Last administered on 12/02/16 08:48; Admin Dose 1 TAB; Start 11/29/16 at 21:00 Cyanocobalamin (Vitamin B12) 1,000 mcg DAILY PO Last administered on 12/02/16 08:47; Admin Dose 1,000 MCG; Start 11/30/16 at 09:00 Gabapentin (Neurontin) 1,200 mg QHS PO Last administered on 12/01/16 21:23; Admin Dose 1,200 MG; Start 11/29/16 at 21:00 Acetaminophen/ Hydrocodone Bitart ([place] (10/325)) 1 tab QID PRN PO PAIN; Start 11/29/16 at 20:00 Hydroxychloroquine Sulfate (Plaquenil) 200 mg BID PO Last administered on 09:59; Admin Dose 200 MG; Start 11/29/16 at 21:00 Levetiracetam (Keppra) 500 mg BID PO Last administered on 12/02/16 08:48; Admin Dose 500 MG; Start 11/29/16 at 21:00 Pantoprazole (Protonix Tab) 40 mg DAILY@06 PO Last administered on 12/02/16 06 :25; Admin Dose 40 MG; Start 11/30/16 at 06:00 Prednisone (Prednisone) 10 mg DAILY PO Last administered on 12/02/16 08:47; Admin Dose 10 MG; Start 11/30/16 at 09:00 Thiamine HCl (Vitamin B1) 100 mg DAILY PO Last administered on 12/02/16 08:47 ; Admin Dose 100 MG; Start 11/30/16 at 09:00 Ibuprofen (Motrin) 600 mg Q6 PRN PO FEVER, pain; Start 11/30/16 at 00:00 Hydromorphone HCl (Dilaudid) 1 mg Q4H PRN IV PAIN Last administered on 13:00; Admin Dose 1 MG; Start 11/29/16 at 20:00 Potassium Chloride (Klor-Con 10) 30 meq BID PO Last administered on 12/02/16 08:47; Admin Dose 30 MEQ; Start 11/29/16 at 21:00 Enoxaparin Sodium 40 mg 40 mg DAILY SC Last administered on 12/02/16 09:03; Admin Dose 40 MG; Start 11/29/16 at 20:00 Cefepime HCl (Maxipime 1gm/50 ml (Pmx)) 50 ml @ 100 mls/hr Q12 IVPB Last administered on 12/02/16 11:31; Admin Dose 100 MLS/HR; Start 11/29/16 at 21:00 Miscellaneous Information (*Order Clarification Bulletin) CREON 6000 IS NON FORMULARY ITEM...PHARM... Q8H XX Last administered on 12/02/16 10:00; Admin Dose 1 EA; Start 11/30/16 at 09:30 Non-Formulary Medication 1 ea QID PO Last administered on 12/02/16 13:00; Admin Dose 1 EA; Start 12/01/16 at 17:00 Lisinopril (Zestril) 2.5 mg DAILY PO Last administered on 12/02/16 08:49; Admin Dose 2.5 MG; Start 12/02/16 at 09:00 MATI COWART MD Dec 02, 2016 14:53
[2016-12-02] MEDS ORDERED: AL HYDROX/MG HYDROX/SIMETH 30 ML CUP PO PRN (16:00)
[2016-12-02] MEDS ORDERED: ONDANSETRON 4 MG INJ IV PRN (16:00)
--- NOTE | 2016-12-02 19:19 | PN ---
Date/Time of Note Date/Time of Note DATE: 12/02/16 TIME: 19:16 Assessment/Plan VTE Prophylaxis VTE Prophylaxis Intervention: other Lines/Catheters IV [facility] ([facility] PICC Line Central line still needed: Yes Urinary Cath still in place: No Reason Cath still needed: urinary retention Assessment/Plan Assessment/Plan -- Hypokalemia-resolved - Acute respiratory failure secondary to bilateral pleural effusion and possible pneumonia. Continue diuresis monitor chest x-ray. - Possible pneumonia, continue cefepime. - COPD, continue bronchodilators. - Systemic lupus erythematosus. Patient has been following up with Dr. Smalls, recordist chief as an outpatient. Continue prednisone and Plaquenil. - Hepatitis C, no acute issues. - Status post abdominal surgery in July 2016. Status post surgical wound infection, status post treatment. Further recommendations based on clinical course. Plan of care discussed with Dr. Philippe. Subjective 24 Hr Interval Summary Free Text/Dictation nad, resting in bed, afebrile, tolerating diet, no new issues reported from last night. Constitutional: requiring O2 Eyes: no complaints ENT: no complaints Respiratory: shortness of breath Cardiovascular: no complaints Gastrointestinal: no complaints Genitourinary: no complaints Musculoskeletal: no complaints Skin: no complaints Exam/Review of Systems Vital Signs Vitals Vital Signs Date Time Temp Pulse Resp B/P Pulse Ox O2 Delivery O2 Flow Rate FiO2 12/02/16 16:23 94 12/02/16 16:00 98.3 18 110/73 95 12/02/16 15:25 21 12/02/16 02:31 Nasal Cannula 3.0 Intake and Output 12/01/16 12/01/16 12/02/16 15:00 23:00 07:00 Intake Total 1050 ml 1800 ml Output Total 1200 ml Balance -150 ml 1800 ml Exam Constitutional: alert, oriented Psych: nl mood/affect Eyes: EOMI, nl sclera ENMT: nl external ears & nose Neck: non-tender Respiratory: clear to auscultation Cardiovascular: nl pulses Gastrointestinal: non-tender, soft Musculoskeletal: nl extremities to inspection Extremities: normal pulses Neurological: nl speech Skin: other Results Result Diagram: 12/02/16 0520 12/02/16 0520 Results 24 hrs Laboratory Tests Test 12/02/16 05:20 White Blood Count 11.8 H Red Blood Count 4.43 Hemoglobin 11.7 L Hematocrit 39.3 Mean Corpuscular Volume 88.7 Mean Corpuscular Hemoglobin 26.4 L Mean Corpuscular Hemoglobin Concent 29.8 L Red Cell Distribution Width 21.5 H Platelet Count 446 H Mean Platelet Volume 12.2 H Neutrophils % 75.5 Lymphocytes % 14.8 L Monocytes % 7.5 Eosinophils % 1.4 Basophils % 0.4 Nucleated Red Blood Cells % 0.0 Neutrophils # 8.9 H Lymphocytes # 1.7 Monocytes # 0.9 Eosinophils # 0.2 Basophils # 0.1 Nucleated Red Blood Cells # 0.0 Sodium Level 138 Potassium Level 4.6 Chloride Level 103 Carbon Dioxide Level 27 Anion Gap 13 Blood Urea Nitrogen 12 Creatinine 0.92 Glucose Level 91 Calcium Level 9.5 Medications Medications Current Medications Alprazolam (Xanax) 1 mg TID PO Last administered on 12/02/16 12:59; Admin Dose 1 MG; Start 11/29/16 at 21:00 Calcium/Vitamin D (Oyster Shell/ Vit-D (500/200)) 1 tab BID PO Last administered on 12/02/16 08:48; Admin Dose 1 TAB; Start 11/29/16 at 21:00 Cyanocobalamin (Vitamin B12) 1,000 mcg DAILY PO Last administered on 12/02/16 08:47; Admin Dose 1,000 MCG; Start 11/30/16 at 09:00 Gabapentin (Neurontin) 1,200 mg QHS PO Last administered on 12/01/16 21:23; Admin Dose 1,200 MG; Start 11/29/16 at 21:00 Acetaminophen/ Hydrocodone Bitart ([place] (10/325)) 1 tab QID PRN PO PAIN; Start 11/29/16 at 20:00 Hydroxychloroquine Sulfate (Plaquenil) 200 mg BID PO Last administered on 09:59; Admin Dose 200 MG; Start 11/29/16 at 21:00 Levetiracetam (Keppra) 500 mg BID PO Last administered on 12/02/16 08:48; Admin Dose 500 MG; Start 11/29/16 at 21:00 Pantoprazole (Protonix Tab) 40 mg DAILY@06 PO Last administered on 12/02/16 06 :25; Admin Dose 40 MG; Start 11/30/16 at 06:00 Prednisone (Prednisone) 10 mg DAILY PO Last administered on 12/02/16 08:47; Admin Dose 10 MG; Start 11/30/16 at 09:00 Thiamine HCl (Vitamin B1) 100 mg DAILY PO Last administered on 12/02/16 08:47 ; Admin Dose 100 MG; Start 11/30/16 at 09:00 Ibuprofen (Motrin) 600 mg Q6 PRN PO FEVER, pain; Start 11/30/16 at 00:00 Hydromorphone HCl (Dilaudid) 1 mg Q4H PRN IV PAIN Last administered on 18:04; Admin Dose 1 MG; Start 11/29/16 at 20:00 Potassium Chloride (Klor-Con 10) 30 meq BID PO Last administered on 12/02/16 08:47; Admin Dose 30 MEQ; Start 11/29/16 at 21:00 Enoxaparin Sodium 40 mg 40 mg DAILY SC Last administered on 12/02/16 09:03; Admin Dose 40 MG; Start 11/29/16 at 20:00 Cefepime HCl (Maxipime 1gm/50 ml (Pmx)) 50 ml @ 100 mls/hr Q12 IVPB Last administered on 12/02/16 11:31; Admin Dose 100 MLS/HR; Start 11/29/16 at 21:00 Miscellaneous Information (*Order Clarification Bulletin) CREON 6000 IS NON FORMULARY ITEM...PHARM... Q8H XX Last administered on 12/02/16 10:00; Admin Dose 1 EA; Start 11/30/16 at 09:30 Non-Formulary Medication 1 ea QID PO Last administered on 12/02/16 18:03; Admin Dose 1 EA; Start 12/01/16 at 17:00 Lisinopril (Zestril) 2.5 mg DAILY PO Last administered on 12/02/16 08:49; Admin Dose 2.5 MG; Start 12/02/16 at 09:00 Ondansetron HCl (Zofran Inj) 4 mg Q6H PRN IV NAUSEA AND/OR VOMITING Last administered on 12/02/16 16:08; Admin Dose 4 MG; Start 12/02/16 at 16:00 Al Hydrox/Mg Hydrox/Simethicone (Mag-Al Plus) 30 ml Q6H PRN PO GASTROINTESTINAL UPSET Last administered on 12/02/16t 16:08; Admin Dose 30 ML; Start 12/02/16 at 16:00 PATTI OCHOA Dec 02, 2016 19:18
[2016-12-02] MEDS: GABAPENTIN 300 MG CAP PO SCH (20:57)
[2016-12-03] VITALS (10 sets, daily range): BP systolic 95–101; BP diastolic 51–59; PULSE 80–89; RESP 17–19
[2016-12-03] MEDS: ALBUTEROL/IPRATROPIUM (NEB) 3 ML AMP HHN SCH ×3 (03:10→13:43)
[2016-12-03] MEDS: HYDROmorphONE 1 MG/ML SYG IV PRN ×3 (04:18→15:31)
[2016-12-03] MEDS: PANTOPRAZOLE (EC) 40 MG TAB PO SCH (05:53)
[2016-12-03] MEDS: FUROSEMIDE 40 MG INJ IV SCH ×2 (05:54→18:00)
[2016-12-03 08:45] LABS: ADD SCAN DIFF NO
[2016-12-03 08:50] LABS: BASOPHILS % 0.5 % (0.0-2.0); EOSINOPHILS # 0.2 10^3/ul (0.0-0.5); EOSINOPHILS % 2.3 % (0.0-7.0); HEMATOCRIT 39.1 % (37.0-47.0); HEMOGLOBIN 11.8 g/dl (12.0-16.0); LYMPHOCYTES # 1.8 10^3/ul (0.8-2.9); LYMPHOCYTES % 20.4 % (15.0-51.0); MEAN CORPUSCULAR HEMOGLOBIN 26.9 pg (29.0-33.0); MEAN CORPUSCULAR HGB CONC 30.2 g/dl (32.0-37.0); MEAN CORPUSCULAR VOLUME 89.3 fl (82.0-101.0); MEAN PLATELET VOLUME 11.4 fl (7.4-10.4); MONOCYTE # 0.7 10^3/ul (0.3-0.9); MONOCYTES % 8.2 % (0.0-11.0); NEUTROPHILS % 68.4 % (39.0-77.0); PLATELET COUNT 416 10^3/UL (140-415); RED BLOOD COUNT 4.38 10^6/ul (4.20-5.40); RED CELL DISTRIBUTION WIDTH 20.4 % (11.5-14.5); WHITE BLOOD COUNT 8.8 10^3/ul (4.8-10.8)
[2016-12-03] MEDS: POTASSIUM CHLORIDE (SR) 10 MEQ TAB PO SCH (09:00)
[2016-12-03] MEDS: LISINOPRIL 5 MG TAB PO SCH (09:00)
[2016-12-03 09:06] LABS: CALCIUM 9.6 mg/dl (8.4-10.2); CREATININE 0.93 mg/dl (0.44-1.00); POTASSIUM 5.5 mmol/L (3.5-5.1)
[2016-12-03] MEDS: CALCIUM/VITAMIN D (500/200) TAB PO SCH (09:20)
[2016-12-03] MEDS: CYANOCOBALAMIN 500 MCG TAB PO SCH (09:20)
[2016-12-03] MEDS: THIAMINE 100 MG TAB PO SCH (09:20)
[2016-12-03] MEDS: predniSONE 10 MG TAB PO SCH (09:24)
[2016-12-03] MEDS: ALPRAZOLAM 1 MG TAB PO SCH ×2 (09:24→13:00)
[2016-12-03] MEDS: HYDROXYCHLOROQUINE 200 MG TAB PO SCH (09:24)
[2016-12-03] MEDS: CEFEPIME 1GM/50 ML (PMX) 50 ML IVPB SCH (09:25)
[2016-12-03] MEDS: LEVETIRACETAM 500 MG TAB PO SCH (09:25)
[2016-12-03] MEDS: [UNRECOGNIZED DRUG - REMARK] XX SCH ×2 (09:30→17:30)
[2016-12-03] MEDS: ENOXAPARIN 40 MG/0.4 ML SYG SC SCH (09:46)
--- NOTE | 2016-12-03 16:03 | CONS ---
Date/Time of Note Date/Time of Note DATE: 12/03/16 TIME: 16:02 Assessment/Plan Assessment/Plan Additional Assessment/Plan 1. Chest pain, assess for acute coronary syndrome. Somewhat atypical symptomatology for cardiac etiology at this time and negative troponins x3- R/o [place], doubt ischemia. 2. Shortness of breath, pleural effusions, assess for congestive heart failure. Echo this admit with decreased LVEF. Thus systolic CHF acute on chronic likely - con't to remove fluid as tolerated. 3. History of lupus, question any possible connection to the patient's pleural effusions- pulmonary to follow. 4. Possible pneumonia - on anti-Bx 5. Labile hypertension - stable now 6. History of splenectomy. 7. History of adnexal mass, benign, status post resection. 8. Leukocytosis. 9. Anemia- H/H stable 10. Seizure disorder. 11.HCV Consultation Date/Type/Reason Admit Date/Time Nov 29, 2016 at 11:04 Type of Consultation: cardiology Referring Provider: BRADY SIMON MD 24 HR Interval Summary Free Text/Dictation NO acute events. BP stable - feels better today ROS: No fever, no chills, no nausea, no vomiting, no diarrhea/constipation No recent weight changes No chest pain, no PND, no orthopnea - some SOB noted No dizziness, blurred vision No thirst, no heat or cold intolerance Exam/Review of Systems Vital Signs Vitals Vital Signs Date Time Temp Pulse Resp B/P Pulse Ox O2 Delivery O2 Flow Rate FiO2 12/03/16 15:54 98.6 87 17 100/58 90 12/03/16 13:44 21 12/02/16 02:31 Nasal Cannula 3.0 Intake and Output 12/02/16 12/02/16 12/03/16 15:00 23:00 07:00 Intake Total 1200 ml 1000 ml Output Total 1100 ml 800 ml Balance 100 ml 200 ml Exam General: WN/WD/NAD, AOx 2-3 HEENT: Unicetric/atraumatic/EOMI (follow commands) NECK: JVD elevated, no thyromegaly Lymph: no lymphadenopathy HEART: regular with no S3, II/ systolic murmur at apex LUNGS: Coarse sounds ABD: soft, NT, ND, +BS : Intact Neuro: non focal SKIN: chronic changes EXT: trace edema Results Result Diagram: 12/03/16 0810 12/03/16 0810 Results 24 hrs Laboratory Tests Test 12/03/16 08:10 White Blood Count 8.8 # Red Blood Count 4.38 Hemoglobin 11.8 L Hematocrit 39.1 Mean Corpuscular Volume 89.3 Mean Corpuscular Hemoglobin 26.9 L Mean Corpuscular Hemoglobin Concent 30.2 L Red Cell Distribution Width 20.4 H Platelet Count 416 H Mean Platelet Volume 11.4 H Neutrophils % 68.4 Lymphocytes % 20.4 Monocytes % 8.2 Eosinophils % 2.3 Basophils % 0.5 Nucleated Red Blood Cells % 0.0 Neutrophils # 6.0 Lymphocytes # 1.8 Monocytes # 0.7 Eosinophils # 0.2 Basophils # 0.0 Nucleated Red Blood Cells # 0.0 Sodium Level 134 L Potassium Level 5.5 H Chloride Level 100 Carbon Dioxide Level 28 Anion Gap 12 Blood Urea Nitrogen 20 Creatinine 0.93 Glucose Level 103 Calcium Level 9.6 Medications Medications Current Medications Alprazolam (Xanax) 1 mg TID PO Last administered on 12/03/16 09:24; Admin Dose 1 MG; Start 11/29/16 at 21:00 Calcium/Vitamin D (Oyster Shell/ Vit-D (500/200)) 1 tab BID PO Last administered on 12/03/16 09:20; Admin Dose 1 TAB; Start 11/29/16 at 21:00 Cyanocobalamin (Vitamin B12) 1,000 mcg DAILY PO Last administered on 12/03/16 09:20; Admin Dose 1,000 MCG; Start 11/30/16 at 09:00 Gabapentin (Neurontin) 1,200 mg QHS PO Last administered on 12/02/16 20:57; Admin Dose 1,200 MG; Start 11/29/16 at 21:00 Acetaminophen/ Hydrocodone Bitart ([place] (10/325)) 1 tab QID PRN PO PAIN; Start 11/29/16 at 20:00 Hydroxychloroquine Sulfate (Plaquenil) 200 mg BID PO Last administered on 09:24; Admin Dose 200 MG; Start 11/29/16 at 21:00 Levetiracetam (Keppra) 500 mg BID PO Last administered on 12/03/16 09:25; Admin Dose 500 MG; Start 11/29/16 at 21:00 Pantoprazole (Protonix Tab) 40 mg DAILY@06 PO Last administered on 12/03/16 05 :53; Admin Dose 40 MG; Start 11/30/16 at 06:00 Prednisone (Prednisone) 10 mg DAILY PO Last administered on 12/03/16 09:24; Admin Dose 10 MG; Start 11/30/16 at 09:00 Thiamine HCl (Vitamin B1) 100 mg DAILY PO Last administered on 12/03/16 09:20 ; Admin Dose 100 MG; Start 11/30/16 at 09:00 Ibuprofen (Motrin) 600 mg Q6 PRN PO FEVER, pain; Start 11/30/16 at 00:00 Hydromorphone HCl (Dilaudid) 1 mg Q4H PRN IV PAIN Last administered on 15:31; Admin Dose 1 MG; Start 11/29/16 at 20:00 Enoxaparin Sodium 40 mg 40 mg DAILY SC Last administered on 12/03/16 09:46; Admin Dose 40 MG; Start 11/29/16 at 20:00 Cefepime HCl (Maxipime 1gm/50 ml (Pmx)) 50 ml @ 100 mls/hr Q12 IVPB Last administered on 12/03/16 09:25; Admin Dose 100 MLS/HR; Start 11/29/16 at 21:00 Miscellaneous Information (*Order Clarification Bulletin) CREON 6000 IS NON FORMULARY ITEM...PHARM... Q8H XX Last administered on 12/02/16 20:58; Admin Dose 1 EA; Start 11/30/16 at 09:30 Non-Formulary Medication 1 ea QID PO Last administered on 12/03/16 13:00; Admin Dose 1 EA; Start 12/01/16 at 17:00 Lisinopril (Zestril) 2.5 mg DAILY PO Last administered on 12/02/16 08:49; Admin Dose 2.5 MG; Start 12/02/16 at 09:00 Ondansetron HCl (Zofran Inj) 4 mg Q6H PRN IV NAUSEA AND/OR VOMITING Last administered on 12/02/16 16:08; Admin Dose 4 MG; Start 12/02/16 at 16:00 Al Hydrox/Mg Hydrox/Simethicone (Mag-Al Plus) 30 ml Q6H PRN PO GASTROINTESTINAL UPSET Last administered on 12/02/16t 16:08; Admin Dose 30 ML; Start 12/02/16 at 16:00 MATI COWART MD Dec 03, 2016 16:03
--- NOTE | 2016-12-03 18:08 | PN ---
Date/Time of Note Date/Time of Note DATE: 12/03/16 TIME: 17:59 Assessment/Plan VTE Prophylaxis VTE Prophylaxis Intervention: other Lines/Catheters IV C[facility]ter Type (from [facility]): PICC Line Central line still needed: Yes Urinary Cath still in place: No Assessment/Plan Assessment/Plan -- Hypokalemia-resolved - chest pain-none at present -Per Dr. Valdez - Acute respiratory failure secondary to bilateral pleural effusion and possible pneumonia. Continue diuresis monitor chest x-ray. - Possible pneumonia, continue cefepime. - COPD, continue bronchodilators. - Systemic lupus erythematosus. Patient has been following up with Dr. Smalls, cloth tester quality as an outpatient. Continue prednisone and Plaquenil. - Hepatitis C, no acute issues. - Status post abdominal surgery in July 2016. Status post surgical wound infection, status post treatment. Further recommendations based on clinical course. Plan of care discussed with Dr. Philippe. Subjective 24 Hr Interval Summary Free Text/Dictation sitting up in bed, denies any chest pain shortness of breath, dw staff- no new issues reported. Eyes: no complaints ENT: no complaints Respiratory: no complaints Cardiovascular: no complaints Gastrointestinal: no complaints Genitourinary: no complaints Exam/Review of Systems Vital Signs Vitals Vital Signs Date Time Temp Pulse Resp B/P Pulse Ox O2 Delivery O2 Flow Rate FiO2 12/03/16 16:20 84 12/03/16 15:54 98.6 17 100/58 90 12/03/16 13:44 21 12/02/16 02:31 Nasal Cannula 3.0 Intake and Output 12/02/16 12/02/16 12/03/16 15:00 23:00 07:00 Intake Total 1200 ml 1000 ml Output Total 1100 ml 800 ml Balance 100 ml 200 ml Exam Constitutional: alert Psych: nl mood/affect Eyes: EOMI ENMT: nl external ears & nose Neck: non-tender Respiratory: clear to auscultation Cardiovascular: nl pulses Gastrointestinal: non-tender, soft Musculoskeletal: nl extremities to inspection Neurological: nl speech Lymph: nontender Results Result Diagram: 12/03/16 0810 12/03/16 0810 Results 24 hrs Laboratory Tests Test 12/03/16 08:10 White Blood Count 8.8 # Red Blood Count 4.38 Hemoglobin 11.8 L Hematocrit 39.1 Mean Corpuscular Volume 89.3 Mean Corpuscular Hemoglobin 26.9 L Mean Corpuscular Hemoglobin Concent 30.2 L Red Cell Distribution Width 20.4 H Platelet Count 416 H Mean Platelet Volume 11.4 H Neutrophils % 68.4 Lymphocytes % 20.4 Monocytes % 8.2 Eosinophils % 2.3 Basophils % 0.5 Nucleated Red Blood Cells % 0.0 Neutrophils # 6.0 Lymphocytes # 1.8 Monocytes # 0.7 Eosinophils # 0.2 Basophils # 0.0 Nucleated Red Blood Cells # 0.0 Sodium Level 134 L Potassium Level 5.5 H Chloride Level 100 Carbon Dioxide Level 28 Anion Gap 12 Blood Urea Nitrogen 20 Creatinine 0.93 Glucose Level 103 Calcium Level 9.6 Medications Medications Current Medications Alprazolam (Xanax) 1 mg TID PO Last administered on 12/03/16 09:24; Admin Dose 1 MG; Start 11/29/16 at 21:00 Calcium/Vitamin D (Oyster Shell/ Vit-D (500/200)) 1 tab BID PO Last administered on 12/03/16 09:20; Admin Dose 1 TAB; Start 11/29/16 at 21:00 Cyanocobalamin (Vitamin B12) 1,000 mcg DAILY PO Last administered on 12/03/16 09:20; Admin Dose 1,000 MCG; Start 11/30/16 at 09:00 Gabapentin (Neurontin) 1,200 mg QHS PO Last administered on 12/02/16 20:57; Admin Dose 1,200 MG; Start 11/29/16 at 21:00 Acetaminophen/ Hydrocodone Bitart ([address] (10/325)) 1 tab QID PRN PO PAIN; Start 11/29/16 at 20:00 Hydroxychloroquine Sulfate (Plaquenil) 200 mg BID PO Last administered on 09:24; Admin Dose 200 MG; Start 11/29/16 at 21:00 Levetiracetam (Keppra) 500 mg BID PO Last administered on 12/03/16 09:25; Admin Dose 500 MG; Start 11/29/16 at 21:00 Pantoprazole (Protonix Tab) 40 mg DAILY@06 PO Last administered on 12/03/16 05 :53; Admin Dose 40 MG; Start 11/30/16 at 06:00 Prednisone (Prednisone) 10 mg DAILY PO Last administered on 12/03/16 09:24; Admin Dose 10 MG; Start 11/30/16 at 09:00 Thiamine HCl (Vitamin B1) 100 mg DAILY PO Last administered on 12/03/16 09:20 ; Admin Dose 100 MG; Start 11/30/16 at 09:00 Ibuprofen (Motrin) 600 mg Q6 PRN PO FEVER, pain; Start 11/30/16 at 00:00 Hydromorphone HCl (Dilaudid) 1 mg Q4H PRN IV PAIN Last administered on 15:31; Admin Dose 1 MG; Start 11/29/16 at 20:00 Enoxaparin Sodium 40 mg 40 mg DAILY SC Last administered on 12/03/16 09:46; Admin Dose 40 MG; Start 11/29/16 at 20:00 Cefepime HCl (Maxipime 1gm/50 ml (Pmx)) 50 ml @ 100 mls/hr Q12 IVPB Last administered on 12/03/16 09:25; Admin Dose 100 MLS/HR; Start 11/29/16 at 21:00 Miscellaneous Information (*Order Clarification Bulletin) CREON 6000 IS NON FORMULARY ITEM...PHARM... Q8H XX Last administered on 12/02/16 20:58; Admin Dose 1 EA; Start 11/30/16 at 09:30 Non-Formulary Medication 1 ea QID PO Last administered on 12/03/16 13:00; Admin Dose 1 EA; Start 12/01/16 at 17:00 Lisinopril (Zestril) 2.5 mg DAILY PO Last administered on 12/02/16 08:49; Admin Dose 2.5 MG; Start 12/02/16 at 09:00 Ondansetron HCl (Zofran Inj) 4 mg Q6H PRN IV NAUSEA AND/OR VOMITING Last administered on 12/02/16 16:08; Admin Dose 4 MG; Start 12/02/16 at 16:00 Al Hydrox/Mg Hydrox/Simethicone (Mag-Al Plus) 30 ml Q6H PRN PO GASTROINTESTINAL UPSET Last administered on 12/02/16 16:08; Admin Dose 30 ML; Start 12/02/16 at 16:00 PATTI OCHOA Dec 03, 2016 18:08
--- NOTE | 2016-12-03 22:05 | PN ---
Date/Time of Note Date/Time of Note DATE: 12/03/16 TIME: 21:56 Assessment/Plan VTE Prophylaxis VTE Prophylaxis Intervention: LMWH Lines/Catheters [facility] PICC Line Central line still needed: Yes Urinary Cath still in place: No Assessment/Plan Chief Complaint/Hosp Course A-CHF, pulmonary issues, simple granulating wound Problems: Assessment/Plan P- Wound packed with minimally moistened 2x2 and saline and will recheck a.m. Will discuss further with Dr. Philippe concerning wound and fact that relative importance and way to address. Subjective 24 Hr Interval Summary Free Text/Dictation seen earlier and patient noted being anxious to go home and noted being on abx at home several seeks stated for wound. Patient indicated interest in leaving if at all possible. Exam/Review of Systems Vital Signs Vitals Vital Signs Date Time Temp Pulse Resp B/P Pulse Ox O2 Delivery O2 Flow Rate FiO2 12/03/16 16:20 84 12/03/16 15:54 98.6 17 100/58 90 12/03/16 13:44 21 12/02/16 02:31 Nasal Cannula 3.0 Intake and Output 12/02/16 12/02/16 12/03/16 15:00 23:00 07:00 Intake Total 1200 ml 1000 ml Output Total 1100 ml 800 ml Balance 100 ml 200 ml Exam Respiratory: normal air movement Cardiovascular: regular rate and rhythm Additional Comments small 5 mm wound with narrow depth not packed with gauze as patient, family and home nurse were instructed; minimal iodoform or plain gauze inserted and wound covered with air tight gauze/tape. Results Result Diagram: 12/03/16 0810 12/03/16 0810 Results 24 hrs Laboratory Tests Test 12/03/16 08:10 White Blood Count 8.8 # Red Blood Count 4.38 Hemoglobin 11.8 L Hematocrit 39.1 Mean Corpuscular Volume 89.3 Mean Corpuscular Hemoglobin 26.9 L Mean Corpuscular Hemoglobin Concent 30.2 L Red Cell Distribution Width 20.4 H Platelet Count 416 H Mean Platelet Volume 11.4 H Neutrophils % 68.4 Lymphocytes % 20.4 Monocytes % 8.2 Eosinophils % 2.3 Basophils % 0.5 Nucleated Red Blood Cells % 0.0 Neutrophils # 6.0 Lymphocytes # 1.8 Monocytes # 0.7 Eosinophils # 0.2 Basophils # 0.0 Nucleated Red Blood Cells # 0.0 Sodium Level 134 L Potassium Level 5.5 H Chloride Level 100 Carbon Dioxide Level 28 Anion Gap 12 Blood Urea Nitrogen 20 Creatinine 0.93 Glucose Level 103 Calcium Level 9.6 SAMMY ALMANZA MD Dec 03, 2016 22:05
--- NOTE | 2016-12-22 17:16 | DS ---
DATE OF ADMISSION: 11/29/2016 DATE OF DISCHARGE: 12/03/2016 The patient left against medical advice. DIAGNOSES: At the time of the patient leaving AMA: 1. Acute respiratory distress secondary to bilateral pleural effusions. 2. Possible congestive heart failure. 3. Possible pneumonia. 4. Chronic obstructive pulmonary disease. 5. Systemic lupus erythematosus. 6. Hepatitis C. 7. 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 HOSPITAL COURSE: The patient is a 56-year-old female with history of SLE, hepatitis C, history of s eizure disorder, who underwent extensive surgery for pelvic adnexal mass as described above. Pathol ogy was negative for malignancy. The patient does have residual small wound in the abdomen which is being cared by local packing. The patient came to ER with increasing shortness of breath. The pat ient was noted to have a white count of 16.3. ProBNP was elevated. The patient was diagnosed with acute respiratory failure due to congestive heart failure versus underlying pneumonia. The patient did have low-grade temperature. The patient was treated with IV antibiotics. The patient was evalu ated by Dr. Angel from cardiac standpoint, Dr. Arana from pulmonary standpoint and Dr. Mcmahan from [employer] [employer] oncology standpoint. The patient was also given IV diuresis since her EF was noted to be o nly 35% to 40%. The patient improved and on 12/02/2016 was saturating 90% to 95% on room air; how er, the patient did not want to further workup and left against medical advice. Dictated By: BRADY MCGARRY/NTS Conf#: [id number] DID#: [id number]
== END 2016-12-03 18:12 | disposition left against medical advice (07) | DRG 186 ==
LOC: E/R 07:52 → MS4 11:04
PROVIDERS: ADMIT Internal Medicine; ATTEND Internal Medicine
DX: J90 Pleural effusion, not elsewhere classified (principal); J96.00 Acute respiratory failure, unspecified whether with hypoxia or hypercapnia; I50.23 Acute on chronic systolic (congestive) heart failure; J18.9 Pneumonia, unspecified organism; M32.8 Other forms of systemic lupus erythematosus; J44.9 Chronic obstructive pulmonary disease, unspecified; Z79.52 Long term (current) use of systemic steroids; B19.20 Unspecified viral hepatitis C without hepatic coma; E87.6 Hypokalemia; Z90.49 Acquired absence of other specified parts of digestive tract; Z90.79 Acquired absence of other genital organ(s); Z90.721 Acquired absence of ovaries, unilateral; Z90.81 Acquired absence of spleen; G40.909 Epilepsy, unspecified, not intractable, without status epilepticus; D64.9 Anemia, unspecified; Z48.815 Encounter for surgical aftercare following surgery on the digestive system; Z48.01 Encounter for change or removal of surgical wound dressing
CPT/HCPCS: 36415; 71010; 71275; 80048; 80053; 80061; 82550; 82553; 83605; 83690; 83735; 83880; 84443; 84484; 85025; 85610; 85730; 87040; 93005; 93306; 94640; 94664; 96374; 96375; 96376; J0692; J1170; J1650; J1940; J2270; J2405; J2543; J3370; J7040; J7512; Q9967

== ENCOUNTER 2017-01-25 07:03 | Emergency (ER) | payer OTHER ==
[~2017-01-25] VITALS: Ht 154.9 cm; Wt 47.0 kg
[~2017-01-25 07:03] MED LIST changes: -Amikacin Iv Per Pharmacy XX; -METR500P3 IV; -Vancomycin Oral Syringe PO; -[UNRECOGNIZED DRUG - CODE] IV
[2017-01-25 07:07] VITALS: Ht 154.9 cm; Wt 47.0 kg
[2017-01-25 08:27] LABS: ADD SCAN DIFF NO
[2017-01-25 08:39] LABS: BASOPHIL # 0.1 10^3/ul (0.0-0.1); BASOPHILS % 0.4 % (0.0-2.0); EOSINOPHILS # 0.1 10^3/ul (0.0-0.5); EOSINOPHILS % 0.6 % (0.0-7.0); HEMATOCRIT 44.1 % (37.0-47.0); HEMOGLOBIN 13.9 g/dl (12.0-16.0); LYMPHOCYTES # 1.7 10^3/ul (0.8-2.9); LYMPHOCYTES % 14.8 % (15.0-51.0); MEAN CORPUSCULAR HEMOGLOBIN 27.2 pg (29.0-33.0); MEAN CORPUSCULAR HGB CONC 31.5 g/dl (32.0-37.0); MEAN CORPUSCULAR VOLUME 86.3 fl (82.0-101.0); MEAN PLATELET VOLUME 10.8 fl (7.4-10.4); MONOCYTES % 8.3 % (0.0-11.0); NEUTROPHIL # 8.7 10^3/ul (1.6-7.5); NEUTROPHILS % 75.6 % (39.0-77.0); PLATELET COUNT 328 10^3/UL (140-415); RED BLOOD COUNT 5.11 10^6/ul (4.20-5.40); RED CELL DISTRIBUTION WIDTH 20.7 % (11.5-14.5); WHITE BLOOD COUNT 11.5 10^3/ul (4.8-10.8)
[2017-01-25 09:02] LABS: ALBUMIN 4.8 g/dl (3.3-4.9); ALBUMIN/GLOBULIN RATIO 1.5; CALCIUM 9.8 mg/dl (8.4-10.2); CREATININE 0.86 mg/dl (0.44-1.00); POTASSIUM 4.3 mmol/L (3.5-5.1)
[2017-01-25] MEDS ORDERED: IOHEXOL 300MG/ML 150 ML BTL ONE (09:23)
[2017-01-25] MEDS ORDERED: SOD CHLORIDE 0.9% 100 ML ONE (09:23)
[2017-01-25 09:51] LABS: INR 0.95; PROTIME 12.7 Sec (12.2-14.2)
[2017-01-25 09:52] LABS: PARTIAL THROMBOPLASTIN TIME 27.5 Sec (25.0-35.0)
--- NOTE | 2017-01-25 10:23 | RADRPT ---
PROCEDURE: CT Abdomen and Pelvis with contrast. CLINICAL INDICATION: Abdomen and pelvis pain. Bloody vaginal discharge. History of hysterectomy s plenectomy, and bowel surgery. TECHNIQUE: CT scan of the abdomen and pelvis with contrast was performed. The patient was scanned following the uncomplicated intravenous administration of 90 cc of Omnipaque-300. Coronal and sagit melissa reformatted images were obtained from the axial source images. Images were reviewed on a [employer] PACS workstation. Total exam DLP is 229.78 mGy-cm. CTDIvol is 4.62 mGy. One or more of t he following dose reduction techniques were used: Automated exposure control, adjustment of the mA a nd/or kV according to patient size, use of iterative reconstruction technique. COMPARISON: 09/08/2016 FINDINGS: The lung bases are normal. There is no pleural effusion. The liver is normal in size and attenuation. There is no focal hepatic lesion. Multiple gallstones are present in the gallbladder. There is no evidence of cholecystitis. The miranda e ducts are normal. The spleen is surgically absent. Surgical clips are present in the left upper quadrant of the abdom en. Both adrenals are normal with no enlargement or mass. The pancreas is unremarkable with no mass or evidence of pancreatitis. Both kidneys demonstrate normal contrast enhancement. There is no solid renal mass or hydronephros is. There are small benign left renal cysts. The abdominal aorta is not dilated. Vascular calcifications are present consistent with atheroscler osis. There is no retroperitoneal lymphadenopathy or mass. There is no pelvic lymphadenopathy or mass. The bladder and distal ureters are normal. The periappendiceal region is unremarkable with no evidence of appendicitis. There has been prior surgery with midline abdominal wound and small amount of gas in the subcutaneou s adipose tissues in the umbilical region. There is a small abscess anteriorly in the midline pelvis measuring 1.5 x 2.1 cm on image 3-120, smaller than seen previously. There is no free fluid or free gas. There are healing fractures of the right superior and inferior pubic rami as well as the right side of symphysis pubis. There are also healing fractures of the right side of the sacroiliac joint and left side of sacrum. The fractures of the pelvis were not present on 09/08/2016. There is no other fracture or lytic lesion. IMPRESSION: 1. Gallstones in the gallbladder. No evidence of cholecystitis. 2. Status post splenectomy. 3. Small benign left renal cysts. 4. Atherosclerosis. 5. Prior surgery with small amount of gas in the subcutaneous adipose tissues in the umbilical marichuy on. 6. Small 1.5 x 2.1 cm abscess anteriorly in the midline pelvis, smaller than seen previously. 7. Healing fractures of the right side of pelvis and left side of sacrum. 8. No other new abnormality. RPTAT: QQ .Phillip Guzman MD, MD Date Time Electronically viewed and signed by .Phillip Guzman MD, MD on 01/25/2017 10:23 .R/
[2017-01-25 11:03] LABS: ADD UMIC YES; UR BILIRUBIN (Dip) NEGATIVE (NEGATIVE); UR BLOOD (Dip) 2+ (NEGATIVE); UR CLARITY CLEAR (CLEAR); UR COLOR LT. YELLOW (YELLOW); UR GLUCOSE (Dip) NEGATIVE (NEGATIVE); UR KETONES (Dip) NEGATIVE (NEGATIVE); UR LEUKOCYTE ESTERASE (Dip) NEGATIVE (NEGATIVE); UR NITRITE (Dip) NEGATIVE (NEGATIVE); UR TOTAL PROTEIN (Dip) NEGATIVE (NEGATIVE); UR UROBILINOGEN (Dip) 0.2 E.U./dL (0.1-1.0)
--- NOTE | 2017-01-25 11:28 | RADRPT ---
PROCEDURE: US Lower extremity Venous. CLINICAL INDICATION: Bilateral lower extremity edema , pain TECHNIQUE: Multiple sonographic images of the bilateral lower extremity deep venous system was obt ained utilizing grayscale, color-flow, compressive sonography and doppler imaging with augmentation. The images were reviewed on a PACS workstation. COMPARISON: None. FINDINGS: There is normal compressibility and flow within the bilateral common femoral, femoral , posterior ti bial and popliteal veins. RPTAT: AA IMPRESSION: No sonographic evidence for deep venous thrombosis. .Jules Ackerman MD, MD Date Time Electronically viewed and signed by .Jules Ackerman MD, on 01/25/2017 11:27 .S/
[2017-01-25 12:06] LABS: UR BACTERIA RARE; URINE RBCS 0-2 /HPF (0)
--- NOTE | 2017-01-25 12:26 | ERD ---
ER Documentation Chief Complaint Date/Time DATE: 01/25/17 TIME: 12:21 Chief Complaint Complains of vag bleed today HPI 57-year-old female patient with a past medical history of hepatitis C, status post hysterectomy, splenectomy, oophorectomy presents to the ED complaining of vaginal bleeding that started 1 week ago. Reports that she has had abdominal pain intermittently for 1 month. States that she also fractured her pelvis in October 2016 but is ambulating without difficulty. States that she had a previous hysterectomy 2002 and had complications and recently had an operation to fix some complications in July 2016. Reports that she has an open draining wound from the surgery on July 2016. States that she has had a few episodes of vaginal bleeding with urination but denies any dysuria, urgency , frequency, flank pain. Denies any vomiting or diarrhea. ROS All systems reviewed and are negative except as per history of present illness. Medications Home Meds Active Scripts Ibuprofen* (Motrin*) 600 Mg Tab, 600 MG PO Q6, #20 TAB Prov:WILMAN TORRES PA-C 11/14/16 Reported Medications Thiamine* (Vitamin B-1*) 100 Mg Tablet, 100 MG PO DAILY, TAB 09/07/16 Calcium Carbonate/Vitamin D3 (Oysco 500+D Tablet) 1 Each Tablet, 1 EACH PO BID, TAB 07/20/16 Cyanocobalamin* (Vitamin B-12*) 1,000 Mcg Tablet.sa, 1000 MCG PO DAILY, TAB 07/20/16 Celecoxib* (Celebrex*) 200 Mg Capsule, 200 MG PO BID, CAP 07/20/16 Levetiracetam* (Levetiracetam*) 500 Mg Tablet, 500 MG PO BID, TAB 07/20/16 Hydrocodone/Acetaminophen (Hammon 10-325 Tablet) 1 Each Tablet, 1 EACH PO QID Y for PAIN, TAB 07/20/16 Pantoprazole* (Protonix*) 40 Mg Tablet.dr, 40 MG PO DAILY, TAB 07/20/16 Gabapentin* (Gabapentin*) 600 Mg Tablet, 1200 MG PO QHS, #60 TAB 07/20/16 Prednisone (Prednisone) 10 Mg Tab, 10 MG PO DAILY, TAB 06/23/16 Bdlxbd-Wenlwkok-Ydzoyvl* (Kael MCGINNIS* 6,000) 6,000 L-19,000-30,000 Unit Capsule.dr , 1 CAP PO QID, CAP 06/23/16 Hydroxychloroquine Sulfate* (Hydroxychloroquine Sulfate*) 200 Mg Tablet, 200 MG PO BID, TAB 05/17/16 Tramadol Hcl* (Ultram*) 50 Mg Tablet, 50 MG PO Q6H Y for PAIN, TAB 05/17/16 Alprazolam* (Xanax*) 1 Mg Tab, 1 MG PO TID 06/26/12 Allergies Allergies: Coded Allergies: levofloxacin (Verified Allergy, Unknown, 11/29/16) codeine (Verified Adverse Reaction, Mild, STOMACH UPSET/NAUSEA, 11/29/16) PMhx/Soc History of Surgery: Yes (hysterectomy,hernia repair) Anesthesia Reaction: No Hx Neurological Disorder: No Hx Respiratory Disorders: Yes (COPD,) Hx Cardiac Disorders: Yes (CHF) Hx Psychiatric Problems: No Hx Miscellaneous Medical Probl: No Hx Alcohol Use: No Hx Substance Use: No Hx Tobacco Use: Yes Smoking Status: Never smoker Physical Exam Vitals Vital Signs Date Time Temp Pulse Resp B/P Pulse Ox O2 Delivery O2 Flow Rate FiO2 01/25/17 13:10 97.8 78 20 122/66 95 Room Air 01/25/17 07:07 96.0 87 20 130/69 95 Physical Exam Const: Vvq-gwm-iuakpxplc, well-nourished. In no acute distress. Head: Atraumatic, normocephalic Eyes: Normal Conjunctiva without injection. No purulent discharge. ENT: Normal external ear, nose. Moist oropharynx without tonsillar exudates. Non -erythematous pharynx. Uvula midline. No drooling. No trismus. Neck: No cervical midline tenderness. Full range of motion. No meningismus. No cervical lymphadenopathy. No JVD. Resp: Clear to auscultation bilaterally. No wheezing, rhonchi, rales, or crackles. No accessory muscle use. No retractions. Cardio: Regular rate and rhythm. No murmurs, rubs or gallops. Abd: Soft, generalized tenderness, non distended. Normal bowel sounds. No palpable masses. No rebound tenderness. No guarding. Negative McBurney's point. Negative psoas sign. Negative obturator sign. 4 cm wound with gauze in place. Spontaneous drainage noted. No surrounding erythema, edema. No fluctuance or induration. Skin: No petechiae or rashes Back: No midline tenderness. No CVA tenderness. Ext: No cyanosis, or edema. Neur: Awake and alert. Normal gait. Normal coordination. Psych: Normal Mood and Affect Result Diagram: 01/25/17 0800 01/25/17 0800 Results 24 hrs Laboratory Tests Test 01/25/17 08:00 01/25/17 08:05 01/25/17 10:45 White Blood Count 11.510^3/ul Red Blood Count 5.1110^6/ul Hemoglobin 13.9g/dl Hematocrit 44.1% Mean Corpuscular Volume 86.3fl Mean Corpuscular Hemoglobin 27.2pg Mean Corpuscular Hemoglobin Concent 31.5g/dl Red Cell Distribution Width 20.7% Platelet Count 51816^3/UL Mean Platelet Volume 10.8fl Neutrophils % 75.6% Lymphocytes % 14.8% Monocytes % 8.3% Eosinophils % 0.6% Basophils % 0.4% Nucleated Red Blood Cells % 0.0/100WBC Neutrophils # 8.710^3/ul Lymphocytes # 1.710^3/ul Monocytes # 1.010^3/ul Eosinophils # 0.110^3/ul Basophils # 0.110^3/ul Nucleated Red Blood Cells # 0.010^3/ul Sodium Level 140mmol/L Potassium Level 4.3mmol/L Chloride Level 105mmol/L Carbon Dioxide Level 25mmol/L Anion Gap 14 Blood Urea Nitrogen 26mg/dl Creatinine 0.86mg/dl Glucose Level 122mg/dl Calcium Level 9.8mg/dl Total Bilirubin 0.0mg/dl Direct Bilirubin 0.00mg/dl Indirect Bilirubin 0.0mg/dl Aspartate Amino Transf (AST/SGOT) 29IU/L Alanine Aminotransferase (ALT/SGPT) 28IU/L Alkaline Phosphatase 167IU/L Total Protein 8.0g/dl Albumin 4.8g/dl Globulin 3.20g/dl Albumin/Globulin Ratio 1.50 Lipase 203U/L Prothrombin Time 12.7Sec Prothrombin Time Ratio 1.0 INR International Normalized Ratio 0.95 Activated Partial Thromboplast Time 27.5Sec Urine Color LT. YELLOW Urine Clarity CLEAR Urine pH 5.5 Urine Specific Burnham 1.010 Urine Ketones NEGATIVE Urine Nitrite NEGATIVE Urine Bilirubin NEGATIVE Urine Urobilinogen 0.2 E.U./dL Urine Leukocyte Esterase NEGATIVE Urine Microscopic RBC 0-2/HPF Urine Microscopic WBC 2-5/HPF Urine Epithelial Cells RARE Urine Bacteria RARE Urine Hemoglobin 2+ Urine Glucose NEGATIVE% Urine Total Protein NEGATIVE Current Medications Medications (Trade) Dose Ordered Sig/Esteban Route PRN Reason Start Time Stop Time Status Last Admin Dose Admin IV Flush 10 ml 10 ml STK-MED ONCE .ROUTE 01/25/17 09:23 01/25/17 12:23 DC 01/25/17 09:23 Sodium Chloride (NS) 100 ml @ ud STK-MED ONCE .ROUTE 01/25/17 09:23 01/25/17 12:23 DC 01/25/17 09:23 Iohexol (Omnipaque 300mg/ ml) 150 ml STK-MED ONCE .ROUTE 01/25/17 09:23 01/25/17 12:23 DC 01/25/17 09:23 Procedures/MDM This is a 57-year-old female patient with a previous history of hepatitis C, lupus, pancreatitis, status post hysterectomy with oophorectomy, splenectomy presents to the ED complaining of vaginal bleeding that started 1 week ago but worsened today. Patient is afebrile and nontoxic-appearing. Patient has normal vital signs. Patient was further worked up with CBC, CMP, lipase, UA, CT of the abdomen and pelvis with contrast. CBC: Leukocytosis 11.5. No e/o anemia. CMP: No e/o severe acidosis, alkalosis, renal failure, diabetic ketoacidosis, liver disease Lipase within normal limits. Urine: No leukocyte esterase, no nitrites, 2+ hematuria. PROCEDURE: CT Abdomen and Pelvis with contrast. CLINICAL INDICATION: Abdomen and pelvis pain. Bloody vaginal discharge. History of hysterectomy splenectomy, and bowel surgery. TECHNIQUE: CT scan of the abdomen and pelvis with contrast was performed. The patient was scanned following the uncomplicated intravenous administration of 90 cc of Omnipaque-300. Coronal and sagittal reformatted images were obtained from the axial source images. Images were reviewed on a high-resolution PACS workstation. Total exam DLP is 229.78 mGy-cm. CTDIvol is 4.62 mGy. One or more of the following dose reduction techniques were used: Automated exposure control, adjustment of the mA and/or kV according to patient size, use of iterative reconstruction technique. COMPARISON: 09/08/2016 FINDINGS: The lung bases are normal. There is no pleural effusion. The liver is normal in size and attenuation. There is no focal hepatic lesion. Multiple gallstones are present in the gallbladder. There is no evidence of cholecystitis. The bile ducts are normal. The spleen is surgically absent. Surgical clips are present in the left upper quadrant of the abdomen. Both adrenals are normal with no enlargement or mass. The pancreas is unremarkable with no mass or evidence of pancreatitis. Both kidneys demonstrate normal contrast enhancement. There is no solid renal mass or hydronephrosis. There are small benign left renal cysts. The abdominal aorta is not dilated. Vascular calcifications are present consistent with atherosclerosis. There is no retroperitoneal lymphadenopathy or mass. There is no pelvic lymphadenopathy or mass. The bladder and distal ureters are normal. The periappendiceal region is unremarkable with no evidence of appendicitis. There has been prior surgery with midline abdominal wound and small amount of gas in the subcutaneous adipose tissues in the umbilical region. There is a small abscess anteriorly in the midline pelvis measuring 1.5 x 2.1 cm on image 3 -120, smaller than seen previously. There is no free fluid or free gas. There are healing fractures of the right superior and inferior pubic rami as well as the right side of symphysis pubis. There are also healing fractures of the right side of the sacroiliac joint and left side of sacrum. The fractures of the pelvis were not present on 09/08/2016. There is no other fracture or lytic lesion. IMPRESSION: 1. Gallstones in the gallbladder. No evidence of cholecystitis. 2. Status post splenectomy. 3. Small benign left renal cysts. 4. Atherosclerosis. 5. Prior surgery with small amount of gas in the subcutaneous adipose tissues in the umbilical region. 6. Small 1.5 x 2.1 cm abscess anteriorly in the midline pelvis, smaller than seen previously. 7. Healing fractures of the right side of pelvis and left side of sacrum. 8. No other new abnormality. PROCEDURE: US Lower extremity Venous. CLINICAL INDICATION: Bilateral lower extremity edema , pain TECHNIQUE: Multiple sonographic images of the bilateral lower extremity deep venous system was obtained utilizing grayscale, color-flow, compressive sonography and doppler imaging with augmentation. The images were reviewed on a PACS workstation. COMPARISON: None. FINDINGS: There is normal compressibility and flow within the bilateral common femoral, femoral , posterior tibial and popliteal veins. RPTAT: AA IMPRESSION: No sonographic evidence for deep venous thrombosis. PROCEDURE: US Lower extremity Venous. CLINICAL INDICATION: Bilateral lower extremity edema , pain TECHNIQUE: Multiple sonographic images of the bilateral lower extremity deep venous system was obtained utilizing grayscale, color-flow, compressive sonography and doppler imaging with augmentation. The images were reviewed on a PACS workstation. COMPARISON: None. FINDINGS: There is normal compressibility and flow within the bilateral common femoral, femoral , posterior tibial and popliteal veins. RPTAT: AA IMPRESSION: No sonographic evidence for deep venous thrombosis. No acute abdomen noted on CT at this time. CT was discussed with Dr. Rasheed. Low suspicion for gastritis, GERD, peptic ulcer disease, cholecystitis, choledocholithiasis, cholangitis, pancreatitis, appendicitis, bowel obstruction , ileus, volvulus, nephrolithiasis, pyelonephritis, hepatitis, perforated viscus , diverticulitis, abdominal hernia, acute abdomen, mesenteric ischemia or other emergent conditions. Low suspicion for DVT, fractures, dislocations, pneumothorax, pulmonary embolism, or other emergent conditions. This case was discussed with my supervising physician, Dr. Rasheed who agreed with the management and discharge pain Follow up with primary care physician in 1-2 days. Instructed patient to return to the ED sooner for any worsening symptoms. Patient's questions were answered. Patient understood and agreed with discharge plan. Patient discharged stable. Departure Diagnosis: Primary Impression: Vaginal bleeding Additional Impression: Abdominal pain Abdominal location: unspecified location Qualified Code: R10.9 - Abdominal pain, unspecified location Condition: Stable Patient Instructions: Abscess Drainage, Abdominal Pain, Unknown Cause, (Female) Referrals: SAMMY MCMAHAN MD [facility] YOU HAVE RECEIVED A MEDICAL SCREENING EXAM AND THE RESULTS INDICATE THAT YOU DO NOT HAVE A CONDITION THAT REQUIRES URGENT TREATMENT IN THE EMERGENCY DEPARTMENT. FURTHER EVALUATION AND TREATMENT OF YOUR CONDITION CAN WAIT UNTIL YOU ARE SEEN IN YOUR DOCTORS OFFICE WITHIN THE NEXT 1-2 DAYS. IT IS YOUR RESPONSIBILITY TO MAKE AN APPOINTMENT FOR FOLOW-UP CARE. IF YOU HAVE A PRIMARY DOCTOR --you should call your primary doctor and schedule an appointment IF YOU DO NOT HAVE A PRIMARY DOCTOR YOU CAN CALL OUR PHYSICIAN REFERRAL HOTLINE AT IF YOU CAN NOT AFFORD TO SEE A PHYSICIAN YOU CAN CHOSE FROM THE FOLLOWING [facility] [address] [facility] [address] [facility] [address] [facility] [address] [facility] [phone] [facility]. [facility] [address] [facility]. [facility] YOU HAVE RECEIVED A MEDICAL SCREENING EXAM AND THE RESULTS INDICATE THAT YOU DO NOT HAVE A CONDITION THAT REQUIRES URGENT TREATMENT IN THE EMERGENCY DEPARTMENT. FURTHER EVALUATION AND TREATMENT OF YOUR CONDITION CAN WAIT UNTIL YOU ARE SEEN IN YOUR DOCTORS OFFICE WITHIN THE NEXT 1-2 DAYS. IT IS YOUR RESPONSIBILITY TO MAKE AN APPOINTMENT FOR FOLOW-UP CARE. IF YOU HAVE A PRIMARY DOCTOR --you should call your primary doctor and schedule and appointment IF YOU DO NOT HAVE A PRIMARY DOCTOR YOU CAN CALL OUR PHYSICIAN REFERRAL HOTLINE AT . IF YOU CAN NOT AFFORD TO SEE A PHYSICIAN YOU CAN CHOSE FROM THE FOLLOWING [facility] INSTITUTIONS: [facility] [address] [place] [address] [facility] [address] [place] [address] [facility] [address] [place] [address] [facility] URGENT CARE/SPECIALTIES CERTIFIED [place] [address] [facility] [address] [place] [address] OFFICE FAX HITESH MURPHY [address] [place], [place] [id number] WEBER GRANGER [address] [place], [place] [id number] JAVIER WALTER [address] [facility], [address], [facility] [address] [address] [address] [facility] [place] [address] [facility] [place] [address] [place] [id number] [address] [facility] [id number] [address] [facility] [facility] [id number], [place] [address] [facility] [address], [facility] [address] [address], [facility] [address] [place] [address] Additional Instructions: FOLLOW UP WITH Dr. Mcmahan today at 2pm for your appointment.Return to this facility if you are not improving as expected - fever, chills, worsening bleeding, abdominal pain. PRADEEP PARKER PA-C Jan 25, 2017 12:26
[2017-01-25 13:10] VITALS: BP 122/66; PULSE 78; RESP 20; TEMP 97.8
== END 2017-01-25 13:10 | disposition home or self-care (01) ==
LOC: FTE 07:03
DX: N93.9 Abnormal uterine and vaginal bleeding, unspecified (principal); R10.84 Generalized abdominal pain; J44.9 Chronic obstructive pulmonary disease, unspecified; I50.9 Heart failure, unspecified; Z87.891 Personal history of nicotine dependence
CPT/HCPCS: 74177; 80053; 81001; 83690; 85025; 85610; 85730; 86850; 86900; 86901; 93970; Q9967; Z7610

== ENCOUNTER 2017-08-20 12:55 | Day surgery (SDC) | END 2017-08-20 16:40 | disposition home or self-care (01) ==

== ENCOUNTER 2017-09-03 12:12 | Day surgery (SDC) | END 2017-09-03 20:00 | disposition home or self-care (01) ==

== ENCOUNTER 2017-12-12 15:23 | Day surgery (SDC) | END 2017-12-12 17:37 | disposition home or self-care (01) ==

== ENCOUNTER 2018-07-08 05:18 | Emergency (ER) | END 2018-07-08 07:33 | disposition home or self-care (01) ==

== ENCOUNTER 2019-04-22 21:48 | Emergency (ER) | payer SELFPAY ==
[~2019-04-22] VITALS: Ht 162.6 cm; Wt 53.6 kg
[~2019-04-22 21:48] MED LIST changes: +AMIT25TA9 PO; +BENZ-6 PO; +CARV3.1260 PO; +CEPH-443 PO; +FER325 PO; +FURO80TA3 PO; +HYDR-3980 PO; -HYDR-902 PO; +LISI-313 PO; +OMEP40CA6 PO; +SULF1TAB31 PO; -TRAM-40 PO; +TRAM50TA PO; +VENTOLIN; +VITAMINS
[2019-04-22 21:50] VITALS: BP 157/67; PULSE 93; RESP 20; Ht 162.6 cm; Wt 53.6 kg
== END 2019-04-23 00:07 | disposition left against medical advice (07) ==
LOC: E/R 21:48
DX: Z53.21 Procedure and treatment not carried out due to patient leaving prior to being seen by health care provider (principal)